=== PATIENT | female | born 1960 ===

== ENCOUNTER 2023-02-24 11:22 | Emergency (ER) | payer OTHER, SELFPAY ==
--- NOTE | 2023-02-24 11:30 | ECG_ITS ---
Test Reason : dizziness Blood Pressure : / mmHG Vent. Rate : 079 BPM Atrial Rate : 079 BPM P-R Int : 140 ms QRS Dur : 066 ms QT Int : 364 ms P-R-T Axes : 082 150 079 degrees QTc Int : 417 ms Normal sinus rhythm Right atrial enlargement Indeterminate axis Pulmonary disease pattern Abnormal ECG No previous ECGs available Referred By: Alma Delia Colin Electronically Signed By:ADALBERTO TANNER MD
--- NOTE | 2023-02-24 11:47 | ED_ITS ---
HPI - Dizziness General Chief Complaint: Dizziness Stated Complaint: Dizziness Time Seen by Provider: 02/24/23 16:59 Source: patient and family (Sister) Mode of arrival: ambulatory History of Present Illness HPI Narrative: 62-year-old female who presents with 1 week of postural related vertigo, she reports that she eats and drinks well denies any associated fever, chills, shortness of breath or chest pain/palpitations and denies any GI or symptoms. Patient states that is primarily whenever she is changing position from leaning over to sitting up. Related Data Home Medications Medication Instructions Recorded Confirmed ibuprofen 600 mg tablet 600 mg PO Q6H PRN pain 01/07/23 Allergies Allergy/AdvReac Type Severity Reaction Status Date / Time Penicillins Allergy Severe Vomiting Verified 02/24/23 11:48 Review of Systems Review of Systems: Pertinent positives and negatives as stated in [facility] Past Medical History Source: nursing notes reviewed Social History Social History Advance Directives: No Advance Directives Information Provided: No Physical Exam Vital Signs: Vital Signs: Last Vital Signs Temp 98 F 02/24/23 11:49 Pulse 70 02/24/23 18:13 Resp 16 02/24/23 18:13 BP 133/60 02/24/23 18:13 Pulse Ox 100 02/24/23 18:13 O2 Del Method Room Air 02/24/23 18:13 BMI result Body Mass Index 19.3 VITAL SIGNS: Reviewed. GENERAL: Frail, in no acute distress. HEAD: Normocephalic/atraumatic EYES: PERRLA, EOMI EARS: Ext canals without abnormality NOSE: Nares patent bilateral OROPHARYNX: no oral lesions noted, posterior pharynx clear NECK: Supple, no adenopathy LUNGS: Normal breath sounds. No adventitious sounds or accessory muscle use. SpO2<98> CARDIOVASCULAR: Regular rate and rhythm without noted murmurs ABDOMEN: Soft, non-tender, non-distended with bowel sounds. MUSCULOSKELETAL: No tenderness, deformities, or effusions noted on gross inspection. EXTREMITIES: No cyanosis, clubbing or edema. SKIN: Inspection of the skin reveals no rashes NEUROLOGIC: Alert and oriented x 4. Strength and sensation to light touch were grossly intact x 4, no facial asymmetry, no pronator drift, cranial nerves 2-12 are grossly intact, heel to kuhn and past pointing are without defect. Course Course Course Narrative: RME - 62 yo female with history of scleroderma, RA, who presents to the ER for evaluation of positional dizziness for the last 1 week. Worse when she bends over. No chest pain or SOB. No other symptoms. VSS in triage. Plan: orthostatics, lab workup, EKG Medical Decision Making Medical Decision Making MDM Narrative: 62-year-old female with vertigo but I suspect is related to postural/hypovolemia but will rule out infection, anemia, electrolyte abnormalities. Patient's orthostatics are noted to be positive. On further discussion patient states that she has had half a bottle of water (12 oz bottle) for the whole day today. I reviewed all investigations and although there is mild thrombocytopenia there are no other acute findings and given the fact that orthostatics are positive I do feel that this is secondary to a hypovolemic state. EKG is without significant findings. I reviewed the urinalysis which is negative for UTI. On review of hematology results it is noted that patient is significantly leukopenic and also platelets are low. 1820: I discussed the case with hematology/oncology who will see the patient in the outpatient setting. Differential Diagnosis Please see the discussion above Consult Healthcare Provider Management of the patient was discussed with: Heel Compressor Please see the discussion above Lab Data Please see the discussion above 02/24/23 11:54 02/24/23 11:54 Labs: Lab Results 02/24/23 02/24/23 02/24/23 Range/Units 11:54 11:54 11:54 WBC 4.3 L (4.8-10.8) X10*3/uL RBC 4.73 (4.20-5.50) X10*6/uL Hgb 12.9 (12.0-16.0) g/dl Hct 41.3 (37.0-47.0) % MCV 87.3 (80.0-98.0) fL MCH 27.3 (27.0-33.0) pg MCHC 31.2 (31.0-35.0) g/dl RDW 13.0 (11.0-16.0) % Plt Count 128 L (160-400) X10*3/uL MPV 14.2 H (9.4-12.3) fL Immature Gran % (Auto) Cancelled Neut % (Auto) Cancelled Lymph % (Auto) Cancelled [place] % (Auto) Cancelled Eos % (Auto) Cancelled Baso % (Auto) Cancelled Lymph # (Auto) Cancelled [place] # (Auto) Cancelled Eos # (Auto) Cancelled Baso # (Auto) Cancelled Abs Immat Gran (auto) Cancelled Absolute Neuts (auto) Cancelled Absolute Nucleated RBC 0.000 (0.0-0.012) X10*3/uL Nucleated RBC % (auto) 0.0 (0.0-0.2) /100WBC Neutrophils % (Manual) 42 L (45-73) % Band Neutrophils % 0 L (3-5) % Lymphocytes % (Manual) 42 H (20-40) % Monocytes % (Manual) 12 H (2-11) % Basophils % (Manual) 4 H (0-2) % Abs Neuts (Manual) 1.8 L (2.0-8.3) X10*3/uL Lymphocytes # (Manual) 1.8 (1.2-4.9) X10*3/uL Monocytes # (Manual) 0.5 (0.1-1.2) X10*3/uL Basophils # (Manual) 0.2 (0.0-0.2) X10*3/uL Platelet Estimate SLIGHTLY DECREASED (NORMAL) Plt Morphology Comment NORMAL RBC Morphology NORMAL Sodium 143 (135-145) mmol/L Potassium 4.8 (3.3-5.1) mmol/L Chloride 104 (96-108) mmol/L Carbon Dioxide 29 (22-29) mmol/L Anion Gap 15 (12-20) BUN 15 (9-16) mg/dL Creatinine 1.10 (0.5-1.4) mg/dL Estim Creat Clear Calc 43.4 Estimated GFR 50 Random Glucose 116 H (60-115) mg/dL Calcium 10.4 H (8.4-10.2) mg/dL Magnesium 2.0 (1.6-2.6) mg/dL Total Bilirubin 0.4 (0.0-1.0) mg/dL Direct Bilirubin 0.1 (0.0-0.5) mg/dL AST 19 (5-31) U/L ALT 11 (0-31) U/L Alkaline Phosphatase 57 (39-117) U/L Troponin I High Sens (<3.5-17.0) ng/L Total Protein 7.3 (6.5-8.0) g/dL Albumin 4.4 (3.5-5.0) g/dL TSH 2.86 (0.32-4.0) uIU/mL Urine Color Urine Appearance Urine pH (5.0-9.0) Ur Specific [place] (1.005-1.025) Urine Protein (Neg-Trace) mg/dL Urine Glucose (UA) (Negative) mg/dL Urine Ketones (Negative) mg/dL Urine Blood (Negative) Urine Nitrite (Negative) Ur Leukocyte Esterase (Negative) 02/24/23 02/24/23 Range/Units 17:13 17:53 WBC (4.8-10.8) X10*3/uL RBC (4.20-5.50) X10*6/uL Hgb (12.0-16.0) g/dl Hct (37.0-47.0) % MCV (80.0-98.0) fL MCH (27.0-33.0) pg MCHC (31.0-35.0) g/dl RDW (11.0-16.0) % Plt Count (160-400) X10*3/uL MPV (9.4-12.3) fL Immature Gran % (Auto) Neut % (Auto) Lymph % (Auto) [place] % (Auto) Eos % (Auto) Baso % (Auto) Lymph # (Auto) [place] # (Auto) Eos # (Auto) Baso # (Auto) Abs Immat Gran (auto) Absolute Neuts (auto) Absolute Nucleated RBC (0.0-0.012) X10*3/uL Nucleated RBC % (auto) (0.0-0.2) /100WBC Neutrophils % (Manual) (45-73) % Band Neutrophils % (3-5) % Lymphocytes % (Manual) (20-40) % Monocytes % (Manual) (2-11) % Basophils % (Manual) (0-2) % Abs Neuts (Manual) (2.0-8.3) X10*3/uL Lymphocytes # (Manual) (1.2-4.9) X10*3/uL Monocytes # (Manual) (0.1-1.2) X10*3/uL Basophils # (Manual) (0.0-0.2) X10*3/uL Platelet Estimate (NORMAL) Plt Morphology Comment RBC Morphology Sodium (135-145) mmol/L Potassium (3.3-5.1) mmol/L Chloride (96-108) mmol/L Carbon Dioxide (22-29) mmol/L Anion Gap (12-20) BUN (9-16) mg/dL Creatinine (0.5-1.4) mg/dL Estim Creat Clear Calc Estimated GFR Random Glucose (60-115) mg/dL Calcium (8.4-10.2) mg/dL Magnesium (1.6-2.6) mg/dL Total Bilirubin (0.0-1.0) mg/dL Direct Bilirubin (0.0-0.5) mg/dL AST (5-31) U/L ALT (0-31) U/L Alkaline Phosphatase (39-117) U/L Troponin I High Sens < 2.7 (<3.5-17.0) ng/L Total Protein (6.5-8.0) g/dL Albumin (3.5-5.0) g/dL TSH (0.32-4.0) uIU/mL Urine Color Yellow Urine Appearance Clear Urine pH 6.0 (5.0-9.0) Ur Specific [place] 1.010 (1.005-1.025) Urine Protein Negative (Neg-Trace) mg/dL Urine Glucose (UA) Negative (Negative) mg/dL Urine Ketones Trace (Negative) mg/dL Urine Blood Negative (Negative) Urine Nitrite Negative (Negative) Ur Leukocyte Esterase Negative (Negative) Independent Interpretation I performed an independent interpretation of an: EKG Interpretation: Normal sinus rhythm, HR-79, no STEMI, AK/QRS/QTC is within normal limits. Discharge Plan Discharge Clinical Impression: Hypovolemia, Dizziness, Leukopenia, Thrombocytopenia Patient Disposition: Home, Self-Care Instructions: Dehydration (ED), Lightheadedness (ED), Thrombocytopenia (ED) Additional Instructions: 1. It is important for you to increase the amount of water that you are drinking, especially as the temperatures go up. 2. I have noted that some of your blood counts are low, to include your platelets, I have provided you with a referral to follow-up with Hematology Oncology, the referrals located below and you should call the office in the morning. 3. Please call the office of your primary care provider in the morning as well. Return to the ER for any worsening symptoms. Prescriptions: No Action ibuprofen 600 mg tablet 600 mg PO Q6H PRN (Reason: pain) Referrals: Keaton Staley MD [Physician] - (62-year-old female with leukopenia, thrombocytopenia) Tracee Valentin MD [Primary Care Provider] -
[2023-02-24 11:49] VITALS: BP 127/66; PULSE 100; RESP 19; TEMP 36.6; O2SAT 98; BMI 19.3
[2023-02-24 12:12] LABS: Hematocrit 41.3 % (37.0-47.0); Hemoglobin 12.9 g/dl (12.0-16.0); Mean Corpuscular HGB Conc 31.2 g/dl (31.0-35.0); Mean Corpuscular Hemoglobin 27.3 pg (27.0-33.0); Mean Corpuscular Volume 87.3 fL (80.0-98.0); Mean Platelet Volume 14.2 fL (9.4-12.3); Red Blood Count 4.73 X10*6/uL (4.20-5.50)
[2023-02-24 12:14] LABS: Platelet Count 128 X10*3/uL (160-400)
[2023-02-24 12:22] LABS: PLT ABN DIST 1; WBC ABN SCTR FOR CBC 1
[2023-02-24 12:23] LABS: Alanine Aminotransferase 11 U/L (0-31); Albumin Level 4.4 g/dL (3.5-5.0); Alkaline Phosphatase 57 U/L (39-117); Anion Gap 15 (12-20); Aspartate Amino Transferase 19 U/L (5-31); Bilirubin Direct 0.1 mg/dL (0.0-0.5); Bilirubin Total 0.4 mg/dL (0.0-1.0); Blood Urea Nitrogen 15 mg/dL (9-16); Calcium 10.4 mg/dL (8.4-10.2); Carbon Dioxide 29 mmol/L (22-29); Chloride 104 mmol/L (96-108); Creatinine Clr Calc Pharmacy 43.4; Estimated Glomerular Filt Rate 50; Glucose Random 116 mg/dL (60-115); Potassium 4.8 mmol/L (3.3-5.1); Sodium 143 mmol/L (135-145); Total Protein 7.3 g/dL (6.5-8.0)
[2023-02-24 12:33] LABS: White Blood Count 4.3 X10*3/uL (4.8-10.8)
[2023-02-24 12:36] LABS: Band Neutrophils Percent 0 % (3-5); Basophils Abs Manual 0.2 X10*3/uL (0.0-0.2); Basophils Percent Manual 4 % (0-2); Lymphocytes Absolute Manual 1.8 X10*3/uL (1.2-4.9); Lymphocytes Percent Manual 42 % (20-40); Monocytes Absolute Manual 0.5 X10*3/uL (0.1-1.2); Monocytes Percent Manual 12 % (2-11); Neutrophils Absolute Manual 1.8 X10*3/uL (2.0-8.3); Neutrophils Percent Manual 42 % (45-73)
[2023-02-24 12:37] LABS: Platelet Estimate SLIGHTLY DECREASED (NORMAL); Platelet Morphology Comment NORMAL; RBC Morphology NORMAL
[2023-02-24 12:43] LABS: TSH reflex Free T4 2.86 uIU/mL (0.32-4.0)
[2023-02-24 16:14] VITALS: BP 132/71; PULSE 88; RESP 19; O2SAT 98
[2023-02-24 17:14] VITALS: BP 131/51; PULSE 79
[2023-02-24 17:15] VITALS: BP 118/60; BP 122/65; PULSE 78; PULSE 87
[2023-02-24 17:16] VITALS: BP 122/65; PULSE 79; RESP 16; O2SAT 98
[2023-02-24 17:39] LABS: Troponin-I High Sensitivity < 2.7 ng/L (<3.5-17.0)
[2023-02-24 18:00] LABS: Appearance Urine Clear; Color Urine Yellow; Glucose Urine UA Negative (Negative); Leukocyte Esterase Urine Negative (Negative); Nitrite Urine Negative (Negative); Urine Blood Negative (Negative); Urine Ketones Trace mg/dL (Negative); Urine Protein Negative (Neg-Trace)
[2023-02-24 18:13] VITALS: BP 133/60; PULSE 70; RESP 16; O2SAT 100
== END 2023-02-24 19:04 | disposition home or self-care (01) ==
PROVIDERS: Physician Assistant; Emergency Provider Student in an Organized Health Care Education/Training Program; PCP Internal Medicine
DX: E86.1 Hypovolemia (principal); R42 Dizziness and giddiness; D72.819 Decreased white blood cell count, unspecified; D69.6 Thrombocytopenia, unspecified; M34.9 Systemic sclerosis, unspecified
CPT/HCPCS: 36415; 80048; 80076; 81003; 83735; 84443; 84484; 85007; 85027; 93005; 99283; 99284

== ENCOUNTER → 2023-03-03 14:08 | Outpatient (BNV) | payer OTHER, SELFPAY | PROVIDERS: PCP Internal Medicine; Visit Provider Internal Medicine Medical Oncology | DX: D69.6 Thrombocytopenia, unspecified (principal) | CPT/HCPCS: 99204; 99213 ==

== ENCOUNTER 2023-03-05 14:22 | Emergency (ER) | payer OTHER, SELFPAY ==
--- NOTE | ~2023-03-05 | XR_ITS ---
EXAMINATION: XR SHOULDER, LEFT CLINICAL INFORMATION: Pain COMPARISON: None available. TECHNIQUE: 5 views of the left shoulder. FINDINGS: No acute visible fracture or dislocation. Mild arthritic changes of the glenohumeral and acromioclavicular joint. Joint spaces and alignment are otherwise maintained. Soft tissues are unremarkable. Visualized portions of the left chest are unremarkable. XR/XR shoulder LT min 2V IMPRESSION: 1. No acute visible fracture or dislocation. 2. Mild arthritic changes of the glenohumeral and acromioclavicular joint.
--- NOTE | ~2023-03-05 | XR_ITS ---
EXAMINATION: XR CHEST CLINICAL INFORMATION: Chest pain COMPARISON: None available. TECHNIQUE: 2 views of the chest were obtained. FINDINGS: No acute finding. The lung guadarrama are felt to be grossly clear. The cardiac silhouette is within normal limits. The hilar structures do not appear pathologically enlarged. There is no effusion. XR/XR chest 2V IMPRESSION: No acute finding.
[2023-03-05 14:31] VITALS: BP 130/78; PULSE 89; RESP 18; TEMP 36.6; O2SAT 99; BMI 19.2
--- NOTE | 2023-03-05 14:33 | ECG_ITS ---
Test Reason : pain Blood Pressure : / mmHG Vent. Rate : 072 BPM Atrial Rate : 072 BPM P-R Int : 144 ms QRS Dur : 068 ms QT Int : 388 ms P-R-T Axes : 083 204 077 degrees QTc Int : 424 ms Normal sinus rhythm Right atrial enlargement Pulmonary disease pattern Abnormal ECG When compared with ECG of 24-FEB-2023 11:54, No significant change was found Referred By: Rj Duong Electronically Signed By:Estevan Keen
--- NOTE | 2023-03-05 14:34 | ED_ITS ---
HPI - General Adult General Chief complaint: General Medical Stated complaint: L shoulder pain, back ache Time Seen by Provider: 03/05/23 15:49 Source: patient and RN notes reviewed Mode of arrival: ambulatory Limitations: no limitations History of Present Illness HPI narrative: This is a 62-year-old female, with a past medical history of thrombocytopenia, scleroderma, and RA, who presents to the emergency department for evaluation of left shoulder pain which started 3 days ago. Patient reports that her left s houlder pain has been episodic, waxing and waning in pain. The pain would last for several minutes and resolve on its own. The pain in her left shoulder worsens with movement and with palpation. She denies any fevers, chills, chest pain, shortness of breath, palpitations, nausea, vomiting, or diarrhea. She denies any trauma or injury to her left shoulder. Denies history of similar symptoms in the past. No other complaints or concerns at this time. MD complaint: Left shoulder pain Onset (ago): day(s) Location: upper extremity Radiation: non-radiation Severity: moderate Quality: aching Pain Consistency: constant Relieving factors: none Exacerbating factors: none Associated symptoms: denies other symptoms Treatments prior to arrival: none Related Data Home Medications Medication Instructions Recorded Confirmed ibuprofen 600 mg tablet 600 mg PO Q6H PRN pain 01/07/23 03/03/23 Previous Rx's Medication Instructions Recorded acetaminophen 325 mg tablet 650 mg PO Q6H PRN pain #30 tabs 03/05/23 (Tylenol) ibuprofen 600 mg tablet 600 mg PO Q8H PRN pain #30 tabs 03/05/23 Allergies Allergy/AdvReac Type Severity Reaction Status Date / Time Penicillins Allergy Severe Vomiting Verified 03/05/23 14:31 Review of Systems Review of Systems: Constitutional: No Weight loss, No Fever, No Chills ENT/Mouth: No Ear Pain, No Nasal Congestion, No Sinus Pain, No Hoarseness, No sore throat, No Rhinorrhea, No Swallowing Difficulty Cardiovascular: No Chest Pain, No SOB Respiratory: No Cough, No Sputum, No Wheezing Gastrointestinal: No Nausea, No Vomiting, No Diarrhea, No Constipation, No Abdominal pain Genitourinary: No Dysuria, No Urinary Frequency, No Hematuria, No Urinary Incontinence/retention, No Urgency, No Flank Pain Musculoskeletal:+ joint pain, No Myalgias, No Joint Swelling Skin: No Skin Lesions, No rash Neuro: No Weakness, No Numbness, No Paresthesias Yes all other systems are reviewed and are negative Constitutional: Constitutional: Reports as per HPI [facility] Family History Family History (Updated 03/03/23 @ 14:21 by Suzi Negro) Mother Breast cancer Maternal Aunt Breast cancer Family/Other Breast cancer Paternal Grandmother Throat cancer Sister Anemia Social History Social History (Updated 03/03/23 @ 14:22 by Suzi Negro) Household Members: Significant Other Patient Tobacco Use Status: Never used Tobacco Second Hand Smoke Exposure: No Advance Directives: No Advance Directives Information Provided: No service: No Current occupational status: retired Physical Exam ED Vital Signs: Vital Signs - 24 hr 03/05/23 14:31 Temperature 97.8 F Pulse Rate 89 Respiratory Rate 18 Blood Pressure 130/78 Pulse Oximetry 99 Oxygen Delivery Method Room Air BMI result Body Mass Index 19.2 Const General: cooperative, comfortable and no acute distress Orientation/consciousness: patient oriented x3 Limitations: no limitations HENIN Head: Yes normal to inspection, Yes normocephalic and Yes atraumatic Ears: hearing grossly normal bilaterally General nose exam: Normal external nose present Face and sinus: Yes normal facial exam Mouth: Normal oral and palatal mucosa present, oropharynx normal and moist mucous membranes Throat: Yes posterior oropharynx normal Eyes General: appearance normal, both eyes and all related structures Eyelids: Yes eyelids normal Conjunctivae: conjunctivae normal Sclerae: sclerae normal Pupils: Equal, round and reactive pupils present EOM: EOMs intact bilaterally Neck Neck: Yes normal visual inspection, Yes full ROM and Yes no lymphadenopathy Lymphatic: no lymphadenopathy noted Chest Chest palpation & inspection: normal inspection of the chest and normal palpation of entire chest wall Resp Effort & Inspection: normal respiratory effort and able to speak in complete sentences Auscultation: clear to auscultation bilaterally, no crackles, no rales, no rh onchi and no wheezes Cardio Rate: regular rate Rhythm: regular rhythm Heart sounds: S1 normal heart sound present and S2 normal heart sound present GI Inspection: Yes normal to inspection Skin General skin exam: no rashes or lesions noted Trauma: no lacerations or abrasions Wounds: no wounds Neuro General: patient oriented x3 and moves all extremities Cranial nerves: Yes Equal, round and reactive pupils present Extrem Other: Left shoulder normal inspection, with tenderness to palpation along the left AC joint, full range of motion of the shoulder with some pain elicited General: Yes normal to inspection Right upper extremity: normal to inspection Left upper extremity: normal to inspection Right lower extremity: normal to inspection Left lower extremity: normal to inspection Course Course Course Narrative: 62-year-old female presents for evaluation of left shoulder pain that goes up into her neck and low back or head. Denies any chest pain or shortness of breath. On exam her trapezius muscle group is tender to palpation. Seems musculoskeletal in origin. Will get an EKG given the age and an x-ray of the left shoulder. Reevaluation(s) Reevaluation #1: Left shoulder with mild arthritic changes in the glenohumeral and AC joint. Chest x-ray unremarkable. EKG normal sinus rhythm, similar appearing EKG from silva menjivar. Negative troponin x1. Given patient's symptoms have been intermittent and last episode was this morning will not repeat 2nd troponin. 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 Discussed with patient her symptoms are likely due to arthritic changes, will treat with ibuprofen and Tylenol, patient given referral to Orthopedics for follow-up. Vital signs stable. Patient is stable for discharge. Time: 19:03 Medications Administered Discontinued Medications Generic Name Dose Route Start Last Admin Trade Name Freq PRN Reason Stop Dose Admin Ibuprofen 600 mg 03/05/23 18:54 03/05/23 19:13 Ibuprofen 600 Mg Tablet PO 03/05/23 18:55 600 mg ONCE ONE Administration Medical Decision Making Medical Decision Making [facility] Narrative: This is a 62-year-old female, with a past medical history of scleroderma, RA, presenting to the emergency department for evaluation of left shoulder pain, atraumatic, for the last 3 days. Patient reports that the symptoms have been episodic and lasts for several to minutes. Denies any chest pain, shortness of breath. Vital signs are stable. EKG with no ST elevation or depression. On examination, patient has tenderness to palpation along the left AC joint and diffusely throughout the left shoulder. Range of motion is full in intact negative empty can test negative lift-off test. I do not suspect cardiac etiology but given episodic left shoulder pain will perform cardiac workup. Plan: Left shoulder x-ray, chest x-ray, labs, EKG ordered Differential Diagnosis Differential Diagnoses: The differential diagnosis associated with the presentation includes Left shoulder arthritis, sprain, strain, tendon injury, ACS Admission/Observation Consideration of admission/observation: Escalation of care including admission/observation considered Lab Data MDM Lab Attestation statement: I reviewed the patient's lab results. 03/05/23 17:12 03/05/23 18:10 Labs: Lab Results 03/05/23 03/05/23 03/05/23 Range/Units 17:00 17:00 17:12 WBC 5.8 (4.8-10.8) X10*3/uL RBC 4.65 (4.20-5.50) X10*6/uL Hgb 12.5 (12.0-16.0) g/dl Hct 39.8 (37.0-47.0) % MCV 85.6 (80.0-98.0) fL MCH 26.9 L (27.0-33.0) pg MCHC 31.4 (31.0-35.0) g/dl RDW 13.1 (11.0-16.0) % Plt Count 143 L (160-400) X10*3/uL MPV 14.5 H (9.4-12.3) fL Immature Gran % (Auto) Cancelled Neut % (Auto) Cancelled Lymph % (Auto) Cancelled [place] % (Auto) Cancelled Eos % (Auto) Cancelled Baso % (Auto) Cancelled Lymph # (Auto) Cancelled [place] # (Auto) Cancelled Eos # (Auto) Cancelled Baso # (Auto) Cancelled Abs Immat Gran (auto) Cancelled Absolute Neuts (auto) Cancelled Absolute Nucleated RBC 0.000 (0.0-0.012) X10*3/uL Nucleated RBC % (auto) 0.0 (0.0-0.2) /100WBC Neutrophils % (Manual) 54 (45-73) % Band Neutrophils % 1 L (3-5) % Lymphocytes % (Manual) 33 (20-40) % Monocytes % (Manual) 9 (2-11) % Basophils % (Manual) 3 H (0-2) % Abs Neuts (Manual) 3.2 (2.0-8.3) X10*3/uL Lymphocytes # (Manual) 1.9 (1.2-4.9) X10*3/uL Monocytes # (Manual) 0.5 (0.1-1.2) X10*3/uL Basophils # (Manual) 0.2 (0.0-0.2) X10*3/uL Toxic Vacuolation PRESENT Platelet Estimate SLIGHTLY DECREASED (NORMAL) Large Platelets PRESENT Plt Morphology Comment NOTED RBC Morphology NOTED Microcytosis 1+ (5-14) /OIF [place] Cells 3+ (>5) /OIF PT 12.0 (10.0-13.1) SEC INR 1.0 (0.9-1.1) Sodium (135-145) mmol/L Potassium (3.3-5.1) mmol/L Chloride (96-108) mmol/L Carbon Dioxide (22-29) mmol/L Anion Gap (12-20) BUN (9-16) mg/dL Creatinine (0.5-1.4) mg/dL Estim Creat Clear Calc Estimated GFR Random Glucose (60-115) mg/dL Calcium (8.4-10.2) mg/dL Magnesium (1.6-2.6) mg/dL Total Bilirubin (0.0-1.0) mg/dL Direct Bilirubin (0.0-0.5) mg/dL AST (5-31) U/L ALT (0-31) U/L Alkaline Phosphatase (39-117) U/L Troponin I High Sens < 2.7 (<3.5-17.0) ng/L Total Protein (6.5-8.0) g/dL Albumin (3.5-5.0) g/dL 03/05/23 Range/Units 18:10 WBC (4.8-10.8) X10*3/uL RBC (4.20-5.50) X10*6/uL Hgb (12.0-16.0) g/dl Hct (37.0-47.0) % MCV (80.0-98.0) fL MCH (27.0-33.0) pg MCHC (31.0-35.0) g/dl RDW (11.0-16.0) % Plt Count (160-400) X10*3/uL MPV (9.4-12.3) fL Immature Gran % (Auto) Neut % (Auto) Lymph % (Auto) [place] % (Auto) Eos % (Auto) Baso % (Auto) Lymph # (Auto) [place] # (Auto) Eos # (Auto) Baso # (Auto) Abs Immat Gran (auto) Absolute Neuts (auto) Absolute Nucleated RBC (0.0-0.012) X10*3/uL Nucleated RBC % (auto) (0.0-0.2) /100WBC Neutrophils % (Manual) (45-73) % Band Neutrophils % (3-5) % Lymphocytes % (Manual) (20-40) % Monocytes % (Manual) (2-11) % Basophils % (Manual) (0-2) % Abs Neuts (Manual) (2.0-8.3) X10*3/uL Lymphocytes # (Manual) (1.2-4.9) X10*3/uL Monocytes # (Manual) (0.1-1.2) X10*3/uL Basophils # (Manual) (0.0-0.2) X10*3/uL Toxic Vacuolation Platelet Estimate (NORMAL) Large Platelets Plt Morphology Comment RBC Morphology Microcytosis /OIF [place] Cells /OIF PT (10.0-13.1) SEC INR (0.9-1.1) Sodium 142 (135-145) mmol/L Potassium 4.3 (3.3-5.1) mmol/L Chloride 106 (96-108) mmol/L Carbon Dioxide 28 (22-29) mmol/L Anion Gap 12 (12-20) BUN 11 (9-16) mg/dL Creatinine 1.01 (0.5-1.4) mg/dL Estim Creat Clear Calc 47.0 Estimated GFR 55 Random Glucose 95 (60-115) mg/dL Calcium 10.3 H D (8.4-10.2) mg/dL Magnesium 2.2 (1.6-2.6) mg/dL Total Bilirubin 0.4 (0.0-1.0) mg/dL Direct Bilirubin 0.1 (0.0-0.5) mg/dL AST 16 (5-31) U/L ALT 10 (0-31) U/L Alkaline Phosphatase 56 (39-117) U/L Troponin I High Sens (<3.5-17.0) ng/L Total Protein 7.1 (6.5-8.0) g/dL Albumin 4.3 (3.5-5.0) g/dL Independent Interpretation I performed an independent interpretation of an: EKG Interpretation: EKG normal sinus rhythm at a ventricular rate 2 beats per minute, CO interval 144, QTC [address] elevation or depression. Similar appearing EKG from previous Radiology Impression Discussion of test interpretation with radiology: I have reviewed the radiologist's reading. Radiologist Impression: EXAMINATION: XR CHEST CLINICAL INFORMATION: Chest pain COMPARISON: None available. TECHNIQUE: 2 views of the chest were obtained. FINDINGS: No acute finding. The lung guadarrama are felt to be grossly clear. The cardiac silhouette is within normal limits. The hilar structures do not appear pathologically enlarged. There is no effusion. XR/XR chest 2V IMPRESSION: No acute finding. Dictated By: London Huffman MD EXAMINATION: XR SHOULDER, LEFT CLINICAL INFORMATION: Pain? COMPARISON: None available.? TECHNIQUE: 5 views of the left shoulder. FINDINGS: No acute visible fracture or dislocation. Mild arthritic changes of the glenohumeral and acromioclavicular joint. Joint spaces and alignment are otherwise maintained. Soft tissues are unremarkable. Visualized portions of the left chest are unremarkable.? XR/XR shoulder LT min 2V IMPRESSION: 1.? No acute visible fracture or dislocation. 2.? Mild arthritic changes of the glenohumeral and acromioclavicular joint. ? Dictated By: Roro Otero MD Signed By: <Electronically signed by Roro Otero MD in OV> 03/05/23 1605 DD/ 1500 TD/TT:? Timber Girdler: External Record Review External record reviewed: Inpatient record, Office record, Outpatient record, Prior outpatient labs, Prior outpatient radiology, Primary care record and Outside ED record Discharge Plan Discharge Clinical Impression: Acute pain of left shoulder Patient Disposition: Home, Self-Care Instructions: Shoulder Pain (ED) Additional Instructions: Your x-rays today showed some degenerative changes which are likely contributing to your pain. Please take ibuprofen and Tylenol as needed for your pain. Gentle stretching and massage can help with your pain. Follow-up with your primary care physician regarding your visit. If any new or worsening symptoms occur please return for re-evaluation. I am giving you a referral to Orthopedics should your symptoms persist and you want to follow-up. Prescriptions: New ibuprofen 600 mg tablet 600 mg PO Q8H PRN (Reason: pain) Qty: 30 0RF acetaminophen [Tylenol] 325 mg tablet 650 mg PO Q6H PRN (Reason: pain) Qty: 30 0RF No Action ibuprofen 600 mg tablet 600 mg PO Q6H PRN (Reason: pain) Referrals: [facility] [place] Orthopedic Surgeons [Provider Group]
[2023-03-05 17:30] LABS: Hematocrit 39.8 % (37.0-47.0); Hemoglobin 12.5 g/dl (12.0-16.0); Mean Corpuscular HGB Conc 31.4 g/dl (31.0-35.0); Mean Corpuscular Hemoglobin 26.9 pg (27.0-33.0); Mean Corpuscular Volume 85.6 fL (80.0-98.0); Mean Platelet Volume 14.5 fL (9.4-12.3); Platelet Count 143 X10*3/uL (160-400); Red Blood Count 4.65 X10*6/uL (4.20-5.50); Red Cell Distribution Width 13.1 % (11.0-16.0)
[2023-03-05 17:48] LABS: Troponin-I High Sensitivity < 2.7 ng/L (<3.5-17.0)
[2023-03-05 18:02] LABS: WBC ABN SCTR FOR CBC 1; White Blood Count 5.8 X10*3/uL (4.8-10.8)
[2023-03-05 18:41] LABS: Band Neutrophils Percent 1 % (3-5); Basophils Abs Manual 0.2 X10*3/uL (0.0-0.2); Basophils Percent Manual 3 % (0-2); Lymphocytes Absolute Manual 1.9 X10*3/uL (1.2-4.9); Lymphocytes Percent Manual 33 % (20-40); Microcytosis 1+ (5-14) /OIF; Monocytes Absolute Manual 0.5 X10*3/uL (0.1-1.2); Monocytes Percent Manual 9 % (2-11); Neutrophils Absolute Manual 3.2 X10*3/uL (2.0-8.3); Neutrophils Percent Manual 54 % (45-73); RBC Morphology NOTED
[2023-03-05 18:42] LABS: Large Platelet PRESENT; Platelet Estimate SLIGHTLY DECREASED (NORMAL); Platelet Morphology Comment NOTED
[2023-03-05 18:43] LABS: Burr Cells 3+ (>5) /OIF
[2023-03-05 18:44] LABS: Toxic Vacuolation PRESENT
[2023-03-05 18:45] LABS: Alanine Aminotransferase 10 U/L (0-31); Albumin Level 4.3 g/dL (3.5-5.0); Alkaline Phosphatase 56 U/L (39-117); Anion Gap 12 (12-20); Aspartate Amino Transferase 16 U/L (5-31); Bilirubin Direct 0.1 mg/dL (0.0-0.5); Bilirubin Total 0.4 mg/dL (0.0-1.0); Blood Urea Nitrogen 11 mg/dL (9-16); Calcium 10.3 mg/dL (8.4-10.2); Carbon Dioxide 28 mmol/L (22-29); Chloride 106 mmol/L (96-108); Estimated Glomerular Filt Rate 55; Glucose Random 95 mg/dL (60-115); Magnesium 2.2 mg/dL (1.6-2.6); Potassium 4.3 mmol/L (3.3-5.1); Sodium 142 mmol/L (135-145); Total Protein 7.1 g/dL (6.5-8.0)
[2023-03-05] MEDS: Ibuprofen 600 MG TABLET PO (19:13)
== END 2023-03-05 19:46 | disposition home or self-care (01) ==
PROVIDERS: Physician Assistant Medical; Emergency Provider Emergency Medicine
DX: M25.512 Pain in left shoulder (principal); D69.6 Thrombocytopenia, unspecified
CPT/HCPCS: 36415; 71046; 73030; 80048; 80076; 83735; 84484; 85007; 85027; 85610; 93005; 99283

== ENCOUNTER 2023-06-24 15:08 | Outpatient (AMB) | payer OTHER, SELFPAY ==
[2023-06-24 15:10] VITALS: BP 114/60; PULSE 85; TEMP 36.4; O2SAT 100; BMI 18.9
--- NOTE | 2023-06-24 15:10 | A.OFFVIS_ITS ---
Intake Vital Signs 06/24/23 15:10 Height 5 ft 5 in Weight 113 lb 5.082 oz BMI 18.9 BP 114/60 Blood Pressure Location Rt brachial Position Sitting Pulse 85 Pulse Source Pulse Oximeter Temp 97.6 F Temp Source Skin Pulse Oximetry (%) 100 Intake Visit Reasons: + VINCE Intake Note: New pt presents today for consult. Previously seen by Dr Gaona. Well Drill Operator Rotary Drill Required: No Accompanied by: Self / Same As Patient Allergies Penicillins Allergy (Severe, Verified 06/24/23 15:12) Vomiting Medication List - Last Reconciled 06/24/23 by Max Teran MD acetaminophen (Tylenol) 650 mg (2 x 325 mg) PO Q6H PRN cyclobenzaprine 5 mg PO TID PRN ibuprofen 600 mg PO Q8H PRN loratadine 10 mg PO DAILY HPI HPI Comments History of Present Illness Details This is a 62-year-old female with a past medical history of a positive anticentromere antibody, Raynaud's, thrombocytopenia who presents for evaluation. She was previously evaluated by Dr. Gaona a few years ago. Patient had her 1st Raynaud's episode a few years ago around 2018 when she was initially evaluated by Rheumatology. She was recently evaluated by heme/Onc for mild thrombocytopenia, likely the un derlying cause per hematology is mild ITP that does not require treatment. Patient states that she has diffuse joint pain especially her neck, shoulders, knees, lower back. Patient states that she use Kinesio taping her knee pain and hip pain which helps. She takes ibuprofen 600 mg every other day, Flexeril as needed at night. States that her Raynaud's is well controlled by staying warm and using gloves. She has 3 flights of stairs to get to her apartment. States that she gets mildly short of breath because of stairs. Denies GERD PFSH Family History Mother Breast cancer Maternal Aunt Breast cancer Family/Other Breast cancer Paternal Grandmother Throat cancer Sister Anemia Social History Household Members: Significant Other Patient Tobacco Use Status: Never used Tobacco Second Hand Smoke Exposure: No service: No Current occupational status: retired Female Reproductive History Menstrual Total pregnancies: 2 Full term: 2 Ab induced: 0 Review of Systems Const Reports fatigue and Reports headache(s) Eyes Reports loss of vision ENT Reports dizziness, Reports headache(s) and Reports neck pain Card Reports dyspnea on exertion Resp Reports dyspnea on exertion Musc Reports back pain, Reports arthralgias, Reports limited range of motion, Reports neck pain and Reports stiffness Neuro Reports dizziness, Reports headache(s) and Reports loss of vision Endo Reports fatigue Physical Exam Vital Signs: Last Vital Signs Temp 97.6 F 06/24/23 15:10 Pulse 85 06/24/23 15:10 BP 114/60 06/24/23 15:10 Pulse Ox 100 06/24/23 15:10 BMI result Body Mass Index 18.9 Const General: cooperative, healthy appearing and comfortable Nutritional Appearance: thin Orientation/consciousness: patient oriented x3 Limitations: no limitations HEENT Head: Yes normocephalic and Yes atraumatic Mouth: moist mucous membranes Resp Effort & Inspection: normal respiratory effort and able to speak in complete sentences Auscultation: clear to auscultation bilaterally Cardio Rate: regular rate Rhythm: regular rhythm Skin Other: Significantly reduced eyebrow hair bilaterally General skin exam: no rashes or lesions noted Neuro General: patient oriented x3 Extrem Other: No active synovitis Normal nailfold capillaroscopy Normal range of motion of both hands, elbows, shoulders without pain. Results Reviewed Results Reviewed: Reviewed labs from 2018 which showed Positive VINCE Positive centromer antibody SSA/SSB/Hale/[employer]ONEWORKING [employer]T SANDER/dsDNA/Nidhi 1/C3/C4 all negative/normal Assessment & Plan Assessment & Plan (1) Centromere antibody positive: Comment: Raynaud's, pos anti-centromere Ab, arthralgias. No skin changes 11/15 hydroxychloroquine tried - caused decreased appetite 01/13 prednisone started for hand symptoms - tapered off 06/15 Methotrexate started 06/15 - stopped 02/13 -not effective/or needed Code(s): R76.8 - Other specified abnormal immunological findings in serum Plan: This is a 62-year-old female with positive anticentromere antibody who presents as a new patient. Patient does not fulfill criteria for scleroderma today upon my evaluation. No need for DMARDs. Patient is having some intermittent shortness of breath with activity. Will order 2D echo and PFT to screen for ILD/PH Check labs to evaluate disease activity and rule out overlap with other connective tissue diseases Follow-up in 2 months (2) Degenerative disc disease, cervical: Code(s): M50.30 - Other cervical disc degeneration, unspecified cervical region Plan: Referred pain management (3) Thrombocytopenia: Code(s): D69.6 - Thrombocytopenia, unspecified Plan: Per Dr. Staley, likely ITP. It is quite mild and did not require any treatment Will check antiphospholipid antibodies (4) Osteopenia: Comment: DEXA 07/2022 T-score is -1.5 (SD relative to 20-29 y/o adult) Left Hip T-score is -2.0 Impression: Based on the World Health Organization criteria, Marcelle Zhao should be classified as having osteopenia. This patient has a 14% risk of major osteoporotic fracture and a 2.3% risk of hip fracture Code(s): M85.80 - Other specified disorders of bone density and structure, unspecified site Plan: DEXA in 07/2022 showed osteopenia with a low FRAX score. To be repeated in 2-3 years Plan I spent 61 minutes reviewing patient's chart, evaluating patient, ordering diagnostic workup, counseling patient and documenting in the chart Orders: Orders CA echo transthoracic complete Today M34.9 - Systemic sclerosis, unspecified, R06.00 - Dyspnea, unspecified C Reactive Protein Today M34.9 - Systemic sclerosis, unspecified Erythrocyte Sedimentation Rate Today M34.9 - Systemic sclerosis, unspecified Hepatitis A,B,C Profile Today Z11.59 - Encounter for screening for other viral diseases Immunofixation Pnl, Serum Today M34.9 - Systemic sclerosis, unspecified Anti DNA DS Antibody Today M34.9 - Systemic sclerosis, unspecified PFT pulmonary function test Today R06.00 - Dyspnea, unspecified Complete Blood Count Auto Diff Today M34.9 - Systemic sclerosis, unspecified Comprehensive Met. Panel Today M34.9 - Systemic sclerosis, unspecified Protein Electrophoresis, Serum Today M34.9 - Systemic sclerosis, unspecified Complement C3 Today M34.9 - Systemic sclerosis, unspecified Complement C4 Today M34.9 - Systemic sclerosis, unspecified Protein Creatinine Ratio, Ur Today M34.9 - Systemic sclerosis, unspecified UA w Microscopic Today M34.9 - Systemic sclerosis, unspecified Beta-2 Glycoprotein Antibody Today D68.61 - Antiphospholipid syndrome Cardiolipin Antibodies Today D68.61 - Antiphospholipid syndrome Lupus Anticoagulant Panel Today D68.61 - Antiphospholipid syndrome Referrals Pain Management Referral M50.30 - Other cervical disc degeneration, unspecified cervical region Coding Level of Care Code New Pt Level 5 (80787) Diagnoses Centromere antibody positive R76.8 Degenerative disc disease, cervical M50.30 Thrombocytopenia D69.6 Osteopenia M85.80
== END 2023-06-24 15:40 | disposition home or self-care (01) ==
PROVIDERS: Visit Provider Student in an Organized Health Care Education/Training Program
DX: R76.8 Other specified abnormal immunological findings in serum (principal); M50.30 Other cervical disc degeneration, unspecified cervical region; D69.6 Thrombocytopenia, unspecified; M85.80 Other specified disorders of bone density and structure, unspecified site
CPT/HCPCS: 99205

== ENCOUNTER 2023-06-24 15:08 | Outpatient (REF) | payer OTHER, SELFPAY ==
[2023-06-24 16:41] LABS: Imm Gran Abs Auto 0.01 X10*3/uL (0.00-0.03); Imm Gran Pct Auto 0.2 % (0.0-0.4); MANUAL DIFF FLAG SCAN; Red Cell Distribution Width 13.1 % (11.0-16.0); SCAN SMEAR FLAG 1
[2023-06-24 16:43] LABS: Basophils Absolute Auto 0.1 X10*3/uL (0.0-0.2); Basophils Percent Auto 1.1 % (0-2); Eosinophils Absolute Auto 0.1 X10*3/uL (0.0-0.4); Eosinophils Percent Auto 1.8 % (0-4); Hematocrit 44.3 % (37.0-47.0); Hemoglobin 13.9 g/dl (12.0-16.0); Lymphocytes Absolute Auto 1.4 X10*3/uL (1.2-4.9); Mean Corpuscular HGB Conc 31.4 g/dl (31.0-35.0); Mean Corpuscular Hemoglobin 27.3 pg (27.0-33.0); Mean Platelet Volume 14.3 fL (9.4-12.3); Monocytes Absolute Auto 0.7 X10*3/uL (0.1-1.2); Monocytes Percent Auto 12.1 % (2-11); Neutrophils Absolute Auto 3.2 x10*3/uL (2.0-8.3); Neutrophils Percent Auto 58.8 % (45-73); Platelet Count 136 X10*3/uL (160-400); Red Blood Count 5.09 X10*6/uL (4.20-5.50); White Blood Count 5.5 X10*3/uL (4.8-10.8)
[2023-06-24 16:45] LABS: PLT ABN DIST 1
[2023-06-24 17:06] LABS: Appearance Urine Clear; Color Urine Yellow; Glucose Urine UA Negative (Negative); Leukocyte Esterase Urine Trace (Negative); Nitrite Urine Negative (Negative); PH 5.5 (5.0-9.0); Specific Gravity - Urine 1.025 (1.005-1.025); UMIC TRIGGER UA YES; Urine Blood Negative (Negative); Urine Ketones Trace mg/dL (Negative); Urine Protein Negative (Neg-Trace)
[2023-06-24 17:10] LABS: Bacteria Urine None Seen (None Seen); Hyaline Casts Urine 0-2 /LPF (0-2); RBC Urine 0-2 /HPF (0-2); Squamous Epithelial Cell Urine 0-2 /HPF (0-2); WBC Urine 0-5 /HPF (0-5)
[2023-06-24 17:11] LABS: Erythrocyte Sedimentation Rate 4 MM/HR (0-20)
[2023-06-24 17:30] LABS: SLIDE REVIEW VERIFIED
[2023-06-24 17:32] LABS: Alanine Aminotransferase 12 U/L (0-31); Albumin Level 4.7 g/dL (3.5-5.0); Alkaline Phosphatase 67 U/L (39-117); Anion Gap 13 (12-20); Aspartate Amino Transferase 20 U/L (5-31); Bilirubin Total 0.4 mg/dL (0.0-1.0); Blood Urea Nitrogen 18 mg/dL (9-16); C Reactive Protein 0.11 mg/dL (< or = 0.50); Carbon Dioxide 31 mmol/L (22-29); Chloride 101 mmol/L (96-108); Estimated Glomerular Filt Rate 46; Glucose Random 115 mg/dL (60-115); Potassium 4.5 mmol/L (3.3-5.1); Sodium 140 mmol/L (135-145); Total Protein 8.2 g/dL (6.5-8.0)
[2023-06-24 17:42] LABS: Creatinine Urine 195.71 mg/dL; Protein/Creatinine Ratio, Ur 0.06 (<0.2); Total Protein Urine Random 11 mg/dL (<12)
[2023-06-25 04:41] LABS: HBsAGNum1 0.29 S/CO (0.00-0.99); Hepatitis A Antibody IgM 0.14 Index (0-0.79); Hepatitis B Core Antibody Nonreactive (Nonreactive); Hepatitis B Surface Antigen Negative (Negative); ~HepC Num1 0.08 S/CO (0.00-0.79); ~Hepatitis A Antibody IgM Nonreactive (Nonreactive); ~Hepatitis B Surface Antibody NONREACTIVE (Nonreactive); ~Hepatitis C Antibody Nonreactive (Nonreactive)
[2023-06-26 02:34] LABS: Complement C3 121 mg/dL (83-193)
[2023-06-26 10:49] LABS: Prot Elec - Albumin 4.8 g/dL (3.8-4.8); Prot Elec - Alpha1 0.3 g/dL (0.2-0.3); Prot Elec - Alpha2 0.7 g/dL (0.5-0.9); Prot Elec - Beta 1 0.5 g/dL (0.4-0.6); Prot Elec - Beta 2 0.4 g/dL (0.2-0.5); Prot Elec - Gamma 1.3 g/dL (0.8-1.7); Prot Elec - Total Protein 7.9 g/dL (6.1-8.1)
[2023-06-26 13:44] LABS: Cardiolipin IgG Ab <2.0 GPL-U/mL; Cardiolipin IgM Ab <2.0 MPL-U/mL
[2023-06-26 13:48] LABS: Anti DNA DS Antibody 1 IU/mL
[2023-06-29 14:33] LABS: PTT (LAC) Screen 36 sec (<=40)
[2023-06-29 15:29] LABS: IgA 242 mg/dL (70-320); IgG 1416 mg/dL (600-1540); IgM 124 mg/dL (50-300)
[2023-06-30 22:08] LABS: Beta-2 Glycoprotein IgA <2.0 U/mL (<20.0); Beta-2 Glycoprotein IgG <2.0 U/mL (<20.0); Beta-2 Glycoprotein IgM <2.0 U/mL (<20.0)
== END 2023-06-24 15:09 | disposition home or self-care (01) ==
LOC: HO.LAB 15:08
PROVIDERS: PCP Internal Medicine; Visit Provider Student in an Organized Health Care Education/Training Program
DX: Z11.59 Encounter for screening for other viral diseases (principal); M34.9 Systemic sclerosis, unspecified; D68.61 Antiphospholipid syndrome; R76.8 Other specified abnormal immunological findings in serum; M50.30 Other cervical disc degeneration, unspecified cervical region; D69.6 Thrombocytopenia, unspecified; M85.80 Other specified disorders of bone density and structure, unspecified site; Z72.89 Other problems related to lifestyle
CPT/HCPCS: 36415; 80053; 81001; 82570; 82784; 84156; 84165; 85025; 85597; 85598; 85613; 85652; 85730; 86140; 86146; 86147; 86160; 86225; 86334; 86704; 86706; 86709; 86803; 87340

== ENCOUNTER → 2023-07-30 12:52 | Outpatient (REF) | payer OTHER, SELFPAY ==
--- NOTE | 2023-07-30 13:04 | CA_ITS ---
Transthoracic Echocardiogram Patient (Last, First, Middle): Marcelle Zhao, Gender: Female Date of : 1960 Age: 62 Procedure Date: 07/30/2023 Procedure Type: Transthoracic Echocardiogram Location: OP Height: 165.1 cm Weight: 51.26 kg BSA: 1.55 m2 Heart Rate: 69 bpm BP: 118 / 60 mmHg Manager Of Tires Sales: AHSAN Singh MD: Max Teran MD Supermarket Manager: Jorge Wang MD Symptoms: M34.9 - Systemic sclerosis, unspecified Study Quality: Fair ECG Rhythm: Sinus Conclusions: - Normal study Findings Left Ventricle Normal left ventricular size, thickness, and systolic function. Spectral Doppler is indicative of a normal filling pattern. Right Ventricle Normal right ventricular cavity size and systolic function. Atria Both atria are normal in size. Interatrial shunt cannot be excluded. Aortic Valve Normal aortic valve structure and function. There is no aortic valve stenosis. There is no aortic valve regurgitation. Mitral Valve Normal mitral valve structure and function. There is no mitral valve regurgitation. There is no mitral valve stenosis. Pulmonic Valve The pulmonic valve is likely normal. There is trace pulmonic valve regurgitation. Tricuspid Valve Likely normal tricuspid valve structure and function. There is trace tricuspid valve regurgitation. The right ventricular systolic pressure is normal. The right ventricular systolic pressure is 22 mmHg. Normal right atrial pressure. There is no evidence of pulmonary hypertension. Great Vessels All visible segments of the aorta are normal in size. The pulmonary artery was not well visualized. Venous The inferior vena cava is normal in size and collapses greater than 50% with inspiration. Pericardium/Pleural There is no evidence of pericardial effusion. Prior Study Comparison No prior study available for comparison. Measurements 2D Linear Measurements IVSd: 0.68 0.6-0.9/0.6-1.0 cm LVIDd: 3.99 3.9-5.3/4.2-5.9 cm LVIDd Index: 2.57 2.4-3.2/2.2-3.1 cm/m2 LVIDs: 2.62 2.0-3.6 cm LVPWd: 0.58 0.7-1.1 cm LA Diam: 2.40 2.7-3.8/3.0-4.0 cm LAIDs Index: 1.55 1.5-2.3 cm/m2 LV Mass: 84.26 67-162/88-224 g LV Mass Index: 54.36 43-95/49-115 g/m2 LVOT Diam: 1.70 3.0+(-)1.3 cm 2D Systolic Function EF 4C: 63.20 >55% EF 2C: 65.60 >55% EF BiP: 63.20 >55% Mitral Valve MV Pk E: 0.78 MV PK A: 0.95 MV Decel Time: 207.00 E/A: 0.80 E'Lateral: 12.80 E'Medial: 11.00 E/E' Med: 7.10 E/E' Lat: 6.10 PHT: 61.00 MVA PHT: 3.61 Decel Dade: 3.76 Aortic Valve AoV Pk Alexandre: 1.21 AoV Mn Alexandre: 0.87 AoV VTI: 0.29 AoV Pk Grad: 6.00 Aov Mn Grad: 3.00 JINNY Cont.VTI: 1.87 LVOT LVOT Pk Alexandre: 1.02 LVOT Mn Alexandre: 0.70 LVOT VTI: 0.24 LVOT Pk Grad: 4.00 LVOT Mn Grad: 2.00 LVOT Diam: 1.70 LVOT Area: 2.27 Diastolic Function MV Pk E: 0.78 MV Pk A: 0.95 E/A: 0.80 E'Medial: 11.00 E/E' Med: 7.10 E' Laterial: 12.80 E/E' Lat: 6.10 Right Ventricle TAPSE (mm): 17.20 TVS' Alexandre: 13.30 Tricuspid Valve TR Pk Alexandre: 2.20 TR Pk Grad: 19.00 RA Press: 3.00 RVSP: 22.00 Great Vessels Aorta Sinus of Valsalva: 2.90 2.0-3.5 cm Ao Asc: 3.00 2.1-3.4 cm Pulmonary Valve PV Pk Alexandre: 0.90 Peak PV Grad: 3.00 Updated in Other Vendor System with Status of Final Jorge Wang MD electronically signed on 07/31/2023 12:41:42 PM with status of Final
== END ==
LOC: HO.CARD 12:52
PROVIDERS: PCP Internal Medicine; Visit Provider Student in an Organized Health Care Education/Training Program
DX: M34.9 Systemic sclerosis, unspecified (principal); R06.00 Dyspnea, unspecified
CPT/HCPCS: 93306

== ENCOUNTER → 2023-07-30 13:04 | Outpatient (BNV) | payer OTHER, SELFPAY | PROVIDERS: PCP Internal Medicine; Visit Provider Internal Medicine Cardiovascular Disease | DX: R06.00 Dyspnea, unspecified (principal); M34.9 Systemic sclerosis, unspecified | CPT/HCPCS: 93306 ==

== ENCOUNTER 2024-04-22 10:49 | Outpatient (AMB) | payer OTHER, SELFPAY ==
--- NOTE | 2024-04-22 10:51 | HO.NEPHOV ---
Vital Signs 04/22/24 10:53 Height 5 ft 5 in Weight 108 lb BMI 18.0 BP 118/60 Blood Pressure Location Lt brachial Position Sitting Pulse 80 Pulse Source Pulse Oximeter Pulse Oximetry (%) 100 Oxygen Delivery Method Room Air Intake Visit Reasons: Chronic Renal Insufficiency/ LVM Intake Note: Horticulture Superintendent services refusal form signed and scanned into chart. Horticulture Superintendent Required: Yes Horticulture Superintendent Services: Horticulture Superintendent Offered & Declined Horticulture Superintendent Name: Phylicia (daughter) Accompanied by: Daughter Allergies Penicillins Allergy (Severe, Verified 04/22/24 10:56) Vomiting hydroxychloroquine Allergy (Verified 04/22/24 10:56) Unknown HPI Comments Details: I had the privilege of seeing Marcelle in consultation abnormal renal functions. She is known to have scleroderma. She has centromere antibody positivity. She has arthralgia and Raynaud's. She has no skin changes. She was treated with methotrexate and hydroxychloroquine in the past. She is VINCE positive as well. She has history of dyslipidemia. She takes nonsteroidal anti-inflammatories as needed basis for aches and pains. She is not known to have any proteinuria. She has dyslipidemia and is on medications. She has no history of peripheral vascular disease . She denies any coronary artery disease, congestive heart failure, CVA, renal artery stenosis. She is not on any SANDRA inhibitor or ARB. She follows up with Rheumatology. Her last serum creatinine was 1.11. [facility] Medical History (Updated 04/22/24 @ 10:58 by Cesario De La Rosa MD) Greater trochanteric bursitis Adhesive capsulitis of right shoulder Spondylosis of lumbar region without myelopathy or radiculopathy Anxiety and depression VINCE positive Centromere antibody positive Left lumbar radiculitis Fibromyalgia Degenerative disc disease, cervical Cervical spondylosis Scleroderma Surgical History (Updated 04/21/24 @ 09:12 by Kristina Mack MA) History of colposcopy History of tubal ligation Family History Mother Breast cancer Maternal Aunt Breast cancer Family/Other Breast cancer Paternal Grandmother Throat cancer Sister Anemia Social History Household Members: Significant Other Patient Tobacco Use Status: Never used Tobacco Second Hand Smoke Exposure: No service: No Current occupational status: retired Review of Systems Const All systems reviewed & are unremarkable except as noted in HPI and below Physical Exam Const General: comfortable and no acute distress Orientation/consciousness: patient oriented x3 HEENT Head: Yes normocephalic Mouth: Normal oral and palatal mucosa present Eyes EOM: EOMs intact bilaterally Neck Neck: Yes supple Resp Auscultation: clear to auscultation bilaterally Cardio Jugular venous distension: no JVD Rate: regular rate GI Palpation (GI): Soft to palpation Auscultation: normal bowel sounds General: Yes no CVA tenderness Back/Spine/Pelvis Back: no CVA tenderness Skin General skin exam: no rashes or lesions noted Neuro General: patient oriented x3 and moves all extremities Extrem General: Yes no pedal edema Assessment & Plan Assessment & Plan (1) CKD stage 3a, GFR 45-59 ml/min: Code(s): N18.31 - Chronic kidney disease, stage 3a Category: Medical Plan Marcelle has mild CKD most likely due to vascular disease. 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 She does not have any microscopic hematuria or proteinuria. Her blood pressure has been at goal. She takes nonsteroidal anti-inflammatories as needed basis, which she should try to minimize. She may be having some tubular injury from NSAID's. She should maintain good hydration. I ordered imaging studies, 24 hour urine collection for creatinine clearance and blood work. I did not make any medication changes today. More than 50% of the time spent discussing about the etiologies, investigations, follow-up and management strategies ( 63 minutes). Answered all questions. Follow-up appointment given. Orders: Orders Calcium Today N18.31 - Chronic kidney disease, stage 3a Anti DNA DS Antibody Today N18.31 - Chronic kidney disease, stage 3a Myeloperoxidase Antibody Today N18.31 - Chronic kidney disease, stage 3a Complement C4 Today N18.31 - Chronic kidney disease, stage 3a Phospholipase A2 Receptor Pnl Today N18.31 - Chronic kidney disease, stage 3a Creatinine Today N18.31 - Chronic kidney disease, stage 3a Blood Urea Nitrogen Today N18.31 - Chronic kidney disease, stage 3a Electrolytes Today N18.31 - Chronic kidney disease, stage 3a Protein Creatinine Ratio, Ur Today N18.31 - Chronic kidney disease, stage 3a Proteinase 3 PR3 Antibodies Today N18.31 - Chronic kidney disease, stage 3a Anti Glomerular Basement Memb Today N18.31 - Chronic kidney disease, stage 3a Complement C3 Today N18.31 - Chronic kidney disease, stage 3a Immunofixation Pnl, Serum Today N18.31 - Chronic kidney disease, stage 3a Creatinine Clearance Urine 24U Today N18.31 - Chronic kidney disease, stage 3a US renal BI Today N18.31 - Chronic kidney disease, stage 3a Coding Level of Care Code New Pt Level 5 (14512) Diagnoses CKD stage 3a, GFR 45-59 ml/min N18.31
[2024-04-22 10:53] VITALS: BP 118/60; PULSE 80; O2SAT 100; BMI 18.0
== END 2024-04-22 11:46 | disposition home or self-care (01) ==
PROVIDERS: PCP Internal Medicine; Referring Provider Student in an Organized Health Care Education/Training Program; Visit Provider Internal Medicine Nephrology
DX: N18.31 Chronic kidney disease, stage 3a (principal); R76.0 Raised antibody titer; I73.00 Raynaud's syndrome without gangrene
CPT/HCPCS: 99205

== ENCOUNTER → 2024-04-22 10:49 | Outpatient (BNVA) | payer OTHER, SELFPAY | PROVIDERS: PCP Internal Medicine; Referring Provider Student in an Organized Health Care Education/Training Program; Visit Provider Internal Medicine Nephrology | DX: I73.00 Raynaud's syndrome without gangrene (principal); N18.31 Chronic kidney disease, stage 3a; R76.8 Other specified abnormal immunological findings in serum | CPT/HCPCS: 99202 ==

== ENCOUNTER 2024-05-04 11:19 | Outpatient (REF) | payer OTHER, SELFPAY ==
[2024-05-04 14:24] LABS: Anion Gap 13 (12-20); Blood Urea Nitrogen 13 mg/dL (9-16); Calcium 10.9 mg/dL (8.4-10.2); Carbon Dioxide 31 mmol/L (22-29); Chloride 103 mmol/L (96-108); Estimated Glomerular Filt Rate 53; Potassium 4.1 mmol/L (3.3-5.1); Sodium 143 mmol/L (135-145)
[2024-05-04 14:25] LABS: Creatinine Urine 163.75 mg/dL; Protein/Creatinine Ratio, Ur 0.08 (<0.2); Total Protein Urine Random 13 mg/dL (<12)
[2024-05-04 15:11] LABS: Creatinine, mg/dL 94.56
[2024-05-04 16:16] LABS: Creatinine (CrCl) 1.04 mg/dL (0.5-1.4); Creatinine, 24Hr Urine 0.6 G/Day (1.0-2.0); Total Volume 24 Hour Urine 650 mL
[2024-05-05 21:59] LABS: IgA 218 mg/dL (70-320); IgG 1301 mg/dL (600-1540); IgM 108 mg/dL (50-300)
[2024-05-06 22:34] LABS: Complement C3 90 mg/dL (83-193)
[2024-05-09 10:39] LABS: Anti DNA DS Antibody 1 IU/mL; Anti Glomerular Basement Memb <1.0 AI; Myeloperoxidase Antibody <1.0 AI; Proteinase 3 PR3 Antibodies <1.0 AI
[2024-05-14 20:29] LABS: Phospholipase A2 IgG ELISA <4 RU/mL; Phospholipase A2 IgG IFA NEGATIVE (NEGATIVE)
== END 2024-05-04 11:20 | disposition home or self-care (01) ==
LOC: HO.LAB 11:19
PROVIDERS: Absent Provider Internal Medicine Nephrology; PCP Student in an Organized Health Care Education/Training Program; Visit Provider Student in an Organized Health Care Education/Training Program
DX: I73.00 Raynaud's syndrome without gangrene (principal); D69.6 Thrombocytopenia, unspecified; R76.8 Other specified abnormal immunological findings in serum; M85.80 Other specified disorders of bone density and structure, unspecified site; R06.00 Dyspnea, unspecified; N18.31 Chronic kidney disease, stage 3a; Z79.899 Other long term (current) drug therapy
CPT/HCPCS: 36415; 80051; 82310; 82565; 82570; 82575; 82784; 83520; 84156; 84520; 86021; 86160; 86225; 86255; 86334; 99212

== ENCOUNTER 2024-05-04 11:19 | Outpatient (AMB) | payer OTHER, SELFPAY ==
[2024-05-04 11:32] VITALS: BP 120/60; PULSE 71; O2SAT 100; BMI 18.2
--- NOTE | 2024-05-04 11:32 | A.OFFVIS_ITS ---
Vital Signs 05/04/24 11:32 Height 5 ft 5 in Weight 109 lb 9.116 oz BMI 18.2 BP 120/60 Blood Pressure Location Lt brachial Position Sitting Pulse 71 Pulse Source Pulse Oximeter Pulse Oximetry (%) 100 Oxygen Delivery Method Room Air Intake Visit Reasons: pos anti-centromere Intake Note: Patient last seen by Doctor Max Teran on 06/24/23. Presents today for follow up on pos anti-centromere and test results. Accompanied by: Daughter Allergies Penicillins Allergy (Severe, Verified 05/04/24 11:34) Vomiting hydroxychloroquine Allergy (Verified 05/04/24 11:34) Unknown Medication List - Last Reconciled 05/04/24 by Max Teran MD acetaminophen (Tylenol) 650 mg (2 x 325 mg) PO Q6H PRN cyclobenzaprine 5 mg PO TID PRN ezetimibe 10 mg PO DAILY ibuprofen 600 mg PO Q8H PRN loratadine 10 mg PO DAILY menthol 10% (Biofreeze (menthol)) appl topical PRN HPI Comments Details: This is a 63-year-old female with a past medical history of a positive anticentromere antibody, Raynaud's, thrombocytopenia who presents for follow-up. Patient had her 1st Raynaud's episode a few years ago around 2018 when she was initially evaluated by Rheumatology. Patient states that she is doing about the same overall, no new complaints, she has been having some left-sided neck pain that radiates down her left lower extremity, denies any swollen joints. Denies any worsening Raynaud's. No skin rashes, no cough or shortness of breath. Patient missed her PFT appointment as she was having vocal cord issues she was evaluated by ENT and had a scope and was told everything was normal. She was recently evaluated by heme/Onc for mild thrombocytopenia, likely the un derlying cause per hematology is mild ITP that does not require treatment. Patient states that she has diffuse joint pain especially her neck, shoulders, knees, lower back. Patient states that she use Kinesio taping her knee pain and hip pain which helps. She takes ibuprofen 600 mg every other day, Flexeril as needed at night. States that her Raynaud's is well controlled by staying warm and using gloves. She has 3 flights of stairs to get to her apartment. States that she gets mildly short of breath because of stairs. Denies GERD PFSH Medical History Varicose veins of left lower extremity Greater trochanteric bursitis Adhesive capsulitis of right shoulder Spondylosis of lumbar region without myelopathy or radiculopathy Anxiety and depression VINCE positive Centromere antibody positive Left lumbar radiculitis Fibromyalgia Degenerative disc disease, cervical Cervical spondylosis Scleroderma Surgical History History of colposcopy History of tubal ligation Family History Mother Breast cancer Maternal Aunt Breast cancer Family/Other Breast cancer Paternal Grandmother Throat cancer Sister Anemia Social History Household Members: Significant Other Patient Tobacco Use Status: Never used Tobacco Second Hand Smoke Exposure: No service: No Current occupational status: retired Female Reproductive History Menstrual Total pregnancies: 2 Full term: 2 Ab induced: 0 Review of Systems ENT Reports neck pain Musc Reports neck pain Skin/Breast Denies rash Physical Exam Vital Signs: Last Vital Signs Pulse 71 05/04/24 11:32 BP 120/60 05/04/24 11:32 Pulse Ox 100 05/04/24 11:32 Oxygen Delivery Method Room Air 05/04/24 11:32 BMI result Body Mass Index 18.2 Const General: cooperative, healthy appearing and comfortable Nutritional Appearance: thin Orientation/consciousness: patient oriented x3 Limitations: no limitations HEENT Head: Yes normocephalic and Yes atraumatic Mouth: moist mucous membranes Resp Effort & Inspection: normal respiratory effort and able to speak in complete sentences Auscultation: clear to auscultation bilaterally Cardio Rate: regular rate Rhythm: regular rhythm Skin Other: Significantly reduced eyebrow hair bilaterally General skin exam: no rashes or lesions noted Neuro General: patient oriented x3 Extrem Other: No active synovitis Normal nailfold capillaroscopy Normal range of motion of both hands, elbows, shoulders without pain. Results Reviewed Results Reviewed: Reviewed labs from 2018 which showed Positive VINCE Positive centromer antibody SSA/SSB/Hale/SUPERVISING BROKER/dsDNA/Nidhi 1/C3/C4 all negative/normal Assessment & Plan Assessment & Plan (1) Centromere antibody positive: Comment: Clarisaud's, pos anti-centromere Ab, arthralgias. No skin changes 11/15 hydroxychloroquine tried - caused decreased appetite 01/13 prednisone started for hand symptoms - tapered off 06/15 Methotrexate started 06/15 - stopped 02/13 -not effective/or needed Code(s): R76.8 - Other specified abnormal immunological findings in serum Category: Medical Plan: This is a 63-year-old female with positive anticentromere antibody who presents for follow-up. Patient has positive anticentromere antibody and Raynaud's, she does not fulfill criteria for scleroderma, there is no telangiectasias, no abnormal nailfold changes. No evidence of interstitial lung disease or pulmonary arterial hypertension No need for DMARDs. She had a 2D echo last year and it was unremarkable with no signs suggestive of pulmonary arterial hypertension. She missed her PFTs due to vocal cord changes which has resolved. Advised patient to get her PFTs done I had a long conversation today about patient and her diagnosis. Reassured her that she does not require any specific treatment at this time but she needs regular monitoring Follow-up in 6 months (2) Thrombocytopenia: Code(s): D69.6 - Thrombocytopenia, unspecified Category: Medical Plan: Per Dr. Staley, likely ITP. It is quite mild and did not require any treatment Antiphospholipid antibodies negative (3) Osteopenia: Comment: DEXA 07/2022 T-score is -1.5 (SD relative to 20-29 y/o adult) Left Hip T-score is -2.0 Impression: Based on the World Health Organization criteria, Marcelle Zhao should be classified as having osteopenia. This patient has a 14% risk of major osteoporotic fracture and a 2.3% risk of hip fracture Code(s): M85.80 - Other specified disorders of bone density and structure, unspecified site Category: Medical Plan: DEXA in 07/2022 showed osteopenia with a low FRAX score. We will discuss repeating it next visit Plan I spent 36 minutes reviewing patient's chart, evaluating patient, ordering diagnostic workup, counseling patient and documenting in the chart Coding Level of Care Code Est Pt Level 4 (30348) Diagnoses Centromere antibody positive R76.8 Thrombocytopenia D69.6 Osteopenia M85.80
== END 2024-05-04 12:16 | disposition home or self-care (01) ==
PROVIDERS: PCP Student in an Organized Health Care Education/Training Program; Visit Provider Student in an Organized Health Care Education/Training Program
DX: R76.8 Other specified abnormal immunological findings in serum (principal); D69.6 Thrombocytopenia, unspecified; M85.80 Other specified disorders of bone density and structure, unspecified site
CPT/HCPCS: 99214

== ENCOUNTER 2024-06-03 14:51 | Outpatient (AMB) | payer OTHER, SELFPAY ==
--- NOTE | 2024-06-03 14:55 | HO.NEPHOV_ITS ---
Vital Signs 06/03/24 14:57 Height 5 ft 5 in Weight 113 lb 8 oz BMI 18.9 BP 104/50 L Blood Pressure Location Rt brachial Position Sitting Pulse 60 Pulse Source Pulse Oximeter Pulse Oximetry (%) 100 Oxygen Delivery Method Room Air Intake Visit Reasons: 1 mon follow up- [facility] Internet Marketing Manager Required: No Accompanied by: Self / Same As Patient Allergies Penicillins Allergy (Severe, Verified 06/03/24 14:59) Vomiting hydroxychloroquine Allergy (Verified 06/03/24 14:59) Unknown HPI Comments Details: I had the privilege of seeing Marcelle in follow up of her mild CKD. She is known to have scleroderma. She has centromere antibody positivity. She has arthralgia and Raynaud's. She has no skin changes. She was treated with methotrexate and hydroxychloroquine in the past. She is VINCE positive as well. She has history of dyslipidemia. She takes nonsteroidal anti-inflammatories as needed basis for aches and pains. She is not known to have any proteinuria. She has dyslipidemia and is on medications. She has no history of peripheral vascular disease . She denies any coronary artery disease, congestive heart failure, CVA, renal artery stenosis. She is not on any SANDRA inhibitor or ARB. She follows up with Rheumatology. Her renal function has been stable.She had no active complaints at the time of this office visit [facility] Medical History Varicose veins of left lower extremity Greater trochanteric bursitis Adhesive capsulitis of right shoulder Spondylosis of lumbar region without myelopathy or radiculopathy Anxiety and depression VINCE positive Centromere antibody positive Left lumbar radiculitis Fibromyalgia Degenerative disc disease, cervical Cervical spondylosis Scleroderma Surgical History History of colposcopy History of tubal ligation Family History Mother Breast cancer Maternal Aunt Breast cancer Family/Other Breast cancer Paternal Grandmother Throat cancer Sister Anemia Social History Household Members: Significant Other Patient Tobacco Use Status: Never used Tobacco Second Hand Smoke Exposure: No service: No Current occupational status: retired Review of Systems Const All systems reviewed & are unremarkable except as noted in HPI and below Physical Exam Vital Signs: Last Vital Signs Pulse 60 06/03/24 14:57 BP 104/50 L 06/03/24 14:57 Pulse Ox 100 06/03/24 14:57 Oxygen Delivery Method Room Air 06/03/24 14:57 BMI result Body Mass Index 18.9 Const General: comfortable and no acute distress Orientation/consciousness: patient oriented x3 HEENT Head: Yes normocephalic Mouth: Normal oral and palatal mucosa present Eyes EOM: EOMs intact bilaterally Neck Neck: Yes supple Resp Auscultation: clear to auscultation bilaterally Cardio Jugular venous distension: no JVD Rate: regular rate GI Palpation (GI): Soft to palpation Auscultation: normal bowel sounds General: Yes no CVA tenderness Back/Spine/Pelvis Back: no CVA tenderness Skin General skin exam: no rashes or lesions noted Neuro General: patient oriented x3 and moves all extremities Extrem General: Yes no pedal edema Results Reviewed Nephrology Results: Hgb 13.9 g/dl (12.0-16.0) 06/24/23 WBC 5.5 X10*3/uL (4.8-10.8) 06/24/23 Plt Count 136 X10*3/uL (160-400) L 06/24/23 Sodium 143 mmol/L (135-145) 05/04/24 Potassium 4.1 mmol/L (3.3-5.1) 05/04/24 Chloride 103 mmol/L (96-108) 05/04/24 Carbon Dioxide 31 mmol/L (22-29) H 05/04/24 BUN 13 mg/dL (9-16) 05/04/24 Creatinine 1.04 mg/dL (0.5-1.4) 05/04/24 Calcium 10.9 mg/dL (8.4-10.2) H 05/04/24 PTH Intact 29 pg/mL (16-77) 03/03/23 Urine Protein Negative mg/dL (Neg-Trace) 06/24/23 Urine Creatinine 163.75 mg/dL 05/04/24 Protein/Creatinin Ratio 0.08 (<0.2) 05/04/24 Assessment & Plan Assessment & Plan (1) CKD stage 3a, GFR 45-59 ml/min: Code(s): N18.31 - Chronic kidney disease, stage 3a Category: Medical Plan Marcelle has mild CKD most likely due to vascular disease. 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 She does not have any microscopic hematuria or proteinuria. Her blood pressure has been at goal. She takes nonsteroidal anti-inflammatories as needed basis, which she should try to minimize. She might have had some tubular injury from NSAID's. She should maintain good hydration. All her recent W/U were reviewed. I did not make any medication changes today. Answered all questions. Follow-up appointment given. Orders: Orders Parathyroid Hormone Intact 6 Months N18.31 - Chronic kidney disease, stage 3a Vitamin D 1,25 dihydroxy 6 Months N18.31 - Chronic kidney disease, stage 3a Blood Urea Nitrogen 6 Months N18.31 - Chronic kidney disease, stage 3a Vitamin D 25-OH Total 6 Months N18.31 - Chronic kidney disease, stage 3a Creatinine 6 Months N18.31 - Chronic kidney disease, stage 3a Electrolytes 6 Months N18.31 - Chronic kidney disease, stage 3a Calcium 6 Months N18.31 - Chronic kidney disease, stage 3a Coding Level of Care Code Est Pt Level 4 (34512) Diagnoses CKD stage 3a, GFR 45-59 ml/min N18.31
[2024-06-03 14:57] VITALS: BP 104/50; PULSE 60; O2SAT 100; BMI 18.9
== END 2024-06-03 15:12 | disposition home or self-care (01) ==
PROVIDERS: PCP Internal Medicine; Visit Provider Internal Medicine Nephrology
DX: N18.31 Chronic kidney disease, stage 3a (principal)
CPT/HCPCS: 99214

== ENCOUNTER → 2024-06-03 14:51 | Outpatient (BNVA) | payer OTHER, SELFPAY | PROVIDERS: PCP Internal Medicine; Visit Provider Internal Medicine Nephrology | DX: N18.31 Chronic kidney disease, stage 3a (principal) | CPT/HCPCS: 99212 ==

== ENCOUNTER 2024-06-30 13:02 | Emergency (ER) | payer OTHER, SELFPAY ==
--- NOTE | ~2024-06-30 | XR_ITS ---
EXAMINATION: XR ANKLE, RIGHT CLINICAL INFORMATION: Pain, fall. COMPARISON: None available. TECHNIQUE: AP, lateral, and mortise views of the right ankle. FINDINGS: No acute fracture or subluxation. Mild diffuse soft tissue swelling. No unexpected radiopaque foreign bodies. XR/XR ankle RT min 3V IMPRESSION: No acute fracture or malalignment. Mild diffuse soft tissue swelling. Electronically signed by: Glenda Kim MD 06/30/2024 03:23 PM EDT
--- NOTE | ~2024-06-30 | XR_ITS ---
EXAMINATION: XR HIP, RIGHT CLINICAL INFORMATION: Fall. COMPARISON: None available. TECHNIQUE: Two views of the right hip. FINDINGS: No acute fracture or dislocation. Mild degenerative osteoarthritis in both hips with joint space narrowing and subcortical sclerosis. Symmetric SI joints. Pubic symphysis and pelvic rim are maintained. No significant soft tissue abnormality. XR/XR hip RT w PEL1V IMPRESSION: No acute fracture or dislocation. Mild degenerative osteoarthritis. Electronically signed by: Glenda Kim MD 06/30/2024 03:21 PM EDT
--- NOTE | ~2024-06-30 | XR_ITS ---
EXAMINATION: XR KNEE, RIGHT CLINICAL INFORMATION: Pain, fall. COMPARISON: None available. TECHNIQUE: Four views of the right knee. FINDINGS: No acute fracture or subluxation. Mild tricompartmental joint space narrowing. No chondrocalcinosis. No osseous erosions. No joint effusion. XR/XR knee RT 4V IMPRESSION: 1. No acute fracture or subluxation. 2. Mild degenerative osteoarthritis of the right knee. Electronically signed by: Glenda Kim MD 06/30/2024 03:24 PM EDT
[2024-06-30 13:30] VITALS: BP 149/68; PULSE 83; RESP 14; TEMP 36.6; O2SAT 99; BMI 19.9
--- NOTE | 2024-06-30 13:36 | ED_ITS ---
HPI - Fall General Chief Complaint: Fall Stated Complaint: fall Time Seen by Provider: 06/30/24 16:07 Source: patient Mode of arrival: ambulatory Limitations: no limitations History of Present Illness ED Provider: IKER LAZCANO PA-C HPI Narrative: 63 year old female with pmhx significant for osteopenia, scleroderma, stage III CKD presents to the ED today for evaluation following mechanical fall occurring 2 days ago. Patient states that while stepping out of the passenger side of her sister's vehicle, her left foot got caught on her purse strap, causing her to fall out of the vehicle onto her right side. Admits to twisting her right ankle and hitting her right knee/ hip on the ground. Denies head strike or LOC. Not on blood thinners. Has been taking tylenol and using RICE treatment with continued discomfort. Presents today to make sure I didn't break anything . Denies difficulty or pain with ambulation. Denies numbness/weakness/tingling of the RLE. Related Data Home Medications ?Medication ?Instructions ?Recorded ?Confirmed cyclobenzaprine 5 mg tablet 5 mg PO TID PRN muscle relaxer 06/24/23 12/29/23 loratadine 10 mg tablet 10 mg PO DAILY 06/24/23 12/29/23 ezetimibe 10 mg tablet 10 mg PO DAILY 12/29/23 12/29/23 menthol 10 % topical cream appl topical PRN 04/22/24 (Biofreeze (menthol)) Previous Rx's ?Medication ?Instructions ?Recorded acetaminophen 325 mg tablet 650 mg (2 x 325 mg) PO Q6H PRN 03/05/23 (Tylenol) pain #30 tabs ibuprofen 600 mg tablet 600 mg PO Q8H PRN pain #30 tabs 03/05/23 Allergies Allergy/AdvReac Type Severity Reaction Status Date / Time Penicillins Allergy Severe Vomiting Verified 06/30/24 13:36 hydroxychloroquine Allergy Unknown Verified 06/30/24 13:36 Review of Systems Review of Systems: Constitutional: No fever, chills, fatigue, night sweats, weight changes ENT/Mouth: No ear pain, hearing loss, nasal congestion, sinus pain, rhinorrhea, sore throat Eyes: No eye pain, swelling, redness, vision changes, discharge Cardio: No chest pain, palpitations, CAMPBELL, orthopnea, peripheral edema Pulm: No SOB, cough, sputum, wheezing, dyspnea, hemoptysis GI: No nausea, vomiting, hematemesis, abdominal pain, diarrhea, constipation, hematochezia, melena : No irregular bleeding, dysuria, frequency, urgency, hesitancy, hematuria, flank pain, urinary flow changes, urinary incontinence or retention MSK: No back pain, neck pain, joint pain, myalgias, +right ankle pain, +right knee pain, +right hip pain Skin: No lesions, rashes Neuro: No weakness, numbness, paresthesias, LOC, dizziness, headache Psych: No anxiety/panic, depression, SI/HI, AH/VH All other systems reviewed and are negative. FORMERLY [facility], [facility]–1983 Past Medical History Attestation statement: The following information was validated with the patient. Source: old records reviewed and nursing notes reviewed Medical History Varicose veins of left lower extremity Greater trochanteric bursitis Adhesive capsulitis of right shoulder Spondylosis of lumbar region without myelopathy or radiculopathy Anxiety and depression VINCE positive Centromere antibody positive Left lumbar radiculitis Fibromyalgia Degenerative disc disease, cervical Cervical spondylosis Scleroderma Surgical History History of colposcopy History of tubal ligation Family History Family History Mother Breast cancer Maternal Aunt Breast cancer Family/Other Breast cancer Paternal Grandmother Throat cancer Sister Anemia Social History Social History Household Members: Significant Other Patient Tobacco Use Status: Never used Tobacco Second Hand Smoke Exposure: No Advance Directives: No Advance Directives Information Provided: Yes Do you have a plan to hurt others: No Plan service: No Current occupational status: retired Physical Exam Vital Signs: Vital Signs: Last Vital Signs Temp 97.9 F 06/30/24 16:59 Pulse 83 06/30/24 16:59 Resp 14 06/30/24 16:59 BP 149/68 H 06/30/24 16:59 Pulse Ox 99 06/30/24 16:59 O2 Del Method Room Air 06/30/24 16:59 BMI result Body Mass Index 19.9 Patient hypertensive, vitals otherwise WNL General: Well appearing, in no acute distress. Skin: Warm, dry, intact. No rashes or lesions. Head: Normocephalic, atraumatic. EENT: Hearing is intact b/l. Conjunctiva clear. PERRLA. Moist mucous membranes.? Cardiac: Chest wall symmetric. RRR. Lungs: Normal respiratory effort without accessory muscle use. CTA bilaterally Back: No midline spinous or paraspinal tenderness. No step off deformity. Ext: +minimal bruising noted to lateral aspect of right foot. Nontender to palpation. No noted swelling. 2+ PT/DP pulse intact. Right knee without noted swelling or overlying skin changes. No palpable deformity. Slightly tender to palpation of anterior knee without palpable deformity or crepitus. Small area of ecchymoses noted to right buttock. Nontender to palpation. No palpable deformity over right hip. Full ROM intact to right lower extremity. Neuro: AOx3. Normal speech. Ambulating with steady gait. Psych: Appropriate mood and affect. Responds appropriately to questions. Course Course Course Narrative: This is a Rapid Medical Examination (RME) performed by Coby Colin PA-C in triage. Full HPI, ROS, assessment and treatment plan per primary provider in the Main ED. 63 yo female presents to the ER for evaluation of right ankle, right knee and right hip pain after she fell while getting out of her car 5 days ago. unable to get in w/ PCP. ankle pain is worst. ongoing pain despite conservative measures. Plan: XR ankle, knee, hip Reevaluation(s) Reevaluation #1: 7130-- x-ray right knee without acute fracture or subluxation however does reveal mild degenerative osteoarthritis. X-ray right hip/pelvis without acute fracture or dislocation, shows mild degenerative osteoarthritis. X-ray right ankle without fracture there is mild diffuse soft tissue swelling. > Patient informed of workup results. Administer Tylenol with improvement. Jeff wrap applied to right ankle. Patient has remained stable throughout ED visit today. Discussed worrisome signs and symptoms and when to return to the ED. All questions answered at this time. Patient is agreeable with disposition and stable for discharge. Medications Administered Discontinued Medications Generic Name Dose Route Start Last Admin Trade Name Freq PRN Reason Stop Dose Admin Acetaminophen 975 mg 06/30/24 16:12 06/30/24 16:52 Acetaminophen 325 Mg Tablet PO 06/30/24 16:13 975 mg ONCE ONE Administration Procedures Orthopedic Splinting/Casting Injury #1: Side: right Lower Extremity Injury Location: ankle Lower Extremity Immobilizer: Jeff wrap Medical Decision Making Medical Decision Making MDM Narrative: 63 year old female with pmhx significant for osteopenia, scleroderma, stage III CKD presents to the ED today for evaluation following mechanical fall occurring 2 days ago. Patient hypertensive to 149/68, vitals otherwise WNL. On exam, there is minimal bruising noted to lateral aspect of right foot. Nontender to palpation. No noted swelling. 2+ PT/DP pulse intact. Right knee without noted swelling or overlying skin changes. No palpable deformity. Slightly tender to palpation of anterior knee without palpable deformity or crepitus. Small area of ecchymoses noted to right buttock. Nontender to palpation. No palpable deformity over right hip. Full ROM intact to right lower extremity. Differential diagnosis includes contusion, fracture, MSK sprain/strain, arthritis. Exam not consistent with gout, pseudogout, Lyme arthritis, septic joint, neurovascular compromise, threat to limb, compartment syndrome. Plan for xrs, pain control, and re-evaluation. Differential Diagnosis Differential Diagnoses: The differential diagnosis associated with the presentation includes as above. Admission/Observation Not indicated Independent Interpretation I performed an independent interpretation of an: Plain X-Ray Interpretation: X-ray right knee without fracture, agree with radiologist's interpretation. X-ray right hip without fracture, agree with radiologist's interpretation. X-ray right ankle without fracture, agree with radiologist's interpretation. Radiology Impression Discussion of test interpretation with radiology: I have reviewed the radiologist's reading. Radiologist Impression: EXAMINATION: XR KNEE, RIGHT CLINICAL INFORMATION: Pain, fall. COMPARISON: None available. TECHNIQUE: Four views of the right knee. FINDINGS: No acute fracture or subluxation. Mild tricompartmental joint space narrowing. No chondrocalcinosis. No osseous erosions. No joint effusion. XR/XR knee RT 4V IMPRESSION: 1. No acute fracture or subluxation. 2. Mild degenerative osteoarthritis of the right knee. Electronically signed by: Glenda Kim MD 06/30/2024 03:24 PM EDT EXAMINATION: XR HIP, RIGHT CLINICAL INFORMATION: Fall. COMPARISON: None available. TECHNIQUE: Two views of the right hip. FINDINGS: No acute fracture or dislocation. Mild degenerative osteoarthritis in both hips with joint space narrowing and subcortical sclerosis. Symmetric SI joints. Pubic symphysis and pelvic rim are maintained. No significant soft tissue abnormality. XR/XR hip RT w PEL1V IMPRESSION: No acute fracture or dislocation. Mild degenerative osteoarthritis. Electronically signed by: Glenda Kim MD 06/30/2024 03:21 PM EDT RP EXAMINATION: XR ANKLE, RIGHT CLINICAL INFORMATION: Pain, fall. COMPARISON: None available. TECHNIQUE: AP, lateral, and mortise views of the right ankle. FINDINGS: No acute fracture or subluxation. Mild diffuse soft tissue swelling. No unexpected radiopaque foreign bodies. XR/XR ankle RT min 3V IMPRESSION: No acute fracture or malalignment. Mild diffuse soft tissue swelling. Electronically signed by: Glenda Kim MD 06/30/2024 03:23 PM EDT RP Prescription Management I considered prescription management with: Pain Medication Chronic Conditions Patient?s care impacted by: Other (Osteopenia) Social Determinants Patient?s care significantly limited by Social Determinants of Health including: Other Social Determinant of Health Critical Care Time Critical Care Time Critical Care Time: No Discharge Plan Discharge Clinical Impression: Accident due to mechanical fall without injury, Inversion sprain of right ankle, Osteoarthritis Patient Disposition: Home, Self-Care Instructions: How to Use an Elastic Bandage (ED), R.I.C.E. Treatment (ED) Additional Instructions: You were evaluated in the ED today following a fall on Thursday. Your x-rays do not show evidence of fracture. An Jeff bandage was applied to your right ankle to help with compression. Continue RICE thearpy at home - rest, ice, compress, and elevate I recommend taking Tylenol as needed at home for pain/discomfort. Follow up with PCP as needed. Return to the ED with new or worsening symptoms. In the case of an emergency call 911. Prescriptions: No Action ibuprofen 600 mg tablet 600 mg PO Q8H PRN (Reason: pain) Qty: 30 0RF acetaminophen [Tylenol] 325 mg tablet 650 mg PO Q6H PRN (Reason: pain) Qty: 30 0RF ezetimibe 10 mg Tablet 10 mg PO DAILY cyclobenzaprine 5 mg tablet 5 mg PO TID PRN (Reason: muscle relaxer) loratadine 10 mg tablet 10 mg PO DAILY Biofreeze (menthol) 10 % cream topical PRN Referrals: Virginia Randhawa MD [Primary Care Provider] - Interventions: ED Discharge Assessment Last Done: 06/30/24 16:59 Discharge Date/Time: 06/30/24 17:00 Print Language: Sami
[2024-06-30] MEDS: Acetaminophen 325 MG TABLET 975 MG PO (16:52)
[2024-06-30 16:59] VITALS: BP 149/68; PULSE 83; RESP 14; TEMP 36.6; O2SAT 99
== END 2024-06-30 17:00 | disposition home or self-care (01) ==
PROVIDERS: Emergency Provider Emergency Medicine; PCP Student in an Organized Health Care Education/Training Program
DX: S93.401A Sprain of unspecified ligament of right ankle, initial encounter (principal); M19.071 Primary osteoarthritis, right ankle and foot; M25.561 Pain in right knee; M25.571 Pain in right ankle and joints of right foot; M25.551 Pain in right hip; X58.XXXA Exposure to other specified factors, initial encounter; Y93.89 Activity, other specified; Y92.89 Other specified places as the place of occurrence of the external cause; Y99.8 Other external cause status
CPT/HCPCS: 73502; 73564; 73610; 99283

== ENCOUNTER 2024-11-21 14:21 | Outpatient (REF) | payer OTHER, SELFPAY ==
[2024-11-21 15:50] LABS: Anion Gap 12 (12-20)
[2024-11-21 15:52] LABS: Blood Urea Nitrogen 16 mg/dL (9-16); Calcium 9.9 mg/dL (8.4-10.2); Carbon Dioxide 30 mmol/L (22-29); Chloride 104 mmol/L (96-108); Estimated Glomerular Filt Rate 52; Potassium 4.6 mmol/L (3.3-5.1); Sodium 141 mmol/L (135-145)
--- OUTSIDE RECORDS SUMMARY | 2024-11-21 16:34 | XMS_ITS | Encounter Summary ---
Author Organization [facility] Address [address] [place] [address] Care Team Providers Care Workers Compensation Claims Specialist Name Role Phone Virginia Randhawa MD Primary Care Provider [phone] Reason for Referral * Consultation (Routine) - Authorized Specialty Diagnoses / Procedures Referred By Contac t Referred To Contact Rheumatology Diagnoses Scleroderma (CMS/HCC) Fibromyalgia Virginia Randhawa MD [address] [place] [phone] Phone: tel: fax: Sihv Rivera PA [address] [place] [phone] Phone: tel: fax: Referral ID Status Reason Start Date Expiration Date Visits Requested Visits Authorized [id number] Authorized Specialty Services Required 11/10/2024 11/10/2025 1 1 Reason for Visit * Reason Comments Follow-up Encounter Details Date Type Department Care Team ([facility] st Contact Info) Description 11/10/2024 1:30 PM EST Office Visit Internal Medicine - [address] [id number] Virginia Randhawa MD [address] [address] Scleroderma (CMS/HCC) (Primary Dx); Fibromyalgia; H/O peripheral vascular disease Social History Tobacco Use Types Packs/Day Years Used Date Smoking Tobacco: Never Smokeless Tobacco: Never Alcohol Use Standard Drinks/Week Comments No 0 (1 standard drink = 0.6 oz pur e alcohol) Comments Unknown Sex and Gender Information Value Date Recorded Sex Assigned at Not on file Legal Sex Female 4:34 AM EST Gender Identity Not on file Sexual Orientation Not on file documented as of this encounter Last Filed Vital Signs Vital Sign Reading Time Taken Comments Blood Pressure 118/60 11/10/2024 1:15 PM EST Pulse - - Temperature 36.9 ??C (98.4 ??F) 11/10/2024 1:15 PM ES T Respiratory Rate - - Oxygen Saturation - - Inhaled Oxygen Concentration - - Weight 53.5 kg (118 lb) 11/10/2024 1:15 PM EST Height 165.1 cm (5' 5 ) 11/10/2024 1:15 PM EST Body Mass Index 19.64 11/10/2024 1:15 PM EST documented in this encounter Patient Instructions * Attachments The following attachments cannot be sent through Care Everywhere. * Low-Fat: Diet: General Info (Swedish) documented in this encounter Progress Notes * Virginia Randhawa MD - 11/10/2024 1:30 PM EST CHIEF COMPLAINT: Follow-up IDENTIFIER: Marcelle Zhao is a 64 y.o. old female. History of Present Illness The patient is a 64-year-old female presenting for follow-up with peripheral vascular disease, scleroderma, degenerative joint disease, hyperlipidemia, and low back pain. Peripheral Vascular Disease - Had vascular surgery for varicose veins one year ago, causing ongoing discomfort. - Requests an ultrasound for circulation assessment due to persistent numbness and spider veins. - Has not seen a vascular specialist post-surgery. Scleroderma - Her membership advisor left the practice, leaving her without management for scleroderma. - Reports joint pain, severe pain episodes, and cold extremities. Low Back Pain - Experiences intermittent lower back pain. - An MRI showed a disc fragment, with no surgery needed unless mobility is affected. - Paused physical therapy and has a history of falls contributing to back pain. Hyperlipidemia - Managing cholesterol through dietary changes, including homemade bread and juice. Supplemental Information: She is scheduled for seven blood tests to evaluate kidney function. ROS: as per HPI GENERAL: No malaise, significant weight loss or fever HEENT: No changes in hearing or vision, nose bleeds or other nasal problems NECK: No lumps, goiter, pain or significant neck swelling RESPIRATORY: No cough, wheezing or shortness of breath CARDIOVASCULAR: No chest pain, leg swelling or palpitations BREAST: No lumps, discharge, pain or change in skin GI: No abdominal discomfort, blood in stools or black stools : No dysuria, frequency or incontinence DIGITAL ASSISTANT: No abnormal vaginal bleeding or abnormal vaginal discharge. MUSCULOSKELETAL: No joint pain or swelling, back pain, or muscle pain. SKIN: No lesions, rash or itching PSYCH: No sleep disturbance, mood disorder or recent psychosocial stressors. HEMATOLOGY/LYMPHOLOGY No prolonged bleeding, easy bruisability or swollen nodes ENDOCRINE: No cold or heat intolerance, polyuria, polydipsia or goiter. 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 Scleroderma (CMS/HCC) 03/18/2018 VINCE positive 07/04/2017 Anxiety and depression 03/19/2017 Adhesive capsulitis of right shoulder 01/07/2017 Greater trochanteric bursitis 01/07/2017 Spondylosis of lumbar region without myelopathy or radiculopathy 01/07/2017 Past Surgical History: Procedure Laterality Date COLONOSCOPY PROCEDURE:COLONOSCOPY OTHER SURGICAL HISTORY 09/28/1989 PROCEDURE: CT COLPOSCOPY CERVIX VAG ELTRD CONIZATION CERVIX; COMMENT: Felix OTHER SURGICAL HISTORY Left 10/22/2023 PROCEDURE: HISTORY OTHER; COMMENT: Excision of the vein cluster, left lower extremity, microphlebectomy for venous reflux, Dr. Batista TUBAL LIGATION PROCEDURE:TUBAL LIGATION TUBAL LIGATION 1997 PROCEDURE: HISTORICAL TUBAL LIGATION SOCIAL HISTORY: Social History Tobacco Use Smoking status: Never Smokeless tobacco: Never Substance Use Topics Alcohol use: No FAMILY HISTORY: Family History Problem Relation Name Age of Onset Cancer Mother breast Cancer Mother's Sister breast Breast cancer Aunt mat 80.00 Breast cancer Mother 80.00 Breast cancer Other mat 1st cousin maternal first cousin Thyroid disease Sister Arthritis Sister Other (Other: carpal tunnel syndrome) Sister Thyroid disease Sister Ovarian cancer Neg Hx Colon cancer Neg Hx Uterine cancer Neg Hx Family Status Relation Name Status Mother Alive breast ca 80yo Mat Aunt Alive Father DM Aunt mat Alive Other mat 1st cousin Alive Sister (Not Specified) Sister (Not Specified) Neg Hx (Not Specified) No partnership data on file MEDICATIONS DISCONTINUED/REORDERED: There are no discontinued medications. ACTIVE MEDICATIONS: Outpatient Medications Marked as Taking for the 11/10/24 encounter (Office Visit) with Virginia Randhawa MD Medication Sig Dispense Refill acetaminophen (TYLENOL) 500 mg tablet Take 1 Tablet by mouth every 6 hours as needed for Pain. cholecalciferol (VITAMIN D-3) 10 mcg (400 unit) tablet Take 1 Tab by mouth daily. conjugated estrogens (Premarin) vaginal cream Place 1 Applicator vaginally twice a week. 1 gm vaginal twice weekly cyclobenzaprine (FLEXERIL) 5 mg tablet Take 1 Tablet by mouth 3 times daily as needed for Muscle spasms. cyproheptadine (PERIACTIN) 4 mg tablet TAKE 1 TABLET BY MOUTH 3 TIMES DAILY NEEDED (ANOREXIA) FOR UP TO 90 DAYS. 270 tablet 1 ezetimibe (ZETIA) 10 mg tablet TAKE 1 TABLET BY MOUTH EVERY DAY ibuprofen (ADVIL,MOTRIN) 600 mg tablet Take 1 Tablet by mouth every 8 hours as needed for Pain. Take with food. loratadine (CLARITIN) 10 mg tablet Take 1 Tablet by mouth daily. menthol (Biofreeze, menthol,) 4 % gel Apply 1 Applicator topically 3 times daily as needed (muscle pain). multivit-min/iron/folic acid/K (ADULTS MULTIVITAMIN ORAL) Take 1 Tablet by mouth daily. ALLERGIES: Allergies Allergen Reactions Penicillins Nausea And Vomiting Hydroxychloroquine PHYSICAL EXAM: Visit Vitals BP 118/60 (BP Location: Left arm, Patient Position: Sitting, BP Cuff Size: Adult) Temp 36.9 ??C (98.4 ??F) (Temporal) Ht 1.651 m (65 ) Wt 53.5 kg (118 lb) BMI 19.64 kg/m?? Smoking Status Never BSA 1.58 m?? Physical Exam Physical Exam General Appearance: well appearing and not on acute distress HEENT: Normocephalic. External ears normal. Nose normal. Mucous membranes are moist. Oropharynx is clear. Eyes: Conjunctivae normal. Respiratory: Lungs clear. Cardiovascular: Heartbeat regular. Gastrointestinal: Bowel sounds present. Back, Musculoskeletal: Normal range of motion. Normal cervical range of motion and neck supple. Skin: Warm and dry, no rash. Neurological: Alert. LABS/IMAGING: Abstract on 08/31/2024 Component Date Value Ref Range Status Hepatitis C Screening 01/14/2018 Abstracted Final HIV Screening 01/25/2016 Abstracted Final Annual BMP Blood Test 03/24/2024 Abstracted Final Cervical Cancer Screening: HPV 01/25/2024 Abstracted, Negative Final Pap smear 01/25/2024 Abstracted, no interpretation Final Urine Albumin Creatinine Ratio 10/12/2019 Abstracted Final LDL/HDL Ratio 03/24/2024 3 0 - 4 Final Triglycerides 03/24/2024 105 0 - 150 mg/dL Final Cholesterol 03/24/2024 237 (A) 0 - 200 mg/dL Final HDL 03/24/2024 70 >=40 mg/dL Final LDL Cholesterol 03/24/2024 146 (A) 0 - 100 mg/dL Final Hemoglobin A1C 11/06/2023 5.8 <=6.5 % Final Results Cholesterol and LDL levels high. IMPRESSION: 1. Scleroderma (CMS/HCC) 2. Fibromyalgia 3. H/O peripheral vascular disease PLAN: Scleroderma (CMS/HCC) (Primary) - Ambulatory referral to Rheumatology; Future Fibromyalgia - Ambulatory referral to Rheumatology; Future H/O peripheral vascular disease Assessment & Plan 1. Peripheral vascular disease: Ongoing leg tenderness and numbness post- surgery. Last vascular surgery was a year ago. - Order ultrasound to assess blood flow - Refer to vascular specialist 2. Scleroderma: Continue rheumatology follow-up. - Refer to new membership advisor - Keep hands warm, wear gloves if necessary 3. Degenerative joint disease: Intermittent lower back pain. MRI showed disc fragment. - Avoid fall-risk activities - Monitor symptoms 4. Hyperlipidemia: Elevated cholesterol and LDL. - Adhere to low-fat diet - Continue dietary modifications Follow-up - Follow up with vascular specialist - Follow up with new membership advisor PROCEDURE Vascular surgery for varicose veins one year ago. I have obtained verbal consent from Marcelle Zhao prior to the recording. I have advised Marcelle Zhao that she may refuse the recording and require the recording to be turned off at any time during this encounter. Advised the patient to call me if any problems. Patient understands the plan. Patient is in agreement with the plan. Virginia Randhawa MD on 11/10/2024 at 1:59 PM EST documented in this encounter Plan of Treatment Upcoming Encounters Date Type Department Care Team ([facility] st Contact Info) Description 05/10/2025 2:30 PM EDT Office Visit Internal Medicine - [address] [phone] Virginia Randhaaw MD [address] [place] [phone] Scheduled Referrals Name Type Priority Associated Diagnoses Order Schedule Ambulatory referral to Rheumatology Outpatient Referral Routine Scleroderma (CMS/HCC) Fibromyalgia Expected: 11/24/2024, Expires: 11/10/2025 documented as of this encounter Visit Diagnoses Diagnosis Scleroderma (CMS/HCC)- Primary Systemic sclerosis Fibromyalgia Unspecified myalgia and myositis H/O peripheral vascular disease documented in this encounter Care Teams Workers Compensation Claims Specialist Relationship Specialty Start Date End Date Virginia Randhawa MD [address] [place] [phone] PCP - General 11/04/23 documented as of this encounter
--- OUTSIDE RECORDS SUMMARY | 2024-11-21 16:34 | XMS_ITS | Clinical Summary ---
Author Organization [facility] Address [address] [place] [address] Phone Care Team Providers Care Chain Maker Name Role Phone Tank Randhawa MD Primary Care Provider [phone] Allergies Active Allergy Reactions Criticality Noted Date Comments Hydroxychloroquine 06/22/2019 Penicillins Nausea And Vomiting Medium 12/31/2015 Medications acetaminophen (TYLENOL) 500 mg tablet Take 1 Tablet by mouth every 6 hours as needed for Pain. 07/13/20 24 Active menthol (Biofreeze, menthol,) 4 % gel Apply 1 Applicator topically 3 times daily as needed (muscle pain). 10/01/19 18 Active cholecalciferol (VITAMIN D-3) 10 mcg (400 unit) tablet Take 1 Tab by mouth daily. 10/02/19 17 Active cyclobenzaprine (FLEXERIL) 5 mg tablet Take 1 Tablet by mouth 3 times daily as needed for Muscle spasms. 11/04/19 24 Active conjugated estrogens (Premarin) vaginal cream Place 1 Applicator vaginally twice a week. 1 gm vaginal twice weekly 01/25/20 24 Active loratadine (CLARITIN) 10 mg tablet Take 1 Tablet by mouth daily. 07/13/20 24 Active ibuprofen (ADVIL,MOTRIN) 600 mg tablet Take 1 Tablet by mouth every 8 hours as needed for Pain. Take with food. 01/05/20 24 Active multivit-min/iro n/folic acid/K (ADULTS MULTIVITAMIN ORAL) Take 1 Tablet by mouth daily. Active cyproheptadine (PERIACTIN) 4 mg tablet TAKE 1 TABLET BY MOUTH 3 TIMES DAILY NEEDED (ANOREXIA) FOR UP TO 90 DAYS. 270 tablet 1 11/04/19 25 Active ezetimibe (ZETIA) 10 mg tablet Take 1 tablet (10 mg total) by mouth 1 (one) time each day. 90 tablet 1 11/14/19 25 Active ezetimibe (ZETIA) 10 mg tablet TAKE 1 TABLET BY MOUTH EVERY DAY 05/16/20 24 025 Discontinued Active Problems Problem Noted Date Diagnosed Date DDD (degenerative disc disease), lumbar 09/09/20 22 Overview (08/31/2024): L5-S1 DDD Last Assessment & Plan: Patient comes in today to review her lumbar MRI done 04/30/2024 at [facility], she complains of persistent significant pain in the left low back, down the lateral leg. She states sleeping has been very difficult, the pain in the left low back is very bothersome, she cannot find a comfortable position for very long. She has history of left hip bursa injection that helped her, has some slight tenderness on the lateral hip but main pain is in the low back/SI joint region, which then radiates down the leg. No history of diabetes. MRI lumbar spine 04/30/2024 at [facility] shows L5-S1 disc bulge, small extruded disc fragment just below disc space level, radiologist measured at 5 mm, it is in the central canal, does not appear to be putting much pressure on the nerve roots in the lateral recess. I reviewed the MRI images in detail with the patient on the computer. Ms. Zhao has persistent left low back pain, left leg pain, is very tender over the left SI joint, we can try cortisone injection. She has not yet started PT but has the order, she will call to set that up this week. She is also being seen for issues with her neck, has EMG scheduled at [facility] in May, we can try to see if we can get a sooner date at [facility] [place]. 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 No skin changes 11/15 hydroxychloroquine tried - caused decreased appetite 01/13 prednisone started for hand symptoms - tapered off 06/15 Methotrexate started 06/15 - stopped 02/13 -not effective/or needed Scleroderma 03/18/2018 VINCE positive 07/04/2017 Anxiety and depression 03/19/2017 Adhesive capsulitis of right shoulder 01/07/2017 Greater trochanteric bursitis 01/07/2017 Spondylosis of lumbar region without myelopathy or radiculopathy 01/07/2017 Encounters Date Type Department Care Team Description 11/10/2024 1:30 PM EST Office Visit Internal Medicine - [place] [address] [facility] [address] [place] [address] Tank Randhawa MD Scleroderma ([facility]) (Primary Dx); Fibromyalgia; H/O peripheral vascular disease from Last 3 Months Immunizations Name Administration Dates Next Due Moderna SARS-CoV-2 COVID-19, mRNA, LNP-S, preservative free 07/03/2021,05/31/2021 Td Tetanus diptheria (Tdvax) 7yo and older 04/30 Surgical History Surgery Date Site/Laterality Comments TUBAL LIGATION PROCEDURE:TUBAL LIGATION COLONOSCOPY PROCEDURE:COLONOSCOPY OTHER SURGICAL HISTORY 09/28/1989 PROCEDURE: HI COLPOSCOPY CERVIX VAG ELTRD CONIZATION CERVIX; COMMENT: Felix TUBAL LIGATION 1997 PROCEDURE: HISTORICAL TUBAL LIGATION OTHER SURGICAL HISTORY 10/22/2023 Left PROCEDURE: HISTORY OTHER; COMMENT: Excision of the vein cluster, left lower extremity, microphlebectomy for venous reflux, Dr. Batista Medical History Medical History Date Comments Low back pain DX:Low back pain Neutropenia ([facility]) DX:Neutrop enia ([facility]) Leukopenia 05/07/2017 DX:Leukopenia Other specified personal his tory presenting hazards to health(V15.89) DX:Other specifie d personal history presenting hazards to health(V15.89); COMMENT: cervical change in cells Low back pain 03/19/2015 DX:Low back pain ; COMMENT: Previous work related injury 2007 Family history of breast cancer 09/08/2012 DX:Family history of breast cancer Left lumbar radiculitis 06/08/2018 DX:Left lumbar radiculitis Scleroderma (CMS/HCC) DX:Sclerod tomi (HCC) Fibromyalgia DX:Fibromyalgia Osteopenia DX:Osteopenia Adhesive capsulitis of right shoulder 01/07/2017 DX:Adhesive capsulitis of right shoulder Raynaud's syndrome without gangrene DX:Raynaud's syndrome without gangrene Anxiety and depression DX:Anxiet y and depression Arthritis DX:Arthritis Venous reflux DX:Venous reflux ; COMMENT: Left LE Family History Medical History Relation Name Comments Breast cancer Aunt mat Breast cancer Mother Cancer Mother breast Cancer Mother's Sister breast Breast cancer Other mat 1st cousin maternal fir st cousin Arthritis Sister 1 Other: carpal tunnel syndrome Sister 1 Thyroid disease Sister 1 Thyroid disease Sister 2 Colon cancer Neg Hx Ovarian cancer Neg Hx Uterine cancer Neg Hx Relation Name Status Comments Aunt mat Alive Father DM Mother Alive breast ca 80yo Mother's Sister Alive Other mat 1st cousin Alive Sister 1 Sister 2 Social History Tobacco Use Types Packs/Day Years Used Date Smoking Tobacco: Never Smokeless Tobacco: Never Alcohol Use Standard Drinks/Week Comments No 0 (1 standard drink = 0.6 oz pur e alcohol) Comments Unknown Sex and Gender Information Value Date Recorded Sex Assigned at Not on file Legal Sex Female 4:34 AM EST Gender Identity Not on file Sexual Orientation Not on file Obstetrics History Last Filed Vital Signs Vital Sign Reading Time Taken Comments Blood Pressure 118/60 11/10/2024 1:15 PM EST Pulse 69 07/13/2024 1:39 PM EDT Temperature 36.9 ??C (98.4 ??F) 11/10/2024 1:15 PM ES T Respiratory Rate - - Oxygen Saturation - - Inhaled Oxygen Concentration - - Weight 53.5 kg (118 lb) 11/10/2024 1:15 PM EST Height 165.1 cm (5' 5 ) 11/10/2024 1:15 PM EST Body Mass Index 19.64 11/10/2024 1:15 PM EST Plan of Treatment Upcoming Encounters Date Type Department Care Team (Late st Contact Info) Description 05/10/2025 2:30 PM EDT Office Visit Internal Medicine - [address] [phone] Tank Randhawa MD [address] [id number] Health Maintenance Due Date Last Done Comments Pneumococcal Vaccine: 50+ Years (1 of 1 - PCV) 2009 Zoster Vaccines (1 of 2) 2009 DTaP,Tdap,and Td Vaccines (2 - Td or Tdap) 04/30/2019 04/30/2009 Colorectal Cancer Screening: Stool Based Tests (FOBT/FIT) 09/05/2022 Depression Screening 09/05/2022 Social Influencers of Health Screening 09/05/2022 COVID-19 Vaccine (3 - 2023-2 5 season) 2024 07/03/2021, 05/31/2021 Influenza Vaccine (#1) 2024 Falls Risk Assessment 2024 Breast Cancer Screening 12/06/2025 12/07/19, 05/30/2022, 03/27/2019 Cervical Cancer Screening: HPV 01/24/2029 01/25/2024 Cholesterol Screening (Lipid Panel) 03/24/2029 03/24/2024, 03/24/2024 Osteoporosis Screening (Bone Density Screening) 08/08/2032 08/08/2022 RSV Immunization Patients 60 + Years Old (1 - 1-dose 75+ series) 2034 Hepatitis C Screening Completed 01/14/2018 HIB Vaccines Aged Out No longer eligi ble based on patient's age to complete this topic HPV Vaccines Aged Out No longer eligi ble based on patient's age to complete this topic Hepatitis A Vaccines Aged Out No long er eligible based on patient's age to complete this topic Hepatitis B Vaccines Aged Out No long er eligible based on patient's age to complete this topic IPV Vaccines Aged Out No longer eligi ble based on patient's age to complete this topic MMR Vaccines Aged Out No longer eligi ble based on patient's age to complete this topic Meningococcal ACWY Vaccine Aged Out N o longer eligible based on patient's age to complete this topic Meningococcal B Vacine Aged Out No lo nger eligible based on patient's age to complete this topic Pneumococcal Vaccine: Pediatrics (0 to 5 Years) and At-Risk Patients (6 to 64 Years) Aged Out No longer eligible b ased on patient's age to complete this topic RSV Immunization Patients Under 20 months Aged Out No longer eligible b ased on patient's age to complete this topic Varicella Vaccines Aged Out No longer eligible based on patient's age to complete this topic Procedures Procedure Name Priority Date/Time Associated Diagnosis Comments LIPID PANEL Routine 03/24/2024 HPV Routine 01/25/2024 [facility] SCREENING DIGITAL Routine 12/07/2023 3:53 PM EDT Encounter for screening mammogram for malignant neoplasm of breast DXA BONE DENSITY STUDY 1+ SITS AXIAL SKEL Routine 08/08/2022 1:20 PM EST Encounter for general adult medical examination without abnormal findings HEPATITIS C SCREENING Routine 01/14/2018 from Last 3 Months or Most Recently Relevant to Health Maintenance Results * (ABNORMAL) Lipid panel (03/24/2024) LDL/HDL Ratio 3 0 - 4 Triglycerides 105 0 - 150 mg/dL Cholesterol 237(A) 0 - 200 mg/dL HDL 70 >=40 mg/dL LDL Cholesterol 146(A) 0 - 100 mg/dL Blood Venous blood specimen / Unknown us Historical Provider LAB BLOOD ORDERABLES Veronique l Result * Cervical Cancer Screening: HPV (01/25/2024) Cervical Cancer Screening: HPV Abstracted, Negative us Historical Provider HEALTH MAINTENANCE Final Result * [facility] SCREENING DIGITAL (12/07/2023 3:53 PM EDT) Anatomical Region Laterality Modality Mammography 12/07/2023 10:4 0 AM EDT Narrative 12/07/2023 3:53 PM EDT [facility] Diagnostic Imaging Department [address] [place] [id number] Patient: ??MARCELLE ZHAO ?/Age/Sex: 1960 - 63 - F Unit#: ??[id number] ? Location/Status: ??SPDIMAM/REG CLI ? Mnemonic/Ordering Site: ??DIGSC/SPMAM Ordering Physician: ??TANK RANDHAWA [facility] Screening Digital - 12/07/23 - 1100 Report Status:Signed EXAM: [facility] Screening Digital EXAM DATE AND TIME: 12/07/2023 11:00 AM HISTORY: ??Screening. Mother had breast carcinoma at age 80. COMPARISON: ??05/30/22, 03/26/19, 03/27/16 TECHNIQUE: Bilateral digital breast tomosynthesis was performed in the CC and MLO projections. Computer aided detection with Adworx 3D 3.1 was employed. TISSUE DENSITY: b. There are scattered areas of fibroglandular density. FINDINGS: No suspicious masses, grouped microcalcifications, or areas of architectural distortion are seen. The skin and vascularity are unremarkable. IMPRESSION: Stable mammographic appearance of the breasts. ??No evidence of malignancy is seen. A negative mammogram in the presence of a clinically suspicious palpable abnormality does not preclude the possibility of malignancy or alter the indications for biopsy. BI-RADS: ??Category 1: Negative RECOMMENDATION(S): 1: Routine screening mammogram BILATERAL in 1 year. Dictating Physician: ??BEV LUTZ MD Electronically Signed by: ??BEV LUTZ MD Dic Date/Time: ??12/07/23 1553 Sign date/Time: ??12/07/23 1553 Procedure Note Bev Lutz MD - 05/16/2024 [facility] Diagnostic Imaging Department [address] [place] [id number] Patient: MARCELLE ZHAO /Age/Sex: 1960 - 63 - F Unit#: [id number] Location/Status: SPDIMAM/REG CLI Mnemonic/Ordering Site: [facility] Ordering Physician: TANK RANDHAWA [facility] Screening Digital - 12/07/23 - 1099 Report Status:Signed EXAM: [facility] Screening Digital EXAM DATE AND TIME: 12/07/2023 11:00 AM HISTORY: Screening. Mother had breast carcinoma at age 80. COMPARISON: 05/30/22, 03/26/19, 03/27/16 TECHNIQUE: Bilateral digital breast tomosynthesis was performed in the CCand MLO projections. Computer aided detection with Adworx 3D 3.1was employed. TISSUE DENSITY: b. There are scattered areas of fibroglandular density. FINDINGS: No suspicious masses, grouped microcalcifications, or areas ofarchitectural distortion are seen. The skin and vascularity are unremarkable. IMPRESSION: Stable mammographic appearance of the breasts. No evidence of malignancyis seen. A negative mammogram in the presence of a clinically suspicious palpable abnormality does not preclude the possibility of malignancy or alter the indications for biopsy. BI-RADS: Category 1: Negative RECOMMENDATION(S): 1: Routine screening mammogram BILATERAL in 1 year. Dictating Physician: BEV LUTZ MD Electronically Signed by: BEV LUTZ MD Dic Date/Time: 12/07/23 1553 Sign date/Time: 12/07/23 1553 [facility] BI PROCEDURES Final Result * DXA BONE DENSITY STUDY 1+ SITS AXIAL SKEL (08/08/2022 1:20 PM EST) Anatomical Region Laterality Modality Bone Densitometr y 10/22/2021 3:37 PM EST Narrative 08/11/2022 10:48 AM EST BONE DENSITY ? Lumbar Spine T-score is -1.5 ?? (SD relative to 20-29 y/o adult) Z-score is +0.1 ??(SD relative to age matched peers) This is consistent with osteopenia by criteria defined by the WHO. Left Hip T-score is -2.0 Z-score is -0.6 This is consistent with osteopenia by criteria defined by the WHO. . Impression: Based on the World Health Organization criteria, Marcelle Zhao should be classified as having osteopenia. This patient has a 14% risk of major osteoporotic fracture and a 2.3% risk of hip fracture over the next 10 years. (World Health Organization Fracture Risk Assessment) The [facility] Department of Internal Medicine recommends using National Osteoporosis Foundation (NOF) guidelines in treatment decisions related to osteoporosis. NOF guidelines suggest considering treatment for postmenopausal women and men aged 50 or older presenting with the following: History of hip or vertebral fracture. T-score less than or equal to -2.5 (DXA) at the femoral neck, total hip, or spine, after appropriate evaluation to exclude secondary causes. Low bone mass (T-score between -1.0 and -2.5 at the femoral neck or spine) AND a 10-year probability of a hip fracture greater than or equal to 3% OR a 10-year probability of a major osteoporosis-related fracture greater than or equal to 20% based on the [place]-adapted WHO algorithm Please note that all treatment decisions require clinical judgment and consideration of individual patient factors, including patient preferences, co-morbidities, previous drug use, risk factors not captured in the FRAX model (e.g., frailty, falls, vitamin D deficiency, increased bone turnover, interval significant decline in bone density) and possible under- or over-estimation of fracture risk by FRAX. Procedure Note Kathy Saldivar MD - 11/02/2023 BONE DENSITY Lumbar Spine T-score is -1.5 (SD relative to 20-29 y/o adult) Z-score is +0.1 (SD relative to age matched peers) This is consistent with osteopenia by criteria defined by the WHO. Left Hip T-score is -2.0 Z-score is -0.6 This is consistent with osteopenia by criteria defined by the WHO. . Impression: Based on the World Health Organization criteria, Marcelle Zhao should beclassified as having osteopenia. This patient has a 14% risk of majorosteoporotic fracture and a 2.3% risk of hip fracture over the next 10years. (World Health Organization Fracture Risk Assessment) The [facility] Department of Internal Medicine recommendsusing National Osteoporosis Foundation (NOF) guidelines in treatmentdecisions related to osteoporosis. NOF guidelines suggest consideringtreatment for postmenopausal women and men aged 50 or older presentingwith the following: History of hip or vertebral fracture. T-score less than or equal to -2.5 (DXA) at the femoral neck, total hip,or spine, after appropriate evaluation to exclude secondary causes. Low bone mass (T-score between -1.0 and -2.5 at the femoral neck or spine)AND a 10-year probability of a hip fracture greater than or equal to 3% ORa 10-year probability of a major osteoporosis-related fracture greaterthan or equal to 20% based on the [place]-adapted WHO algorithm Please note that all treatment decisions require clinical judgment andconsideration of individual patient factors, including patientpreferences, co-morbidities, previous drug use, risk factors not capturedin the FRAX model (e.g., frailty, falls, vitamin D deficiency, increasedbone turnover, interval significant decline in bone density) and possibleunder- or over-estimation of fracture risk by FRAX. us Aguila Andres MD IMG DXA PROCEDURES Final Resu lt * Hm Hepatitis C Screening (01/14/2018) Pathologist [facility] Hepatitis C Screening Abstracted Historical Provider HEALTH MAINTENANCE Final Result from Last 3 Months or Most Recently Relevant to Health Maintenance Insurance [facility] Member Subscriber Plan / Payer (Ef fective 2022-Present) Name:Marcelle Zhao Relation to Subscriber:Self Name:Marcelle Zhao Payer ID:[id number] Group ID:[id number] Type:Not on file Address: [address] [place] [address] Care Teams Chain Maker Relationship Specialty Start Date End Date Tank Randhawa MD [address] [place] [id number] PCP - General 11/04/23
--- OUTSIDE RECORDS SUMMARY | 2024-11-21 16:34 | XMS_ITS | Clinical Summary ---
Author Organization [facility] Address [address] [place] [address] Care Team Providers Care Forge Heater Name Role Phone Zenia Shepherd MD Primary Care Provider [phone] Allergies Active Allergy Reactions Criticality Noted Date Comments Penicillins 05/07/2017 Hydroxychloroquine 06/22/2019 Medications Medication Sig Dispensed Refills Start Date End Date Status cyclobenzaprine (FLEXERIL) 10 MG tablet Take 1 tablet (10 mg total) by mouth 3 (three) times a day as needed for muscle spasms. 0 Active loratadine (CLARITIN) 10 MG tablet Take 1 tablet (10 mg total) by mouth daily. 0 Active Multiple Vitamin (MULTI VITAMIN DAILY PO) Take by mouth. 0 Active CYANOCOBALAMIN PO Take by mouth. 0 Act dutch cholecalciferol (VITAMIN D3) 1000 UNITS tablet Take 1 tablet (1,000 Units total) by mouth daily. 0 Active LORazepam (ATIVAN) 0.5 MG tablet Take 1 tablet (0.5 mg total) by mouth every 6 (six) hours as needed. 0 Active citalopram (CELEXA) 5 MG split tablet Take 2 split tablet (10 mg total) by mouth daily. 0 Active Menthol, Topical Analgesic, (BIOFREEZE) 4 % GEL Apply 1 applicator topically. 0 03/19/2017 Active ibuprofen (ADVIL,MOTRIN) 600 MG tablet Take 1 tablet (600 mg total) by mouth. 0 03/19/2017 Active ferrous sulfate 325 (65 FE) MG tablet Take 1 tablet (325 mg total) by mouth every morning with breakfast. 0 Active Active Problems Problem Noted Date Diagnosed Date Scleroderma 03/18/2018 Itching 11/03/2017 VINCE positive 07/04/2017 Leukopenia 05/07/2017 Anxiety and depression 03/19/2017 Adhesive capsulitis of right shoulder 01/07/2017 Greater trochanteric bursitis 01/07/2017 Spondylosis of lumbar region without myelopathy or radiculopathy 01/07/2017 Low back pain 03/19/2015 Overview: Overview: Previous work related injury 2007 Family history of breast cancer 09/08/2012 Family History Medical History Relation Name Comments Cancer Maternal Aunt breast Cancer Mother breast Relation Name Status Comments Father Maternal Aunt Alive Mother Alive Social History Tobacco Use Types Packs/Day Years Used Date Smoking Tobacco: Never Smokeless Tobacco: Never Alcohol Use Standard Drinks/Week Comments No 0 (1 standard drink = 0.6 oz pur e alcohol) Sex and Gender Information Value Date Recorded Sex Assigned at Not on file Gender Identity Not on file Sexual Orientation Not on file Job Start Date Occupation Industry Not on file Not on file Not on file Last Filed Vital Signs Vital Sign Reading Time Taken Comments Blood Pressure 110/64 04/30/2023 11:06 AM EDT Pulse 77 04/30/2023 11:06 AM EDT Temperature 36.6 ??C (97.9 ??F) 04/30/2023 11:06 AM E DT Respiratory Rate - - Oxygen Saturation 100% 04/30/2023 11:06 AM EDT Inhaled Oxygen Concentration - - Weight 51.3 kg (113 lb) 04/30/2023 11:06 AM EDT Height 165.1 cm (5' 5 ) 07/24/2021 11:09 AM EDT Body Mass Index 18.8 07/24/2021 11:09 AM EDT Plan of Treatment Health Maintenance Due Date Last Done Comments Depression Screening 1971 Preventative Health Evaluation 1977 DTap / Tdap / Td (1 - Tdap) 1978 Cervical Cancer Screening (Pap Smear) 1980 Colon Cancer Screening (Colonoscopy) 2004 Breast Cancer Screening (Mammogram) 2009 Shingrix-Zoster Vaccine (1 o f 2) 2009 COVID-19 Vaccine (2023-2 5 season) 2024 07/03/2021, 05/31/2021 Influenza Vaccine (#1) 2024 Fall Risk Assessment 2024 Osteoporosis Screening (DEXA Scan) 2024 Pneumococcal Vaccine (1 of 1 - PCV) 2024 RSV Adult > 60+ Yrs or (1 - 1-dose 75+ series) 2034 Hepatitis C Screening Completed 01/14/2018 Hepatitis B Vaccines Aged Out No long er eligible based on patient's age to complete this topic Pneumococcal Vaccine Aged Out No long er eligible based on patient's age to complete this topic RSV Ped < 20 months Aged Out No longe r eligible based on patient's age to complete this topic Care Teams Forge Heater Relationship Specialty Start Date End Date Zenia Shepherd MD PCP - General Internal Medicine 05/07/17
[2024-11-21 16:56] LABS: Vitamin D 25-OH Total 55.7 ng/mL (>30)
[2024-11-21 20:21] LABS: Parathyroid Hormone Intact 70.3 pg/mL (8.7-77.1)
[2024-11-25 14:43] LABS: VITAMIN D (1,25 OH) D3 48 pg/mL; Vit D (1,25-Dihydroxy) Total 48 pg/mL (18-72); Vitamin D (1,25 OH) D2 <8 pg/mL
== END 2024-11-21 14:22 | disposition home or self-care (01) ==
LOC: HO.LAB 14:21
PROVIDERS: Visit Provider Internal Medicine Nephrology
DX: N18.31 Chronic kidney disease, stage 3a (principal)
CPT/HCPCS: 36415; 80051; 82306; 82310; 82565; 82652; 83970; 84520

== ENCOUNTER 2024-12-02 13:24 | Outpatient (AMB) | payer OTHER, SELFPAY ==
--- NOTE | 2024-12-02 13:35 | HO.NEPHOV ---
Vital Signs 12/02/24 13:36 Height 5 ft 4 in Weight 120 lb BMI 20.6 BP 108/64 Blood Pressure Location Lt brachial Position Sitting Pulse 83 Pulse Source Pulse Oximeter Pulse Oximetry (%) 98 Oxygen Delivery Method Room Air Intake Visit Reasons: 6 mon follow up-Conf Merchandising Assistant Required: No Accompanied by: Self / Same As Patient Allergies Penicillins Allergy (Severe, Verified 12/02/24 13:37) Vomiting hydroxychloroquine Allergy (Verified 12/02/24 13:37) Unknown HPI Comments Details: Marcelle was seen in follow up of her mild CKD. She is known to have scleroderma. She has centromere antibody positivity. She has arthralgia and Raynaud's. She has no skin changes. She was treated with methotrexate and hydroxychloroquine in the past. She is VINCE positive as well. She has history of dyslipidemia. She takes nonsteroidal anti-inflammatories as needed basis for aches and pains. She is not known to have any proteinuria. She has dyslipidemia and is on medications. She has no history of peripheral vascular disease . She denies any coronary artery disease, congestive heart failure, CVA, renal artery stenosis. She is not on any SANDRA inhibitor or ARB. She used to follow up with Rheumatology. Her renal function has been stable.She had no active complaints at the time of this office visit [facility] Medical History Varicose veins of left lower extremity Greater trochanteric bursitis Adhesive capsulitis of right shoulder Spondylosis of lumbar region without myelopathy or radiculopathy Anxiety and depression VINCE positive Centromere antibody positive Left lumbar radiculitis Fibromyalgia Degenerative disc disease, cervical Cervical spondylosis Scleroderma Surgical History History of colposcopy History of tubal ligation Family History Mother Breast cancer Maternal Aunt Breast cancer Family/Other Breast cancer Paternal Grandmother Throat cancer Sister Anemia Social History Household Members: Significant Other Patient Tobacco Use Status: Never used Tobacco Second Hand Smoke Exposure: No service: No Current occupational status: retired Review of Systems Const All systems reviewed & are unremarkable except as noted in HPI and below Physical Exam Vital Signs: Last Vital Signs Pulse 83 12/02/24 13:36 BP 108/64 12/02/24 13:36 Pulse Ox 98 12/02/24 13:36 Oxygen Delivery Method Room Air 12/02/24 13:36 BMI result Body Mass Index 20.6 Const General: comfortable and no acute distress Orientation/consciousness: patient oriented x3 HEENT Head: Yes normocephalic Mouth: Normal oral and palatal mucosa present Eyes EOM: EOMs intact bilaterally Neck Neck: Yes supple Resp Auscultation: clear to auscultation bilaterally Cardio Jugular venous distension: no JVD Rate: regular rate GI Palpation (GI): Soft to palpation Auscultation: normal bowel sounds Skin General skin exam: no rashes or lesions noted Neuro General: patient oriented x3 and moves all extremities Extrem General: Yes no pedal edema Results Reviewed Nephrology Results: Sodium 141 mmol/L (135-145) 11/21/24 Potassium 4.6 mmol/L (3.3-5.1) 11/21/24 Chloride 104 mmol/L (96-108) 11/21/24 Carbon Dioxide 30 mmol/L (22-29) H 11/21/24 BUN 16 mg/dL (9-16) 11/21/24 Creatinine 1.06 mg/dL (0.5-1.4) 11/21/24 Calcium 9.9 mg/dL (8.4-10.2) 11/21/24 PTH Intact 70.3 pg/mL (8.7-77.1) 11/21/24 Protein/Creatinin Ratio 0.08 (<0.2) 05/04/24 Assessment & Plan Assessment & Plan (1) CKD stage 3a, GFR 45-59 ml/min: Code(s): N18.31 - Chronic kidney disease, stage 3a Category: Medical (2) Scleroderma: Code(s): M34.9 - Systemic sclerosis, unspecified Category: Medical Plan Marcelle has mild CKD most likely due to vascular disease. 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 She does not have any microscopic hematuria or proteinuria. Her blood pressure has been at goal. She takes nonsteroidal anti-inflammatories as needed basis, which she should try to minimize. She might have had some tubular injury from NSAID's. She should maintain good hydration. All her recent W/U were reviewed. I referred her to Dr Jimenes for Rheumatology ( Scleroderma). Idid not make any medication changes today. Answered all questions. Follow-up appointment given. Orders: Orders Protein Creatinine Ratio, Ur 6 Months N18.31 - Chronic kidney disease, stage 3a UA and rflx microscopic 6 Months N18.31 - Chronic kidney disease, stage 3a Electrolytes 6 Months N18.31 - Chronic kidney disease, stage 3a Creatinine 6 Months N18.31 - Chronic kidney disease, stage 3a Blood Urea Nitrogen 6 Months N18.31 - Chronic kidney disease, stage 3a Calcium 6 Months N18.31 - Chronic kidney disease, stage 3a Referrals Rheumatology Referral M34.9 - Systemic sclerosis, unspecified Coding Level of Care Code Est Pt Level 4 (67299) Diagnoses CKD stage 3a, GFR 45-59 ml/min N18.31 Scleroderma M34.9
[2024-12-02 13:36] VITALS: BP 108/64; PULSE 83; O2SAT 98; BMI 20.6
--- OUTSIDE RECORDS SUMMARY | 2024-12-02 15:03 | XMS_ITS | Clinical Summary ---
Author Organization [facility] Address [address] [place] [address] Phone Care Team Providers Care Chocolatier Name Role Phone Tank Randhawa MD Primary Care Provider [phone] Allergies Active Allergy Reactions Criticality Noted Date [...] review her lumbar MRI done 04/30/2024 at [facility], she complains of persistent significant pain in [...] of diabetes. MRI lumbar spine 04/30/2024 at [facility] shows L5-S1 disc bulge, small extruded disc [...] with her neck, has EMG scheduled at [facility] in May, we can try to see if we can get a sooner date at [facility]. Fibromyalgia 10/12/2019 Left lumbar radiculitis 06/08/2018 Centromere [...] PM EST Office Visit Internal Medicine - [place] [address] [facility] [address] [place] [address] Tank Randhawa MD Scleroderma ([facility]) (Primary Dx); Fibromyalgia; H/O peripheral vascular disease from Last 3 Months Immunizations Name Administration Dates Next Due Moderna SARS-CoV-2 COVID-19, mRNA, LNP-S, preservative free 07/03/2021,05/31/2021 Td Tetanus diptheria (Tdvax) 7yo and older 04/30 Surgical History Surgery Date Site/Laterality Comments TUBAL LIGATION PROCEDURE:TUBAL LIGATION COLONOSCOPY PROCEDURE:COLONOSCOPY OTHER SURGICAL HISTORY 09/28/1989 PROCEDURE: [place] COLPOSCOPY CERVIX VAG ELTRD CONIZATION CERVIX; COMMENT: Felix TUBAL LIGATION 1997 PROCEDURE: HISTORICAL TUBAL LIGATION OTHER SURGICAL HISTORY 10/22/2023 Left PROCEDURE: HISTORY OTHER; COMMENT: Excision of the vein cluster, left lower extremity, microphlebectomy for venous reflux, Dr. Batista Medical History Medical History Date Comments Low back pain DX:Low back pain Neutropenia ([facility]) DX:Neutrop enia ([facility]) Leukopenia 05/07/2017 DX:Leukopenia Other specified personal his [...] PM EDT Office Visit Internal Medicine - [address] [phone] Tank Randhawa MD [address] [address] Health Maintenance Due Date Last Done Comments [...] LIPID PANEL Routine 03/24/2024 HPV Routine 01/25/2024 [facility] SCREENING DIGITAL Routine 12/07/2023 3:53 PM [...] Historical Provider HEALTH MAINTENANCE Final Result * [facility] SCREENING DIGITAL (12/07/2023 3:53 PM EDT) Anatomical Region Laterality Modality Mammography 12/07/2023 10:4 0 AM EDT Narrative 12/07/2023 3:53 PM EDT [facility] Diagnostic Imaging Department [address] [place] [address] Patient: ??MARCELLE ZHAO ?/Age/Sex: 1960 - 63 - F Unit#: ??[id number] ? Location/Status: ??SPDIMAM/REG CLI ? Mnemonic/Ordering Site: ??DIGSC/SPMAM Ordering Physician: ??TANK RANDHAWA [facility] Screening Digital - 12/07/23 - 1100 Report Status:Signed EXAM: [facility] Screening Digital EXAM DATE AND TIME: 12/07/2023 11:00 AM HISTORY: ??Screening. Mother had breast carcinoma at age 80. COMPARISON: ??05/30/22, 03/26/19, 03/27/16 TECHNIQUE: Bilateral digital breast tomosynthesis was performed in the CC and MLO projections. Computer aided detection with TRAFI 3D 3.1 was employed. TISSUE DENSITY: b. [...] Procedure Note Bev Lutz MD - 05/16/2024 [facility] Diagnostic Imaging Department [address] [place] [address] Patient: MARCELLE ZHAO /Age/Sex: 1960 - 63 - F Unit#: [id number] Location/Status: SPDIMAM/REG CLI Mnemonic/Ordering Site: [facility] Ordering Physician: TANK RANDHAWA [facility] Screening Digital - 12/07/23 - 1099 Report Status:Signed EXAM: [facility] Screening Digital EXAM DATE AND TIME: 12/07/2023 11:00 AM HISTORY: Screening. Mother had breast carcinoma at age 80. COMPARISON: 05/30/22, 03/26/19, 03/27/16 TECHNIQUE: Bilateral digital breast tomosynthesis was performed in the CCand MLO projections. Computer aided detection with TRAFI 3D 3.1was employed. TISSUE DENSITY: b. There [...] Date/Time: 12/07/23 1553 Sign date/Time: 12/07/23 1553 [facility] BI PROCEDURES Final Result [...] (World Health Organization Fracture Risk Assessment) [facility] Department of Internal Medicine recommends using [...] (World Health Organization Fracture Risk Assessment) [facility] Department of Internal Medicine recommendsusing National [...] * Hm Hepatitis C Screening (01/14/2018) Pathologist [facility] Hepatitis C Screening Abstracted Historical Provider HEALTH MAINTENANCE Final Result from Last 3 Months or Most Recently Relevant to Health Maintenance Insurance [facility] Member Subscriber Plan / Payer (Ef fective 2022-Present) Name:Marcelle Zhao Relation to Subscriber:Self Name:Marcelle Zhao Payer ID:[id number] Group ID:[id number] Type:Not on file Address: [address] [place] [address] Care Teams Chocolatier Relationship Specialty Start Date End Date Tank Randhawa MD [address] [place] [id number] PCP - General 11/04/23
--- OUTSIDE RECORDS SUMMARY | 2024-12-02 15:03 | XMS_ITS | Encounter Summary ---
Author Organization [facility] Address [address] [place] [address] Care Team Providers Care Bilingual Teacher Name Role Phone Virginia Randhawa MD Primary Care Provider [phone] Reason for Referral * Consultation (Routine) - Authorized Specialty Diagnoses / Procedures Referred By Contac t Referred To Contact Rheumatology Diagnoses Scleroderma (CMS/HCC) Fibromyalgia Virginia Randhawa MD [address] [place] [address] Phone: tel: fax: Shiv Rivera PA [address] [place] [address] Phone: tel: fax: Referral ID Status Reason Start Date Expiration Date Visits Requested Visits Authorized [id number] Authorized Specialty Services Required 11/10/2024 11/10/2025 1 1 Reason for Visit * Reason Comments Follow-up Encounter Details Date Type Department Care Team ([facility] st Contact Info) Description 11/10/2024 1:30 PM EST Office Visit Internal Medicine - [address] [phone] Virginia Randhawa MD [address] [address] Scleroderma (CMS/HCC) (Primary Dx); Fibromyalgia; H/O peripheral [...] Care Everywhere. * Low-Fat: Diet: General Info (Djiboutian) documented in this encounter Progress Notes * [...] a vascular specialist post-surgery. Scleroderma - Her manager drug safety left the practice, leaving her without management [...] stools : No dysuria, frequency or incontinence STAFFING CONSULTANT: No abnormal vaginal bleeding or abnormal vaginal [...] COLONOSCOPY PROCEDURE:COLONOSCOPY OTHER SURGICAL HISTORY 09/28/1989 PROCEDURE: [place] COLPOSCOPY CERVIX VAG ELTRD CONIZATION CERVIX; COMMENT: [...] Continue rheumatology follow-up. - Refer to new manager drug safety - Keep hands warm, wear gloves if necessary 3. Degenerative joint disease: Intermittent lower back pain. MRI showed disc fragment. - Avoid fall-risk activities - Monitor symptoms 4. Hyperlipidemia: Elevated cholesterol and LDL. - Adhere to low-fat diet - Continue dietary modifications Follow-up - Follow up with vascular specialist - Follow up with new manager drug safety PROCEDURE Vascular surgery for varicose veins one [...] Upcoming Encounters Date Type Department Care Team ([facility] st Contact Info) Description 05/10/2025 2:30 PM EDT Office Visit Internal Medicine - [address] [phone] Virginia Randhawa MD [address] [place] [address] Scheduled Referrals Name Type Priority Associated Diagnoses Order Schedule Ambulatory referral to Rheumatology Outpatient Referral Routine Scleroderma (CMS/HCC) Fibromyalgia Expected: 11/24/2024, Expires: 11/10/2025 documented as of this encounter Visit Diagnoses Diagnosis Scleroderma (CMS/HCC)- Primary Systemic sclerosis Fibromyalgia Unspecified myalgia and myositis H/O peripheral vascular disease documented in this encounter Care Teams Bilingual Teacher Relationship Specialty Start Date End Date Virginia Randhawa MD [address] [place] [phone] PCP - General 11/04/23 documented as of this encounter
--- OUTSIDE RECORDS SUMMARY | 2024-12-02 15:03 | XMS_ITS | Clinical Summary ---
Author Organization [facility] Address [address] [place] [address] Care Team Providers Care Edge Glue Machine Tender Name Role Phone Zenia Shepherd MD Primary Care Provider [phone] Allergies Active Allergy Reactions Criticality Noted Date [...] age to complete this topic Care Teams Edge Glue Machine Tender Relationship Specialty Start Date End Date Zenia Shepherd MD PCP - General Internal Medicine 05/07/17
== END 2024-12-02 13:55 | disposition home or self-care (01) ==
PROVIDERS: PCP Internal Medicine; Visit Provider Internal Medicine Nephrology
DX: N18.31 Chronic kidney disease, stage 3a (principal); M34.9 Systemic sclerosis, unspecified
CPT/HCPCS: 99214

== ENCOUNTER → 2024-12-02 13:24 | Outpatient (BNVA) | payer OTHER, SELFPAY | PROVIDERS: PCP Internal Medicine; Visit Provider Internal Medicine Nephrology | DX: N18.31 Chronic kidney disease, stage 3a (principal); M34.9 Systemic sclerosis, unspecified; I73.9 Peripheral vascular disease, unspecified | CPT/HCPCS: 99212 ==

== ENCOUNTER 2024-12-08 14:06 | Emergency (ER) | payer OTHER, SELFPAY ==
--- NOTE | ~2024-12-08 | CT_ITS ---
EXAMINATION: CT ABDOMEN AND PELVIS WITHOUT CONTRAST CLINICAL INFORMATION: Back pain, pelvic pain. COMPARISON: None available. TECHNIQUE: Multidetector volumetric imaging was performed from the superior aspect of the liver through the pubic symphysis. Sagittal and coronal reformatted images were obtained on the technologist's workstation. This CT examination was performed using dose optimization techniques as appropriate, variously including the following: *Automated exposure control *Adjustment of mA and/or kV according to patient size (this includes techniques or standardized protocols for targeted exams where dose is matched to indication/reason for exam; i.e. extremities or head) *Use of iterative reconstruction technique FINDINGS: LUNG BASES: The visualized lung bases are unremarkable. LIVER, GALLBLADDER, AND BILIARY TREE: The unenhanced liver is normal in size, shape, and attenuation. No focal hepatic lesion or biliary ductal dilatation is present. The gallbladder is unremarkable with no evidence of radiopaque gallstones, gallbladder wall thickening, or obvious pericholecystic inflammatory changes. PANCREAS: Unremarkable. SPLEEN: Unremarkable. ADRENAL GLANDS: Unremarkable. KIDNEYS AND URETERS: The kidneys are normal in size, shape, and attenuation. No hydronephrosis, hydroureter, or calculi seen. No perinephric stranding. BLADDER: Unremarkable. GASTROINTESTINAL TRACT: The small and large bowel are unremarkable. The appendix is unremarkable. ABDOMINAL WALL: No significant hernia is appreciated. LYMPH NODES: None enlarged by size criteria. VASCULAR: Unremarkable. PELVIC VISCERA: The uterus and adnexa are unremarkable. OSSEOUS STRUCTURES: No suspicious lytic or blastic bone lesions. Degenerative disc changes L5-S1. CT/CT abdomen pelvis wo IV con IMPRESSION: No acute findings in the abdomen or pelvis. Electronically signed by: Neville Grijalva MD 12/08/2024 04:22 PM EDT
[2024-12-08 14:52] VITALS: BP 125/56; PULSE 75; RESP 16; TEMP 36.8; O2SAT 98; BMI 20.1
--- NOTE | 2024-12-08 14:56 | ED.GENADULT ---
HPI - General Adult General Chief complaint: Urogenital-Female Stated complaint: Blood in urine Time Seen by Provider: 12/08/24 19:23 Source: patient Mode of arrival: ambulatory Limitations: no limitations History of Present Illness ED Provider: Katja Mercado NP HPI narrative: Patient is a 64-year-old female who presents emergency department for evaluation she reports yesterday after urinating when she wiped she noticed a very small amount of blood on the toilet tissue. She provides me a photo of this on her phone. She is adamant that this was not vaginal bleeding. She did not wipe the area of her rectum and is not concerned for rectal bleeding. Has had no further episodes. Earlier today she had some pain in her lower back and pelvis that has resolved. Currently She denies fevers, chills, abdominal pain, nausea, vomiting, back pain, dysuria, urinary frequency/ urgency / hesitancy. Related Data Home Medications ?Medication ?Instructions ?Recorded ?Confirmed loratadine 10 mg tablet 10 mg PO DAILY 06/24/23 12/29/23 ezetimibe 10 mg tablet 10 mg PO DAILY 12/29/23 12/29/23 menthol 10 % topical cream appl topical PRN 04/22/24 (Biofreeze (menthol)) cyproheptadine 4 mg tablet 4 mg PO PRN 12/02/24 multivitamin (Daily Multi-Vitamin 1 tab PO DAILY 12/02/24 tablet) Previous Rx's ?Medication ?Instructions ?Recorded acetaminophen 325 mg tablet 650 mg (2 x 325 mg) PO Q6H PRN 03/05/23 (Tylenol) pain #30 tabs Allergies Allergy/AdvReac Type Severity Reaction Status Date / Time Penicillins Allergy Severe Vomiting Verified 12/08/24 14:53 hydroxychloroquine Allergy Unknown Verified 12/08/24 14:53 Review of Systems Review of Systems: Yes all other systems are reviewed and are negative PMFSH Past Medical History Attestation statement: The following information was validated with the patient. Source: old records reviewed Medical History Varicose veins of left lower extremity Greater trochanteric bursitis Adhesive capsulitis of right shoulder Spondylosis of lumbar region without myelopathy or radiculopathy Anxiety and depression VINCE positive Centromere antibody positive Left lumbar radiculitis Fibromyalgia Degenerative disc disease, cervical Cervical spondylosis Scleroderma Surgical History History of colposcopy History of tubal ligation Family History Family History Mother Breast cancer Maternal Aunt Breast cancer Family/Other Breast cancer Paternal Grandmother Throat cancer Sister Anemia Social History Social History Household Members: Significant Other Patient Tobacco Use Status: Never used Tobacco Second Hand Smoke Exposure: No Advance Directives: No Advance Directives Information Provided: Yes service: No Current occupational status: retired Physical Exam ED Vital Signs: Vital Signs - 24 hr 12/08/24 14:52 Temperature 98.3 F Pulse Rate 75 Respiratory Rate 16 Blood Pressure 125/56 L Pulse Oximetry 98 Oxygen Delivery Method Room Air BMI result Body Mass Index 20.1 Appearance: Alert.?Oriented to person, place and time. No acute distress.?Normal affect.? CVS: Heart sounds normal. Normal heart rate and rhythm.? Pulses normal.?? Respiratory: No respiratory distress.? Lung sounds clear to auscultation bilaterally?? Abdomen: Soft and non-tender. Normoactive bowel sounds. ?? Skin: Skin warm and dry.? Normal skin color.? ?? Extremities: No lower extremity edema.? ? Neuro: Moves all extremities spontaneously. Sensation intact bilaterally. Ambulates with normal steady gait. Course Course Course Narrative: This is an RME: Additional HPI, ROS, PE not included below will be deferred to primary provider. RME assessment and note performed by: Juana Man PA-C 63 year old female with pmhx significant for osteopenia, scleroderma, stage III CKD who presents emergency department today with concerns for hematuria. On arrival, vital signs within normal limits. She is speaking full sentences under no acute distress. Patient had 1 episode of hematuria yesterday and developed back pain and pelvic pain shortly after. Plan: Labs, UA, CT abdomen and pelvis Medical Decision Making Medical Decision Making MDM Narrative: patient is a 64-year-old female with past medical history of osteopenia, sclera derma, CKD stage 3 who presents emergency department for a single episode of scant blood noted on the toilet tissue after urinating yesterday as per HPI. No further episodes. Had mild diffuse low back pain and suprapubic pain earlier today but has since resolved. No further symptoms. No history of similar bleeding in the past. Reviewed workup obtained prior to my assumption of care; CBC reveals a mild leukopenia 4700, no anemia, mild thrombocytopenia 139,000. no electrolyte derangement. No BROCK. LFTs unremarkable. Urinalysis without evidence of infection or microscopic hematuria. Has a benign examination. Reviewed the potential for a past kidney stone, CT of the abdomen and pelvis is without evidence of nephrolithiasis. At this time feel that she is stable for discharge home, outpatient follow-up with PCP/ Nephrology, discussed strict return precautions. Advised if she continues to have episodes of hematuria she may require further evaluation with Urology. She is adamant that this was not vaginal bleeding and declines pelvic examination. No rectal bleeding, denies history of hemorrhoids, rectal region was not wipe to suggest a source Of this blood Differential Diagnosis Differential Diagnoses: The differential diagnosis associated with the presentation includes ( see narrative above) Admission/Observation Consideration of admission/observation: Escalation of care including admission/observation considered ( see narrative above) Lab Data MDM Lab Attestation statement: I reviewed the patient's lab results. ( see narrative above) 12/08/24 15:20 12/08/24 15:20 Labs: Lab Results 12/08/24 12/08/24 Range/Units 15:20 15:21 WBC 4.7 L (4.8-10.8) X10*3/uL RBC 4.78 (4.20-5.50) X10*6/uL Hgb 13.1 (12.0-16.0) g/dl Hct 41.0 (37.0-47.0) % MCV 85.8 (80.0-98.0) fL MCH 27.4 (27.0-33.0) pg MCHC 32.0 (31.0-35.0) g/dl RDW 13.2 (11.0-16.0) % Plt Count 139 L (160-400) X10*3/uL MPV 14.0 H (9.4-12.3) fL Immature Gran % (Auto) Cancelled Neut % (Auto) Cancelled Lymph % (Auto) Cancelled [place] % (Auto) Cancelled Eos % (Auto) Cancelled Baso % (Auto) Cancelled Lymph # (Auto) Cancelled [place] # (Auto) Cancelled Eos # (Auto) Cancelled Baso # (Auto) Cancelled Abs Immat Gran (auto) Cancelled Absolute Neuts (auto) Cancelled Absolute Nucleated RBC 0.000 (0.0-0.012) X10*3/uL Nucleated RBC % (auto) 0.0 (0.0-0.2) /100WBC Neutrophils % (Manual) 46 (45-73) % Band Neutrophils % 2 L (3-5) % Lymphocytes % (Manual) 31 (20-40) % Atypical Lymphs % (Man) 3 (0-6) % Monocytes % (Manual) 11 (2-11) % Eosinophils % (Manual) 5 H (0-4) % Basophils % (Manual) 2 (0-2) % Abs Neuts (Manual) 2.3 (2.0-8.3) X10*3/uL Lymphocytes # (Manual) 1.5 (1.2-4.9) X10*3/uL Atyp Lymphs # (Manual) 0.1 x10*3/uL Monocytes # (Manual) 0.5 (0.1-1.2) X10*3/uL Eosinophils # (Manual) 0.2 (0.0-0.4) X10*3/uL Basophils # (Manual) 0.1 (0.0-0.2) X10*3/uL Toxic Vacuolation PRESENT Platelet Estimate NORMAL (NORMAL) Large Platelets PRESENT Plt Morphology Comment NOTED RBC Morphology NOTED Microcytosis 1+ (5-14) /OIF Spherocytes 1+ (0-2) /OIF Sodium 143 (135-145) mmol/L Potassium 4.2 (3.3-5.1) mmol/L Chloride 105 (96-108) mmol/L Carbon Dioxide 30 H (22-29) mmol/L Anion Gap 12 (12-20) BUN 14 (9-16) mg/dL Creatinine 1.06 (0.5-1.4) mg/dL Estim Creat Clear Calc 45.6 Estimated GFR 52 Random Glucose 85 (60-115) mg/dL Calcium 10.0 (8.4-10.2) mg/dL Total Bilirubin 0.3 (0.0-1.0) mg/dL Direct Bilirubin 0.1 (0.0-0.5) mg/dL AST 27 (5-31) U/L ALT 24 (0-31) U/L Alkaline Phosphatase 82 (39-117) U/L Total Protein 7.7 (6.5-8.0) g/dL Albumin 4.2 (3.5-5.0) g/dL Lipase 29 (8-78) U/L Urine Color Yellow Urine Appearance Clear Urine pH 8.0 (5.0-9.0) Ur Specific [place]let 1.020 (1.005-1.025) Urine Protein Trace (Neg-Trace) mg/dL Urine Glucose (UA) Negative (Negative) mg/dL Urine Ketones Trace (Negative) mg/dL Urine Blood Negative (Negative) Urine Nitrite Negative (Negative) Ur Leukocyte Esterase Negative (Negative) Independent Interpretation I performed an independent interpretation of an: CT Scan ( no urolithiasis, no hydronephrosis) Radiology Impression Discussion of test interpretation with radiology: I have reviewed the radiologist's reading. Radiologist Impression: CT/CT abdomen pelvis wo IV con IMPRESSION: No acute findings in the abdomen or pelvis. External Record Review External record reviewed: Outpatient record Chronic Conditions Patient?s care impacted by: Other ( see narrative above) Discharge Plan Discharge Clinical Impression: Hematuria Patient Disposition: Home, Self-Care Instructions: Hematuria (ED) Additional Instructions: you were evaluated in the emergency department today for a single episode of blood in the urine that occurred yesterday. This is a very small amount that you showed me in the photo. Your urine sample today does not show evidence of any blood in the urine or any sign of infection. The CT scan does not show any abnormality in your abdomen and pelvis, additionally no signs of kidney stones. Your kidney function is at baseline. as discussed, if you have any further episodes of blood in the urine, I would discuss this with your PCP/ harness inspector as they may consider referral to Urology for further evaluation. You may return to emergency department any new or worsening symptoms or concerns. Prescriptions: No Action acetaminophen [Tylenol] 325 mg tablet 650 mg PO Q6H PRN (Reason: pain) Qty: 30 0RF ezetimibe 10 mg Tablet 10 mg PO DAILY loratadine 10 mg tablet 10 mg PO DAILY Biofreeze (menthol) 10 % cream topical PRN multivitamin [Daily Multi-Vitamin] Tablet 1 tab PO DAILY cyproheptadine 4 mg tablet 4 mg PO PRN Referrals: [place] Randhawa MD [Primary Care Provider] - Print Language: Libyan
[2024-12-08 15:31] LABS: Appearance Urine Clear; Color Urine Yellow; Glucose Urine UA Negative (Negative); Leukocyte Esterase Urine Negative (Negative); Nitrite Urine Negative (Negative); Urine Blood Negative (Negative); Urine Ketones Trace mg/dL (Negative); Urine Protein Trace mg/dL (Neg-Trace)
[2024-12-08 15:32] LABS: Hemoglobin 13.1 g/dl (12.0-16.0); Mean Corpuscular Hemoglobin 27.4 pg (27.0-33.0); Mean Corpuscular Volume 85.8 fL (80.0-98.0); Platelet Count 139 X10*3/uL (160-400); Red Blood Count 4.78 X10*6/uL (4.20-5.50); Red Cell Distribution Width 13.2 % (11.0-16.0)
[2024-12-08 15:33] LABS: WBC ABN SCTR FOR CBC 1; White Blood Count 4.7 X10*3/uL (4.8-10.8)
[2024-12-08 15:55] LABS: Alanine Aminotransferase 24 U/L (0-31); Albumin Level 4.2 g/dL (3.5-5.0); Anion Gap 12 (12-20); Aspartate Amino Transferase 27 U/L (5-31); Bilirubin Direct 0.1 mg/dL (0.0-0.5); Bilirubin Total 0.3 mg/dL (0.0-1.0); Blood Urea Nitrogen 14 mg/dL (9-16); Carbon Dioxide 30 mmol/L (22-29); Chloride 105 mmol/L (96-108); Creatinine Clr Calc Pharmacy 45.6; Estimated Glomerular Filt Rate 52; Glucose Random 85 mg/dL (60-115); Lipase 29 U/L (8-78); Potassium 4.2 mmol/L (3.3-5.1); Sodium 143 mmol/L (135-145); Total Protein 7.7 g/dL (6.5-8.0)
[2024-12-08 15:57] LABS: Atypical Lymph Absolute Manual 0.1 x10*3/uL; Atypical Lymphs Percent Manual 3 % (0-6); Band Neutrophils Percent 2 % (3-5); Basophils Abs Manual 0.1 X10*3/uL (0.0-0.2); Basophils Percent Manual 2 % (0-2); Eosinophils Absolute Manual 0.2 X10*3/uL (0.0-0.4); Eosinophils Percent Manual 5 % (0-4); Lymphocytes Absolute Manual 1.5 X10*3/uL (1.2-4.9); Lymphocytes Percent Manual 31 % (20-40); Monocytes Absolute Manual 0.5 X10*3/uL (0.1-1.2); Monocytes Percent Manual 11 % (2-11); Neutrophils Absolute Manual 2.3 X10*3/uL (2.0-8.3); Neutrophils Percent Manual 46 % (45-73)
[2024-12-08 15:58] LABS: RBC Morphology NOTED; Spherocytes 1+ (0-2) /OIF
[2024-12-08 15:59] LABS: Large Platelet PRESENT; Microcytosis 1+ (5-14) /OIF; Platelet Estimate NORMAL (NORMAL); Platelet Morphology Comment NOTED; Toxic Vacuolation PRESENT
[2024-12-08 16:24] LABS: Alkaline Phosphatase 82 U/L (39-117)
--- OUTSIDE RECORDS SUMMARY | 2024-12-08 19:01 | XMS_ITS | Clinical Summary ---
Author Organization [facility] Address [address] [place] [address] Phone Care Team Providers Care Head Irrigator Name Role Phone Tank Randhawa MD Primary Care Provider Allergies Active Allergy Reactions Criticality Noted Date [...] review her lumbar MRI done 04/30/2024 at [facility], she complains of persistent significant pain [...] of diabetes. MRI lumbar spine 04/30/2024 at [facility] shows L5-S1 disc bulge, small extruded [...] with her neck, has EMG scheduled at [facility] in May, we can try to see if we can get [place] sooner [place] [facility] Fibromyalgia 10/12/2019 Left lumbar radiculitis 06/08/2018 Centromere [...] Encounters Date Type Department Care Team Description 12/07/2024 Telephone Internal Medicine - [place] 175 [facility] [address] [place] [address] Tank Randhawa MD 11/10/2024 1:30 PM EST Office Visit Internal Medicine [facility] 175 [facility] [address] [place] [address] Tank Randhawa MD Scleroderma (CMS/HCC) (Primary Dx); Fibromyalgia; H/O peripheral vascular disease from Last 3 Months Immunizations Name Administration Dates Next Due Moderna SARS-CoV-2 COVID-19, mRNA, LNP-S, preservative free 07/03/2021,05/31/2021 Td Tetanus diptheria (Tdvax) 7yo and older 04/30 Surgical History Surgery Date Site/Laterality Comments TUBAL LIGATION PROCEDURE:TUBAL LIGATION COLONOSCOPY PROCEDURE:COLONOSCOPY OTHER SURGICAL HISTORY 09/28/1989 PROCEDURE: OR COLPOSCOPY CERVIX VAG ELTRD CONIZATION CERVIX; COMMENT: Felix TUBAL LIGATION 1997 PROCEDURE: HISTORICAL TUBAL LIGATION OTHER SURGICAL HISTORY 10/22/2023 Left PROCEDURE: HISTORY OTHER; COMMENT: Excision of the vein cluster, left lower extremity, microphlebectomy for venous reflux, Dr. Batista Medical History Medical History Date Comments Low back pain DX:Low back pain Neutropenia (CMS/HCC) DX:Neutrop enia ([facility]) Leukopenia 05/07/2017 DX:Leukopenia Other specified personal his tory presenting hazards to health(V15.89) DX:Other specifie d personal history presenting hazards to health(V15.89); COMMENT: cervical change in cells Low back pain 03/19/2015 DX:Low back pain ; COMMENT: Previous work related injury 2008 Family history of breast cancer 09/08/2012 DX:Family [...] PM EDT Office Visit Internal Medicine - [address] [place] [address] Tank Randhawa MD [address] [place] [address] [address] [place] [address] Health Maintenance Due Date Last Done Comments Pneumococcal Vaccine: 50+ Years (1 of 1 - PCV) 2009 Zoster Vaccines (1 of 2) 2009 DTaP,Tdap,and Td Vaccines (2 - Td or Tdap) 04/30/2019 04/30/2009 Colorectal Cancer Screening: Stool Based Tests (FOBT/FIT) 09/05/2022 Depression Screening 09/05/2022 Social Influencers of Health Screening 09/05/2022 COVID-19 Vaccine (2023-2 5 season) 2024 07/03/2021, 05/31/2021 Influenza Vaccine (#1) 2024 Falls Risk Assessment 2024 Breast Cancer Screening 12/06/2025 12/07/19 24, 05/30/2022, 03/27/2019 Cervical Cancer Screening: HPV 01/24/2029 [...] LIPID PANEL Routine 03/24/2024 HPV Routine 01/25/2024 ANGEL SCREENING DIGITAL Routine 12/07/2023 3:53 PM EDT [...] blood specimen / Unknown us Historical Provider MD LAB BLOOD ORDERABLES Veronique l Result * Cervical Cancer Screening: HPV (01/25/2024) Pathologist [facility] Cervical Cancer Screening: HPV Abstracted, Negative us Historical Provider HEALTH MAINTENANCE Final Result * [facility] SCREENING DIGITAL (12/07/2023 3:53 PM EDT) Anatomical Region Laterality Modality Mammography 12/07/2023 10:4 0 AM EDT Narrative 12/07/2023 3:53 PM EDT [facility] Diagnostic Imaging Department [address] [place] [address] Patient: ??MARCELLE ZHAO ?/Age/Sex: 1960 - 63 - F Unit#: ??[id number] ? Location/Status: ??SPDIMAM/REG CLI ? Mnemonic/Ordering Site: ??DIGSC/SPMAM Ordering Physician: ??TANK RANDHAWA [facility] Screening Digital - 12/07/23 - 1100 Report Status:Signed EXAM: [facility] Screening Digital EXAM DATE AND TIME: 12/07/2023 11:00 AM HISTORY: ??Screening. Mother had breast carcinoma at age 80. COMPARISON: ??05/30/22, 03/26/19, 03/27/16 TECHNIQUE: Bilateral digital breast tomosynthesis was performed in the CC and MLO projections. Computer aided detection with [employer] 3D 3.1 was employed. TISSUE DENSITY: b. [...] Procedure Note Bev Lutz MD - 05/16/2024 [facility] Diagnostic Imaging Department [address] [place] [address] Patient: NIKOLAS ZHAOL /Age/Sex: 1960 - 63 - F Unit#: [id number] [facility] CLI Mnemonic/Ordering Site: [facility] Ordering Physician: TANK RANDHAWA [facility] Screening Digital - 12/07/23 - 1100 Report Status:Signed EXAM: [facility] Screening Digital EXAM DATE AND TIME: 12/07/2023 11:00 AM HISTORY: Screening. Mother had breast carcinoma at age 80. COMPARISON: 05/30/22, 03/26/19, 03/27/16 TECHNIQUE: Bilateral digital breast tomosynthesis was performed in the CCand MLO projections. Computer aided detection with [employer] 3D 3.1was employed. TISSUE DENSITY: b. There [...] Signed by: BEV LUTZ MD Dic Date/Time: 12/07/231552 Sign date/Time: 12/07/231552 Tank Randhawa MD IMG BI PROCEDURES Final Result * DXA BONE [...] (World Health Organization Fracture Risk Assessment) The [facility] Department of Internal Medicine recommends using National [...] (World Health Organization Fracture Risk Assessment) The [facility] Department of Internal Medicine recommendsusing National Osteoporosis [...] or over-estimation of fracture risk by FRAX. Aguila Andres MD IMG DXA PROCEDURES Final Resu lt * Hepatitis C Screening (01/14/2018) [facility] Hepatitis C Screening Abstracted Historical Provider HEALTH MAINTENANCE Final Result from Last 3 Months or Most Recently Relevant to Health Maintenance Insurance [facility] Member Subscriber Plan / Payer (Ef fective 2022-Present) Name:Marcelle Zhao Relation to Subscriber:Self Name:Marcelle Zhao Payer ID:[id number] Group ID:[id number] Type:Not on file Address: [address] [place] [address] Care Teams Head Irrigator Relationship Specialty Start Date End Date Tank Randhawa MD [address] [place] [address] PCP - General 11/04/23
--- OUTSIDE RECORDS SUMMARY | 2024-12-08 19:01 | XMS_ITS | Clinical Summary ---
Author Organization [facility] Address [address] [place] [address] Care Team Providers Care Filter Tender Jelly Name Role Phone Zenia Shepherd MD Primary Care Provider [phone] Allergies Active Allergy Reactions Criticality Noted Date [...] age to complete this topic Care Teams Filter Tender Jelly Relationship Specialty Start Date End Date Zenia Shepherd MD PCP - General Internal Medicine 05/07/17
--- OUTSIDE RECORDS SUMMARY | 2024-12-08 19:01 | XMS_ITS | Encounter Summary ---
Author Organization [employer] Address [address] [place] [address] Care Team Providers Care Aerospace Project Manager Name Role Phone Virginia Randhawa MD Primary Care Provider [phone] Encounter Details Date Type Department Care Team (Late st Contact Info) Description 12/07/2024 Telephone Internal Medicine - [place] 175 [facility] [address] [place] [phone] Virginia Randhawa MD 175 [facility] [address] [place] [address] Social History Tobacco Use Types Packs/Day Years [...] on file documented as of this encounter Progress Notes * Virginia Randhawa MD - 12/07/2024 5:27 PM EDT Please provide an appointment as soon as possible to check the pain and we can go from there * Cathryn Guevara - 12/07/2024 3:43 PM EDT Is looking for x-ray for right side of neck, she is having pain thinks it's disc-related [phone] documented in this encounter Plan of Treatment Upcoming Encounters Date Type Department Care Team ([facility] st Contact Info) Description 05/10/2025 2:30 PM EDT Office Visit Internal Medicine - [place] [address] [address] Virginia Randhawa MD [address] [address] documented as of this encounter Visit Diagnoses Not on filedocumented in this encounter Care Teams Aerospace Project Manager Relationship Specialty Start Date End Date Virginia Randhawa MD [address] [address] PCP - General 11/04/23 documented as of this encounter
--- OUTSIDE RECORDS SUMMARY | 2024-12-08 19:01 | XMS_ITS | Encounter Summary ---
Author Organization [facility] Address [address] [place] [address] Care Team Providers Care American Indian Policy Specialist Name Role Phone Virginia Randhawa MD Primary Care Provider [phone] Reason for Referral * Consultation (Routine) - Authorized Specialty Diagnoses / Procedures Referred By Contac t Referred To Contact Rheumatology Diagnoses Scleroderma (CMS/HCC) Fibromyalgia Virginia Randhawa MD [address] [place] [address] Phone: tel: fax: Shiv Rivera PA [address] [place] [address] Phone: tel: fax: Referral ID Status Reason Start Date Expiration Date Visits Requested Visits Authorized [id number] Authorized Specialty Services Required 11/10/2024 11/10/2025 1 1 Reason for Visit * Reason Comments Follow-up Encounter Details Date Type Department Care Team ([facility] st Contact Info) Description 11/10/2024 1:30 PM EST Office Visit Internal Medicine - [address] [phone] Virginia Randhawa MD [address] [address] Scleroderma (CMS/HCC) (Primary Dx); Fibromyalgia; H/O peripheral [...] Care Everywhere. * Low-Fat: Diet: General Info (Bengali) documented in this encounter Progress Notes * [...] a vascular specialist post-surgery. Scleroderma - Her signal manager left the practice, leaving her without management [...] stools : No dysuria, frequency or incontinence NUISANCE WILDLIFE SPECIALIST: No abnormal vaginal bleeding or abnormal vaginal [...] COLONOSCOPY PROCEDURE:COLONOSCOPY OTHER SURGICAL HISTORY 09/28/1989 PROCEDURE: ME COLPOSCOPY CERVIX VAG ELTRD CONIZATION CERVIX; COMMENT: [...] Continue rheumatology follow-up. - Refer to new signal manager - Keep hands warm, wear gloves if necessary 3. Degenerative joint disease: Intermittent lower back pain. MRI showed disc fragment. - Avoid fall-risk activities - Monitor symptoms 4. Hyperlipidemia: Elevated cholesterol and LDL. - Adhere to low-fat diet - Continue dietary modifications Follow-up - Follow up with vascular specialist - Follow up with new signal manager PROCEDURE Vascular surgery for varicose veins one [...] Upcoming Encounters Date Type Department Care Team ([facility] st Contact Info) Description 05/10/2025 2:30 PM EDT Office Visit Internal Medicine - [address] [phone] Virginia Randhawa MD [address] [place] [address] Scheduled Referrals Name Type Priority Associated Diagnoses Order Schedule Ambulatory referral to Rheumatology Outpatient Referral Routine Scleroderma (CMS/HCC) Fibromyalgia Expected: 11/24/2024, Expires: 11/10/2025 documented as of this encounter Visit Diagnoses Diagnosis Scleroderma (CMS/HCC)- Primary Systemic sclerosis Fibromyalgia Unspecified myalgia and myositis H/O peripheral vascular disease documented in this encounter Care Teams American Indian Policy Specialist Relationship Specialty Start Date End Date Virginia Randhawa MD [address] [place] [address] PCP - General 11/04/23 documented as of this encounter
[2024-12-08 20:36] VITALS: BP 124/56; PULSE 73; RESP 19; TEMP 36.6; O2SAT 100
[2024-12-08 20:47] VITALS: BP 124/56; PULSE 73; RESP 19; TEMP 36.6; O2SAT 100
== END 2024-12-08 20:48 | disposition home or self-care (01) ==
PROVIDERS: Physician Assistant Medical; Emergency Provider Emergency Medicine; PCP Student in an Organized Health Care Education/Training Program
DX: R31.9 Hematuria, unspecified (principal); D69.6 Thrombocytopenia, unspecified; D72.819 Decreased white blood cell count, unspecified; R10.2 Pelvic and perineal pain
CPT/HCPCS: 36415; 74176; 80048; 80076; 81003; 83690; 85007; 85027; 99283; 99284

== ENCOUNTER → 2024-12-08 14:57 | Outpatient (BNV) | payer OTHER, SELFPAY | PROVIDERS: PCP Student in an Organized Health Care Education/Training Program; Visit Provider Radiology Diagnostic Radiology | DX: M54.9 Dorsalgia, unspecified (principal); R10.2 Pelvic and perineal pain | CPT/HCPCS: 74176 ==

== ENCOUNTER 2024-12-15 13:30 | Outpatient (REF) | payer OTHER, SELFPAY ==
[2024-12-15 16:37] LABS: Anion Gap 12 (12-20); Blood Urea Nitrogen 13 mg/dL (9-16); Carbon Dioxide 32 mmol/L (22-29); Chloride 104 mmol/L (96-108); Estimated Glomerular Filt Rate 53; Potassium 4.6 mmol/L (3.3-5.1); Sodium 143 mmol/L (135-145)
[2024-12-15 17:18] LABS: Appearance Urine Clear; Color Urine Yellow; Glucose Urine UA Negative (Negative); Leukocyte Esterase Urine Negative (Negative); Nitrite Urine Negative (Negative); PH 5.5 (5.0-9.0); Urine Blood Negative (Negative); Urine Ketones Trace mg/dL (Negative); Urine Protein Negative (Neg-Trace)
[2024-12-15 17:36] LABS: Creatinine Urine 210.56 mg/dL; Protein/Creatinine Ratio, Ur 0.06 (<0.2); Total Protein Urine Random 13 mg/dL (<12)
== END 2024-12-15 13:31 | disposition home or self-care (01) ==
LOC: HO.HMGCLDS 13:30
PROVIDERS: PCP Student in an Organized Health Care Education/Training Program; Visit Provider Internal Medicine Nephrology
DX: N18.31 Chronic kidney disease, stage 3a (principal)
CPT/HCPCS: 36415; 80051; 81003; 82310; 82565; 82570; 84156; 84520

== ENCOUNTER 2024-12-16 14:28 | Outpatient (AMB) | payer OTHER, SELFPAY ==
[2024-12-16 14:44] VITALS: BP 100/52
--- NOTE | 2024-12-16 14:44 | HO.NEPHOV_ITS ---
Vital Signs 12/16/24 14:44 Height 5 ft 5 in Weight 120 lb 4 oz BMI 20.0 BP 100/52 L Blood Pressure Location Rt brachial Position Sitting Intake Visit Reasons: [place] [facility] [place] [facility] Radio Board Operator Required: No Accompanied by: Self / Same As Patient Allergies Penicillins Allergy (Severe, Verified 12/16/24 14:44) Vomiting hydroxychloroquine Allergy (Verified 12/16/24 14:44) Unknown HPI Comments Details: Marcelle was seen in follow up of her mild CKD. She recently presented to emergency department for evaluation for hematuria. she reported that after urinating when she wiped she noticed a very small amount of blood on the toilet tissue. She was adamant that this was not vaginal bleeding. She is known to have scleroderma. She has centromere antibody positivity. She has arthralgia and Raynaud's. She has no skin changes. She was treated with methotrexate and hydroxychloroquine in the past. She is VINCE positive as well. She has history of dyslipidemia. She takes nonsteroidal anti-inflammatories as needed basis for aches and pains. She is not known to have any proteinuria. She has dyslipidemia and is on medications. She has no history of peripheral vascular disease . She denies any coronary artery disease, congestive heart failure, CVA, renal artery stenosis. She is not on any SANDRA inhibitor or ARB. She used to follow up with Rheumatology. Her renal function has been stable.She had no active complaints at the time of this office visit [facility] Medical History Varicose veins of left lower extremity Greater trochanteric bursitis Adhesive capsulitis of right shoulder Spondylosis of lumbar region without myelopathy or radiculopathy Anxiety and depression VINCE positive Centromere antibody positive Left lumbar radiculitis Fibromyalgia Degenerative disc disease, cervical Cervical spondylosis Scleroderma Surgical History History of colposcopy History of tubal ligation Family History Mother Breast cancer Maternal Aunt Breast cancer Family/Other Breast cancer Paternal Grandmother Throat cancer Sister Anemia Social History Household Members: Significant Other Patient Tobacco Use Status: Never used Tobacco Second Hand Smoke Exposure: No service: No Current occupational status: retired Review of Systems Const All systems reviewed & are unremarkable except as noted in HPI and below Physical Exam Vital Signs: Last Vital Signs BP 100/52 L 12/16/24 14:44 BMI result Body Mass Index 20.0 Const General: comfortable and no acute distress Orientation/consciousness: patient oriented x3 HEENT Head: Yes normocephalic Mouth: Normal oral and palatal mucosa present Eyes EOM: EOMs intact bilaterally Neck Neck: Yes supple Resp Auscultation: clear to auscultation bilaterally Cardio Jugular venous distension: no JVD Rate: regular rate GI Palpation (GI): Soft to palpation Auscultation: normal bowel sounds General: Yes no CVA tenderness Back/Spine/Pelvis Back: no CVA tenderness Skin General skin exam: no rashes or lesions noted Neuro General: patient oriented x3 and moves all extremities Extrem General: Yes no pedal edema Results Reviewed Nephrology Results: Hgb 13.1 g/dl (12.0-16.0) 12/08/24 WBC 4.7 X10*3/uL (4.8-10.8) L 12/08/24 Plt Count 139 X10*3/uL (160-400) L 12/08/24 Sodium 143 mmol/L (135-145) 12/15/24 Potassium 4.6 mmol/L (3.3-5.1) 12/15/24 Chloride 104 mmol/L (96-108) 12/15/24 Carbon Dioxide 32 mmol/L (22-29) H 12/15/24 BUN 13 mg/dL (9-16) 12/15/24 Creatinine 1.05 mg/dL (0.5-1.4) 12/15/24 Calcium 10.0 mg/dL (8.4-10.2) 12/15/24 PTH Intact 70.3 pg/mL (8.7-77.1) 11/21/24 Urine Protein Negative mg/dL (Neg-Trace) 12/15/24 Urine Creatinine 210.56 mg/dL 12/15/24 Protein/Creatinin Ratio 0.06 (<0.2) 12/15/24 Assessment & Plan Assessment & Plan (1) CKD stage 3a, GFR 45-59 ml/min: Code(s): N18.31 - Chronic kidney disease, stage 3a Category: Medical Plan Marcelle has mild CKD most likely due to vascular disease. 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 She does not have any microscopic hematuria or proteinuria. Her blood pressure has been at goal. She takes nonsteroidal anti-inflammatories as needed basis, which she should try to minimize. She might have had some tubular injury from NSAID's. She should maintain good hydration. All her recent W/U were reviewed. She needs a Gynae exam which she is going to talk to her Gynae MD. Her last imaging was normal. If everything is normal, then she might have passed a renal stone( has family H/O). I did not make any medication changes today. Answered all questions. Follow-up appointment given. Orders: Orders UA and rflx microscopic 6 Months N18.31 - Chronic kidney disease, stage 3a Creatinine 6 Months N18.31 - Chronic kidney disease, stage 3a Blood Urea Nitrogen 6 Months N18.31 - Chronic kidney disease, stage 3a Electrolytes 6 Months N18.31 - Chronic kidney disease, stage 3a Calcium 6 Months N18.31 - Chronic kidney disease, stage 3a Parathyroid Hormone Intact 6 Months N18.31 - Chronic kidney disease, stage 3a Vitamin D 25-OH Total 6 Months N18.31 - Chronic kidney disease, stage 3a Protein Creatinine Ratio, Ur 6 Months N18.31 - Chronic kidney disease, stage 3a Coding Level of Care Code Est Pt Level 4 (18948) Diagnoses CKD stage 3a, GFR 45-59 ml/min N18.31
--- OUTSIDE RECORDS SUMMARY | 2024-12-16 16:44 | XMS_ITS | Encounter Summary ---
Author Organization [facility] Address [address] [place] [address] Care Team Providers Care Senior Sales Compensation Analyst Name Role Phone Zenia Shepherd MD Primary Care Provider Aguila Caro MD Primary Care Provider Tracee David MD Primary Care Prov ider Lora Bansal MD Unavailable [phone] Komal Britton PA-C Unavailable [phone] Kush Trevino-C Unavailable [phone] Virginia Randhawa MD Primary Care Provider [phone] Encounter Details Date Type Department Care Team Description 03/11/2018 Breaker Off Report Medical Records [address] [place] [address] Mahad Smith MD Social History Tobacco Use Types Packs/Day Years Used Date Smoking Tobacco: Never Smokeless Tobacco: Never Alcohol Use Standard Drinks/Week Comments No 0 (1 standard drink = 0.6 oz pur e alcohol) Sex Assigned at Date Recorded Not on file Job Start Date Occupation Industry Not on file Not on file Not on file documented as of this encounter Plan of Treatment Not on file documented as of this encounter Visit Diagnoses Not on filedocumented in this encounter Care Teams Senior Sales Compensation Analyst Relationship Specialty Start Date End Date Zenia Shepherd MD PCP - General Internal Medicine 02/24/12 05/30/21 Aguila Andres MD PCP - General Internal Medicine 05/31/21 04/27/22 Tracee Valentin MD [address] [place] [address] PCP - General Internal Medicine 04/28/22 11/03/23 Virginia Randhawa MD [address] [address] PCP - General Internal Medicine 11/04/23 Lora Bansal MD [address] [address] Surgeon Neurosurgery 09/09/22 Komal Britton PA-C [address] [address] Specialist Neurosurgery 09/09/22 Kush Trevino PA-C [address] [address] Specialist Neurosurgery 09/09/22 documented as of this encounter
--- OUTSIDE RECORDS SUMMARY | 2024-12-16 16:44 | XMS_ITS | Encounter Summary ---
Author Organization [facility] Address [address] [place] [address] Care Team Providers Care Welding Machine Operator Ultrasonic Name Role Phone Zenia Shepherd MD Primary Care Provider Aguila Caro MD Primary Care Provider Tracee David MD Primary Care Prov ider Lora Bansal MD Unavailable [phone] Komal Britton PA-C Unavailable [phone] Kush TrevinoC Unavailable [phone] Virginia Randhawa MD Primary Care Provider [phone] Encounter Details Date Type Department Care Team Description 05/31/2017 Release of Information Medical Records [address] [place] [address] Abstract, Provider Social History Tobacco Use Types Packs/Day Years [...] on filedocumented in this encounter Care Teams Welding Machine Operator Ultrasonic Relationship Specialty Start Date End Date Zenia Shepehrd MD PCP - General Internal Medicine 02/24/12 05/30/21 Aguila Andres MD PCP - General Internal Medicine 05/31/21 04/27/22 Tracee Valentin MD [address] [place] [address] PCP - General Internal Medicine 04/28/22 11/03/23 Virginia Randhawa MD 175 [facility] [address] [place] [address] PCP - General Internal Medicine 11/04/23 Lora Bansal MD [address] [address] Surgeon Neurosurgery 09/09/22 Komal Britton PA-C [address] [address] Specialist Neurosurgery 09/09/22 Kush Trevino PA-C [address] [address] Specialist Neurosurgery 09/09/22 documented as of this encounter
--- OUTSIDE RECORDS SUMMARY | 2024-12-16 16:44 | XMS_ITS | Encounter Summary ---
Author Organization [facility] Address [address] [place] [address] Care Team Providers Care Bartender Helper Name Role Phone Lora Bansal MD Unavailable [phone] Komal Britton PA-C Unavailable [phone] Kush Trevino PA-C Unavailable Virginia Randhawa MD Primary Care Provider [phone] Encounter Details Date Type Department Care Team Description 05/19/2024 SCAN [facility] Neurosurgery [place] [address] [address] Komal Britton PA-C [address] [phone] Social History Tobacco Use Types Packs/Day Years [...] on filedocumented in this encounter Care Teams Bartender Helper Relationship Specialty Start Date End Date Virginia Randhawa MD [address] [id number] PCP - General Internal Medicine 11/04/23 Lora Bansal MD [address] [phone] Surgeon Neurosurgery 09/09/22 Komal Britton PA-C [address] [phone] Specialist Neurosurgery 09/09/22 Kush Trevino PA-C [address] [address] Specialist Neurosurgery 09/09/22 documented as of this encounter
--- OUTSIDE RECORDS SUMMARY | 2024-12-16 16:44 | XMS_ITS | Encounter Summary ---
Author Organization [facility] Address [address] [place] [address] Care Team Providers Care Furniture Dipper Name Role Phone Zenia Shepherd MD Primary Care Provider Aguila Caro MD Primary Care Provider Tracee David MD Primary Care Prov ider Lora Bansal MD Unavailable [phone] Komal Britton PA-C Unavailable [phone] Kush TrevinoC Unavailable [phone] Virginia Randhawa MD Primary Care Provider [phone] Encounter Details Date Type Department Care Team Description 03/27/2016 Business Doc Medical Records [address] [place] [address] Abstract, Provider Social History Tobacco Use Types [...] on filedocumented in this encounter Care Teams Furniture Dipper Relationship Specialty Start Date End Date Zenia Shepherd MD PCP - General Internal Medicine 02/24/12 05/30/21 Aguila Andres MD PCP - General Internal Medicine 05/31/21 04/27/22 Tracee Valentin MD [address] [place] [address] PCP - General Internal Medicine 04/28/22 11/03/23 Virginia Randhawa MD [address] [address] PCP - General Internal Medicine 11/04/23 Lora Bansal MD [address] [address] Surgeon Neurosurgery 09/09/22 Komal Britton PA-C [address] [address] Specialist Neurosurgery 09/09/22 Kush Trevino PA-C [address] [address] Specialist Neurosurgery 09/09/22 documented as of this encounter
--- OUTSIDE RECORDS SUMMARY | 2024-12-16 16:44 | XMS_ITS | Encounter Summary ---
Author Organization [facility] Address [address] [place] [address] Care Team Providers Care Glass Loading Equipment Tender Name Role Phone Lora Bansal MD Unavailable [phone] Komal Britton PA-C Unavailable [phone] Kush Trevino PA-C Unavailable [phone] Virginia Randhawa MD Primary Care Provider [phone] Reason for Referral * EXTERNAL (Routine) - Closed Specialty Diagnoses / Procedures Referred By Carols c[facility]ares Referred To Contact Nephrology Procedures REFERRAL TO NEPHROLOGY Virginia Randhawa MD [address] [place] [phone] External Nephrology Referral ID Status Reason Start Date Expiration Date Visits Re quested Visits Authorized [id number] Closed 03/28/2024 03/28/2025 1 1 Encounter Details Date Type Department Care Team Description 03/28/2024 Orders Only Internal Medicine - [address], [address] [place] [address] Virginia Randhawa MD [address] [place] [phone] Social History Tobacco Use Types Packs/Day Years [...] on filedocumented in this encounter Care Teams Glass Loading Equipment Tender Relationship Specialty Start Date End Date Virginia Randhawa MD [address] [address] PCP - General Internal Medicine 11/04/23 Lora Bansal MD [address] [address] Surgeon Neurosurgery 09/09/22 Komal Britton PA-C [address] [address] Specialist Neurosurgery 09/09/22 Kush Trevino PA-C [address] [address] Specialist Neurosurgery 09/09/22 documented as of this encounter
--- OUTSIDE RECORDS SUMMARY | 2024-12-16 16:44 | XMS_ITS | Encounter Summary ---
Author Organization [facility] Address [address] [place] [address] Care Team Providers Care Aircraft Avionics Technician Name Role Phone Zenia Shepherd MD Primary Care Provider Aguila Caro MD Primary Care Provider Tracee David MD Primary Care Prov ider Lora Bansal MD Unavailable [phone] Komal Britton PA-C Unavailable [phone] Kush TrevinoC Unavailable [phone] Virginia Randhawa MD Primary Care Provider [phone] Encounter Details Date Type Department Care Team Description 09/29/2017 Refill Adult Medicine [address] [address] Ora Alexander APRN Social History Tobacco Use Types Packs/Day Years Used Date Smoking Tobacco: Never Smokeless Tobacco: Never Alcohol Use Standard Drinks/Week Comments No 0 (1 standard drink = 0.6 oz pur e alcohol) Sex Assigned at Date Recorded Not on file Job Start Date Occupation Industry Not on file Not on file Not on file documented as of this encounter Miscellaneous Notes * Telephone Encounter - Brandy Chun M.A. - 09/29/2017 1:51 PM ESTFrom: Marcelle Zhao To: Ora Alexander APRN Sent: 09/29/2017 1:46 PM EST Subject: Medication Renewal Request Original authorizing provider: CLAY Sin would like a refill of the following medications: ibuprofen (ADVIL,MOTRIN) 600 MG tablet [Ora Alexander APRN] Preferred pharmacy: [id number] [place], [place] - [address] [facility] Comment: Medication renewals requested in this message routed to other providers: BIOFREEZE 4 % Gel [Zenia Shepherd MD] citalopram (CELEXA) 10 MG tablet [Zenia Shepherd MD] lorazepam (ATIVAN) 0.5 MG tablet [Zenia Shepherd MD] documented in this encounter Plan of Treatment Not on file documented as of this encounter Visit Diagnoses Not on filedocumented in this encounter Care Teams Aircraft Avionics Technician Relationship Specialty Start Date End Date Zenia Shepherd MD PCP - General Internal Medicine 02/24/12 05/30/21 Aguila Andres MD PCP - General Internal Medicine 05/31/21 04/27/22 Tracee Valentin MD [address] [place] [address] PCP - General Internal Medicine 04/28/22 11/03/23 Virginia Randhawa MD [address] [address] PCP - General Internal Medicine 11/04/23 Lora Bansal MD [address] [address] Surgeon Neurosurgery 09/09/22 Komal Britton PA-C [address] [address] Specialist Neurosurgery 09/09/22 Kush Trevino PA-C [address] [address] Specialist Neurosurgery 09/09/22 documented as of this encounter
--- OUTSIDE RECORDS SUMMARY | 2024-12-16 16:44 | XMS_ITS | Encounter Summary ---
Author Organization [facility] Address [address] [place] [address] Care Team Providers Care Digital Media Associate Name Role Phone Zenia Shepherd MD Primary Care Provider Aguila Caro MD Primary Care Provider Tracee David MD Primary Care Prov ider Lora Bansal MD Unavailable [phone] Komal Britton PA-C Unavailable [phone] Kush Trevino PA-C Unavailable [phone] Virginia Randhawa MD Primary Care Provider [phone] Reason for Visit * Reason Onset Date Comments REFERRAL 04/02/2015 Encounter Details Date Type Department Care Team Description 04/02/2015 Telephone Genetic & Disease Counseling - [address] [address] Emily Johnson PA-C REFERRAL Social History Tobacco Use Types Packs/Day Years Used Date Smoking Tobacco: Never Alcohol Use Standard Drinks/Week Comments No 0 (1 standard drink = 0.6 oz pur e alcohol) Sex Assigned at Date Recorded Not on file Job Start Date Occupation Industry Not on file Not on file Not on file documented as of this encounter Miscellaneous Notes * Telephone Encounter - Dasia Zuniga - 04/02/2015 12:21 PM EDT FYI ONLY. Called pt 03/20/15, 03/22/15, and sent letter 6/26/15 with no response. I am removing this pt's order from the genetic testing schedule. Order expires 03/19/16,MEDICARE & MEDICAID. documented in this encounter Plan of Treatment Not on file documented as of this encounter Visit Diagnoses Not on filedocumented in this encounter Care Teams Digital Media Associate Relationship Specialty Start Date End Date Zenia Shepherd MD PCP - General Internal Medicine 02/24/12 05/30/21 Aguila Andres MD PCP - General Internal Medicine 05/31/21 04/27/22 Tracee Valentin MD [address] [place] [address] PCP - General Internal Medicine 04/28/22 11/03/23 Virginia Randhawa MD [address] [address] PCP - General Internal Medicine 11/04/23 Lora Bansal MD [address] [address] Surgeon Neurosurgery 09/09/22 Komal Britton PA-C [address] [address] Specialist Neurosurgery 09/09/22 Kush Trevino PA-C [address] [address] Specialist Neurosurgery 09/09/22 documented as of this encounter
--- OUTSIDE RECORDS SUMMARY | 2024-12-16 16:44 | XMS_ITS | Encounter Summary ---
Author Organization [facility] Address [address] [place] [address] Care Team Providers Care Tree Care Foreman Name Role Phone Zenia Shepherd MD Primary Care Provider Aguila Caro MD Primary Care Provider Tracee David MD Primary Care Prov ider Lora Bansal MD Unavailable [phone] Komal Britton PA-C Unavailable [phone] Kush Trevino PA-C Unavailable [phone] Virginia Randhawa MD Primary Care Provider [phone] Encounter Details Date Type Department Care Team Description 12/18/2016 SCAN Medical Records [address] [place] [address] Abstract, Provider Social History Tobacco Use Types [...] on file documented as of this encounter Procedures Procedure Name Priority Date/Time Associated Diagnosis Comments OUTSIDE MRI/MRA Routine 12/04/2016 documented in this encounter Results * OUTSIDE MRI/MRA (12/04/2016) Provider Abstract RADIOLOGY documented in this encounter Visit Diagnoses Not on filedocumented in this encounter Care Teams Tree Care Foreman Relationship Specialty Start Date End Date Zenia Shepherd MD PCP - General Internal Medicine 02/24/12 05/30/21 Aguila Andres MD PCP - General Internal Medicine 05/31/21 04/27/22 Tracee Valentin MD [address] [place] [address] PCP - General Internal Medicine 04/28/22 11/03/23 Virginia Randhawa MD [address] [address] PCP - General Internal Medicine 11/04/23 Lora Bansal MD [address] [address] Surgeon Neurosurgery 09/09/22 Komal Britton PA-C [address] [address] Specialist Neurosurgery 09/09/22 Kush Trevino PA-C [address] [address] Specialist Neurosurgery 09/09/22 documented as of this encounter
--- OUTSIDE RECORDS SUMMARY | 2024-12-16 16:44 | XMS_ITS | Encounter Summary ---
Author Organization [facility] Address [address] [place] [address] Care Team Providers Care Patient Service Specialist Name Role Phone Zenia Shepherd MD Primary Care Provider Aguila Caro MD Primary Care Provider Tracee David MD Primary Care Prov ider Lora Bansal MD Unavailable [phone] Komal Britton PAUrvashiC Unavailable [phone] Kush Trevino-C Unavailable [phone] Virginia Randhawa MD Primary Care Provider [phone] Encounter Details Date Type Department Care Team Description 02/03/2018 Seismology Technical Officer Report Medical Records [address] [place] [address] Mahad Smith MD Social History Tobacco Use [...] on filedocumented in this encounter Care Teams Patient Service Specialist Relationship Specialty Start Date End Date Zenia Shepherd MD PCP - General Internal Medicine 02/24/12 05/30/21 Aguila Andres MD PCP - General Internal Medicine 05/31/21 04/27/22 Tracee Valentin MD [address] [place] [address] PCP - General Internal Medicine 04/28/22 11/03/23 Virginia Randhawa MD [address] [address] PCP - General Internal Medicine 11/04/23 Lora Bansal MD [address] [address] Surgeon Neurosurgery 09/09/22 Komal Britton PA-C [address] [address] Specialist Neurosurgery 09/09/22 Kush Trevino PA-C [address] [address] Specialist Neurosurgery 09/09/22 documented as of this encounter
--- OUTSIDE RECORDS SUMMARY | 2024-12-16 16:44 | XMS_ITS | Encounter Summary ---
Author Organization [facility] Address [address] [place] [address] Care Team Providers Care Ground Water Pump Installer Name Role Phone Virginia Randhawa MD Primary Care Provider [phone] Encounter Details Date Type Department Care Team (Late st Contact Info) Description 12/07/2024 Telephone Internal Medicine - [place] 175 [facility] [address] [place] [phone] Virginia Randhawa MD 175 [facility] [address] [place] [address] Social History Tobacco Use Types Packs/Day Years [...] as of this encounter Progress Notes * Shayna Rizzo MA - 12/09/2024 9:03 AM EDT Appt made for 12/19/24 @ 3:45pm. Pt aware. * Virginia Randhawa MD - 12/07/2024 5:27 PM EDT Please provide an appointment as soon as possible to check the pain and we can go from there * Cathryn Guevara - 12/07/2024 3:43 PM EDT Is looking for x-ray for right side of neck, she is having pain thinks it's disc-related [phone] documented in this encounter Plan of Treatment Upcoming Encounters Date Type Department Care Team (Late st Contact Info) Description 12/19/2024 3:45 PM EDT Office Visit Internal Medicine [facility] [address] [phone] Virginia Randhawa MD [address] [address] 05/10/2025 2:30 PM EDT Office Visit Internal Medicine [facility] [address] [address] Virginia Randhawa MD [address] [address] documented as of this encounter Visit Diagnoses Not on filedocumented in this encounter Care Teams Ground Water Pump Installer Relationship Specialty Start Date End Date Virginia Randhawa MD [address] [address] PCP - General 11/04/23 documented as of this encounter
--- OUTSIDE RECORDS SUMMARY | 2024-12-16 16:44 | XMS_ITS | Encounter Summary ---
Author Organization [facility] Address [address] [place] [address] Care Team Providers Care Carpet Cleaner Name Role Phone Zenia Shepherd MD Primary Care Provider Aguila Caro MD Primary Care Provider Tracee David MD Primary Care Prov ider Lora Bansal MD Unavailable [phone] Komal Britton PA-C Unavailable [phone] Kush TrevinoC Unavailable [phone] Virginia Randhawa MD Primary Care Provider [phone] Encounter Details Date Type Department Care Team Description 10/23/2016 [facility] Medical Records [address] [place] [address] Abstract, Provider Social History Tobacco Use Types [...] on filedocumented in this encounter Care Teams Carpet Cleaner Relationship Specialty Start Date End Date Zenia Shepherd MD PCP - General Internal Medicine 02/24/12 05/30/21 Aguila Andres MD PCP - General Internal Medicine 05/31/21 04/27/22 Tracee Valentin MD [address] [place] [address] PCP - General Internal Medicine 04/28/22 11/03/23 Virginia Randhawa MD 175 [facility] [address] [place] [address] PCP - General Internal Medicine 11/04/23 Lora Bansal MD [address] [address] Surgeon Neurosurgery 09/09/22 Komal Britton PA-C [address] [address] Specialist Neurosurgery 09/09/22 Kush Trevino PA-C [address] [address] Specialist Neurosurgery 09/09/22 documented as of this encounter
--- OUTSIDE RECORDS SUMMARY | 2024-12-16 16:44 | XMS_ITS | Encounter Summary ---
Author Organization [facility] Address [address] [place] [address] Care Team Providers Care Musical Instrument Maker Or Repairer Name Role Phone Zenia Shepherd MD Primary Care Provider Aguila Caro MD Primary Care Provider Tracee David MD Primary Care Prov ider Lora Bansal MD Unavailable [phone] Komal Britton PA-C Unavailable [phone] Kush Trevino PA-C Unavailable [phone] Virginia Randhawa MD Primary Care Provider [phone] Encounter Details Date Type Department Care Team Description 05/04/2021 Underlay Stitcher Report Medical Records [address] [place] [address] Max Teran MD Social History Tobacco Use Types Packs/Day [...] on filedocumented in this encounter Care Teams Musical Instrument Maker Or Repairer Relationship Specialty Start Date End Date Zenia Shepherd MD PCP - General Internal Medicine 02/24/12 05/30/21 Aguila Andres MD PCP - General Internal Medicine 05/31/21 04/27/22 Tracee Valentin MD [address] [place] [address] PCP - General Internal Medicine 04/28/22 11/03/23 Virginia Randhawa MD [address] [address] PCP - General Internal Medicine 11/04/23 Lora Bansal MD [address] [address] Surgeon Neurosurgery 09/09/22 Komal Britton PA-C [address] [address] Specialist Neurosurgery 09/09/22 Kush Trevino PA-C [address] [address] Specialist Neurosurgery 09/09/22 documented as of this encounter
--- OUTSIDE RECORDS SUMMARY | 2024-12-16 16:44 | XMS_ITS | Clinical Summary ---
Author Organization [facility] Address [address] [place] [address] Care Team Providers Care Language Translator Name Role Phone Zenia Shepherd MD Primary Care Provider [phone] Allergies Active Allergy Reactions Criticality Noted Date [...] age to complete this topic Care Teams Language Translator Relationship Specialty Start Date End Date Zenia Shepherd MD PCP - General Internal Medicine 05/07/17
--- OUTSIDE RECORDS SUMMARY | 2024-12-16 16:44 | XMS_ITS | Encounter Summary ---
Author Organization [facility] Address [address] [place] [address] Care Team Providers Care Wax Room Supervisor Name Role Phone Tracee Valentin MD Primary Care Prov ider Lora Bansal MD Unavailable [phone] Komal Britton PA-C Unavailable [phone] Kush Trevino PA-C Unavailable [phone] Virginia Randhawa MD Primary Care Provider [phone] Encounter Details Date Type Department Care Team Description 06/03/2023 Veterinary Toxicologist Report Medical Records [address] [place] [address] Keaton Staley Social History Tobacco Use Types Packs/Day Years [...] on filedocumented in this encounter Care Teams Wax Room Supervisor Relationship Specialty Start Date End Date Tracee Valentin MD [address] [place], [place] [phone] PCP - General Internal Medicine 04/28/22 11/03/23 Virginia Randhawa MD [address] [place] [address] PCP - General Internal Medicine 11/04/23 Lora Bansal MD [address] [address] Surgeon Neurosurgery 09/09/22 Komal Britton PA-C [address] [address] Specialist Neurosurgery 09/09/22 Kush Trevino PA-C 175 [facility] [address] [place] [address] Specialist Neurosurgery 09/09/22 documented as of this encounter
--- OUTSIDE RECORDS SUMMARY | 2024-12-16 16:44 | XMS_ITS | Encounter Summary ---
Author Organization [facility] Address [address] [place] [address] Care Team Providers Care Foreign Language Interpreter Name Role Phone Tracee Valentin MD Primary Care Prov ider Lora Bansal MD Unavailable [phone] Komal Britton PA-C Unavailable [phone] Kush Trevino PA-C Unavailable [phone] Virginia Randhawa MD Primary Care Provider [phone] Encounter Details Date Type Department Care Team Description 09/09/2022 SCAN [facility] Neurosurgery Iona Kersey [address] [phone] Komal Britton PA-C [address] [phone] Social History Tobacco Use Types Packs/Day Years [...] on filedocumented in this encounter Care Teams Foreign Language Interpreter Relationship Specialty Start Date End Date Tracee Valentin MD [address] [place] [id number] PCP - General Internal Medicine 04/28/22 11/03/23 Virginia Randhawa MD [address] [address] PCP - General Internal Medicine 11/04/23 Lora Bansal MD [address] [address] Surgeon Neurosurgery 09/09/22 Komal Britton PA-C [address] [address] Specialist Neurosurgery 09/09/22 Kush Trevino PA-C [address] [address] Specialist Neurosurgery 09/09/22 documented as of this encounter
--- OUTSIDE RECORDS SUMMARY | 2024-12-16 16:44 | XMS_ITS | Encounter Summary ---
Author Organization [facility] Address [address] [place] [address] Care Team Providers Care Metal Furniture Assembly Supervisor Name Role Phone Zenia Shepherd MD Primary Care Provider Aguila Caro MD Primary Care Provider Tracee David MD Primary Care Prov ider Lora Bansal MD Unavailable [phone] Komal Britton PA-C Unavailable [phone] Kush TrevinoC Unavailable [phone] Virginia Randhawa MD Primary Care Provider [phone] Encounter Details Date Type Department Care Team Description 03/23/2017 [facility] Medical Records [address] [place] [address] Abstract, Provider Social History Tobacco Use Types [...] on filedocumented in this encounter Care Teams Metal Furniture Assembly Supervisor Relationship Specialty Start Date End Date Zenia Shepherd MD PCP - General Internal Medicine 02/24/12 05/30/21 Aguila Andres MD PCP - General Internal Medicine 05/31/21 04/27/22 Tracee Valentin MD [address] [place] [address] PCP - General Internal Medicine 04/28/22 11/03/23 Virginia Randhawa MD 175 [facility] [address] [place] [address] PCP - General Internal Medicine 11/04/23 Lora Bansal MD [address] [address] Surgeon Neurosurgery 09/09/22 Komal Britton PA-C [address] [address] Specialist Neurosurgery 09/09/22 Kush Trevino PA-C [address] [address] Specialist Neurosurgery 09/09/22 documented as of this encounter
--- OUTSIDE RECORDS SUMMARY | 2024-12-16 16:44 | XMS_ITS | Encounter Summary ---
Author Organization [facility] Address [address] [place] [address] Care Team Providers Care Trains Service Conductor Name Role Phone Zenia Shepherd MD Primary Care Provider Aguila Caro MD Primary Care Provider Tracee David MD Primary Care Prov ider Lora Bansal MD Unavailable [phone] Komal Britton PA-C Unavailable [phone] Kush TrevinoC Unavailable [phone] Virginia Randhawa MD Primary Care Provider [phone] Encounter Details Date Type Department Care Team Description 12/18/2016 [facility] Medical Records [address] [place] [address] Abstract, Provider Social History Tobacco Use Types [...] on filedocumented in this encounter Care Teams Trains Service Conductor Relationship Specialty Start Date End Date Zenia Shepherd MD PCP - General Internal Medicine 02/24/12 05/30/21 Aguila Andres MD PCP - General Internal Medicine 05/31/21 04/27/22 Tracee Valentin MD [address] [place] [address] PCP - General Internal Medicine 04/28/22 11/03/23 Virginia Randhawa MD 175 [facility] [address] [place] [address] PCP - General Internal Medicine 11/04/23 Lora Bansal MD [address] [address] Surgeon Neurosurgery 09/09/22 Komal Britton PA-C [address] [address] Specialist Neurosurgery 09/09/22 Kush Trevino PA-C [address] [address] Specialist Neurosurgery 09/09/22 documented as of this encounter
--- OUTSIDE RECORDS SUMMARY | 2024-12-16 16:44 | XMS_ITS | Encounter Summary ---
Author Organization [facility] Address [address] [place] [address] Care Team Providers Care Roller Turner Name Role Phone Zenia Shepherd MD Primary Care Provider Aguila Caro MD Primary Care Provider Tracee David MD Primary Care Prov ider Lora Bansal MD Unavailable [phone] Komal Britton PA-C Unavailable [phone] Kush Trevino PA-C Unavailable [phone] Virginia Randhawa MD Primary Care Provider [phone] Encounter Details Date Type Department Care Team Description 12/06/2019 Refill Adult Medicine [address] [address] Zenia Shepherd MD Social History Tobacco Use Types Packs/Day [...] encounter Miscellaneous Notes * Telephone Encounter - Zenia Shepherd MD - 12/06/2019 4:53 PM EDT Needs appt for this. Not a chronic med * Telephone Encounter - Alaina Koo M.A. - 12/06/2019 4:51 PM EDT Last refill 03/22/19 Pt not on contract for this medication. No results found for: URBENZO, UROPIATES, URBARBITUATE, PAINAMPHETAM, PAINCOCAINE, PAINCANNABIN KAYLIN 03/22/19 No pending appointment. documented in this encounter Plan of Treatment Not on file documented as of this encounter Visit Diagnoses Not on filedocumented in this encounter Care Teams Roller Turner Relationship Specialty Start Date End Date Zenia Shepherd MD PCP - General Internal Medicine 02/24/12 05/30/21 Aguila Andres MD PCP - General Internal Medicine 05/31/21 04/27/22 Jos Cartagena, Tracee Diamond MD [address] [place] [address] PCP - General Internal Medicine 04/28/22 11/03/23 Virginia Randhawa MD [address] [address] PCP - General Internal Medicine 11/04/23 Lora Bansal MD [address] [address] Surgeon Neurosurgery 09/09/22 Komal Britton PA-C [address] [address] Specialist Neurosurgery 09/09/22 Kush Trevino PA-C [address] [address] Specialist Neurosurgery 09/09/22 documented as of this encounter
--- OUTSIDE RECORDS SUMMARY | 2024-12-16 16:44 | XMS_ITS | Encounter Summary ---
Author Organization [facility] Address [address] [place] [address] Care Team Providers Care Automotive Painter Helper Name Role Phone Zenia Shepherd MD Primary Care Provider Aguila Caro MD Primary Care Provider Tracee David MD Primary Care Prov ider Lora Bansal MD Unavailable [phone] Komal Britton PA-C Unavailable [phone] Kush Trevino PA-C Unavailable [phone] Virginia Randhawa MD Primary Care Provider [phone] Reason for Visit * Reason Comments E-prescribe Rx Request Encounter Details Date Type Department Care Team Description 12/03/2019 Refill Adult Medicine [address] [address] Chuy Kumar PA-C [address] [place] [address] E-prescribe Rx Request Social History Tobacco Use Types Packs/Day Years [...] encounter Miscellaneous Notes * Telephone Encounter - Neville Wallis M.A. - 12/05/2019 3:49 PM EDT Faxed to pharmacy * Telephone Encounter - Betoelsa Ray - 12/05/2019 2:16 PM EDT Patient would like script to be: E-PRESCRIBED/FAXED TO PHARMACY WHEN WAS THE PATIENT'S LAST APPOINTMENT IN ADULT MEDICINE? 03/22/19 WHEN WAS THE LAST TIME THE PATIENT SAW THEIR PCP? Same as above Does patient have an upcoming appointment? Patient was sent a My Chart request to set up an appointment as they are due. (THE MEDICATION REQUESTED IS ON THE MED LIST ABOVE) All of the medications requested were on the CURRENT MEDS list Did you check the Pharmacy information above?: YES Patient wants: 30 -day supply Is this a mail order prescription request ? NO If the refill is from a FAXED refill request what is the RX # listed on the fax? N/A Patients current [place] carrier is: [place] / Product Type: MEDICARE [id number] documented in this encounter Plan of Treatment Not on file documented as of this encounter Visit Diagnoses Not on filedocumented in this encounter Care Teams Automotive Painter Helper Relationship Specialty Start Date End Date Zenia Shepherd MD PCP - General Internal Medicine 02/24/12 05/30/21 Aguila Andres MD PCP - General Internal Medicine 05/31/21 04/27/22 Jos Cartagena, Tracee Diamond MD [address] [place] [address] PCP - General Internal Medicine 04/28/22 11/03/23 Virginia Randhawa MD [address] [address] PCP - General Internal Medicine 11/04/23 Lora Bansal MD [address] [address] Surgeon Neurosurgery 09/09/22 Komal Britton PA-C [address] [address] Specialist Neurosurgery 09/09/22 Kush Trevino PA-C [address] [address] Specialist Neurosurgery 09/09/22 documented as of this encounter
--- OUTSIDE RECORDS SUMMARY | 2024-12-16 16:44 | XMS_ITS | Encounter Summary ---
Author Organization [facility] Address [address] [place] [address] Care Team Providers Care Dry Ice Machine Operator Name Role Phone Tracee Valentin MD Primary Care Prov ider Lora Bansal MD Unavailable [phone] Koaml Britton PA-C Unavailable [phone] Kush Trevino PA-C Unavailable [phone] Virginia Randhawa MD Primary Care Provider [phone] Encounter Details Date Type Department Care Team Description 03/12/2023 Composition Mixer Report Medical Records [address] [place] [address] Abstract, Provider Social History Tobacco Use Types [...] on filedocumented in this encounter Care Teams Dry Ice Machine Operator Relationship Specialty Start Date End Date Tracee Valentin MD [address] [place], [place] [id number] PCP - General Internal Medicine 04/28/22 11/03/23 Virginia Randhawa MD [address] [place] [address] [address] [place] [address] PCP - General Internal Medicine 11/04/23 Lora Bansal MD [address] [id number] Surgeon Neurosurgery 09/09/22 Komal Britton PA-C [address] [phone] Specialist Neurosurgery 09/09/22 Kush Trevino PA-C 175 [facility] [address] [place] [address] Specialist Neurosurgery 09/09/22 documented as of this encounter
--- OUTSIDE RECORDS SUMMARY | 2024-12-16 16:44 | XMS_ITS | Encounter Summary ---
Author Organization [facility] Address [address] [place] [address] Care Team Providers Care Director Camp Name Role Phone Tracee Valentin MD Primary Care Prov ider Lora Bansal MD Unavailable [phone] Komal Britton PA-C Unavailable [phone] Kush Trevino PA-C Unavailable [phone] Virginia Randhawa MD Primary Care Provider [phone] Encounter Details Date Type Department Care Team Description 03/17/2023 Orders Only Vascular Surgery - [address] [place] [id number] Serena Armenta PA-C Pain in both lower extremities; Varicose veins of leg with pain, bilateral Social History Tobacco Use Types Packs/Day Years Used Date Smoking Tobacco: Never Smokeless Tobacco: Never Alcohol Use Standard Drinks/Week Comments No 0 (1 standard drink = 0.6 oz pur e alcohol) Sex Assigned at Date Recorded Not on file Job Start Date Occupation Industry Not on file Not on file Not on file COVID-19 Exposure Response Date Recorded In the last 10 days, have yo u been in contact with someone who was confirmed or suspected to have Coronavirus/COVID-19? No / Unsure 03/20/2023 3:49 PM EDT documented as of this encounter Plan of Treatment Not on file documented as of this encounter Procedures Procedure Name Priority Date/Time Associated Diagnosis Comments WA DUP-SCAN XTR VEINS COMPLETE BILATERAL STUDY Routine 03/17/2023 Pain in both lower extremities Varicose veins of leg with pain, bilateral documented in this encounter Results * WA DUP-SCAN XTR VEINS COMPLETE BILATERAL STUDY (03/17/2023) Serena Armenta PA-C ULTRASOUND documented in this encounter Visit Diagnoses Diagnosis Pain in both lower extremities Varicose veins of leg with pain, bilateral documented in this encounter Care Teams Director Camp Relationship Specialty Start Date End Date Tracee Valentin MD [address] [place] [address] PCP - General Internal Medicine 04/28/22 11/03/23 Virginia Randhawa MD [address] [address] PCP - General Internal Medicine 11/04/23 Lora Bansal MD [address] [address] Surgeon Neurosurgery 09/09/22 Komal Britton PA-C [address] [address] Specialist Neurosurgery 09/09/22 Kush Trevino PA-C [address] [address] Specialist Neurosurgery 09/09/22 documented as of this encounter
--- OUTSIDE RECORDS SUMMARY | 2024-12-16 16:44 | XMS_ITS | Encounter Summary ---
Author Organization [facility] Address [address] [place] [address] Care Team Providers Care Boom Master Name Role Phone Zenia Shepherd MD Primary Care Provider Aguila Caro MD Primary Care Provider Tracee David MD Primary Care Prov ider Lora Bansal MD Unavailable [phone] Komal Britton PA-C Unavailable [phone] Kush Trevino PA-C Unavailable [phone] Virginia Randhawa MD Primary Care Provider [phone] Encounter Details Date Type Department Care Team Description 05/07/2017 Pan Washer Hand Report Medical Records [address] [place] [address] Layla Howe MD Social History Tobacco Use Types Packs/Day [...] on filedocumented in this encounter Care Teams Boom Master Relationship Specialty Start Date End Date Zenia Shepherd MD PCP - General Internal Medicine 02/24/12 05/30/21 Aguila Andres MD PCP - General Internal Medicine 05/31/21 04/27/22 Tracee Valentin MD [address] [place] [address] PCP - General Internal Medicine 04/28/22 11/03/23 Virginia Randhawa MD [address] [address] PCP - General Internal Medicine 11/04/23 Lora Bansal MD [address] [address] Surgeon Neurosurgery 09/09/22 Komal Britton PA-C [address] [address] Specialist Neurosurgery 09/09/22 Kush Trevino PA-C [address] [address] Specialist Neurosurgery 09/09/22 documented as of this encounter
--- OUTSIDE RECORDS SUMMARY | 2024-12-16 16:44 | XMS_ITS | Encounter Summary ---
Author Organization [facility] Address [address] [place] [address] Care Team Providers Care Continuity Manager Name Role Phone Zenia Shepherd MD Primary Care Provider Aguila Caro MD Primary Care Provider Tracee David MD Primary Care Prov ider Lora Bansal MD Unavailable [phone] Komal Britton PA-C Unavailable [phone] Kush Trevino PA-C Unavailable [phone] Virginia Randhawa MD Primary Care Provider [phone] Encounter Details Date Type Department Care Team Description 04/16/2018 Director Clinical Information Services Report Medical Records [address] [place] [address] Layla Howe MD Social History Tobacco Use [...] on filedocumented in this encounter Care Teams Continuity Manager Relationship Specialty Start Date End Date Zenia Shepherd MD PCP - General Internal Medicine 02/24/12 05/30/21 Aguila Andres MD PCP - General Internal Medicine 05/31/21 04/27/22 Tracee Valentin MD [address] [place] [address] PCP - General Internal Medicine 04/28/22 11/03/23 Virginia Randhawa MD [address] [address] PCP - General Internal Medicine 11/04/23 Lora Bansal MD [address] [address] Surgeon Neurosurgery 09/09/22 Komal Britton PA-C [address] [address] Specialist Neurosurgery 09/09/22 Kush Trevino PA-C [address] [address] Specialist Neurosurgery 09/09/22 documented as of this encounter
--- OUTSIDE RECORDS SUMMARY | 2024-12-16 16:44 | XMS_ITS | Encounter Summary ---
Author Organization [facility] Address [address] [place] [address] Care Team Providers Care Crib Tender Name Role Phone Zenia Shepherd MD Primary Care Provider Aguila Caro MD Primary Care Provider Tracee David MD Primary Care Prov ider Lora Bansal MD Unavailable [phone] Komal Britton PA-C Unavailable [phone] Kush Trevino-C Unavailable [phone] Virginia Randhawa MD Primary Care Provider [phone] Encounter Details Date Type Department Care Team Description 01/31/2015 Business Doc Medical Records [address] [place] [address] Abstract, Provider Social History Tobacco Use Types [...] on filedocumented in this encounter Care Teams Crib Tender Relationship Specialty Start Date End Date Zenia Shepherd MD PCP - General Internal Medicine 02/24/12 05/30/21 Aguila Andres MD PCP - General Internal Medicine 05/31/21 04/27/22 Tracee Valentin MD [address] [place] [address] PCP - General Internal Medicine 04/28/22 11/03/23 Virginia Randhawa MD [address] [address] PCP - General Internal Medicine 11/04/23 Lora Bansal MD [address] [address] Surgeon Neurosurgery 09/09/22 Komal Britton PA-C [address] [address] Specialist Neurosurgery 09/09/22 Kush Trevino PA-C [address] [address] Specialist Neurosurgery 09/09/22 documented as of this encounter
--- OUTSIDE RECORDS SUMMARY | 2024-12-16 16:44 | XMS_ITS | Encounter Summary ---
Author Organization [facility] Address [address] [place] [address] Care Team Providers Care Chilling Hood Operator Name Role Phone Tracee Valentin MD Primary Care Prov ider Lora Bansal MD Unavailable [phone] Komal Britton PA-C Unavailable [phone] Kush Trevino PA-C Unavailable [phone] Virginia Randhawa MD Primary Care Provider [phone] Encounter Details Date Type Department Care Team Description 08/12/2022 Business Doc Medical Records [address] [place] [address] Abstract, Provider Social History Tobacco Use Types [...] Recorded In the last 10 days, have mere vallejo been in contact with someone who was confirmed or suspected to have Coronavirus/COVID-19? No / Unsure 08/08/2022 12:49 PM EST documented as of this encounter Plan of Treatment Not on file documented as of this encounter Visit Diagnoses Not on filedocumented in this encounter Care Teams Chilling Hood Operator Relationship Specialty Start Date End Date Tracee Valentin MD [address] [place] [address] PCP - General Internal Medicine 04/28/22 11/03/23 Virginia Randhawa MD [address] [address] PCP - General Internal Medicine 11/04/23 Lora Bansal MD [address] [address] Surgeon Neurosurgery 09/09/22 Komal Britton PA-C [address] [address] Specialist Neurosurgery 09/09/22 uKsh Trevino PA-C [address] [address] Specialist Neurosurgery 09/09/22 documented as of this encounter
--- OUTSIDE RECORDS SUMMARY | 2024-12-16 16:44 | XMS_ITS | Encounter Summary ---
Author Organization [facility] Address [address] [place] [address] Care Team Providers Care Dog Bather Name Role Phone Lora Bansal MD Unavailable [phone] Komal Britton PA-C Unavailable [phone] Kush Trevion PA-C Unavailable [phone] Virginia Randhawa MD Primary Care Provider [phone] Encounter Details Date Type Department Care Team Description 06/09/2024 [facility] Neurosurgery [place] [address] [address] Komal Britton PA-C [address] [id number] Social History Tobacco Use Types Packs/Day Years [...] on filedocumented in this encounter Care Teams Dog Bather Relationship Specialty Start Date End Date Virginia Randhawa MD [address] [id number] PCP - General Internal Medicine 11/04/23 Lora Bansal MD [address] [phone] Surgeon Neurosurgery 09/09/22 Komal Britton PA-C [address] [phone] Specialist Neurosurgery 09/09/22 Kush Trevino PA-C [address] [address] Specialist Neurosurgery 09/09/22 documented as of this encounter
--- OUTSIDE RECORDS SUMMARY | 2024-12-16 16:44 | XMS_ITS | Encounter Summary ---
Author Organization [facility] Address [address] [place] [address] Care Team Providers Care Food Safety Manager Name Role Phone Lora Bansal MD Unavailable [phone] Komal Britton PA-C Unavailable [phone] Kush Trevino PA-C Unavailable [phone] Virginia Randhawa MD Primary Care Provider [phone] Encounter Details Date Type Department Care Team Description 12/29/2023 Underwriting Operations Manager Report Medical Records [address] [place] [address] Keaton Staley Social History Tobacco Use Types [...] on filedocumented in this encounter Care Teams Food Safety Manager Relationship Specialty Start Date End Date Virginia Randhawa MD [address] [id number] PCP - General Internal Medicine 11/04/23 Lora Bansal MD [address] [address] Surgeon Neurosurgery 09/09/22 Komal Britton PA-C [address] [address] Specialist Neurosurgery 09/09/22 Kush Trevino PA-C [address] [place] [address] [address] [place] [address] Specialist Neurosurgery 09/09/22 documented as of this encounter
--- OUTSIDE RECORDS SUMMARY | 2024-12-16 16:44 | XMS_ITS | Encounter Summary ---
Author Organization [facility] Address [address] [place] [address] Care Team Providers Care Breastfeeding Peer Counselor Name Role Phone Tracee Valentin MD Primary Care Prov ider Lora Bansal MD Unavailable [phone] Komal Britton PA-C Unavailable [phone] Kush Trevino PA-C Unavailable [phone] [place] Randhawa MD Primary Care Provider [phone] Reason for Visit * Reason Onset Date Comments Orders Call 08/08/2022 Encounter Details Date Type Department Care Team Description 08/08/2022 Telephone Adult Medicine [facility] [address] [place] [address] Tracee Valentin MD [address] [place] [phone] Orders Call Social History Tobacco Use Types Packs/Day Years [...] PM EST documented as of this encounter Miscellaneous Notes * Telephone Encounter - Tracee Cartagena MD - 08/08/2022 1:58 PM EST Order was placed. * Telephone Encounter - Brandy Chun M.A. - 08/08/2022 1:28 PM EST Please see msg below and advise * Telephone Encounter - Rj Lee - 08/08/2022 1:23 PM EST The patient came in to the office today to request that the order for the MRI of the spine be changed to an external order so that she can get the MRI done at [facility] instead. documented in this encounter Plan of Treatment Not on file documented as of this encounter Results * MRI OF LUMBAR SPINE NO CONTRAST (08/16/2022) Tracee Cartagena MD MRI Performing Organization Address City/State/[facility] Co de Phone Number [facility] [address] [place] [address] documented in this encounter Visit Diagnoses Diagnosis Degeneration, intervertebral disc, lumbar- Primary Degeneration of lumbar or lumbosacral intervertebral disc documented in this encounter Care Teams Breastfeeding Peer Counselor Relationship Specialty Start Date End Date Tracee Valentin MD [address] [place] [address] PCP - General Internal Medicine 04/28/22 11/03/23 Virginia Randhawa MD [address] [address] PCP - General Internal Medicine 11/04/23 Lora Bansal MD [address] [address] Surgeon Neurosurgery 09/09/22 Komal Britton PA-C 175 [facility] [address] [place] [phone] Specialist Neurosurgery 09/09/22 Kush Trevino PA-C 175 [facility] [address] [place] [phone] Specialist Neurosurgery 09/09/22 documented as of this encounter
--- OUTSIDE RECORDS SUMMARY | 2024-12-16 16:44 | XMS_ITS | Encounter Summary ---
Author Organization [facility] Address [address] [place] [address] Care Team Providers Care Viscose Cellar Charge Hand Name Role Phone Zenia Shepherd MD Primary Care Provider Aguila Caro MD Primary Care Provider Tracee David MD Primary Care Prov ider Lora Bansal MD Unavailable [phone] Komal BrittonC Unavailable [phone] Kush TrevinoC Unavailable [phone] Virginia Randhawa MD Primary Care Provider [phone] Encounter Details Date Type Department Care Team Description 10/28/2016 Manufacturing Team Member Report Medical Records [address] [place] [address] Wayne Gilbert Social History Tobacco Use Types Packs/Day Years [...] on filedocumented in this encounter Care Teams Viscose Cellar Charge Hand Relationship Specialty Start Date End Date Zenia Shepherd MD PCP - General Internal Medicine 02/24/12 05/30/21 Aguila Andres MD PCP - General Internal Medicine 05/31/21 04/27/22 Tracee Valentin MD [address] [place] [address] PCP - General Internal Medicine 04/28/22 11/03/23 Virginia Randhawa MD [address] [address] PCP - General Internal Medicine 11/04/23 Lora Bansal MD [address] [address] Surgeon Neurosurgery 09/09/22 Komal Britton PA-C [address] [address] Specialist Neurosurgery 09/09/22 Kush Trevino PA-C [address] [address] Specialist Neurosurgery 09/09/22 documented as of this encounter
--- OUTSIDE RECORDS SUMMARY | 2024-12-16 16:44 | XMS_ITS | Encounter Summary ---
Author Organization [facility] Address [address] [place] [address] Care Team Providers Care Accelerator Technician Name Role Phone Tracee Valentin MD Primary Care Prov ider Lora Bansal MD Unavailable [phone] Komal Britton PA-C Unavailable [phone] Kush Trevino PA-C Unavailable [phone] Virginia Randhawa MD Primary Care Provider [phone] Reason for Visit * Reason Onset Date Comments Testing 04/28/2022 DXA BONE DENSITY STUDY 1+ SITS AXIAL SKEL Encounter Details Date Type Department Care Team Description 04/28/2022 Telephone Adult [address] [address] Aguila Andres MD Testing (DXA BONE DENSITY STUDY 1+ SITS AXIAL SKEL ) Social History Tobacco Use Types Packs/Day Years [...] encounter Miscellaneous Notes * Telephone Encounter - Juan Currie M.A. - 04/28/2022 3:03 PM EDT DXA BONE DENSITY STUDY 1+ SITS AXIAL SKEL was ordered 10/22/21, do you wan to complete or cancel theorder? documented in this encounter Plan of Treatment Not on file documented as of this encounter Visit Diagnoses Not on filedocumented in this encounter Care Teams Accelerator Technician Relationship Specialty Start Date End Date Tracee Valentin MD [address] [place] [address] PCP - General Internal Medicine 04/28/22 11/03/23 Virginia Randhawa MD [address] [address] PCP - General Internal Medicine 11/04/23 Lora Bansal MD [address] [address] Surgeon Neurosurgery 09/09/22 Komal Britton PA-C [address] [address] Specialist Neurosurgery 09/09/22 Kush Trevino PA-C [address] [address] Specialist Neurosurgery 09/09/22 documented as of this encounter
--- OUTSIDE RECORDS SUMMARY | 2024-12-16 16:44 | XMS_ITS | Encounter Summary ---
Author Organization [facility] Address [address] [place] [address] Care Team Providers Care Burr Bench Hand Name Role Phone Zenia Shepherd MD Primary Care Provider Aguila Caro MD Primary Care Provider Tracee David MD Primary Care Prov ider Lora Bansal MD Unavailable [phone] Komal BrittonC Unavailable [phone] Kush TrevinoC Unavailable [phone] Virginia Randhawa MD Primary Care Provider [phone] Encounter Details Date Type Department Care Team Description 05/22/2016 Tire Builder Report Medical Records [address] [place] [address] Chuy Cain Social History Tobacco Use Types Packs/Day Years [...] on filedocumented in this encounter Care Teams Burr Bench Hand Relationship Specialty Start Date End Date Zenia Shepherd MD PCP - General Internal Medicine 02/24/12 05/30/21 Aguila Andres MD PCP - General Internal Medicine 05/31/21 04/27/22 Tracee Valentin MD [address] [place] [address] PCP - General Internal Medicine 04/28/22 11/03/23 Virginia Randhawa MD [address] [address] PCP - General Internal Medicine 11/04/23 Lora Bansal MD [address] [address] Surgeon Neurosurgery 09/09/22 Komal Britton PA-C [address] [address] Specialist Neurosurgery 09/09/22 Kush Trevino PA-C [address] [address] Specialist Neurosurgery 09/09/22 documented as of this encounter
--- OUTSIDE RECORDS SUMMARY | 2024-12-16 16:44 | XMS_ITS | Encounter Summary ---
Author Organization [facility] Address [address] [place] [address] Care Team Providers Care Cosmetician Apprentice Name Role Phone Tracee Valentin MD Primary Care Prov ider Lora Bansal MD Unavailable [phone] Komal Britton PA-C Unavailable [phone] Kush Trevino PA-C Unavailable [phone] Virginia Randhawa MD Primary Care Provider [phone] Encounter Details Date Type Department Care Team Description 08/19/2022 Orders Only Adult Medicine [address] [address] Tracee Valentin MD [address] [place] [address] [phone] Degeneration, intervertebral disc, lumbar Social History Tobacco Use Types Packs/Day Years [...] Procedure Name Priority Date/Time Associated Diagnosis Comments MRI OF LUMBAR SPINE NO CONTRAST Routine 08/16/2022 Degeneration, intervertebral disc, lumbar documented in this encounter Results * MRI OF LUMBAR SPINE NO CONTRAST (08/16/2022) Tracee Cartagena MD MRI [facility] [address] [facility] documented in this encounter Visit Diagnoses Diagnosis Degeneration, intervertebral disc, lumbar Degeneration of lumbar or lumbosacral intervertebral disc documented in this encounter Care Teams Cosmetician Apprentice Relationship Specialty Start Date End Date Tracee Valentin MD [address] [place] [address] PCP - General Internal Medicine 04/28/22 11/03/23 Virginia Randhawa MD [address] [address] PCP - General Internal Medicine 11/04/23 Lora Bansal MD [address] [address] Surgeon Neurosurgery 09/09/22 Komal Britton PA-C [address] [address] Specialist Neurosurgery 09/09/22 Kush Trevino PA-C [address] [address] Specialist Neurosurgery 09/09/22 documented as of this encounter
--- OUTSIDE RECORDS SUMMARY | 2024-12-16 16:44 | XMS_ITS | Encounter Summary ---
Author Organization [facility] Address [address] [place] [address] Care Team Providers Care Painter Plate Name Role Phone Lora Bansal MD Unavailable [phone] Komal Britton PA-C Unavailable [phone] Kush Trevino PA-C Unavailable [phone] Virginia Randhawa MD Primary Care Provider [phone] Reason for Visit * Reason Comments E-prescribe Rx Request Encounter Details Date Type Department Care Team Description 02/01/2024 Refill Internal Medicine - [address], [address] [place], [place] [id number] Virginia Randhawa MD [address] [place] [address] E-prescribe Rx Request Social History Tobacco Use [...] encounter Miscellaneous Notes * Telephone Encounter - Elvia Rodriguez - 02/02/2024 1:06 PM EDT Sandi 01/05/24 Nov 05/04/24 * Telephone Encounter - Tammy Oconnell - 02/02/2024 1:04 PM EDT Sandi 01/05/24 Nov 05/04/24 documented in this encounter Plan of Treatment Not on file documented as of this encounter Visit Diagnoses Not on filedocumented in this encounter Care Teams Painter Plate Relationship Specialty Start Date End Date Virginia Randhawa MD [address] [address] PCP - General Internal Medicine 11/04/23 Lora Bansal MD [address] [address] Surgeon Neurosurgery 09/09/22 Komal Britton PA-C [address] [address] Specialist Neurosurgery 09/09/22 Kush Trevino PA-C [address] [address] Specialist Neurosurgery 09/09/22 documented as of this encounter
--- OUTSIDE RECORDS SUMMARY | 2024-12-16 16:44 | XMS_ITS | Clinical Summary ---
Author Organization [facility] Address [address] [place] [address] Phone Care Team Providers Care Food Technology Teacher Name Role Phone Tank Randhawa MD Primary Care Provider [phone] Allergies Active Allergy Reactions Criticality Noted Date Comments Hydroxychloroquine 06/22/2019 Penicillins Nausea And Vomiting Medium 12/31/2015 Medications acetaminophen (TYLENOL) 500 mg tablet Take 1 Tablet by mouth every 6 hours as needed for Pain. 4 Active menthol (Biofreeze, menthol,) 4 % gel Apply 1 Applicator topically 3 times daily as needed (muscle pain). 8 Active cholecalciferol (VITAMIN D-3) 10 mcg (400 unit) tablet Take 1 Tab by mouth daily. 7 Active cyclobenzaprine (FLEXERIL) 5 mg tablet Take 1 Tablet by mouth 3 times daily as needed for Muscle spasms. 4 Active conjugated estrogens (Premarin) vaginal cream Place 1 Applicator vaginally twice a week. 1 gm vaginal twice weekly 4 Active loratadine (CLARITIN) 10 mg tablet Take 1 Tablet by mouth daily. 4 Active ibuprofen (ADVIL,MOTRIN) 600 mg tablet Take 1 Tablet by mouth every 8 hours as needed for Pain. Take with food. 4 Active multivit-min/iron /folic acid/K (ADULTS MULTIVITAMIN ORAL) Take 1 Tablet by mouth daily. Active cyproheptadine (PERIACTIN) 4 mg tablet TAKE 1 TABLET BY MOUTH 3 TIMES DAILY NEEDED (ANOREXIA) FOR UP TO 90 DAYS. 270 tablet 1 5 Active ezetimibe (ZETIA) 10 mg tablet Take 1 tablet (10 mg total) by mouth 1 (one) time each day. 90 tablet 1 5 Active Active Problems Problem Noted Date Diagnosed Date DDD (degenerative disc disease), lumbar 09/09/20 22 Overview (08/31/2024): L5-S1 DDD Last Assessment & Plan: Patient comes in today to review her lumbar MRI done 04/30/2024 at [facility], she complains of persistent significant pain in [...] of diabetes. MRI lumbar spine 04/30/2024 at [facility] shows L5-S1 disc bulge, small extruded disc [...] with her neck, has EMG scheduled at [facility] in May, we can try to see if we can get a sooner date at [facility]. Fibromyalgia 10/12/2019 Left lumbar radiculitis 06/08/2018 [employer] [...] Team Description 12/07/2024 Telephone Internal Medicine - [place] 175 [facility] [address] [place] [address] Tank Randhawa MD 11/10/2024 1:30 PM EST Office Visit Internal Medicine [facility] 175 [facility] [address] [place] [address] Tank Randhawa MD Scleroderma (CMS/HCC) (Primary Dx); Fibromyalgia; H/O peripheral vascular disease from Last 3 Months Immunizations Name Administration Dates Next Due Moderna SARS-CoV-2 COVID-19, mRNA, LNP-S, preservative free 07/03/2021,05/31/2021 Td Tetanus diptheria (Tdvax) 7yo and older 04/30 Surgical History Surgery Date Site/Laterality Comments TUBAL LIGATION PROCEDURE:TUBAL LIGATION COLONOSCOPY PROCEDURE:COLONOSCOPY OTHER SURGICAL HISTORY 09/28/1989 PROCEDURE: VA COLPOSCOPY CERVIX VAG ELTRD CONIZATION CERVIX; COMMENT: Felix TUBAL LIGATION 1997 PROCEDURE: HISTORICAL TUBAL LIGATION OTHER SURGICAL HISTORY 10/22/2023 Left PROCEDURE: HISTORY OTHER; COMMENT: Excision of the vein cluster, left lower extremity, microphlebectomy for venous reflux, Dr. Batista Medical History Medical History Date Comments Low back pain DX:Low back pain Neutropenia DX:Neutropenia ( HCC) Leukopenia 05/07/2017 DX:Leukopenia Other specified personal his [...] 3:45 PM EDT Office Visit Internal Medicine - [address] [place] [phone] Tank Randhawa MD [address] [address] 05/10/2025 2:30 PM EDT Office Visit Internal Medicine - [place] 175 [facility] [address] [place] [phone] Tank Randhawa MD [address] [place] [address] [address] [place] [address] Health Maintenance Due Date Last Done Comments [...] LIPID PANEL Routine 03/24/2024 HPV Routine 01/25/2024 [facility] SCREENING DIGITAL Routine 12/07/2023 3:53 PM EDT [...] Historical Provider HEALTH MAINTENANCE Final Result * [facility] SCREENING DIGITAL (12/07/2023 3:53 PM EDT) Anatomical Region Laterality Modality Mammography 12/07/2023 10:4 0 AM EDT Narrative 12/07/2023 3:53 PM EDT [facility] Diagnostic Imaging Department [address] [place] [address] Patient: ??MARCELLE ZHAO ?/Age/Sex: 1960 - 63 - F Unit#: ??[id number] ? Location/Status: ??SPDIMAM/REG CLI ? Mnemonic/Ordering Site: ??DIGSC/SPMAM Ordering Physician: ??TANK RANDHAWA [facility] Screening Digital - 12/07/23 - 1099 Report Status:Signed EXAM: [facility] Screening Digital EXAM DATE AND TIME: 12/07/2023 11:00 AM HISTORY: ??Screening. Mother had breast carcinoma at age 80. COMPARISON: ??05/30/22, 03/26/19, 03/27/16 TECHNIQUE: Bilateral digital breast tomosynthesis was performed in the CC and MLO projections. Computer aided detection with [employer] 3D 3.1 was employed. TISSUE DENSITY: b. [...] Signed by: ??BEV LUTZ MD Dic Date/Time: ??12/07/231552 Sign date/Time: ??12/07/231552 Procedure Note Bev Lutz MD - 05/16/2024 [facility] Diagnostic Imaging Department [address] [place] [address] Patient: MARCELLE ZHAO /Age/Sex: 1960 - 63 - F Unit#: [id number] Location/Status: [facility] CLI Mnemonic/Ordering Site: [facility] Ordering Physician: TANK RANDHAWA [facility] Screening Digital - 12/07/23 - 1100 Report Status:Signed EXAM: [facility] Screening Digital EXAM DATE AND TIME: 12/07/2023 11:00 AM HISTORY: Screening. Mother had breast carcinoma at age 80. COMPARISON: 05/30/22, 03/26/19, 03/27/16 TECHNIQUE: Bilateral digital breast tomosynthesis was performed in the CCand MLO projections. Computer aided detection with [employer] 3D 3.1was employed. TISSUE DENSITY: b. There [...] (World Health Organization Fracture Risk Assessment) [facility] Department of Internal Medicine recommends using National [...] (World Health Organization Fracture Risk Assessment) [facility] Department of Internal Medicine recommendsusing National Osteoporosis [...] Resu lt * Hepatitis C Screening (01/14/2018) [facility] Hepatitis C Screening Abstracted Historical Provider HEALTH MAINTENANCE Final Result from Last 3 Months or Most Recently Relevant to Health Maintenance Insurance [facility] Member Subscriber Plan / Payer (Ef fective 2022-Present) Name:Marcelle Zhao Relation to Subscriber:Self Name:Marcelle Zhao Payer ID:[id number] Group ID:[id number] Type:Not on file Address: [address] [place] [address] Care Teams Food Technology Teacher Relationship Specialty Start Date End Date Tank Randhawa MD [address] [place] [address] PCP - General 11/04/23
--- OUTSIDE RECORDS SUMMARY | 2024-12-16 16:45 | XMS_ITS | Encounter Summary ---
Author Organization [facility] Address [address] [place] [address] Care Team Providers Care Sliding Joint Maker Name Role Phone Zenia Shepherd MD Primary Care Provider Aguila Caro MD Primary Care Provider Tracee David MD Primary Care Prov ider Lora Bansal MD Unavailable [phone] Komal Britton PA-C Unavailable [phone] Kush TrevinoC Unavailable [phone] Virginia Randhawa MD Primary Care Provider [phone] Encounter Details Date Type Department Care Team Description 07/24/2018 Release of Information Medical Records [address] [place] [address] Abstract, Provider Social History Tobacco Use Types [...] on filedocumented in this encounter Care Teams Sliding Joint Maker Relationship Specialty Start Date End Date Zenia Shepherd MD PCP - General Internal Medicine 02/24/12 05/30/21 Aguila Andres MD PCP - General Internal Medicine 05/31/21 04/27/22 Tracee Valentin MD [address] [place] [address] PCP - General Internal Medicine 04/28/22 11/03/23 Virginia Randhawa MD 175 [facility] [address] [place] [address] PCP - General Internal Medicine 11/04/23 Lora Bansal MD [address] [address] Surgeon Neurosurgery 09/09/22 Komal Britton PA-C [address] [address] Specialist Neurosurgery 09/09/22 Kush Trevino PA-C [address] [address] Specialist Neurosurgery 09/09/22 documented as of this encounter
--- OUTSIDE RECORDS SUMMARY | 2024-12-16 16:45 | XMS_ITS | Encounter Summary ---
Author Organization [facility] Address [address] [place] [address] Care Team Providers Care Pilot Name Role Phone Zenia Shepherd MD Primary Care Provider Aguila Caro MD Primary Care Provider Tracee David MD Primary Care Prov ider Lora Bansal MD Unavailable [phone] Komal Britton PA-C Unavailable [phone] Kush TrevinoC Unavailable [phone] Virginia Randhawa MD Primary Care Provider [phone] Encounter Details Date Type Department Care Team Description 07/28/2016 Release of Information Medical Records [address] [place] [address] Abstract, Provider Social History Tobacco Use Types [...] on filedocumented in this encounter Care Teams Pilot Relationship Specialty Start Date End Date Zenia Shepherd MD PCP - General Internal Medicine 02/24/12 05/30/21 Aguila Andres MD PCP - General Internal Medicine 05/31/21 04/27/22 Tracee Valentin MD [address] [place] [address] PCP - General Internal Medicine 04/28/22 11/03/23 Virginia Randhawa MD 175 [facility] [address] [place] [address] PCP - General Internal Medicine 11/04/23 Lora Bansal MD [address] [address] Surgeon Neurosurgery 09/09/22 Komal Britton PA-C [address] [address] Specialist Neurosurgery 09/09/22 Kush Trevino PA-C [address] [address] Specialist Neurosurgery 09/09/22 documented as of this encounter
--- OUTSIDE RECORDS SUMMARY | 2024-12-16 16:45 | XMS_ITS | Encounter Summary ---
Author Organization [facility] Address [address] [place] [address] Care Team Providers Care Dye Automation Operator Name Role Phone Tracee Valentin MD Primary Care Prov ider Lora Bansal MD Unavailable [phone] Komal Britton PA-C Unavailable [phone] Kush Trevino PA-C Unavailable [phone] Virginia Randhawa MD Primary Care Provider [phone] Reason for Referral * EXTERNAL (Priority) - Authorized/Booked Specialty Diagnoses / Procedures Referred By Carlos cazares Referred To Contact Rheumatology Procedures REFERRAL TO RHEUMATOLOGY Tracee Valentin MD [address] [place] [address] Center, [facility] [address] [place] [address] Referral ID Status Reason Start Date Expiration Date V isits Requested Visits Authorized [id number] Authorized/B ooked 01/05/2023 04/06/2023 1 1 Reason for Visit * Reason Onset Date Comments Cuff Slitter Feedback 01/01/2023 Rheumalogy Encounter Details Date Type Department Care Team Description 01/01/2023 Telephone Internal Medicine - [address], [address] [place] [address] Tracee Valentin MD [address] [place] [address] Cuff Slitter Feedback (Rheumalogy) Social History Tobacco Use Types Packs/Day Years [...] suspected to have Coronavirus/COVID-19? No / Unsure 12/29/2022 11:16 AM EDT documented as of this encounter Miscellaneous Notes * Telephone Encounter - Tracee Cartagena MD - 01/05/2023 7:46 AM EDT Referral was signed, thank you * Telephone Encounter - Merry Jones - 01/01/2023 10:[address]T Good [address]. Arguello Patient sent a AppGratist message and the patient would like a referral to be seen at a office. Rheumatology office for join pain. Please review this patients new referral request. The referral has been pended. Please complete thefollowing: If approved> sign order If denied>please give instructions and route to your practice nursing pool. Practice nurse should inform referrals and the patient if denied. Thank you, Merry Referral Hazmat Cdl A Driver documented in this encounter Plan of Treatment Not on file documented as of this encounter Visit Diagnoses Not on filedocumented in this encounter Care Teams Dye Automation Operator Relationship Specialty Start Date End Date Tracee Valentin MD [address] [place] [address] PCP - General Internal Medicine 04/28/22 11/03/23 Virginia Randhawa MD [address] [address] PCP - General Internal Medicine 11/04/23 Lora Bansal MD [address] [address] Surgeon Neurosurgery 09/09/22 Komal Britton PA-C [address] [address] Specialist Neurosurgery 09/09/22 Kush Trevino PA-C [address] [address] Specialist Neurosurgery 09/09/22 documented as of this encounter
--- OUTSIDE RECORDS SUMMARY | 2024-12-16 16:45 | XMS_ITS | Encounter Summary ---
Author Organization [facility] Address [address] [place] [address] Care Team Providers Care Pot Press Operator Name Role Phone Zenia Shepherd MD Primary Care Provider Aguila Caro MD Primary Care Provider Tracee David MD Primary Care Prov ider Lora Bansal MD Unavailable [phone] Komal Britton PA-C Unavailable [phone] Kush TrevinoC Unavailable [phone] Virginia Randhawa MD Primary Care Provider [phone] Encounter Details Date Type Department Care Team Description 05/28/2016 Release of Information Medical Records [address] [place] [address] Abstract, Provider Social History Tobacco Use Types [...] on filedocumented in this encounter Care Teams Pot Press Operator Relationship Specialty Start Date End Date Zenia Shepherd MD PCP - General Internal Medicine 02/24/12 05/30/21 Aguila Andres MD PCP - General Internal Medicine 05/31/21 04/27/22 Tracee Valentin MD [address] [place] [address] PCP - General Internal Medicine 04/28/22 11/03/23 Virginia Randhawa MD 175 [facility] [address] [place] [address] PCP - General Internal Medicine 11/04/23 Lora Bansal MD [address] [address] Surgeon Neurosurgery 09/09/22 Komal Britton PA-C [address] [address] Specialist Neurosurgery 09/09/22 Kush Trevino PA-C [address] [address] Specialist Neurosurgery 09/09/22 documented as of this encounter
--- OUTSIDE RECORDS SUMMARY | 2024-12-16 16:45 | XMS_ITS | Encounter Summary ---
Author Organization [facility] Address [address] [place] [address] Care Team Providers Care Glory Hole Tender Name Role Phone Zenia Shepherd MD Primary Care Provider Aguila Caro MD Primary Care Provider Tracee David MD Primary Care Prov ider Lora Bansal MD Unavailable [phone] Komal BrittonC Unavailable [phone] Kush TrevinoC Unavailable [phone] Virginia Randhawa MD Primary Care Provider [phone] Encounter Details Date Type Department Care Team Description 09/02/2016 Environmental Technology Professor Report Medical Records [address] [place] [address] Wayne Gilbert Social History Tobacco Use Types [...] on filedocumented in this encounter Care Teams Glory Hole Tender Relationship Specialty Start Date End Date Zenia Shepherd MD PCP - General Internal Medicine 02/24/12 05/30/21 Aguila Andres MD PCP - General Internal Medicine 05/31/21 04/27/22 Tracee Valentin MD [address] [place] [address] PCP - General Internal Medicine 04/28/22 11/03/23 Virginia Randhawa MD [address] [address] PCP - General Internal Medicine 11/04/23 Lora Bansal MD [address] [address] Surgeon Neurosurgery 09/09/22 Komal Britton PA-C [address] [address] Specialist Neurosurgery 09/09/22 Kush Trevino PA-C [address] [address] Specialist Neurosurgery 09/09/22 documented as of this encounter
--- OUTSIDE RECORDS SUMMARY | 2024-12-16 16:45 | XMS_ITS | Encounter Summary ---
Author Organization [facility] Address [address] [place] [address] Care Team Providers Care Industrial Relations Analyst Name Role Phone Zenia Shepherd MD Primary Care Provider Aguila Caro MD Primary Care Provider Tracee David MD Primary Care Prov ider Lora Bansal MD Unavailable [phone] Komal Britton PA-C Unavailable [phone] Kush TrevinoC Unavailable [phone] Virginia Randhawa MD Primary Care Provider [phone] Encounter Details Date Type Department Care Team Description 09/04/2016 Release of Information Medical Records [address] [place] [address] Abstract, Provider Social History Tobacco Use Types [...] on filedocumented in this encounter Care Teams Industrial Relations Analyst Relationship Specialty Start Date End Date Zenia Shepherd MD PCP - General Internal Medicine 02/24/12 05/30/21 Aguila Andres MD PCP - General Internal Medicine 05/31/21 04/27/22 Tracee Valentin MD [address] [place] [address] PCP - General Internal Medicine 04/28/22 11/03/23 Virginia Randhawa MD 175 [facility] [address] [place] [address] PCP - General Internal Medicine 11/04/23 Lora Bansal MD [address] [address] Surgeon Neurosurgery 09/09/22 Komal Britton PA-C [address] [address] Specialist Neurosurgery 09/09/22 Kush Trevino PA-C [address] [address] Specialist Neurosurgery 09/09/22 documented as of this encounter
== END 2024-12-16 15:03 | disposition home or self-care (01) ==
LOC: HO.HKA 14:29
PROVIDERS: PCP Student in an Organized Health Care Education/Training Program; Visit Provider Internal Medicine Nephrology
DX: N18.31 Chronic kidney disease, stage 3a (principal)
CPT/HCPCS: 99214

== ENCOUNTER → 2024-12-16 14:28 | Outpatient (BNVA) | payer OTHER, SELFPAY | PROVIDERS: PCP Student in an Organized Health Care Education/Training Program; Visit Provider Internal Medicine Nephrology | DX: N18.31 Chronic kidney disease, stage 3a (principal) | CPT/HCPCS: 99212 ==

== ENCOUNTER 2025-05-03 15:37 | Outpatient (AMB) | payer OTHER, SELFPAY ==
--- NOTE | 2025-05-03 15:46 | A.OFFVIS_ITS ---
Vital Signs 05/03/25 15:47 Height 5 ft 5 in Weight 117 lb BMI 19.5 BP 114/62 Blood Pressure Location Lt brachial Position Sitting Pulse 75 Pulse Source Pulse Oximeter Pulse Oximetry (%) 99 Oxygen Delivery Method Room Air Intake Visit Reasons: Systemic sclerosis Intake Note: Patient last seen by Doctor Max Teran on 05/04/24. Presents today for Systemic Sclerosis follow up. Allergies Penicillins Allergy (Severe, Verified 05/03/25 15:48) Vomiting hydroxychloroquine Allergy (Verified 05/03/25 15:48) Unknown Medication List - Last Reconciled 05/03/25 by Lesa Contreras MD acetaminophen (Tylenol) 650 mg (2 x 325 mg) PO Q6H PRN cyproheptadine 4 mg PO PRN ezetimibe 10 mg PO DAILY loratadine 10 mg PO DAILY menthol 10% (Biofreeze (menthol)) appl topical PRN multivitamin (Daily Multi-Vitamin tablet) 1 tab PO DAILY HPI Comments Details: Patient is a 64-year-old female with hyperlipidemia, CKD, degenerative spine disease and undifferentiated connective tissue disease with Raynaud's/positive centromere antibody/arthralgias here today for follow up Interval History: Patient last seen 05/04/[address] Teran - Not on any rheum medications - No new complaints - no rashes, cough or shortness of breath Rheumatologic History: UCTD Raynaud's, pos anti-centromere Ab, arthralgias. No skin changes 11/15 hydroxychloroquine tried - caused decreased appetite 01/13 prednisone started for hand symptoms - tapered off 06/15 Methotrexate started 06/15 - stopped 02/13 -not effective/or needed This is a 62-year-old female with a past medical history of a positive anticentromere antibody, Raynaud's, thrombocytopenia who presents for evaluation. She was previously evaluated by Dr. Gaona a few years ago. Patient had her 1st Raynaud's episode a few years ago around 2018 when she was initially evaluated by Rheumatology. She was recently evaluated by heme/Onc for mild thrombocytopenia, likely the underlying cause per hematology is mild ITP that does not require treatment. Patient states that she has diffuse joint pain especially her neck, shoulders, knees, lower back. Patient states that she use Kinesio taping her knee pain and hip pain which helps. She takes ibuprofen 600 mg every other day, Flexeril as needed at night. States that her Raynaud's is well controlled by staying warm and using gloves. She has 3 flights of stairs to get to her apartment. States that she gets mildly short of breath because of stairs. Denies GERD Current Rheumatology Medication(s): [facility] Medical History (Updated 05/03/25 @ 17:11 by Lesa Contreras MD) Varicose veins of left lower extremity Greater trochanteric bursitis Adhesive capsulitis of right shoulder Spondylosis of lumbar region without myelopathy or radiculopathy Anxiety and depression VINCE positive Centromere antibody positive Left lumbar radiculitis Fibromyalgia Degenerative disc disease, cervical Cervical spondylosis Surgical History History of colposcopy History of tubal ligation Family History Mother Breast cancer Maternal Aunt Breast cancer Family/Other Breast cancer Paternal Grandmother Throat cancer Sister Anemia Social History Household Members: Significant Other Patient Tobacco Use Status: Never used Tobacco Second Hand Smoke Exposure: No service: No Current occupational status: retired Review of Systems Const Details: Review of Systems Constitutional: Denies fever, chills, weight loss ENT: Denies vision changes, eye pain or eye redness, dental caries, dry mouth GI: Denies nausea, vomiting, diarrhea, abdominal pain, change in BM Pulm: Denies SOB, CAMPBELL, hemoptysis, wheezing Cards: Denies chest pain, palpitations Skin: Denies nail changes, photosensitivity, ATG JAVA DEVELOPER: Denies headaches, weakness, paresthesias, recurrent falls MSK: as per HPI All other systems reviewed and are unremarkable except noted above Physical Exam Exam Exam: Vital signs reviewed Physical Examination CONSTITUITIONAL Patient alert and cooperative. Well appearing and in no apparent painful distress Has alopecia of her eyebrows HEENT Conjunctiva and sclera clear. No lymphadenopathy. CHEST/RESPIRATORY SYSTEM Normal respiratory effort and able to speak in complete sentences. Clear to auscultation bilaterally. No crackles, rales, rhonchi, wheezes heard. CARDIAC SYSTEM Regular rate and rhythm. S1 and S2 heard no murmurs. Radial pulses intact bilaterally MSK Hands * Right Hand: Able to make a fist. No swelling or tenderness to palpation of these joints. No deformities noted. * Left Hand: Able to make a fist. No swelling or tenderness to palpation of these joints. No deformities noted. Wrists * Right Wrist: Full ROM. 70 degrees of wrist flexion, 80 degrees of wrist extension. No swelling or TTP * Left Wrist: Full ROM. 70 degrees of wrist flexion, 80 degrees of wrist extension. No swelling or TTP Elbows * Right Elbow: Full ROM. No swelling or TTP. No TTP of the medial and lateral epicondyles * Left Elbow: Full ROM. No swelling or TTP. No TTP of the medial and lateral epicondyles Shoulders * Right shoulder: Full ROM. No swelling noted. No TTP of the AC joint, subacromial bursa or posterior shoulder * Left shoulder: Full ROM. No swelling noted. No TTP of the AC joint, subacromial bursa or posterior shoulder Knees * Right knee: Full ROM. No swelling noted. * Left knee: Full ROM. No swelling noted. * Crepitations felt bilaterally with TTP of bilateral knee joint line Ankles * Right ankle: Good ankle dorsiflexion and plantar flexion. No swelling. No TTP of the ankle joint * Left ankle: Good ankle dorsiflexion and plantar flexion. No swelling. No TTP of the ankle joint Feet * Right foot: Negative squeeze test * Left foot: Negative squeeze test Tender points? * No tenderness to palpation of the bilateral trapezius, supraspinatus, anterior costochondral junctions, bilateral suboccipital muscle insertions SKIN No rashes Vital Signs: BMI result Body Mass Index 19.5 Results Reviewed Results Reviewed: Laboratory Tests 12/08/24 12/15/24 15:20 13:35 WBC 4.7 L RBC 4.78 Hgb 13.1 Hct 41.0 Plt Count 139 L Sodium 143 Potassium 4.6 Chloride 104 Carbon Dioxide 32 H BUN 13 Creatinine 1.05 AST 27 ALT 24 Laboratory Tests 03/03/23 14:55 VINCE Screen POSITIVE A VINCE Titer 1:1280 H VINCE Pattern Nuclear, Centromere A Assessment & Plan Assessment & Plan (1) Centromere antibody positive: Comment: Raynaud's, pos anti-centromere Ab, arthralgias. No skin changes 11/15 hydroxychloroquine tried - caused decreased appetite 01/13 prednisone started for hand symptoms - tapered off 06/15 Methotrexate started 06/15 - stopped 02/13 -not effective/or needed Code(s): R76.8 - Other specified abnormal immunological findings in serum Category: Medical Plan: #UCTD Patient is a 64-year-old female with Raynaud's, positive anticentromere antib joe, no skin changes and arthralgias here today for follow up. Based on her findings patient does not meet criteria for scleroderma: Raynaud's and anti centromere antibodies Normal ECHO, no evidence of ILD on CXR, no GERD Given her constellation of symptoms: positive VINCE, new alopecia, raynaud's, thombocytopenia and new kidney disease is concerning for evolving CTD. This could be related to lupus vs scleroderma vs MCTD Will need to evalaute her VINCE further Will reach out to renal to see if there is a plan to do a kidney biopsy (2) Osteopenia: Comment: DEXA 07/2022. -1.5. Left Hip -2.0. FRAX /2.3 Code(s): M85.80 - Other specified disorders of bone density and structure, unspecified site Category: Medical Qualifiers: Osteopenia location: unspecified Qualified Code(s): M85.80 - Other specified disorders of bone density and structure, unspecified site Plan: #Osteopenia Patient with a history of osteopenia last bone density done in 2021. We will need a repeat Plan I spent 30 minutes reviewing the record and labs, taking a history, examining the patient, discussing the treatment plan, ordering diagnostic work up and documenting in the medical record Orders: Orders XR DEXA axial skeleton Today M85.80 - Other specified disorders of bone density and structure, unspecified site Protein Creatinine Ratio, Ur 6 Months R76.0 - Raised antibody titer C Reactive Protein 6 Months R76.0 - Raised antibody titer Sm Sm/RESTAURANT GREETER Antibodies 6 Months R76.0 - Raised antibody titer Cyclic Citrullinated Peptide 6 Months R76.0 - Raised antibody titer Complete Blood Count Auto Diff 6 Months R76.0 - Raised antibody titer UA ClnCatch+Micro w/rflx Cult 6 Months R76.0 - Raised antibody titer Anti DNA DS Antibody 6 Months R76.0 - Raised antibody titer Erythrocyte Sedimentation Rate 6 Months R76.0 - Raised antibody titer Complement C3 6 Months R76.0 - Raised antibody titer Complement C4 6 Months R76.0 - Raised antibody titer Sjogren's Antibodies 6 Months R76.0 - Raised antibody titer Rheumatoid Factor 6 Months R76.0 - Raised antibody titer Anti-Centromere B Antibodies 6 Months R76.0 - Raised antibody titer Scleroderma 70 Antibody 6 Months R76.0 - Raised antibody titer Coding Level of Care Code Est Pt Level 4 (38051) Diagnoses Centromere antibody positive R76.8 Osteopenia, unspecified location M85.80 Osteopenia location: unspecified
[2025-05-03 15:47] VITALS: BP 114/62; PULSE 75; O2SAT 99; BMI 19.5
--- OUTSIDE RECORDS SUMMARY | 2025-05-03 16:01 | XMS_ITS | Clinical Summary ---
Author Organization [facility] Address [address] [place] [address] Phone Care Team Providers Care Executive Admin Name Role Phone Tank Randhawa MD Primary Care Provider [phone] Allergies Active Allergy Reactions Criticality Noted Date [...] 1 Tab by mouth daily. 7 Active conjugated estrogens (Premarin) vaginal cream Place 1 Applicator vaginally twice a week. 1 gm vaginal twice weekly 4 Active loratadine (CLARITIN) 10 mg tablet Take 1 Tablet by mouth daily. 4 Active ibuprofen (ADVIL,MOTRIN) 600 mg tablet Take 1 Tablet by mouth every 8 hours as needed for Pain. Take with food. 4 Active multivit-min/iro n/folic acid/K (ADULTS MULTIVITAMIN ORAL) Take 1 Tablet by mouth daily. Active cyproheptadine (PERIACTIN) 4 mg tablet TAKE 1 TABLET BY MOUTH 3 TIMES DAILY NEEDED (ANOREXIA) FOR UP TO 90 DAYS. 270 tablet 1 5 Active ezetimibe (ZETIA) 10 mg tablet Take 1 tablet (10 mg total) by mouth 1 (one) time each day. 90 tablet 1 5 Active cyclobenzaprine (FLEXERIL) 5 mg tabletIndication s:Neck pain on right side Take 1 tablet (5 mg total) by mouth 3 (three) times a day if needed for muscle spasms. for muscle spasms 30 tablet 1 5 Active cyclobenzaprine (FLEXERIL) 5 mg tabletIndication s:Neck pain on right side Take 1 tablet (5 mg total) by mouth 3 (three) times a day if needed for muscle spasms. for muscle spasms 30 tablet 1 5 025 Discontin ued(Reord er) Active Problems Problem Noted Date Diagnosed Date DDD (degenerative disc disease), lumbar 09/09/20 22 Overview (08/31/2024): L5-S1 DDD Last Assessment & Plan: Patient comes in today to review her lumbar MRI done 04/30/2024 at [facility], she complains of persistent significant pain [...] of diabetes. MRI lumbar spine 04/30/2024 at [facility] shows L5-S1 disc bulge, small extruded [...] with her neck, has EMG scheduled at [facility] in May, we can try to see if we can get a sooner date at [facility]. 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 No skin changes 11/15 hydroxychloroquine tried - caused decreased appetite 01/13 prednisone started for hand symptoms - tapered off 06/15 Methotrexate started 06/15 - stopped 02/13 -not effective/or needed Scleroderma (CMS/[facility] V24, [facility] V28) 8 VINCE positive 07/04/2017 Anxiety and depression 03/19/2017 Adhesive capsulitis of right shoulder 01/07/2017 Greater trochanteric bursitis 01/07/2017 Spondylosis of lumbar region without myelopathy or radiculopathy 01/07/2017 Encounters Date Type Department Care Team Description 04/11/2025 11:15 AM EDT Office Visit Internal Medicine - [address] [place] [address] Tank Randhawa MD Abnormal vaginal bleeding in postmenopausal patient (Primary Dx); Neck pain on right side; Alopecia from Last 3 Months Immunizations Name Administration Dates Next Due Moderna SARS-CoV-2 COVID-19, mRNA, LNP-S, preservative free 07/03/2021,05/31/2021 Td Tetanus diptheria (Tdvax) 7yo and older 04/30 Surgical History Surgery Date Site/Laterality Comments TUBAL LIGATION PROCEDURE:TUBAL LIGATION COLONOSCOPY PROCEDURE:COLONOSCOPY OTHER SURGICAL HISTORY 09/28/1989 PROCEDURE: FL COLPOSCOPY CERVIX VAG ELTRD CONIZATION CERVIX; COMMENT: Felix TUBAL LIGATION 1997 PROCEDURE: HISTORICAL TUBAL LIGATION OTHER SURGICAL HISTORY 10/22/2023 Left PROCEDURE: HISTORY OTHER; COMMENT: Excision of the vein cluster, left lower extremity, microphlebectomy for venous reflux, Dr. Batista Medical History Medical History Date Comments Low back pain DX:Low back pain Neutropenia ([facility] V24) DX:Rey tropenia ([facility]) Leukopenia 05/07/2017 DX:Leukopenia Other specified personal his tory presenting hazards to health(V15.89) DX:Other specifie d personal history presenting hazards to health(V15.89); COMMENT: cervical change in cells Low back pain 03/19/2015 DX:Low back pain ; COMMENT: Previous work related injury 2007 Family history of breast cancer 09/08/2012 DX:Family history of breast cancer Left lumbar radiculitis 06/08/2018 DX:Left lumbar radiculitis Scleroderma (CMS/HCC V24, CMS/HCC V28) DX:Scleroderma (HCC) Fibromyalgia DX:Fibromyalgia Osteopenia DX:Osteopenia Adhesive capsulitis [...] Sign Reading Time Taken Comments Blood Pressure 122/62 04/11/2025 11:08 AM EDT Pulse 82 04/11/2025 11:08 AM EDT Temperature 36.9 C (98.4 F) 11/10/2024 1:15 PM EST Respiratory Rate - - Oxygen Saturation 99% 04/11/2025 11:08 AM EDT Inhaled Oxygen Concentration - - Weight 54.4 kg (120 lb) 04/11/2025 11:08 AM EDT Height 165.1 cm (5' 5 ) 11/10/2024 1:15 PM EST Body Mass Index 19.97 11/10/2024 1:15 PM EST Plan of Treatment Upcoming Encounters Date Type Department Care Team ([facility] st Contact Info) Description 05/10/2025 2:30 PM EDT Office Visit Internal Medicine - [place] [address] [facility] [address] [place] [phone] Tank Randhawa MD [address] [facility] [address] [place] [address] Health Maintenance Due Date Last Done Comments Pneumococcal Vaccine: 50+ Years (1 of 1 - PCV) 2009 Zoster Vaccines (1 of 2) 2009 DTaP,Tdap,and Td Vaccines (2 - Td or Tdap) 04/30/2019 04/30/2009 Colorectal Cancer Screening: Stool Based Tests (FOBT/FIT) 09/05/2022 Social Influencers of Health Screening 09/05/2022 COVID-19 Vaccine (3 - 2023-2 5 season) 2024 07/03/2021, 05/31/2021 Falls Risk Assessment 2024 Depression Screening 09/28/2024 Influenza Vaccine (#1) 2025 Breast Cancer Screening 12/06/2025 12/07/19 24, 05/30/2022, 03/27/2019 Cervical Cancer Screening: HPV 01/24/2029 01/25/2024 Cholesterol Screening (Lipid Panel) 03/24/2029 03/24/2024, 03/24/2024 Osteoporosis Screening (Bone Density Screening) 08/08/2032 08/08/2022 RSV Immunization Adult Patients (1 - 1-dose 75+ series) 2034 Hepatitis [...] age to complete this topic Meningococcal B Vaccine Aged Out No l onger eligible based on patient's age to complete [...] Historical Provider HEALTH MAINTENANCE Final Result * [facility] SCREENING DIGITAL (12/07/2023 3:53 PM EDT) Anatomical Region Laterality Modality Mammography 12/07/2023 10:4 0 AM EDT Narrative 12/07/2023 3:53 PM EDT [facility] Diagnostic Imaging Department [address] [place] [id number] Patient: MARCELLE ZHAO /Age/Sex: 1960 - 63 - F Unit#: [id number] Location/Status: SPDIMAM/REG CLI Mnemonic/Ordering Site: [facility] Ordering Physician: TANK RANDHAWA [facility] Screening Digital - 12/07/23 - 1100 Report Status:Signed EXAM: [facility] Screening Digital EXAM DATE AND TIME: 12/07/2023 11:00 AM HISTORY: Screening. Mother had breast carcinoma at age 80. COMPARISON: 05/30/22, 03/26/19, 03/27/16 TECHNIQUE: Bilateral digital breast tomosynthesis was performed in the CC and MLO projections. Computer aided detection with Plastic Jungle 3D 3.1 was employed. TISSUE DENSITY: b. There are scattered areas of fibroglandular density. FINDINGS: No suspicious masses, grouped microcalcifications, or areas of architectural distortion are seen. The skin and vascularity are unremarkable. IMPRESSION: Stable mammographic appearance of the breasts. No evidence of malignancy is seen. A negative mammogram in the presence of a clinically suspicious palpable abnormality does not preclude the possibility of malignancy or alter the indications for biopsy. BI-RADS: Category 1: Negative RECOMMENDATION(S): 1: Routine screening mammogram BILATERAL in 1 year. Dictating Physician: BEV LUTZ MD Electronically Signed by: BEV LUTZ MD Dic Date/Time: 12/07/231552 Sign date/Time: 12/07/231552 Procedure Note Bev Lutz MD - 05/16/2024 [facility] Diagnostic Imaging Department [address] [place] [id number] Patient: MARCELLE ZHAO /Age/Sex: 1960 - 63 - F Unit#: [id number] Location/Status: SPDIMAM/REG CLI Mnemonic/Ordering Site: [facility] Ordering Physician: TANK RANDHAWA [facility] Screening Digital - 12/07/23 - 1100 Report Status:Signed EXAM: [facility] Screening Digital EXAM DATE AND TIME: 12/07/2023 11:00 AM HISTORY: Screening. Mother had breast carcinoma at age 80. COMPARISON: 05/30/22, 03/26/19, 03/27/16 TECHNIQUE: Bilateral digital breast tomosynthesis was performed in the CCand MLO projections. Computer aided detection with Plastic Jungle 3D 3.1was employed. TISSUE DENSITY: b. There [...] Date/Time: 12/07/23 1553 Sign date/Time: 12/07/23 1553 Tank Randhawa MD IM BI PROCEDURES Final Result * DXA BONE DENSITY STUDY 1+ SITS AXIAL SKEL (08/08/2022 1:20 PM EST) Anatomical Region Laterality Modality Bone Densitometr y 10/22/2021 3:37 PM EST Narrative 08/11/2022 10:48 AM EST BONE DENSITY Lumbar Spine T-score is -1.5 [...] (World Health Organization Fracture Risk Assessment) [facility] Department of Internal Medicine recommends [...] (World Health Organization Fracture Risk Assessment) [facility] Department of Internal Medicine recommendsusing [...] Resu lt * Hepatitis C Screening (01/14/2018) [facility] Hepatitis C Screening Abstracted Historical Provider HEALTH MAINTENANCE Final Result from Last 3 Months or Most Recently Relevant to Health Maintenance Insurance [facility] Member Subscriber Plan / Payer (Ef fective 2022-Present) Name:Marcelle Woo Relation to Subscriber:Self Name:Marcelle Zhao Payer ID:[id number] Group ID:[id number] Type:Not on file Address: [address] [place] [address] Care Teams Executive Admin Relationship Specialty Start Date End Date Tank Randhawa MD [address] [place] [id number] PCP - General 11/04/23
--- OUTSIDE RECORDS SUMMARY | 2025-05-03 16:01 | XMS_ITS | Encounter Summary ---
Author Organization [facility] Address [address] [place] [address] Care Team Providers Care Electrical Worker Name Role Phone Zenia Shepherd MD Primary Care Provider Aguila Caro MD Primary Care Provider Tracee David MD Primary Care Prov ider Lora Bansal MD Unavailable [phone] Komal Britton PA-C Unavailable [phone] Kush Trevino PA-C Unavailable [phone] Virginia Randhawa MD Primary Care Provider [phone] Reason for Visit * Reason Onset Date Comments Provider Call Back 11/19/2016 Encounter Details Date Type Department Care Team Description 11/19/2016 Telephone Physiatry - [address] [address] Enrrique Stokes PA-C Provider Call Back Social History Tobacco Use Types Packs/Day Years [...] encounter Miscellaneous Notes * Telephone Encounter - Enrrique Stokes PA-C - 11/20/2016 5:32 PM EST Orders placed. * Telephone Encounter - Tammy Luz M.A. - 11/19/2016 11:43 AM EST I looked at 11/04/16 office note and you did plan on scheduling an MRI but one was not ordered. Please advise * Telephone Encounter - Dasia Renee - 11/19/2016 11:05 AM EST Patient saw Enrrique Stokes 11/04/16 for right shoulder pain. Patient states Tomas spoke about getting an MRI. Patient has been going to PT. Patient has an appointment with Dr Hu at [facility] December 25 at 10:00. Patient is asking if Tomas was going to put an order in for the MRI. Please review and advise. documented in this encounter Plan of Treatment Not on file documented as of this encounter Visit Diagnoses Diagnosis Chronic right shoulder pain- Primary Pain in joint, shoulder region Right shoulder tendinitis documented in this encounter Care Teams Electrical Worker Relationship Specialty Start Date End Date Zenia Shepherd MD PCP - General Internal Medicine 02/24/12 05/30/21 Aguila Andres MD PCP - General Internal Medicine 05/31/21 04/27/22 Tracee Valentin MD [address] [place] [id number] PCP - General Internal Medicine 04/28/22 11/03/23 Virginia Randhawa MD [address] [address] PCP - General Internal Medicine 11/04/23 Lora Bansal MD [address] [address] Surgeon Neurosurgery 09/09/22 Komal Britton PA-C [address] [address] Specialist Neurosurgery 09/09/22 Kush Trevino PA-C [address] [place] [address] [address] [place] [address] Specialist Neurosurgery 09/09/22 documented as of this encounter
--- OUTSIDE RECORDS SUMMARY | 2025-05-03 16:01 | XMS_ITS | Clinical Summary ---
Author Organization [facility] Address [address] [place] [address] Care Team Providers Care Re Etcher Name Role Phone Zenia Shepherd MD Primary Care Provider [phone] Allergies Active Allergy Reactions Criticality Noted Date [...] 77 04/30/2023 11:06 AM EDT Temperature 36.6 C (97.9 F) 04/30/2023 11:06 AM EDT Respiratory Rate - - Oxygen Saturation 100% [...] Vaccine (2023-2 5 season) 2024 07/03/2021, 05/31/2021 Fall Risk Assessment 2024 Osteoporosis Screening (DEXA Scan) 2024 Pneumococcal Vaccine (1 of 1 - PCV) 2024 Influenza Vaccine (#1) 2025 RSV Adult > 60+ Yrs or (1 [...] age to complete this topic Care Teams Re Etcher Relationship Specialty Start Date End Date Zenia Shepherd MD PCP - General Internal Medicine 05/07/17
--- OUTSIDE RECORDS SUMMARY | 2025-05-03 16:02 | XMS_ITS | Clinical Summary ---
Author Organization [facility] Address [address] [place] [address] Phone Care Team Providers Care Bridge Builder Name Role Phone Aguila Andres MD Primary Care Provider [phone] Social History Tobacco Use Types Packs/Day Years Used Date Smoking Tobacco: Never Assessed Education Answer Date Recorded Are you interested in more education? Not on xiomara e 01/24/2023 Are you concerned about learning? Not on file 01/24/2023 No 01/24/2023 No 01/24/2023 Digital Access Answer Date Recorded No 02/22/2023 No 02/22/2023 No 02/22/2023 Reliable internet access at home? Not on file 02/22/2023 Device with a working camera? Not on file Comments Unknown Sex and Gender Information Value Date Recorded Sex Assigned at Not on file Legal Sex Female 2:32 PM EDT Gender Identity Not on file Sexual Orientation Not on file Plan of Treatment Health Maintenance Due Date Last Done Comments Adult Td,Tdap Booster 1960 LIPID PANEL 1960 DEPRESSION SCREENING 1971 SMOKING Hx and SMOKELESS TOB ACCO SCREENING 1972 HEPATITIS C SCREENING 1977 HIV ONE-TIME SCREENING (18-6 5 YEARS) 1977 MAMMOGRAM 1999 COLOGUARD 2004 COLONOSCOPY 2004 COLORECTAL CANCER SCREENING 2004 FIT TEST 2004 FOBT 2004 SIGMOIDOSCOPY 2004 VIRTUAL COLONOSCOPY 2004 PNEUMOCOCCAL VACCINES (50+ y ears) (1 of 1 - PCV) 2009 ZOSTER VACCINES (1 of 2) 2009 COVID-19 VACCINE ( - 2023-2 5 season) 2024 OSTEOPOROSIS SCREENING INITI AL (ONE-TIME) 2024 RSV VACCINE (1 - 1-dose 75+ series) 2034 HEPATITIS A VACCINES Aged Out No long er eligible based on patient's age to complete this topic HIB VACCINES Aged Out No longer eligi ble based on patient's age to complete this topic MENINGOCOCCAL VACCINES (ACWY) Aged Out No longer eligible based on patient's age to complete this topic MENINGOCOCCAL VACCINES (B) Aged Out N o longer eligible based on patient's age to complete this topic Medical Devices Not on file Insurance [facility] MEDIC[facility] PART A & B Member Subscriber Plan / Payer (Ef fective 2022-Present) Name:Marcelle Zhao Member ID:[id number] Relation to Subscriber:Self Name:Marcelle Zhao Subscriber ID:[id number] Payer ID:[id number] Group ID:Not on file Type:Medicare Address: [employer] [facility] [address] [facility] [place] [address] [facility] MEDICARE REPLACEMENT [place] MED[place] A & B [facility] MED[facility] B [facility] MEDIC[facility]PLACEMENT [facility] MEDIC[facility] PART A & B [facility] MED[facility] PART A & B [facility] MED[facility] REPL[facility]EMENT [facility] B [facility] MED[facility]PLACEMENT [facility] MEDICARE PART A & B [facility] MEDICARE REPLACEMENT [facility] MEDICARE PART A & B [facility] MEDICARE REPLACEMENT Care Teams Bridge Builder Relationship Specialty Start Date End Date Aguila Andres MD [address] [place] [address] PCP - General Internal Medicine 01/03/22 Additional Source Comments The information contained in this document represents components of the legal health record. It is not the complete legal health record.[facility]
== END 2025-05-03 16:18 | disposition home or self-care (01) ==
LOC: HO.RHES 15:37
PROVIDERS: PCP Student in an Organized Health Care Education/Training Program; Visit Provider Student in an Organized Health Care Education/Training Program
DX: R76.8 Other specified abnormal immunological findings in serum (principal); M85.80 Other specified disorders of bone density and structure, unspecified site
CPT/HCPCS: 99214

== ENCOUNTER → 2025-05-03 15:37 | Outpatient (BNVA) | payer OTHER, SELFPAY | PROVIDERS: PCP Student in an Organized Health Care Education/Training Program; Visit Provider Student in an Organized Health Care Education/Training Program | DX: R76.0 Raised antibody titer (principal); R76.8 Other specified abnormal immunological findings in serum; M85.80 Other specified disorders of bone density and structure, unspecified site | CPT/HCPCS: 99212 ==

== ENCOUNTER 2025-05-05 13:38 | Outpatient (REF) | payer OTHER, SELFPAY ==
--- OUTSIDE RECORDS SUMMARY | 2025-05-05 13:43 | XMS_ITS | Clinical Summary ---
Author Organization [facility] Address [address] [place] [address] Phone Care Team Providers Care Assistant Vice President Name Role Phone Aguila Andres MD Primary Care Provider [phone] Social History Tobacco Use Types Packs/Day Years [...] topic Medical Devices Not on file Insurance [facility] MEDICARE PART A & B [facility]AC[place] MED[place] PART A & B [facility] RE[facility]EMENT [facility] MEDICARE PART A & B [facility]PLACEMENT [facility] MEDICARE PART A & B [facility] MEDICARE PART A & B [facility]IC[facility] RE[facility]EMENT [facility] MEDICARE PART A & B [facility]IC[facility] RE[facility]EMENT [facility] MEDICARE PART A & B [facility] MEDIC[facility]PLACEMENT [facility] MEDICARE PART A & B [facility]PLAC[facility] MEDICARE PART A & B [facility] MEDICARE REPLACEMENT Care Teams Assistant Vice President Relationship Specialty Start Date End Date Aguila Andres MD [address] [place] [address] PCP - General Internal Medicine 01/03/22 Additional Source Comments The information contained in this document represents components of the legal health record. It is not the complete legal health record.[facility]
--- OUTSIDE RECORDS SUMMARY | 2025-05-05 13:44 | XMS_ITS | Clinical Summary ---
Author Organization [facility] Address [address] [place] [address] Phone Care Team Providers Care Java J2Ee Technical Lead Name Role Phone Tank Randhawa MD Primary Care Provider [phone] Allergies Active Allergy Reactions Criticality Noted Date [...] review her lumbar MRI done 04/30/2024 at [facility], she complains of persistent significant pain [...] of diabetes. MRI lumbar spine 04/30/2024 at [facility] shows L5-S1 disc bulge, small extruded [...] with her neck, has EMG scheduled at [facility] in May, we can try to see if we can get a sooner date at [facility]. 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 No skin changes 11/15 hydroxychloroquine tried - caused decreased appetite 01/13 prednisone started for hand symptoms - tapered off 06/15 Methotrexate started 06/15 - stopped 02/13 -not effective/or needed Scleroderma (CMS/[facility] V24, 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 Encounters Date Type Department Care Team Description 04/11/2025 11:15 AM EDT Office Visit Internal Medicine - [address] [place] [address] Tank Randhawa MD Abnormal vaginal bleeding in postmenopausal patient (Primary Dx); Neck pain on right side; Alopecia from Last 3 Months Immunizations Name Administration Dates Next Due Moderna SARS-CoV-2 COVID-19, mRNA, LNP-S, preservative free 07/03/2021,05/31/2021 Td Tetanus diptheria (Tdvax) 7yo and older 04/30 Surgical History Surgery Date Site/Laterality Comments TUBAL LIGATION PROCEDURE:TUBAL LIGATION COLONOSCOPY PROCEDURE:COLONOSCOPY OTHER SURGICAL HISTORY 09/28/1989 PROCEDURE: CO COLPOSCOPY CERVIX VAG ELTRD CONIZATION CERVIX; COMMENT: Felix TUBAL LIGATION 1997 PROCEDURE: HISTORICAL TUBAL LIGATION OTHER SURGICAL HISTORY 10/22/2023 Left PROCEDURE: HISTORY OTHER; COMMENT: Excision of the vein cluster, left lower extremity, microphlebectomy for venous reflux, Dr. Batista Medical History Medical History Date Comments Low back pain DX:Low back pain Neutropenia ([facility] V24) DX:Rey tropenia ([facility]) Leukopenia 05/07/2017 DX:Leukopenia Other specified personal [...] Upcoming Encounters Date Type Department Care Team ([facility] st Contact Info) Description 05/10/2025 2:30 PM EDT Office Visit Internal Medicine - [place] [address] [facility] [address] [place] [id number] Tank Randhawa MD [address] [facility] [address] [place] [address] Health Maintenance Due Date Last Done Comments [...] Historical Provider HEALTH MAINTENANCE Final Result * [facility] SCREENING DIGITAL (12/07/2023 3:53 PM EDT) Anatomical Region Laterality Modality Mammography 12/07/2023 10:4 0 AM EDT Narrative 12/07/2023 3:53 PM EDT [facility] Diagnostic Imaging Department [address] [place] [address] Patient: MARCELLE ZHAO /Age/Sex: 1960 - 63 - F Unit#: [id number] Location/Status: SPDIMAM/REG CLI Mnemonic[facility] Physician: TANK RANDHAWA [facility] Screening Digital - 12/07/23 - 1100 Report Status:Signed EXAM: [facility] Screening Digital EXAM DATE AND TIME: 12/07/2023 11:00 AM HISTORY: Screening. Mother had breast carcinoma at age 80. COMPARISON: 05/30/22, 03/26/19, 03/27/16 TECHNIQUE: Bilateral digital breast tomosynthesis was performed in the CC and MLO projections. Computer aided detection with [employer] 3D 3.1 was employed. TISSUE DENSITY: b. [...] Procedure Note Bev Lutz MD - 05/16/2024 [facility] Diagnostic Imaging Department [address] [place] [address] Patient: MARCELLE ZHAO /Age/Sex: 1960 - 63 - F Unit#: [id number] Location/Status: SPDIMAM/REG CLI Mnemonic/Ordering Site: [facility] Ordering Physician: TANK RANDHAWA [facility] Screening Digital - 12/07/23 - 1100 Report Status:Signed EXAM: [facility] Screening Digital EXAM DATE AND TIME: 12/07/2023 11:00 AM HISTORY: Screening. Mother had breast carcinoma at age 80. COMPARISON: 05/30/22, 03/26/19, 03/27/16 TECHNIQUE: Bilateral digital breast tomosynthesis was performed in the CCand MLO projections. Computer aided detection with [employer] 3D 3.1was employed. TISSUE DENSITY: b. There [...] (World Health Organization Fracture Risk Assessment) [facility] Department of Internal Medicine recommends using [...] (World Health Organization Fracture Risk Assessment) [facility] Department of Internal Medicine recommendsusing National [...] Resu lt * Hepatitis C Screening (01/14/2018) [facility] Hepatitis C Screening Abstracted Historical Provider HEALTH MAINTENANCE Final Result from Last 3 Months or Most Recently Relevant to Health Maintenance Insurance [facility] Member Subscriber Plan / Payer (Ef fective 2022-Present) Name:Marcelle Woo Relation to Subscriber:Self Name:Marcelle Zhao Payer ID:[id number] Group ID:[id number] Type:Not on file Address: [address] [place] [address] Care Teams Java J2Ee Technical Lead Relationship Specialty Start Date End Date Tank Randhawa MD [address] [place] [address] PCP - General 11/04/23
--- OUTSIDE RECORDS SUMMARY | 2025-05-05 13:44 | XMS_ITS | Clinical Summary ---
Author Organization [facility] Address [address] [place] [address] Care Team Providers Care Hand Rug Cleaner Name Role Phone Zenia Shepherd MD Primary Care Provider [phone] Allergies Active Allergy Reactions Criticality Noted Date [...] age to complete this topic Care Teams Hand Rug Cleaner Relationship Specialty Start Date End Date Zenia Shepherd MD PCP - General Internal Medicine 05/07/17
[2025-05-05 16:18] LABS: Mean Corpuscular Volume 84.8 fL (80.0-98.0); NRBC Abs Auto 0.000 X10*3/uL (0.0-0.012); NRBC Pct Auto 0.0 /100WBC (0.0-0.2); SCAN SMEAR FLAG 1
[2025-05-05 16:20] LABS: Hematocrit 41.9 % (37.0-47.0); Hemoglobin 13.4 g/dl (12.0-16.0); Imm Gran Abs Auto 0.01 X10*3/uL (0.00-0.03); Imm Gran Pct Auto 0.3 % (0.0-0.4); Lymphocytes Absolute Auto 1.6 X10*3/uL (1.2-4.9); MANUAL DIFF FLAG SCAN; Mean Corpuscular HGB Conc 32.0 g/dl (31.0-35.0); Mean Corpuscular Hemoglobin 27.1 pg (27.0-33.0); PLT CLUMP 1; Red Blood Count 4.94 X10*6/uL (4.20-5.50)
[2025-05-05 16:21] LABS: PLT ABN DIST 1
[2025-05-05 16:59] LABS: Protein/Creatinine Ratio, Ur 0.06 (<0.2); Total Protein Urine Random 14 mg/dL (<12)
[2025-05-05 17:12] LABS: Platelet Count 119 X10*3/uL (160-400); White Blood Count 3.9 X10*3/uL (4.8-10.8)
[2025-05-08 21:43] LABS: Antibody to SS-A Antigen <1.0 NEG AI (<1.0 NEG); Antibody to SS-B Antigen <1.0 NEG AI (<1.0 NEG); SM/Ribonucleoprotein Ab <1.0 NEG AI (<1.0 NEG); Smith Protein <1.0 NEG AI (<1.0 NEG)
[2025-05-11 23:34] LABS: Centromere Protein A Ab 70 SI (<11); Centromere Protein B Ab 150 SI (<11); Fibrillarin Ab <11 SI (<11); PM SCL 100 Ab <11 SI (<11); PM SCL 75 Ab <11 SI (<11); RNA Polymerase III RP11 Ab <11 SI (<11); RNA Polymerase III RP155 Ab <11 SI (<11); SCL-70 Extractable Nuclear Ab <11 SI (<11); Th-To Ab <11 SI (<11); U1 SNRNP RNP 70KD <11 SI (<11); U1 SNRNP RNP A 115 SI (<11); U1 SNRNP RNP C <11 SI (<11)
== END 2025-05-05 13:39 | disposition home or self-care (01) ==
LOC: HO.HMGCLDS 13:38
PROVIDERS: PCP Student in an Organized Health Care Education/Training Program; Visit Provider Student in an Organized Health Care Education/Training Program
DX: R76.0 Raised antibody titer (principal); R76.8 Other specified abnormal immunological findings in serum; Z01.84 Encounter for antibody response examination
CPT/HCPCS: 36415; 82570; 84156; 84182; 85025; 85652; 86140; 86160; 86200; 86225; 86235; 86431

== ENCOUNTER 2025-05-23 11:30 | Outpatient (REF) | payer OTHER, SELFPAY ==
--- OUTSIDE RECORDS SUMMARY | 2025-05-10 14:30 | XMS_ITS | Encounter Summary ---
Author Organization [facility] Address [address] [place] [address] Care Team Providers Care Manufacturing Team Member Name Role Phone Tank Randhawa MD Primary Care Provider [phone] Reason for Referral * Consultation (Routine) - Closed Specialty Diagnoses / Procedures Referred By Carlos cazares Referred To Contact Gastroenterology Diagnoses Medicare annual wellness visit, initial Tank Randhawa MD [address] [place] [phone] Phone: tel: fax: Gastroenterology - [address] [phone] Phone: tel: fax: Referral ID Status Reason Start Date Expiration Date V isits Requested Visits Authorized [id number] Closed Specialty Services Required 05/10/2025 05/10/2026 1 1 * Consultation (Routine) - Closed Specialty Diagnoses / Procedures Referred By Carlos cazares Referred To Contact Obstetrics and Gynecology Diagnoses Medicare annual wellness visit, initial Tank Randhawa MD [address] [place] [phone] Phone: tel: fax: [facility] - [place] [address] [place] [address] Phone: tel: fax: Referral ID Status Reason Start Date Expiration Date V isits Requested Visits Authorized [id number] Closed Specialty Services Required 05/10/2025 05/10/2026 12 12 Reason for Visit * Reason Comments Medicare Annual Wellness Visit Initial Encounter Details Date Type Department Care Team (Latest Contact Info) Description 05/10/2025 2:30 PM EDT Office Visit Internal Medicine - [place] [address] [facility] [address] [place] [phone] Tank Randhawa MD [address] [place] [phone] Medicare annual wellness visit, initial (Primary Dx); Anxiety and depression; Fibromyalgia; Scleroderma ([facility] V24, [facility] V28); Spondylosis of lumbar region without myelopathy or radiculopathy; Routine general medical examination at a health care facility; Other fatigue; Vitamin D deficiency; Other abnormal glucose; Encounter for lipid screening for cardiovascular disease; BROCK (acute kidney injury) ([facility] V24) Social History Tobacco Use Types Packs/Day Years [...] Sign Reading Time Taken Comments Blood Pressure 124/62 05/10/2025 2:22 PM EDT Pulse 90 05/10/2025 2:22 PM EDT Temperature - - Respiratory Rate - - Oxygen Saturation 100% 05/10/2025 2:22 PM EDT Inhaled Oxygen Concentration - - Weight 54.4 kg (120 lb) 05/10/2025 2:22 PM EDT Height 165.1 cm (5' 5 ) 05/10/2025 2:22 PM EDT Body Mass Index 19.97 05/10/2025 2:22 PM EDT documented in this encounter Patient Instructions * Attachments The following attachments cannot be sent through Care Everywhere. * Mammogram (Maldivian) * Colon Cancer: Screening (Maldivian) * Healthy Eating: At Home: Quick List (Maldivian) * Physical Activity: Walking (Maldivian) * Advance Directives (Maldivian) * Advance Care Planning (Maldivian) * Gas and Bloating (Maldivian) documented in this encounter Ordered Prescriptions Prescription Sig Dispense Quantity Refills Last Filled Start Date End Date cyproheptadine (PERIACTIN) 4 mg tabletIndications: Other fatigue Take 1 tablet (4 mg total) by mouth 2 (two) times a day if needed for allergies or rhinitis. 270 tablet 1 05/10/2025 documented in this encounter Progress Notes * Tank Randhawa MD - 05/10/2025 2:30 PM EDT Annual Wellness Visit Health Maintenance Due Topic Date Due ??? Pneumococcal Vaccine: 50+ Years (1 of 1 - PCV) Never done ??? Zoster Vaccines (1 of 2) Never done ??? DTaP,Tdap,and Td Vaccines (2 - Td or Tdap) 04/30/2019 ??? Colorectal Cancer Screening: Stool Based Tests (FOBT/FIT) Never done ??? Social Influencers of Health Screening Never done ??? COVID-19 Vaccine ( season) 2024 ??? Falls Risk Assessment Never done ??? Depression Screening Never done Adult vaccinations: CDC Recommendations Resources for Educating Adult Patients about Vaccines CDC * Tank Randhawa MD - 05/10/2025 2:30 PM EDTAddended by: TANK RANDHAWA on: 05/19/2025 09:58 AM Modules accepted: Orders * Tank Randhawa MD - 05/10/2025 2:30 PM EDT Subjective Marcelle Zhao is a 64 y.o. female who presents for an Initial Medicare Annual Wellness Visit. History of Present Illness The patient is a 64-year-old female presenting for her first Medicare wellness visit. Bloating - Reports mild bloating due to recent dietary changes for weight loss. Preventive Care - Interested in colonoscopy. - Last Pap smear in 2022 or 2023. - Considering vaginal ultrasound. - Declined tetanus, COVID-19, pneumonia, and shingles vaccines. Medications - Takes Periactin 4 mg once or twice daily for appetite and sleep, finds it beneficial. - Also on Remeron for sleep. Low White Blood Cell Count - Low WBC count, under chro care. - On medication for fibromyalgia and systemic sclerosis, which cause low WBC counts. - Under drawing in hand care for these conditions. Diet and Sleep - Diet: Eating less to lose weight. - Sleep: Uses Periactin and Remeron. Current Providers List: Patient Care Team: Tank Randhawa MD as PCP - General Risk Assessments Body mass index is 19.97 kg/m??. The BMI is in the acceptable range. Calculated fall risk level: low Depression Risk Score: 1 Depression Severity: None-minimal Proposed Treatment Actions: None Hearing Whisper Test: PASS Vision Screening Was a Snellen eye exam done?: Yes Vision Performed: : With correction Corrective Device: : Glasses Mini Cog Clock Drawing Test: 2 Word Recall: 3 Mini Cog Score: 5 Mini Cog Results: Negative screen for dementia STEADI Fall Risk Have you fallen in the past year? no Feels unsteady when standing orwalking? no Are you worried about falling? no Activity of Daily Living (ADLs) Instrumental Activities of Daily Living (IADLs) Do you need help with using the telephone?: No Do you need help with shopping?: No Do you need help with food preparation?: No Do you need help with housekeeping?: No Do you need help with laundry?: No Do you need help handling finances?: No Do you drive?: No Do you manage your own medication?: Yes, independent Health Status In general, the patient reports health as: good In general, patient reports life as: good Patient reports sleep pattern as: restless Have you seen a dentist in the last year?: Yes PhysicalActivity Do you exercise for about 20 minutes or more three days a week?: No Nutritional Assessment Do you eat a balanced diet including daily serving of fruits, vegetables, and whole grains?: Yes, most of the time Depression Screening (PHQ2) Will the patient answer the depression risk questions?: Y Over the last 2 weeks, how often have you been bothered by little interest or pleasure in doing things?: 0 Over the last 2 weeks, how often have you been bothered by feeling down, depressed, or hopeless?: 1 Depression Risk: 1 Additional Depression Screening(PHQ9) PHQ -9 Depression Risk Score: 1 Opioid Risk Tool No data recorded [facility] ([facility]) Comprehensive Medical and Social History Patient Active Problem List Diagnosis Adhesive capsulitis of right shoulder VINCE positive Anxiety and depression Centromere antibody positive DDD (degenerative disc disease), lumbar Fibromyalgia Greater trochanteric bursitis Left lumbar radiculitis Scleroderma ([facility] V24, [facility] V28) Spondylosis of lumbar region without myelopathy or radiculopathy Past Medical History: Diagnosis Date Adhesive capsulitis of right shoulder 01/07/2017 DX:Adhesive capsulitis of right shoulder Anxiety and depression DX:Anxiety and depression Arthritis DX:Arthritis Family history of breast cancer 09/08/2012 DX:Family history of breast cancer Fibromyalgia DX:Fibromyalgia Left lumbar radiculitis 06/08/2018 DX:Left lumbar radiculitis Leukopenia 05/07/2017 DX:Leukopenia Low back pain DX:Low back pain Low back pain 03/19/2015 DX:Low back pain; COMMENT: Previous work related injury 2008 Neutropenia ([facility] V24) DX:Neutropenia ([facility]) Osteopenia DX:Osteopenia Other specified personal history presenting hazards to health(V15.89) DX:Other specified personal history presenting hazards to health(V15.89); COMMENT: cervical change in cells Raynaud's syndrome without gangrene DX:Raynaud's syndrome without gangrene Scleroderma ([facility] V24, [facility] V28) DX:Scleroderma ([facility]) Venous reflux DX:Venous reflux; COMMENT: Left LE Family History Problem Relation Name Age of Onset Cancer Mother breast Cancer Mother's Sister breast Breast cancer Aunt mat 80.00 Breast cancer Mother 80.00 Breast cancer Other mat 1st cousin maternal first cousin Thyroid disease Sister Arthritis Sister Other (Other: carpal tunnel syndrome) Sister Thyroid disease Sister Ovarian cancer Neg Hx Colon cancer Neg Hx Uterine cancer Neg Hx reports that she has never smoked. She has never used smokeless tobacco. She reports that she does not drink alcohol and does not use drugs. Past Surgical History: Procedure Laterality Date COLONOSCOPY PROCEDURE:COLONOSCOPY OTHER SURGICAL HISTORY 09/28/1989 PROCEDURE: MO COLPOSCOPY CERVIX VAG ELTRD CONIZATION CERVIX; COMMENT: [place] OTHER SURGICAL HISTORY Left 10/22/2023 PROCEDURE: HISTORY OTHER; COMMENT: Excision of the vein cluster, left lower extremity, microphlebectomy for venous reflux, Dr. Batista TUBAL LIGATION PROCEDURE:TUBAL LIGATION TUBAL LIGATION 1997 PROCEDURE: HISTORICAL TUBAL LIGATION Allergies Allergen Reactions Penicillins Nausea And Vomiting Hydroxychloroquine Current Outpatient Medications Medication Sig Dispense Refill cyproheptadine (PERIACTIN) 4 mg tablet Take 1 tablet (4 mg total) by mouth 2 (two) times a day if needed for allergies or rhinitis. 270 tablet 1 acetaminophen (TYLENOL) 500 mg tablet Take 1 Tablet by mouth every 6 hours as needed for Pain. cholecalciferol (VITAMIN D-3) 10 mcg (400 unit) tablet Take 1 Tab by mouth daily. cyclobenzaprine (FLEXERIL) 5 mg tablet Take 1 tablet (5 mg total) by mouth 3 (three) times a day ifneeded for muscle spasms. for muscle spasms 30 tablet 1 ezetimibe (ZETIA) 10 mg tablet Take 1 tablet (10 mg total) by mouth 1 (one) time each day. 90 tablet 1 loratadine (CLARITIN) 10 mg tablet Take 1 Tablet by mouth daily. menthol (Biofreeze, menthol,) 4 % gel Apply 1 Applicator topically 3 times daily as needed (muscle pain). multivit-min/iron/folic acid/K (ADULTS MULTIVITAMIN ORAL) Take 1 Tablet by mouth daily. No current facility-administered medications for this visit. Review of Systems as per HPI Objective: Vitals: 05/10/25 1422 BP: 124/62 Pulse: 90 SpO2: 100% Weight: 54.4 kg (120 lb) Height: 1.651 m (65 ) Physical Exam General Appearance: Well appearing and not in acute distress. HEENT: Normocephalic. External ears normal. Nose normal. Mucous membranes are moist. Oropharynx is clear. Eyes: Conjunctivae normal. Respiratory: Clear to auscultation, no wheezing, rales or rhonchi. Cardiovascular: Regular rate and rhythm, no murmurs, rubs, or gallops. Gastrointestinal: Bowel sounds present, no tenderness. Skin: Warm and dry, no rash. Neurological: Alert. Assessment/Plan: Plan Health Maintenance Topic Date Due Pneumococcal Vaccine: 50+ Years (1 of 1 - PCV) Never done Zoster Vaccines (1 of 2) Never done DTaP,Tdap,and Td Vaccines (2 - Td or Tdap) 04/30/2019 Colorectal Cancer Screening: Stool Based Tests (FOBT/FIT) Never done COVID-19 Vaccine (3 - 2023- season) 2024 Influenza Vaccine (1) 05/29/2025 Breast Cancer Screening 12/06/2025 Falls Risk Assessment 05/10/2026 Social Influencers of Health Screening 05/10/2026 Cervical Cancer Screening: HPV 01/24/2029 Cholesterol Screening (Lipid Panel) 03/24/2029 Osteoporosis Screening (Bone Density Screening) 08/08/2032 RSV Immunization Adult Patients (1 - 1-dose 75+ series) 2034 Hepatitis C Screening Completed Depression Screening Completed HIB Vaccines Aged Out Hepatitis B Vaccines Aged Out IPV Vaccines Aged Out Hepatitis A Vaccines Aged Out MMR Vaccines Aged Out Varicella Vaccines Aged Out Meningococcal ACWY Vaccine Aged Out Meningococcal B Vaccine Aged Out HPV Vaccines Aged Out RSV Immunization Patients Under 20 months Aged Out Assessment & Plan 1. Medicare wellness visit. - Reports bloating, trying to eat less to lose weight. - Provided dietary modification instructions. - Referred for colonoscopy and annual gynecological exam with Pap test. 2. Low WBC count: Likely due to fibromyalgia and systemic sclerosis medications. WBC count 3.9 on 05/05/2025. - Following up with hematology. - No new labs ordered. - Advised to complete healthcare proxy form. 3. Fibromyalgia. - On medication, following up with rheumatology. - Informed about vaccine availability at pharmacies. 4. Systemic sclerosis. - On medication, following up with rheumatology. - Reports no belly pain, experiences bloating. 5. Medication management. - Prescribed Periactin 4 mg, 270 tablets with one refill. - Remeron effective for sleep and depression. Follow-up - Scheduled in 6 months or sooner as needed. Code status: Full Code - Confirmed Preventative recommendationswere reviewed and discussed with the patient. During the visit we discussed: Code status was discussed. Advanced Directives: has an advanced directive - a copy has been provided Patient Instructions (the written plan) were given to the patient. Medicare annual wellness visit, initial (Primary) - Hemoglobin A1c; Future - Vitamin B12; Future - Comprehensive metabolic panel; Future - Lipid panel with reflex to direct LDL; Future - Vitamin D 25 hydroxy; Future - Thyroid stimulating hormone with reflex to free t4 and free t3; Future - Ambulatory referral to Obstetrics / Gynecology; Future - Ambulatory referral to Gastroenterology; Future Anxiety and depression Fibromyalgia Scleroderma ([facility] V24, [facility] V28) Spondylosis of lumbar region without myelopathy or radiculopathy Routine general medical examination at a health care facility Other fatigue - Hemoglobin A1c; Future - Vitamin B12; Future - Comprehensive metabolic panel; Future - Thyroid stimulating hormone with reflex to free t4 and free t3; Future - cyproheptadine (PERIACTIN) 4 mg tablet; Take 1 tablet (4 mg total) by mouth 2 (two) times a day if needed for allergies or rhinitis. Dispense: 270 tablet; Refill: 1 Vitamin D deficiency - Vitamin D 25 hydroxy; Future Other abnormal glucose Encounter for lipid screening for cardiovascular disease - Lipid panel with reflex to direct LDL; Future Other orders - Full code - Confirmed Follow up in 6 months (on 11/10/2025) for Schedule F/U. documented in this encounter Plan of Treatment Upcoming Encounters Date Type Department Care Team (Late st Contact Info) Description 11/13/2025 2:15 PM EST Office Visit Internal Medicine - [address] [place] [address] Tank Randhawa MD [address] [place] [phone] Scheduled Orders Name Type Priority Associated Diagnoses Orde r Schedule Basic metabolic panel Lab Routine BROCK (acute kidney injury) ([facility] V24) Expected: 06/19/2025, Expires: 05/19/2026 Scheduled Referrals Name Type Priority Associated Diagnoses Order Schedule Ambulatory referral to Obstetrics / Gynecology Outpatient Referral Routine Medicare annual wellness visit, initial 1 Occurrences starting 05/10/2025 until 05/10/2026 Ambulatory referral to Gastroenterology Outpatient Referral Routine Medicare annual wellness visit, initial 1 Occurrences starting 05/10/2025 until 05/10/2026 documented as of this encounter Results * Thyroid stimulating hormone with reflex to free t4 and free t3 (05/18/2025 1:20 PM EDT) Pathologist [facility] TSH 3.49 0.40 - 4.00 mcIU/mL LAB CHEMISTRY METHOD 05/18/2025 6:56 PM EDT [facility] Blood Venous blood specimen / Unknown Venipuncture / Unknown 05/18/2025 1:20 PM EDT 05/18/2025 1:30 PM EDT us Tank Randhawa MD LAB BLOOD ORDERABLES Final Resul t Performing Organization Address [facility]/ZIP Co de Phone Number [facility] [address] [place] [address], [place] [phone] * Vitamin D 25 hydroxy (05/18/2025 1:20 PM EDT) [facility] Vit D, 25-Hydroxy 37.0 30.0 - 80.0 ng/mL LAB CHEMISTRY METHOD 05/18/2025 6:56 PM EDT [facility] Blood Venous blood specimen / Unknown Venipuncture / Unknown 05/18/2025 1:20 PM EDT 05/18/2025 1:30 PM EDT us Tank Randhawa MD LAB BLOOD ORDERABLES Final Resul t Performing Organization Address City/[facility]/ZIP Co de Phone Number [facility] [address] [place] [address], [place] [phone] * (ABNORMAL) Lipid panel with reflex to direct LDL (05/18/2025 1:20 PM EDT) Pathologist [facility] Cholesterol 239(H) 0 - 200 mg/dL LAB CHEMISTRY METHOD 05/18/2025 5:33 PM EDT [facility] Triglycerides 118 0 - 150 mg/dL LAB CHEMISTRY METHOD 05/18/2025 5:33 PM EDT [facility] HDL 76 >=40 mg/dL LAB CHEMISTRY METHOD 05/18/2025 5:33 PM EDT [facility] LDL Calculated 139(H) 0 - 100 mg/dL LAB CHEMISTRY METHOD 05/18/2025 5:33 PM EDT [facility] Comment:Estimated LDL Calcul ated using equation: Total cholesterol - HDL cholesterol - (Triglycerides/5) VLDL Cholesterol Carlos 23.6 mg/dL LAB CHEMISTRY METHOD 05/18/2025 5:33 PM EDT [facility] Non HDL Chol. (LDL+VLDL) 163(H) <145 mg/dL LAB CHEMISTRY METHOD 05/18/2025 5:33 PM EDT [facility] Chol/HDL Ratio 3.1 0.0 - 4.4 LAB CHEMISTRY METHOD 05/18/2025 5:33 PM EDT [facility] Blood Venous blood specimen / Unknown Venipuncture / Unknown 05/18/2025 1:20 PM EDT 05/18/2025 1:30 PM EDT Tank Randhawa MD LAB BLOOD ORDERABLES Final Resul t [facility] [address] [place] [address], * (ABNORMAL) Comprehensive metabolic panel (05/18/2025 1:20 PM EDT) Sodium 141 133 - 145 mmol/L LAB CHEMISTRY METHOD 05/18/2025 5:33 PM EDT [facility] Potassium 4.3 3.5 - 5.5 mmol/L LAB CHEMISTRY METHOD 05/18/2025 5:33 PM EDT [facility] Chloride 105 96 - 110 mmol/L LAB CHEMISTRY METHOD 05/18/2025 5:33 PM EDT [facility] CO2 33(H) 21 - 32 mmol/L LAB CHEMISTRY METHOD 05/18/2025 5:33 PM [facility] Anion Gap 3 3 - 11 LAB CHEMISTRY METHOD 05/18/2025 5:33 PM [facility] Glucose 90 70 - 100 mg/dL LAB CHEMISTRY METHOD 05/18/2025 5:33 PM [facility] BUN 14 5 - 25 mg/dL LAB CHEMISTRY METHOD 05/18/2025 5:33 PM [facility] Creatinine 1.15(H) 0.50 - 1.10 mg/dL LAB CHEMISTRY METHOD 05/18/2025 5:33 PM [facility] eGFR 53(L) >=60 mL/min/1. 73m2 LAB CHEMISTRY METHOD 05/18/2025 5:33 PM [facility] Comment:Calculation based on the Chronic Kidney Disease Epidemiology Collaboration (CKD-EPI) equation refit without adjustment for race. BUN/Creatinine Ratio 12.2 LAB CHEMISTRY METHOD 05/18/2025 5:33 PM [facility] Calcium 9.9 8.5 - 10.5 mg/dL LAB CHEMISTRY METHOD 05/18/2025 5:33 PM [facility] AST (SGOT) 18 10 - 42 unit/L LAB CHEMISTRY METHOD 05/18/2025 5:33 PM [facility] ALT (SGPT) 16 10 - 60 unit/L LAB CHEMISTRY METHOD 05/18/2025 5:33 PM [facility] Alkaline Phosphatase 72 42 - 121 unit/L LAB CHEMISTRY METHOD 05/18/2025 5:33 PM [facility] Total Protein 7.2 6.0 - 8.0 g/dL LAB CHEMISTRY METHOD 05/18/2025 5:33 PM [facility] Albumin 4.1 3.2 - 5.0 g/dL LAB CHEMISTRY METHOD 05/18/2025 5:33 PM EDT [facility] Total Bilirubin 0.4 0.0 - 1.4 mg/dL LAB CHEMISTRY METHOD 05/18/2025 5:33 PM EDT [facility] Blood Venous blood specimen / Unknown Venipuncture / Unknown 05/18/2025 1:20 PM EDT 05/18/2025 1:30 PM EDT Tank Randhawa MD LAB BLOOD ORDERABLES Final Resul t Performing Organization Address City/[facility]/ZIP Co de Phone Number [facility] [address] [place] [address], [place] [phone] * (ABNORMAL) Vitamin B12 (05/18/2025 1:20 PM EDT) Pathologist [facility] Vitamin B-12 1,632(H) 250 - 900 pcg/mL LAB CHEMISTRY METHOD 05/18/2025 5:33 PM EDT [facility] Blood Venous blood specimen / Unknown Venipuncture / Unknown 05/18/2025 1:20 PM EDT 05/18/2025 1:30 PM EDT Tank Randhawa MD LAB BLOOD ORDERABLES Final Resul t Performing Organization Address [facility] de Phone Number [facility] [address] [place] [address], [place] [phone] * Hemoglobin A1c (05/18/2025 1:20 PM EDT) [facility] Hemoglobin A1C 6.0 <6.5 % LAB CHEMISTRY METHOD 05/18/2025 11:12 PM EDT [facility] Mean Bld Glu Estim. 126 mg/dL LAB CHEMISTRY METHOD 05/18/2025 11:12 PM EDT [facility] Blood Venous blood specimen / Unknown Venipuncture / Unknown 05/18/2025 1:20 PM EDT 05/18/2025 1:30 PM EDT Tank Randhawa MD LAB BLOOD ORDERABLES Final Resul t [facility] ([facility]) [facility] [address] [place] [address], documented in this encounter Visit Diagnoses Diagnosis Medicare annual wellness visit, initial- Primary Anxiety and depression Fibromyalgia Unspecified myalgia and myositis Scleroderma ([facility] V24, [facility] V28) Systemic sclerosis Spondylosis of lumbar region without myelopathy or radiculopathy Routine general medical examination at a health care facility Other fatigue Vitamin D deficiency Other abnormal glucose Encounter for lipid screening for cardiovascular disease BROCK (acute kidney injury) ([facility] V24) documented in this encounter Discontinued Medications Medication Sig Discontinue Reason Start Date End Da te conjugated estrogens (Premarin) vaginal cream Place 1 Applicator vaginally twice a week. 1 gm vaginal twice weekly Non-compliance 01/25/2024 05/10/2025 ibuprofen (ADVIL,MOTRIN) 600 mg tablet Take 1 Tablet by mouth every 8 hours as needed for Pain. Take with food. Non-compliance 01/05/2024 05/10/2025 cyproheptadine (PERIACTIN) 4 mg tablet TAKE 1 TABLET BY MOUTH 3 TIMES DAILY NEEDED (ANOREXIA) FOR UP TO 90 DAYS. Reorder 11/04/2024 05/10/2025 documented as of this encounter Orders Code Status Count Last Ordered Date First Orde red Date FULL CODE CONFIRMED 05/10/2025 documented in this encounter Additional Health Concerns Assessment Noted Time PHQ-9 Depression Total Score: 1 05/10/20 25 2:25 PM EDT documented as of this encounter Care Teams Manufacturing Team Member Relationship Specialty Start Date End Date Tank Randhawa MD [address] [facility] [address] [place] [address] PCP - General 11/04/23 documented as of this encounter
--- OUTSIDE RECORDS SUMMARY | 2025-05-23 12:30 | XMS_ITS | Clinical Summary ---
Author Organization [facility] Address [address] [place] [address] Phone Care Team Providers Care Hat Block Bench Hand Name Role Phone Aguila Andres MD Primary Care Provider [phone] Social History Tobacco Use Types Packs/Day Years [...] topic Medical Devices Not on file Insurance [facility] MEDICARE PART A & B Member Subscriber Plan / Payer (Ef fective 2022-Present) Name:Marcelle Zhao Member ID:[id number] Relation to Subscriber:Self Name:Marcelle Zhao Subscriber ID:[id number] Payer ID:[id number] Group ID:Not on file Type:Medicare Address: [employer] [facility] [address] [place] [address] [facility] MEDICARE REPLACEMENT [place] MEDICARE PART A & B [facility] MEDICARE REPLACEMENT [facility] MEDIC[facility] PART A & B [facility] MEDICARE REPLACEMENT [facility] MEDICARE PART A & B [facility] REPLAC[facility] MEDICARE PART A & B [facility] MEDICARE REPLACEMENT [facility] MEDIC[facility] PART A & B [facility] MEDICARE [facility]PLACEMENT [facility] MEDIC[facility] PART A & B [facility] MEDICARE REPLACEMENT [facility] MEDICARE PART A & B [facility] MEDICARE REPLACEMENT [facility] MEDICARE PART A & B [facility] MEDICARE REPLACEMENT Care Teams Hat Block Bench Hand Relationship Specialty Start Date End Date Aguila Andres MD [address] [place] [address] PCP - General Internal Medicine 01/03/22 Additional Source Comments The information contained in this document represents components of the legal health record. It is not the complete legal health record.[facility]
--- OUTSIDE RECORDS SUMMARY | 2025-05-23 12:30 | XMS_ITS | Clinical Summary ---
Author Organization [facility] Address [address] [place] [address] Phone Care Team Providers Care Nissan Sales Consultant Name Role Phone Virginia Randhawa MD Primary Care Provider [phone] Allergies Active Allergy Reactions Criticality Noted Date [...] Tab by mouth daily. 10/02/19 17 Active loratadine (CLARITIN) 10 mg tablet Take 1 Tablet by mouth daily. 07/13/20 24 Active multivit-min/ir on/folic acid/K (ADULTS MULTIVITAMIN ORAL) Take 1 Tablet by mouth daily. Active cyclobenzaprine (FLEXERIL) 5 mg tabletIndicatio ns:Neck pain on right side Take 1 tablet (5 mg total) by mouth 3 (three) times a day if needed for muscle spasms. for muscle spasms 30 tablet 1 04/11/20 25 Active cyproheptadine (PERIACTIN) 4 mg tabletIndicatio ns:Other fatigue Take 1 tablet (4 mg total) by mouth 2 (two) times a day if needed for allergies or rhinitis. 270 tablet 1 05/10/20 25 Active ezetimibe (ZETIA) 10 mg tablet TAKE 1 TABLET BY MOUTH 1 TIME EACH DAY. 90 tablet 1 05/16/20 25 Active conjugated estrogens (Premarin) vaginal cream Place 1 Applicator vaginally twice a week. 1 gm vaginal twice weekly 01/25/20 025 Discontinued(N on-compliance) ibuprofen (ADVIL,MOTRIN) 600 mg tablet Take 1 Tablet by mouth every 8 hours as needed for Pain. Take with food. 01/05/20 025 Discontinued(N on-compliance) cyproheptadine (PERIACTIN) 4 mg tablet TAKE 1 TABLET BY MOUTH 3 TIMES DAILY NEEDED (ANOREXIA) FOR UP TO 90 DAYS. 270 tablet 1 11/04/19 025 Discontinued(R eorder) ezetimibe (ZETIA) 10 mg tablet Take 1 tablet (10 mg total) by mouth 1 (one) time each day. 90 tablet 1 11/14/19 025 Discontinued Active Problems Problem Noted Date Diagnosed Date DDD (degenerative disc disease), lumbar 09/09/20 Overview (08/31/2024): L5-S1 DDD Last Assessment & Plan: Patient comes in today to review her lumbar MRI done 04/30/2024 at [facility], she complains of persistent significant pain in [...] of diabetes. MRI lumbar spine 04/30/2024 at [facility] shows L5-S1 disc bulge, small extruded disc [...] with her neck, has EMG scheduled at [facility] in May, we can try to see if we can get a sooner date at [facility]. 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 No skin changes 11/15 hydroxychloroquine tried - caused decreased appetite 01/13 prednisone started for hand symptoms - tapered off 06/15 Methotrexate started 06/15 - stopped 02/13 -not effective/or needed Scleroderma ([facility] V24, [facility] V28) 8 VINCE positive 07/04/2017 Anxiety and depression 03/19/2017 Adhesive capsulitis of right shoulder 01/07/2017 Greater trochanteric bursitis 01/07/2017 Spondylosis of lumbar region without myelopathy or radiculopathy 01/07/2017 Encounters Date Type Department Care Team Description 05/10/2025 2:30 PM EDT Office Visit Internal Medicine - [address] [phone] Virginia Randhawa MD Medicare annual wellness visit, initial (Primary Dx); Anxiety and depression; Fibromyalgia; Scleroderma ([facility] V24, [facility] V28); Spondylosis of lumbar region without myelopathy or radiculopathy; Routine general medical examination at a health care facility; Other fatigue; Vitamin D deficiency; Other abnormal glucose; Encounter for lipid screening for cardiovascular disease; BROCK (acute kidney injury) ([facility] V24) 04/11/2025 11:15 AM EDT Office Visit Internal Medicine [address] [phone] Virginia Randhawa MD Abnormal vaginal bleeding in postmenopausal patient (Primary Dx); Neck pain on right side; Alopecia from Last 3 Months Immunizations Name Administration Dates Next Due Moderna SARS-CoV-2 COVID-19, mRNA, LNP-S, preservative free 07/03/2021,05/31/2021 Td Tetanus diptheria (Tdvax) 7yo and older 04/30 Surgical History Surgery Date Site/Laterality Comments TUBAL LIGATION PROCEDURE:TUBAL LIGATION COLONOSCOPY PROCEDURE:COLONOSCOPY OTHER SURGICAL HISTORY 09/28/1989 PROCEDURE: TN COLPOSCOPY CERVIX VAG ELTRD CONIZATION CERVIX; COMMENT: Felix TUBAL LIGATION 1997 PROCEDURE: HISTORICAL TUBAL LIGATION OTHER SURGICAL HISTORY 10/22/2023 Left PROCEDURE: HISTORY OTHER; COMMENT: Excision of the vein cluster, left lower extremity, microphlebectomy for venous reflux, Dr. Batista Medical History Medical History Date Comments Low back pain DX:Low back pain Neutropenia ([facility] V24) DX:Rey tropenia ([facility]) Leukopenia 05/07/2017 DX:Leukopenia Other specified personal [...] radiculitis Scleroderma (CMS/HCC V24, CMS/HCC V28) DX:Scleroderma ([facility]) Fibromyalgia DX:Fibromyalgia Osteopenia DX:Osteopenia Adhesive capsulitis of [...] Pulse 90 05/10/2025 2:22 PM EDT Temperature 36.9 C (98.4 F) 11/10/2024 1:15 PM EST Respiratory Rate - - Oxygen Saturation 100% 05/10/2025 2:22 PM EDT Inhaled Oxygen Concentration - - Weight 54.4 kg (120 lb) 05/10/2025 2:22 PM EDT Height 165.1 cm (5' 5 ) 05/10/2025 2:22 PM EDT Body Mass Index 19.97 05/10/2025 2:22 PM EDT Plan of Treatment Upcoming Encounters Date Type Department Care Team ([facility] st Contact Info) Description 11/13/2025 2:15 PM EST Office Visit Internal Medicine - [address] [place] [phone] Virginia Randhawa MD [address] [place] [phone] Health Maintenance Due Date Last Done Comments Pneumococcal Vaccine: 50+ Years (1 of 1 - PCV) 2009 Zoster Vaccines (1 of 2) 2009 DTaP,Tdap,and Td Vaccines (2 - Td or Tdap) 04/30/2019 04/30/2009 Colorectal Cancer Screening: Stool Based Tests (FOBT/FIT) 09/05/2022 COVID-19 Vaccine (3 - 2023-2 5 season) 2024 07/03/2021, 05/31/2021 Influenza Vaccine (#1) 2025 Breast Cancer Screening 12/06/2025 12/07/19 24, 05/30/2022, 03/27/2019 Falls Risk Assessment 05/10/2026 05/10/2025 Social Influencers of Health Screening 05/10/2026 05/10/2025 Cervical Cancer Screening: HPV 01/24/2029 01/25/2024 Cholesterol Screening (Lipid Panel) 05/18/2030 05/18/2025, 03/24/2024, 03/24/2024 Osteoporosis Screening (Bone Density Screening) 08/08/2032 08/08/2022 RSV Immunization Adult Patients (1 - 1-dose 75+ series) 2034 Hepatitis C Screening Completed 01/14/2018 Depression Screening Completed 05/10/2025 HIB Vaccines Aged Out No longer eligi [...] Procedure Name Priority Date/Time Associated Diagnosis Comments HEMOGLOBIN A1C Routine 05/18/2025 1:20 PM EDT Medicare annual wellness visit, initial Other fatigue VITAMIN B12 Routine 05/18/2025 1:20 PM EDT Medicare annual wellness visit, initial Other fatigue COMPREHENSIVE METABOLIC PANEL Routine 05/18/2025 1:20 PM EDT Medicare annual wellness visit, initial Other fatigue LIPID PANEL WITH REFLEX TO DIRECT LDL Routine 05/18/2025 1:20 PM EDT Medicare annual wellness visit, initial Encounter for lipid screening for cardiovascular disease VITAMIN D 25 HYDROXY Routine 05/18/2025 1:20 PM EDT Medicare annual wellness visit, initial Vitamin D deficiency THYROID STIMULATING HORMONE WITH REFLEX TO FREE T4 AND FREE T3 Routine 05/18/2025 1:20 PM EDT Medicare annual wellness visit, initial Other fatigue EXTERNAL CLINICAL LAB 05/10/2025 HPV Routine 01/25/2024 MARGIE SCREENING DIGITAL Routine 12/07/2023 3:53 PM EDT Encounter for screening mammogram for malignant neoplasm of breast DXA BONE DENSITY STUDY 1+ SITS AXIAL SKEL Routine 08/08/2022 1:20 PM EST Encounter for general adult medical examination without abnormal findings HEPATITIS C SCREENING Routine 01/14/2018 from Last 3 Months or Most Recently Relevant to Health Maintenance Results * Thyroid stimulating hormone with reflex to free t4 and free t3 (05/18/2025 1:20 PM EDT) TSH 3.49 0.40 - 4.00 mcIU/mL LAB CHEMISTRY METHOD 05/18/2025 6:[address] [facility] Blood Venous blood specimen / Unknown Venipuncture / Unknown 05/18/2025 1:20 PM EDT 05/18/2025 1:30 PM EDT us Virginia Randhawa MD LAB BLOOD ORDERABLES Final Resul t [facility] [address] [place] [address], [place] [phone] * (ABNORMAL) Lipid panel with reflex to direct LDL (05/18/2025 1:20 PM EDT) Cholesterol 239(H) 0 - 200 mg/dL LAB CHEMISTRY METHOD 05/18/2025 5:[address] [facility] Triglycerides 118 0 - 150 mg/dL LAB CHEMISTRY METHOD 05/18/2025 5:[address] [facility] HDL 76 >=40 mg/dL LAB CHEMISTRY METHOD 05/18/2025 5:[address] [facility] LDL Calculated 139(H) 0 - 100 mg/dL LAB CHEMISTRY METHOD 05/18/2025 5:[address] [facility] Comment:Estimated LDL Calcul ated using equation: Total cholesterol - HDL cholesterol - (Triglycerides/5) VLDL Cholesterol Carlos 23.6 mg/dL LAB CHEMISTRY METHOD 05/18/2025 5:[address] [facility] Non HDL Chol. (LDL+VLDL) 163(H) <145 mg/dL LAB CHEMISTRY METHOD 05/18/2025 5:[address] [facility] Chol/HDL Ratio 3.1 0.0 - 4.4 LAB CHEMISTRY METHOD 05/18/2025 5:[address] [facility] Blood Venous blood specimen / Unknown Venipuncture / Unknown 05/18/2025 1:20 PM EDT 05/18/2025 1:30 PM EDT Virginia Randhawa MD LAB BLOOD ORDERABLES Final Resul t Performing Organization Address City/[facility]/ZIP Co de Phone Number [facility] [address] [place] [address], [place] [phone] * Vitamin D 25 hydroxy (05/18/2025 1:20 PM EDT) Vit D, 25-Hydroxy 37.0 30.0 - 80.0 ng/mL LAB CHEMISTRY METHOD 05/18/2025 6:[address] [facility] Blood Venous blood specimen / Unknown Venipuncture / Unknown 05/18/2025 1:20 PM EDT 05/18/2025 1:30 PM EDT us Virginia Randhawa MD LAB BLOOD ORDERABLES Final Resul t [facility] [address] [place] [address], [place] [phone] * Hemoglobin A1c (05/18/2025 1:20 PM EDT) [facility] Hemoglobin A1C 6.0 <6.5 % LAB CHEMISTRY METHOD 05/18/2025 11:[address] [facility] Mean Bld Glu Estim. 126 mg/dL LAB CHEMISTRY METHOD 05/18/2025 11:[address] [facility] Blood Venous blood specimen / Unknown Venipuncture / Unknown 05/18/2025 1:20 PM EDT 05/18/2025 1:30 PM EDT Virginia Randhawa MD LAB BLOOD ORDERABLES Final Resul t Performing Organization Address City/[facility]/ZIP Co de Phone Number [facility] [address] [place] [address], [place] [phone] * (ABNORMAL) Vitamin B12 (05/18/2025 1:20 PM EDT) [facility] Vitamin B-12 1,632(H) 250 - 900 pcg/mL LAB CHEMISTRY METHOD 05/18/2025 5:[address] [facility] Blood Venous blood specimen / Unknown Venipuncture / Unknown 05/18/2025 1:20 PM EDT 05/18/2025 1:30 PM EDT us Virginia Randhawa MD LAB BLOOD ORDERABLES Final Resul t Performing Organization Address City/[facility]/ZIP Co de Phone Number [facility] [address] [place] [address], [place] [phone] * (ABNORMAL) Comprehensive metabolic panel (05/18/2025 1:20 PM EDT) [facility] Sodium 141 133 - 145 mmol/L LAB CHEMISTRY METHOD 05/18/2025 5:[address] [facility] Potassium 4.3 3.5 - 5.5 mmol/L LAB CHEMISTRY METHOD 05/18/2025 5:[address] [facility] Chloride 105 96 - 110 mmol/L LAB CHEMISTRY METHOD 05/18/2025 5:33 PM [facility] CO2 33(H) 21 - 32 mmol/L LAB CHEMISTRY METHOD 05/18/2025 5:33 PM [facility] Anion Gap 3 3 - 11 LAB CHEMISTRY METHOD 05/18/2025 5:33 PM [facility] Glucose 90 70 - 100 mg/dL LAB CHEMISTRY METHOD 05/18/2025 5:33 PM [facility] BUN 14 5 - 25 mg/dL LAB CHEMISTRY METHOD 05/18/2025 5:33 PM [facility] Creatinine 1.15(H) 0.50 - 1.10 mg/dL LAB CHEMISTRY METHOD 05/18/2025 5:33 PM [facility] eGFR 53(L) >=60 mL/min/1. 73m2 LAB CHEMISTRY METHOD 05/18/2025 5:33 PM [facility] Comment:Calculation based on the Chronic Kidney Disease Epidemiology Collaboration (CKD-EPI) equation refit without adjustment for race. BUN/Creatinine Ratio 12.2 LAB CHEMISTRY METHOD 05/18/2025 5:33 PM [facility] Calcium 9.9 8.5 - 10.5 mg/dL LAB CHEMISTRY METHOD 05/18/2025 5:33 PM [facility] AST (SGOT) 18 10 - 42 unit/L LAB CHEMISTRY METHOD 05/18/2025 5:33 PM [facility] ALT (SGPT) 16 10 - 60 unit/L LAB CHEMISTRY METHOD 05/18/2025 5:33 PM [facility] Alkaline Phosphatase 72 42 - 121 unit/L LAB CHEMISTRY METHOD 05/18/2025 5:33 PM [facility] Total Protein 7.2 6.0 - 8.0 g/dL LAB CHEMISTRY METHOD 05/18/2025 5:33 PM [facility] Albumin 4.1 3.2 - 5.0 g/dL LAB CHEMISTRY METHOD 05/18/2025 5:[address] [facility] Total Bilirubin 0.4 0.0 - 1.4 mg/dL LAB CHEMISTRY METHOD 05/18/2025 5:[address] [facility] Blood Venous blood specimen / Unknown Venipuncture / Unknown 05/18/2025 1:20 PM EDT 05/18/2025 1:30 PM EDT Virginia Randhawa MD LAB BLOOD ORDERABLES Final Resul t [facility] [address] [place] [address], [place] [phone] * External clinical lab (05/10/2025) us Provider [facility] LAB BLOOD ORDERABLES Fin al Result * Cervical Cancer Screening: HPV (01/25/2024) Cervical Cancer Screening: HPV Abstracted, Negative Historical Provider HEALTH MAINTENANCE Final Result * [facility] SCREENING DIGITAL (12/07/2023 3:53 PM EDT) Anatomical Region Laterality Modality Mammography 12/07/2023 10:4 0 AM EDT Narrative 12/07/2023 3:53 PM EDT [facility] Diagnostic Imaging Department [address] [place] [address] Patient: CORRINEYARELIS /Age/Sex: 1960 - 63 - F Unit#: [id number] Location/Status: SPDIMAM/REG CLI Mnemonic/Ordering Site: [facility] Ordering Physician: VIRGINIA RANDHAWA Margie Screening Digital - 12/07/23 - 1100 Report Status:Signed EXAM: [facility] Screening Digital EXAM DATE AND TIME: 12/07/2023 11:00 AM HISTORY: Screening. Mother had breast carcinoma at age 80. COMPARISON: 05/30/22, 03/26/19, 03/27/16 TECHNIQUE: Bilateral digital breast tomosynthesis was performed in the CC and MLO projections. Computer aided detection with KDW 3D 3.1 was employed. TISSUE DENSITY: b. [...] mammogram BILATERAL in 1 year. Dictating Physician: SHAWNA LUTZ MD Electronically Signed by: SHAWNA LUTZ MD Dic Date/Time: 12/07/23 155 Sign date/Time: 12/07/23 155 Procedure Note Shawna Lutz MD - 05/16/2024 [facility] Diagnostic Imaging Department [address] [place] [address] Patient: YARELIS ZHAO/Age/Sex: 1960 - 63 - F Unit#: [id number] Location/Status: SPDIMAM/REG CLI Mnemonic/Ordering Site: [facility] Ordering Physician: VIRGINIA RANDHAWA [facility] Screening Digital - 12/07/23 - 1100 Report Status:Signed EXAM: [facility] Screening Digital EXAM DATE AND TIME: 12/07/2023 11:00 AM HISTORY: Screening. Mother had breast carcinoma at age 80. COMPARISON: 05/30/22, 03/26/19, 03/27/16 TECHNIQUE: Bilateral digital breast tomosynthesis was performed in the CCand MLO projections. Computer aided detection with KDW 3D 3.1was employed. TISSUE DENSITY: b. There [...] mammogram BILATERAL in 1 year. Dictating Physician: SHAWNA LUTZ MD Electronically Signed by: SHAWNA LUTZ MD Dic Date/Time: 12/07/23 155 Sign date/Time: 12/07/23 155 Virginia Randhawa MD IMG BI PROCEDURES Final Result [...] Based on the World Health Organization criteria, Yarelis Zhao should be classified as having osteopenia. This patient has a 14% risk of major osteoporotic fracture and a 2.3% risk of hip fracture over the next 10 years. (World Health Organization Fracture Risk Assessment) [facility] Department of Internal Medicine recommends using [...] Based on the World Health Organization criteria, Yarelis Zhao should beclassified as having osteopenia. This patient has a 14% risk of majorosteoporotic fracture and a 2.3% risk of hip fracture over the next 10years. (World Health Organization Fracture Risk Assessment) [facility] Department of Internal Medicine recommendsusing National [...] fracture risk by FRAX. Aguila Andres MD IM DXA PROCEDURES Final Resu lt * Hepatitis C Screening (01/14/2018) [facility] Hepatitis C Screening Abstracted Historical Provider HEALTH MAINTENANCE Final Result from Last 3 Months or Most Recently Relevant to Health Maintenance Insurance [facility] Member Subscriber Plan / Payer (Ef fective 2022-Present) Name:Yarelis Woo Relation to Subscriber:Self Name:Yarelis Zhao Payer ID:[id number] Group ID:[id number] Type:Not on file Address: [facility] [address] [address] Advance Directives * Full Code - Confirmed (Latest Code Status on File) Date Activated Date Inactivated Comments 05/10/2025 2:46 PM This code stat us was ascertained in the following way: Code status discussion: discussion with patient To update the patient's code status, place a code status order. Do not modify or discontinue any currently active code status orders. Care Teams [employer] Sales Consultant Relationship Specialty Start Date End Date Virginia Randhawa MD [address] [place] [phone] PCP - General 11/04/23
--- OUTSIDE RECORDS SUMMARY | 2025-05-23 12:30 | XMS_ITS | Clinical Summary ---
[facility] Organization [facility] Address [address] [place] [address] Care Team Providers Care Oncology Patient Navigator Name Role Phone Zenia Shepherd MD Primary Care Provider [phone] Allergies Active Allergy Reactions Criticality Noted Date [...] age to complete this topic Care Teams Oncology Patient Navigator Relationship Specialty Start Date End Date Zenia Shepherd MD PCP - General Internal Medicine 05/07/17
[2025-05-23 13:51] LABS: Appearance Urine Clear; Glucose Urine UA Negative (Negative); PH 5.0 (5.0-9.0); Specific Gravity - Urine 1.020 (1.005-1.025); UMIC TRIGGER UA YES
[2025-05-23 14:08] LABS: Anion Gap 11 (12-20); Blood Urea Nitrogen 17 mg/dL (9-16); Calcium 9.7 mg/dL (8.4-10.2); Carbon Dioxide 29 mmol/L (22-29); Chloride 105 mmol/L (96-108); Estimated Glomerular Filt Rate 44; Potassium 4.2 mmol/L (3.3-5.1); Sodium 141 mmol/L (135-145)
[2025-05-23 14:14] LABS: Protein/Creatinine Ratio, Ur 0.06 (<0.2); Total Protein Urine Random 12 mg/dL (<12)
[2025-05-23 14:16] LABS: Parathyroid Hormone Intact 70.9 pg/mL (8.7-77.1)
== END 2025-05-23 11:31 | disposition home or self-care (01) ==
LOC: HO.HMGCLDS 11:30
PROVIDERS: PCP Student in an Organized Health Care Education/Training Program; Visit Provider Internal Medicine Nephrology
DX: N18.31 Chronic kidney disease, stage 3a (principal)
CPT/HCPCS: 36415; 80051; 81001; 82306; 82310; 82565; 82570; 83970; 84156; 84520

== ENCOUNTER 2025-06-02 13:11 | Outpatient (AMB) | payer OTHER, SELFPAY ==
--- OUTSIDE RECORDS SUMMARY | 2025-06-02 13:22 | XMS_ITS | Clinical Summary ---
Author Organization [facility] Address [address] [place] [address] Care Team Providers Care General Operator Name Role Phone Zenia Shepherd MD Primary Care Provider [phone] Allergies Active Allergy Reactions Criticality Noted Date [...] age to complete this topic Care Teams General Operator Relationship Specialty Start Date End Date Zenia Shepherd MD PCP - General Internal Medicine 05/07/17
--- OUTSIDE RECORDS SUMMARY | 2025-06-02 13:22 | XMS_ITS | Clinical Summary ---
Author Organization [facility] Address [address] [place] [phone] Phone Care Team Providers Care Time Buyer Name Role Phone Aguila Andres MD Primary Care Provider [phone] Social History Tobacco Use Types Packs/Day Years [...] 2009 ZOSTER VACCINES (1 of 2) 2009 OSTEOPOROSIS SCREENING INITI AL (ONE-TIME) 2024 INFLUENZA VACCINE (#1) 2025 COVID-19 VACCINE (1 - 2023-2 5 season) 2025 RSV VACCINE (1 - 1-dose 75+ series) [...] topic Medical Devices Not on file Insurance [facility] MEDICARE PART A & B [facility] [place] [id number] [facility] B [facility] MEDICARE REPLACEMENT [facility] B [facility] MEDICARE REPLACEMENT [facility] MEDICARE PART A & B [facility] MEDICARE REPLACEMENT [facility] MEDICARE PART A & B Member Subscriber Plan / Payer (Ef fective 2022-Present) Name:Marcelle Zhao Member ID:[id number] Relation to Subscriber:Self Name:Marcelle Zhao Subscriber ID:[id number] Payer ID:[id number] Group ID:Not on file Type:Medicare Address: [employer] [address] [place] [address] [facility] [place] [phone] [place] MEDICARE PART A & B [facility] [id number] [place] MEDICARE PART A & B [facility] MEDICARE REPLACEMENT [facility] MEDICARE PART A & [facility] MEDICARE PART A & B Member Subscriber Plan / Payer (Ef fective 2022-Present) Name:Marcelle Zhao Member ID:[id number] Relation to Subscriber:Self Name:Marcelle Zhao Subscriber ID:[id number] Payer ID:[id number] Group ID:Not on file Type:Medicare Address: [employer] [address] [place] [address] [facility] MEDICARE REPLACEMENT Care Teams Time Buyer Relationship Specialty Start Date End Date Aguila Andres MD [address] [place] [address] PCP - General Internal Medicine 01/03/22 Additional Source Comments The information contained in this document represents components of the legal health record. It is not the complete legal health record.[facility]
--- OUTSIDE RECORDS SUMMARY | 2025-06-02 13:22 | XMS_ITS | Clinical Summary ---
Author Organization [facility] Address [address] [place] [address] Phone Care Team Providers Care Companion Name Role Phone Virginia Randhawa MD Primary Care Provider [phone] Allergies Active Allergy Reactions Criticality Noted Date [...] review her lumbar MRI done 04/30/2024 at [facility], she complains of persistent significant [...] of diabetes. MRI lumbar spine 04/30/2024 at [facility] shows L5-S1 disc bulge, small [...] with her neck, has EMG scheduled at [facility] in May, we can try to see if [place] can get [place] sooner [place] [facility] [place] 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 No skin changes 11/15 hydroxychloroquine tried - caused decreased appetite 01/13 prednisone started for hand symptoms - tapered off 06/15 Methotrexate started 06/15 - stopped 02/13 -not effective/or needed Scleroderma ([facility] V24, [facility] V28) 8 VINCE positive 07/04/2017 Anxiety and depression 03/19/2017 Adhesive capsulitis of right shoulder 01/07/2017 Greater trochanteric bursitis 01/07/2017 Spondylosis of lumbar region without myelopathy or radiculopathy 01/07/2017 Encounters Date Type Department Care Team Description 05/10/2025 2:30 PM EDT Office Visit Internal Medicine - [address] [phone] Virginia Randhawa MD Medicare annual wellness visit, initial (Primary Dx); Anxiety and depression; Fibromyalgia; Scleroderma ([facility] V24, [facility] V28); Spondylosis of lumbar region without myelopathy or radiculopathy; Routine general medical examination at a health care facility; Other fatigue; Vitamin D deficiency; Other abnormal glucose; Encounter for lipid screening for cardiovascular disease; BROCK (acute kidney injury) ([facility] V24) 04/11/2025 11:15 AM EDT Office Visit Internal Medicine [address] [phone] Virginia Randhawa MD Abnormal vaginal bleeding in [...] Low back pain DX:Low back pain Neutropenia ([facility] V24) DX:Rey tropenia ([facility]) Leukopenia 05/07/2017 DX:Leukopenia Other specified personal his [...] radiculitis Scleroderma (CMS/HCC V24, CMS/HCC V28) DX:Scleroderma ([facility]) Fibromyalgia DX:Fibromyalgia Osteopenia DX:Osteopenia Adhesive capsulitis of [...] Upcoming Encounters Date Type Department Care Team ([facility] st Contact Info) Description 11/13/2025 2:15 PM EST Office Visit Internal Medicine - [address] [place] [phone] Virginia Randhawa MD [address] [place] [phone] Health Maintenance Due Date Last Done Comments Pneumococcal Vaccine: 50+ Years (1 of 1 - PCV) 2009 Zoster Vaccines (1 of 2) 2009 DTaP,Tdap,and Td Vaccines (2 - Td or Tdap) 04/30/2019 04/30/2009 Colorectal Cancer Screening: Stool Based Tests (FOBT/FIT) 09/05/2022 COVID-19 Vaccine (3 - 2024-2 6 season) 2025 07/03/2021, 05/31/2021 Influenza Vaccine (#1) 2025 Breast [...] Resul t [facility] [address] [place] [address], [place] [phone] * (ABNORMAL) Lipid panel with reflex to [...] ORDERABLES Final Resul t Performing Organization Address City/[facility]/ZIP Co de Phone Number [facility] [address] [place] [address], [place] [phone] * Vitamin D 25 hydroxy (05/18/2025 1:20 PM EDT) Vit D, 25-Hydroxy 37.0 30.0 - 80.0 ng/mL LAB CHEMISTRY METHOD 05/18/2025 6:[address] [facility] Blood Venous blood specimen / Unknown Venipuncture / Unknown 05/18/2025 1:20 PM EDT 05/18/2025 1:30 PM EDT Virginia Randhawa MD LAB BLOOD ORDERABLES Final Resul t [facility] [address] [place] [address], [place] [phone] * Hemoglobin A1c (05/18/2025 1:20 PM EDT) [facility] Hemoglobin A1C 6.0 <6.5 % LAB [...] ORDERABLES Final Resul t Performing Organization Address City/[facility]/ZIP Co de Phone Number [facility] [address] [place] [address], [place] [phone] * (ABNORMAL) Vitamin B12 (05/18/2025 1:20 PM EDT) [facility] Vitamin B-12 1,632(H) 250 - 900 pcg/mL LAB CHEMISTRY METHOD 05/18/2025 5:[address] [facility] Blood Venous blood specimen / Unknown Venipuncture / Unknown 05/18/2025 1:20 PM EDT 05/18/2025 1:30 PM EDT us Virginia Randhawa MD LAB BLOOD ORDERABLES Final Resul t [facility] [address] [place] [address], [place] [phone] * (ABNORMAL) Comprehensive metabolic panel (05/18/2025 1:20 PM EDT) [facility] Sodium 141 133 - 145 mmol/L LAB CHEMISTRY METHOD 05/18/2025 5:[address] [facility] Potassium 4.3 3.5 - 5.5 mmol/L LAB CHEMISTRY METHOD 05/18/2025 5:33 PM [facility] Chloride 105 96 - 110 mmol/L LAB CHEMISTRY METHOD 05/18/2025 5:33 PM [facility] CO2 33(H) 21 - 32 mmol/L LAB CHEMISTRY METHOD 05/18/2025 5:33 PM [facility] Anion Gap 3 3 - 11 LAB CHEMISTRY METHOD 05/18/2025 5:33 PM [facility] Glucose 90 70 - 100 mg/dL LAB CHEMISTRY METHOD 05/18/2025 5:33 PM [facility] BUN 14 5 - 25 mg/dL LAB CHEMISTRY METHOD 05/18/2025 5:33 PM [facility] Creatinine 1.15(H) 0.50 - 1.10 mg/dL LAB CHEMISTRY METHOD 05/18/2025 5:33 PM [facility] eGFR 53(L) >=60 mL/min/1. 73m2 LAB CHEMISTRY METHOD 05/18/2025 5:33 PM [facility] Comment:Calculation based on the Chronic Kidney Disease Epidemiology Collaboration (CKD-EPI) equation refit without adjustment for race. BUN/Creatinine Ratio 12.2 LAB CHEMISTRY METHOD 05/18/2025 5:33 PM [facility] Calcium 9.9 8.5 - 10.5 mg/dL LAB CHEMISTRY METHOD 05/18/2025 5:33 PM [facility] AST (SGOT) 18 10 - 42 unit/L LAB CHEMISTRY METHOD 05/18/2025 5:33 PM [facility] ALT (SGPT) 16 10 - 60 unit/L LAB CHEMISTRY METHOD 05/18/2025 5:33 PM [facility] Alkaline Phosphatase 72 42 - 121 unit/L LAB CHEMISTRY METHOD 05/18/2025 5:33 PM [facility] Total Protein 7.2 6.0 - 8.0 g/dL LAB CHEMISTRY METHOD 05/18/2025 5:[address] [facility] Albumin 4.1 3.2 - 5.0 [...] Resul t [facility] [address] [place] [address], [place] [phone] * External clinical lab (05/10/2025) Provider Samantha Onbase LAB BLOOD ORDERABLES Fin al Result * Cervical Cancer Screening: HPV (01/25/2024) Cervical Cancer Screening: HPV Abstracted, Negative Historical Alejandro MOMIN HEALTH MAINTENANCE Final Result * [facility] SCREENING DIGITAL (12/07/2023 3:53 PM EDT) Anatomical Region Laterality Modality Mammography 12/07/2023 10:4 0 AM EDT Narrative 12/07/2023 3:53 PM EDT [facility] Diagnostic Imaging Department [address] [place] [address] Patient: YARELIS ZHAO./Age/Sex: 1960 - 63 - F Unit#: [id number] Location/Status: SPDIMAM/REG CLI Mnemonic/Ordering Site: [facility] Ordering Physician: VIRGINIA RANDHAWA Margie Screening Digital - 12/07/23 - 1100 Report Status:Signed EXAM: [facility] Screening Digital EXAM DATE AND TIME: 12/07/2023 11:00 AM HISTORY: Screening. Mother had breast carcinoma at age 80. COMPARISON: 05/30/22, 03/26/19, 03/27/16 TECHNIQUE: Bilateral digital breast tomosynthesis was performed in the CC and MLO projections. Computer aided detection with [employer] 3D 3.1 was employed. TISSUE DENSITY: b. [...] by: SHAWNA LUTZ MD Dic Date/Time: 12/07/23 1553 Sign date/Time: 12/07/23 155 Procedure Note Shawna Lutz MD - 05/16/2024 [facility] Diagnostic Imaging Department [address] [place] [id number] Patient: YARELIS ZHAO /Age/Sex: 1960 - 63 - F Unit#: [id number] Location/Status: SPDIMAM/REG CLI Mnemonic/Ordering Site: [facility] Ordering Physician: VIRGINIA RANDHAWA [facility] Screening Digital - 12/07/23 - 1099 Report Status:Signed EXAM: [facility] Screening Digital EXAM DATE AND TIME: 12/07/2023 11:00 AM HISTORY: Screening. Mother had breast carcinoma at age 80. COMPARISON: 05/30/22, 03/26/19, 03/27/16 TECHNIQUE: Bilateral digital breast tomosynthesis was performed in the CCand MLO projections. Computer aided detection with [employer] 3D 3.1was employed. TISSUE DENSITY: b. There [...] Signed by: SHAWNA LUTZ MD Dic Date/Time: 12/07/231552 Sign date/Time: 12/07/231552 Virginia Randhawa MD IMG BI PROCEDURES Final [...] (World Health Organization Fracture Risk Assessment) [facility] Department of Internal Medicine recommends [...] (World Health Organization Fracture Risk Assessment) [facility] Department of Internal Medicine recommendsusing [...] Resu lt * Hepatitis C Screening (01/14/2018) [facility] Hepatitis C Screening Abstracted Historical Provider HEALTH MAINTENANCE Final Result from Last 3 Months or Most Recently Relevant to Health Maintenance Insurance [facility] Member Subscriber Plan / Payer (Ef fective 2022-Present) Name:Yarelis Woo Relation to Subscriber:Self Name:Yarelis Zhao Payer ID:[id number] Group ID:[id number] Type:Not on file Address: [place] [address] [address] [id number] Advance Directives * Full Code - Confirmed (Latest Code Status on File) Date Activated Date Inactivated Comments 05/10/2025 2:46 PM This code stat us was ascertained in the following way: Code status discussion: discussion with patient To update the patient's code status, place a code status order. Do not modify or discontinue any currently active code status orders. Care Teams Companion Relationship Specialty Start Date End Date Virginia Randhawa MD [address] [place] [phone] PCP - General 11/04/23
--- NOTE | 2025-06-02 13:27 | HO.NEPHOV_ITS ---
Vital Signs 06/02/25 13:37 Height 5 ft 5 in Weight 120 lb 6 oz BMI 20.0 BP 120/80 Blood Pressure Location Lt brachial Position Sitting Pulse 71 Pulse Source Pulse Oximeter Pulse Oximetry (%) 99 Oxygen Delivery Method Room Air Intake Visit Reasons: 6mon follow-up w/labs Talent Development Manager Required: Yes Talent Development Manager Language: Presales Engineer Services: Talent Development Manager Offered & Declined ([facility] Talent Development Manager services refused.) Accompanied by: Self / Same As Patient Allergies Penicillins Allergy (Severe, Verified 06/02/25 13:36) Vomiting hydroxychloroquine Allergy (Verified 06/02/25 13:36) Unknown HPI Comments Details: Marcelle was seen in follow up of her mild CKD. She has H/O hematuria as well as vaginal bleeding . She is known to have scleroderma. She has centromere antibody positivity. She has arthralgia and Raynaud's. She has no skin changes. She was treated with methotrexate and hydroxychloroquine in the past. She is VINCE positive as well. She has history of dyslipidemia. She takes nonsteroidal anti-inflammatories as needed basis for aches and pains. She is not known to have any proteinuria. She has dyslipidemia and is on medications. She has no history of peripheral vascular disease . She denies any coronary artery disease, congestive heart failure, CVA, renal artery stenosis. She is not on any SANDRA inhibitor or ARB. She used to follow up with Rheumatology. Her renal function has been stable.She had no active complaints at the time of this office visit [facility] Medical History (Updated 06/02/25 @ 13:42 by Cesario De La Rosa MD) Varicose veins of left lower extremity Greater trochanteric bursitis Adhesive capsulitis of right shoulder Spondylosis of lumbar region without myelopathy or radiculopathy Anxiety and depression VINCE positive Centromere antibody positive Left lumbar radiculitis Fibromyalgia Degenerative disc disease, cervical Cervical spondylosis Surgical History History of colposcopy History of tubal ligation Family History Mother Breast cancer Maternal Aunt Breast cancer Family/Other Breast cancer Paternal Grandmother Throat cancer Sister Anemia Social History Household Members: Significant Other Patient Tobacco Use Status: Never used Tobacco Second Hand Smoke Exposure: No service: No Current occupational status: retired Review of Systems Const All systems reviewed & are unremarkable except as noted in HPI and below Physical Exam Const General: comfortable and no acute distress Orientation/consciousness: patient oriented x3 HEENT Head: Yes normocephalic Mouth: Normal oral and palatal mucosa present Eyes EOM: EOMs intact bilaterally Neck Neck: Yes supple Resp Auscultation: clear to auscultation bilaterally Cardio Jugular venous distension: no JVD Rate: regular rate GI Palpation (GI): Soft to palpation Auscultation: normal bowel sounds General: Yes no CVA tenderness Back/Spine/Pelvis Back: no CVA tenderness Skin General skin exam: no rashes or lesions noted Neuro General: patient oriented x3 and moves all extremities Extrem General: Yes no pedal edema Results Reviewed Nephrology Results: Hgb, (12.0-16.0) 13.4 g/dl 05/05/25 WBC, (4.8-10.8) 3.9 X10*3/uL L 05/05/25 Plt Count, (160-400) 119 X10*3/uL L 05/05/25 Sodium, (135-145) 141 mmol/L 05/23/25 Potassium, (3.3-5.1) 4.2 mmol/L 05/23/25 Chloride, (96-108) 105 mmol/L 05/23/25 Carbon Dioxide, (22-29) 29 mmol/L 05/23/25 BUN, (9-16) 17 mg/dL H 05/23/25 Creatinine, (0.5-1.4) 1.23 mg/dL 05/23/25 Calcium, (8.4-10.2) 9.7 mg/dL 05/23/25 PTH Intact, (8.7-77.1) 70.9 pg/mL 05/23/25 Urine Protein, (Neg-Trace) Negative mg/dL 05/23/25 Urine Creatinine 188.57 mg/dL 05/23/25 Protein/Creatinin Ratio, (<0.2) 0.06 05/23/25 Assessment & Plan Assessment & Plan (1) CKD stage 3a, GFR 45-59 ml/min: Code(s): N18.31 - Chronic kidney disease, stage 3a Category: Medical (2) Vaginal bleeding: Code(s): N93.9 - Abnormal uterine and vaginal bleeding, unspecified Category: Medical Plan Marcelle has mild CKD most likely due to vascular disease/CTD . She has inter mittent vaginal bleeding- referred to Gynae. She is known to CTD for a long time. She does not have any microscopic hematuria or proteinuria. No indication for renal biopsy now. Her blood pressure has been at goal. She takes nonsteroidal anti-inflammatories as needed basis, which she should try to minimize. She should maintain good hydration. All her recent W/U were reviewed. I did not make any medication changes today. Answered all questions. Follow-up appointment given Orders: Orders UA and rflx microscopic 6 Months N18.31 - Chronic kidney disease, stage 3a, N93.9 - Abnormal uterine and vaginal bleeding, unspecified Electrolytes 6 Months N18.31 - Chronic kidney disease, stage 3a, N93.9 - Abnormal uterine and vaginal bleeding, unspecified Creatinine 6 Months N18.31 - Chronic kidney disease, stage 3a, N93.9 - Abnormal uterine and vaginal bleeding, unspecified Blood Urea Nitrogen 6 Months N18.31 - Chronic kidney disease, stage 3a, N93.9 - Abnormal uterine and vaginal bleeding, unspecified Protein Creatinine Ratio, Ur 6 Months N18.31 - Chronic kidney disease, stage 3a, N93.9 - Abnormal uterine and vaginal bleeding, unspecified Referrals SLIP LASTER Referral N93.9 - Abnormal uterine and vaginal bleeding, unspecified Coding Level of Care Code Est Pt Level 4 (84515) Diagnoses CKD stage 3a, GFR 45-59 ml/min N18.31 Vaginal bleeding N93.9
[2025-06-02 13:37] VITALS: BP 120/80; PULSE 71; O2SAT 99
== END 2025-06-02 13:57 | disposition home or self-care (01) ==
LOC: HO.HKA 13:11
PROVIDERS: PCP Internal Medicine; Visit Provider Internal Medicine Nephrology
DX: N18.31 Chronic kidney disease, stage 3a (principal); N93.9 Abnormal uterine and vaginal bleeding, unspecified
CPT/HCPCS: 99214

== ENCOUNTER → 2025-06-02 13:11 | Outpatient (BNVA) | payer OTHER, SELFPAY | PROVIDERS: PCP Internal Medicine; Visit Provider Internal Medicine Nephrology | DX: N18.31 Chronic kidney disease, stage 3a (principal); N93.9 Abnormal uterine and vaginal bleeding, unspecified | CPT/HCPCS: 99212 ==

== ENCOUNTER 2025-06-22 11:18 | Outpatient (REF) | payer OTHER, SELFPAY ==
--- NOTE | ~2025-06-22 | MM_ITS ---
EXAMINATION: DXA BONE DENSITY AXIAL HISTORY: M85.80 - Other specified disorders of bone density and structure, unspecified... TECHNIQUE: [employer] Dual energy absorptiometry (DEXA) of the lumbar spine, total left hip, and femoral neck was performed. COMPARISON: There are no prior studies for comparison. FINDINGS: The bone mineral density of the lumbar spine is 1.062 g/cm2, corresponding to a T-score of -1.0, and a Z-score of 1.0. This is indicative of normal bone mineral density. The bone mineral density of the left total hip is 0.863 g/cm2, corresponding to a T-score of -1.1, and a Z-score of 0.3. This is indicative of osteopenia. The bone mineral density of the left femoral neck is 0.767 g/cm2, corresponding to a T-score of -1.9, and a Z-score of -0.2. This is indicative of osteopenia. FRACTURE RISK: The FRAX index suggests a risk of major osteoporotic fracture of 5.3%, and of hip fracture 0.9%. MM/XR DEXA axial skeleton IMPRESSION: Based on bone mineral density, and according to World Health Organization (WHO) criteria, the diagnosis is consistent with osteopenia. Statistically, 68% of repeat scans fall within 1 SD (+/- 0.010 g/cm2 for AP spine L1-L4) and 1 SD (+/- 0.012 g/cm2 for femur total) FRAX is a trademark of the [employer] [place] for Metabolic Bone Disease, a World Health Organization (WHO) Collaborating Center. Electronically signed by: Wayne Olivera MD 06/22/2025 12:01 PM EDT
== END 2025-06-22 11:19 | disposition home or self-care (01) ==
LOC: HO.MAMMO 11:18
PROVIDERS: PCP Student in an Organized Health Care Education/Training Program; Visit Provider Student in an Organized Health Care Education/Training Program
DX: Z13.820 Encounter for screening for osteoporosis (principal); M85.89 Other specified disorders of bone density and structure, multiple sites
CPT/HCPCS: 77080

== ENCOUNTER → 2025-06-22 11:30 | Outpatient (BNV) | payer OTHER, SELFPAY | PROVIDERS: PCP Student in an Organized Health Care Education/Training Program; Visit Provider Radiology Diagnostic Radiology | DX: E28.39 Other primary ovarian failure (principal) | CPT/HCPCS: 77080 ==

== ENCOUNTER 2025-07-25 15:21 | Outpatient (AMB) | payer OTHER, SELFPAY ==
--- NOTE | 2025-07-25 15:29 | MHC.OFFVIS ---
Vital Signs 07/25/25 15:30 Height 5 ft 5 in Weight 119 lb BMI 19.8 BP 118/74 Intake Visit Reasons: PMB Airworthiness Safety Inspector Required: Yes Airworthiness Safety Inspector Language: Metals Sales Representative Services: Airworthiness Safety Inspector Present (in person) Airworthiness Safety Inspector Name: Dinorah RENE Information Interpreted: non-clinical & clinical Crop Supervisor: Crop Supervisor Present (Dinorah RENE) Accompanied by: Self / Same As Patient Allergies Penicillins Allergy (Severe, Verified 07/25/25 15:34) Vomiting hydroxychloroquine Allergy (Verified 07/25/25 15:34) Unknown Post menopausal: Yes HPI Comments Details: Presenting with multiple episodes of vaginal bleeding of the last 7 months Last Co testing many years ago Last mammogram [facility] Medical History Varicose vein of leg Varicose veins of left lower extremity Greater trochanteric bursitis Adhesive capsulitis of right shoulder Spondylosis of lumbar region without myelopathy or radiculopathy Anxiety and depression VINCE positive Centromere antibody positive Left lumbar radiculitis Fibromyalgia Degenerative disc disease, cervical Cervical spondylosis Surgical History (Updated 07/25/25 @ 15:53 by Jesus Alberto Chambers MD) History of conization of cervix History of loop electrical excision procedure (LEEP) History of colposcopy History of tubal ligation Family History Mother Breast cancer Maternal Aunt Breast cancer Family/Other Breast cancer Paternal Grandmother Throat cancer Sister Anemia Brother HTN (hypertension) Diabetes Son HTN (hypertension) Diabetes Father Diabetes Social History Household Members: None Housing: Apartment Alcohol intake: never Patient Tobacco Use Status: Never used Tobacco Second Hand Smoke Exposure: No service: No Current occupational status: retired Sexually active: No Sexual orientation: Straight/Heterosexual Gender identity: Female Female Reproductive History Menstrual control method: permanent sterilization Total pregnancies: 2 Full term: 2 Number of Living Children: 2 Review of Systems Const All systems reviewed & are unremarkable except as noted in HPI and below Physical Exam Vital Signs: Last Vital Signs BP 118/74 07/25/25 15:30 BMI result Body Mass Index 19.8 General: Yes no CVA tenderness External Female Exam: normal external appearance and normal appearance of the urethra Speculum Exam - Vagina: normal appearance of the vagina, normal palpation, no lesions and no masses Speculum Exam - Cervix: normal appearance of the cervix, normal palpation, no lesions, no masses and nontender Bimanual exam- vagina & uterus: normal bimanual exam, normal palpation, uterine size normal, normal palpation, uterine shape normal, No Cervical tenderness present and non-tender Bimanual Exam- Adnexa, other: normal adnexae Back/Spine/Pelvis Back: no CVA tenderness Assessment & Plan Assessment & Plan (1) Postmenopausal bleeding: Code(s): N95.0 - Postmenopausal bleeding Plan: Recurrent Plan Discussed with the patient the differential diagnosis of post menopausal bleeding with normal pelvic exam including but not limited to, endometrial hyperplasia, cancer, polyps and other causes; co testing done, recommended a pelvic ultrasound t then will proceed with endometrial sampling versus hysteroscopy D&C polypectomy depending on the ultrasound findings. Instructed the patient to schedule an ultrasound with a follow-up appointment in 2 weeks. All questions answered, the patient verbalized understanding and agreed with the plan. This note was generated with a voice recognition program. Some errors may have been overlooked during the review of this note. Sometimes these errors may affect the content or meaning of a given sentence. Orders: Orders MM tomosynthesis screening BI Today Z12.31 - Encounter for screening mammogram for malignant neoplasm of breast US pelvic and transvaginal Today N95.0 - Postmenopausal bleeding Coding Level of Care Code New Pt Level 3 (08285) Diagnoses Postmenopausal bleeding N95.0
[2025-07-25 15:30] VITALS: BP 118/74; BMI 19.8
--- OUTSIDE RECORDS SUMMARY | 2025-07-25 19:46 | XMS_ITS | Encounter Summary ---
Author Organization [facility] Address [address] [place] [address] Care Team Providers Care Termite Technician Name Role Phone Virginia Randhawa MD Primary Care Provider [phone] Reason for Referral * Imaging (Routine) - Authorized Specialty Diagnoses / Procedures Referred By Contac t Referred To Contact Radiology Diagnoses Encounter for screening mammogram for malignant neoplasm of breast Procedures MG Mammo Digital Screening bilat Virginia Randhawa MD [address] [address] Phone: tel: fax: [address] [address] Phone: tel: Referral ID Status Reason Start Date Expiration Date V isits Requested Visits Authorized [id number] Authorized 07/19/2025 07/19/2026 1 1 Reason for Visit * Reason Onset Date Comments Orders Call 07/19/2025 Routine Breast E xam Encounter Details Date Type Department Care Team ([facility] Contact Info) Description 07/19/2025 Telephone Internal Medicine - [place] [address] [address] Virginia Randhawa MD [address] [place] [phone] Social History Tobacco Use Types Packs/Day Years [...] as of this encounter Progress Notes * Jarod Garcia MA - 07/20/2025 9:42 AM EDT Faxed * Virginia Randhawa MD - 07/19/2025 5:49 PM EDT Order done * Jarod Garcia MA - 07/19/2025 2:54 PM EDT Patient requesting Mammo imaging , last ones done 12/07/[address] ordered Patient is requesting orders to get her breast exam done? She has family hx of breast cancer. May need ultrasound and mammogram. [facility] [address] [place] [address] F# [phone] # [phone] * Cathryn Guevara - 07/19/2025 2:08 PM EDT Patient is requesting orders to get her breast exam done? She has family hx of breast cancer. May need ultrasound and mammogram. [facility] [address] [place] [address] F# [phone] CB# for update is [phone] documented in this encounter Plan of Treatment Upcoming Encounters Date Type Department Care Team (Late st Contact Info) Description 11/13/2025 2:15 PM EST Office Visit Internal Medicine - [address] [place] [phone] Virginia Randhawa MD [address] [place] [phone] Scheduled Orders Name Type Priority Associated Diagnoses Orde r Schedule MG Mammo Digital Screening bilat Imaging Routine Encounter for screening mammogram for malignant neoplasm of breast 1 Occurrences starting 07/19/2025 until 07/19/2026 documented as of this encounter Visit Diagnoses Diagnosis Encounter for screening mammogram for malignant neoplasm of breast- Primary documented in this encounter Additional Health Concerns Assessment Noted Time PHQ-9 Depression Total Score: 1 05/10/20 25 2:25 PM EDT documented as of this encounter Care Teams Termite Technician Relationship Specialty Start Date End Date Virginia Randhawa MD [address] [place] [phone] PCP - General 11/04/23 documented as of this encounter
--- OUTSIDE RECORDS SUMMARY | 2025-07-25 19:46 | XMS_ITS | Clinical Summary ---
[facility] Organization [facility] Address [address] [place] [address] Care Team Providers Care Resistance Brazer Name Role Phone Zenia Shepherd MD Primary Care Provider [phone] Allergies Active Allergy Reactions Criticality Noted Date [...] Shingrix-Zoster Vaccine (1 o f 2) 2009 Fall Risk Assessment 2024 Osteoporosis Screening (DEXA Scan) 2024 Pneumococcal Vaccine (1 of 1 - PCV) 2024 COVID-19 Vaccine (3 - 2024-2 6 season) 2025 07/03/2021, 05/31/2021 Influenza Vaccine (#1) 2025 RSV Adult > [...] age to complete this topic Care Teams Resistance Brazer Relationship Specialty Start Date End Date Zenia Shepherd MD PCP - General Internal Medicine 05/07/17
--- OUTSIDE RECORDS SUMMARY | 2025-07-25 19:46 | XMS_ITS | Clinical Summary ---
Author Organization [facility] Address [address] [place] [address] Phone Care Team Providers Care Mold Burner Name Role Phone Tank Randhawa MD Primary Care Provider [phone] Allergies Active Allergy Reactions Criticality Noted Date [...] 1 Tab by mouth daily. 7 Active loratadine (CLARITIN) 10 mg tablet Take 1 Tablet by mouth daily. 4 Active multivit-min/iron /folic acid/K (ADULTS MULTIVITAMIN ORAL) Take 1 Tablet by mouth daily. Active cyclobenzaprine (FLEXERIL) 5 mg tabletIndications :Neck pain on right side Take 1 tablet (5 mg total) by mouth 3 (three) times a day if needed for muscle spasms. for muscle spasms 30 tablet 1 5 Active cyproheptadine (PERIACTIN) 4 mg tabletIndications :Other fatigue Take 1 tablet (4 mg total) by mouth 2 (two) times a day if needed for allergies or rhinitis. 270 tablet 1 5 Active ezetimibe (ZETIA) 10 mg tablet TAKE 1 TABLET BY MOUTH 1 TIME EACH DAY. 90 tablet 1 5 Active Active Problems [...] we can get a sooner date at [facility]. 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 No skin changes 11/15 hydroxychloroquine tried - caused decreased appetite 01/13 prednisone started for hand symptoms - tapered off 06/15 Methotrexate started 06/15 - stopped 02/13 -not effective/or needed Scleroderma ([facility] V24, CMS/[facility] V28) 06/21/201 8 VINCE positive 07/04/2017 Anxiety and depression 03/19/2017 Adhesive capsulitis of right shoulder 01/07/2017 Greater trochanteric bursitis 01/07/2017 Spondylosis of lumbar region without myelopathy or radiculopathy 01/07/2017 Encounters Date Type Department Care Team Description 07/19/2025 Telephone Internal Medicine - [place] 175 [facility] [address] [place] [address] Tank Randhawa MD 05/10/2025 2:30 PM EDT Office Visit Internal Medicine - [place] 175 [facility] [address] [place] [address] Tank Randhawa MD Medicare annual wellness visit, initial (Primary Dx); Anxiety and depression; Fibromyalgia; Scleroderma (CMS/[facility] V24, CMS/[facility] V28); Spondylosis of lumbar region without myelopathy or radiculopathy; Routine general medical examination at a health care facility; Other fatigue; Vitamin D deficiency; Other abnormal glucose; Encounter for lipid screening for cardiovascular disease; BROCK (acute kidney injury) ([facility] V24) from Last 3 Months Immunizations Immunization Administration Dates Next Due Moderna SARS-CoV-2 COVID-19, mRNA, LNP-S, preservative free 07/03/2021,05/31/2021 Td Tetanus diptheria (Tdvax) 7yo and older 04/30 Surgical History Surgery Date Site/Laterality Comments TUBAL LIGATION PROCEDURE:TUBAL LIGATION COLONOSCOPY PROCEDURE:COLONOSCOPY OTHER SURGICAL HISTORY 09/28/1989 PROCEDURE: WY COLPOSCOPY CERVIX VAG ELTRD CONIZATION CERVIX; COMMENT: Felix TUBAL LIGATION 1997 PROCEDURE: HISTORICAL TUBAL LIGATION OTHER SURGICAL HISTORY 10/22/2023 Left PROCEDURE: HISTORY OTHER; COMMENT: Excision of the vein cluster, left lower extremity, microphlebectomy for venous reflux, Dr. Batista Medical History Medical History Date Comments Low back pain DX:Low back pain Neutropenia (CMS/[facility] V24) DX:Rey tropenia ([facility]) Leukopenia 05/07/2017 DX:Leukopenia Other specified [...] PM EST Office Visit Internal Medicine - [address] [place] [address] Tank Randhawa MD [facility] [place] [address] Health Maintenance Due Date Last Done [...] EXTERNAL CLINICAL LAB 05/10/2025 HPV Routine 01/25/2024 ANGEL SCREENING DIGITAL Routine [...] LAB CHEMISTRY METHOD 05/18/2025 6:56 PM EDT [facility] Blood Venous blood specimen / Unknown Venipuncture / Unknown 05/18/2025 1:20 PM EDT 05/18/2025 1:30 PM EDT us Tank Randhawa MD LAB BLOOD ORDERABLES Final Resul t [facility] [address] [place] [address], [place] [phone] * (ABNORMAL) Lipid panel with reflex to direct LDL (05/18/2025 1:20 PM EDT) Cholesterol 239(H) 0 - 200 mg/dL LAB CHEMISTRY METHOD 05/18/2025 5:33 PM EDT [facility] Triglycerides 118 0 - 150 mg/dL LAB CHEMISTRY METHOD 05/18/2025 5:33 PM EDT [facility] HDL 76 >=40 mg/dL LAB CHEMISTRY METHOD 05/18/2025 5:33 PM EDT [facility] LDL Calculated 139(H) 0 - 100 mg/dL LAB CHEMISTRY METHOD 05/18/2025 5:33 PM T [facility] Comment:Estimated LDL Calcul ated using equation: Total cholesterol - HDL cholesterol - (Triglycerides/5) VLDL Cholesterol Carlos 23.6 mg/dL LAB CHEMISTRY METHOD 05/18/2025 5:33 PM EDT [facility] Non HDL Chol. (LDL+VLDL) 163(H) <145 mg/dL LAB CHEMISTRY METHOD 05/18/2025 5:33 PM EDT [facility] Chol/HDL Ratio 3.1 0.0 - 4.4 LAB CHEMISTRY METHOD 05/18/2025 5:33 PM T [facility] Blood Venous blood specimen / Unknown Venipuncture / Unknown 05/18/2025 1:20 PM EDT 05/18/2025 1:30 PM EDT Tank Randhawa MD LAB BLOOD ORDERABLES Final Resul t Performing Organization Address City/[facility]/ZIP Co de Phone Number [facility] [address] [place] [address], [place] [phone] * Vitamin D 25 hydroxy (05/18/2025 1:20 PM EDT) [facility] Vit D, 25-Hydroxy 37.0 30.0 - 80.0 ng/mL LAB CHEMISTRY METHOD 05/18/2025 6:56 PM EDT [facility] Blood Venous blood specimen / Unknown Venipuncture / Unknown 05/18/2025 1:20 PM EDT 05/18/2025 1:30 PM EDT Tank Randhawa MD LAB BLOOD ORDERABLES Final Resul t Performing Organization Address [facility] Co de Phone Number [facility] [address] [place] [address], [place] [phone] * Hemoglobin A1c (05/18/2025 1:20 PM EDT) [facility] Hemoglobin A1C 6.0 <6.5 % LAB CHEMISTRY METHOD 05/18/2025 11:12 PM EDT [facility] Mean Bld Glu Estim. 126 mg/dL LAB CHEMISTRY METHOD 05/18/2025 11:12 PM EDT [facility] Blood Venous blood specimen / Unknown Venipuncture / Unknown 05/18/2025 1:20 PM EDT 05/18/2025 1:30 PM EDT Tank Randhawa MD LAB BLOOD ORDERABLES Final Resul t Performing Organization Address City/[facility]/ZIP Co de Phone Number [facility] [address] [place] [address], [place] [phone] * (ABNORMAL) Vitamin B12 (05/18/2025 1:20 PM EDT) Pathologist [facility] Vitamin B-12 1,632(H) 250 - 900 pcg/mL LAB CHEMISTRY METHOD 05/18/2025 5:33 PM EDT [facility] Blood Venous blood specimen / Unknown Venipuncture / Unknown 05/18/2025 1:20 PM EDT 05/18/2025 1:30 PM EDT us Tank Randhawa MD LAB BLOOD ORDERABLES Final Resul t [facility] [address] [place] [address], [place] [phone] * (ABNORMAL) Comprehensive metabolic panel (05/18/2025 1:20 PM EDT) Pathologist [facility] Sodium 141 133 - 145 mmol/L LAB CHEMISTRY METHOD 05/18/2025 5:33 PM EDT [facility] Potassium 4.3 3.5 - 5.5 mmol/L LAB CHEMISTRY METHOD 05/18/2025 5:33 PM [facility] Chloride 105 96 - 110 mmol/L LAB CHEMISTRY METHOD 05/18/2025 5:33 PM [facility] CO2 33(H) 21 - 32 mmol/L LAB CHEMISTRY METHOD 05/18/2025 5:33 PM EDT [facility] Anion Gap 3 3 - 11 LAB CHEMISTRY METHOD 05/18/2025 5:33 PM [facility] Glucose 90 70 - 100 mg/dL LAB CHEMISTRY METHOD 05/18/2025 5:33 PM [facility] BUN 14 5 - 25 mg/dL LAB CHEMISTRY METHOD 05/18/2025 5:33 PM [facility] Creatinine 1.15(H) 0.50 - 1.10 mg/dL LAB CHEMISTRY METHOD 05/18/2025 5:33 PM EDT [facility] eGFR 53(L) >=60 mL/min/1. 73m2 LAB CHEMISTRY METHOD 05/18/2025 5:33 PM [facility] Comment:Calculation based on the Chronic Kidney Disease Epidemiology Collaboration (CKD-EPI) equation refit without adjustment for race. BUN/Creatinine Ratio 12.2 LAB CHEMISTRY METHOD 05/18/2025 5:33 PM [facility] Calcium 9.9 8.5 - 10.5 mg/dL LAB CHEMISTRY METHOD 05/18/2025 5:33 PM [facility] AST (SGOT) 18 10 - 42 unit/L LAB CHEMISTRY METHOD 05/18/2025 5:33 PM [facility] ALT (SGPT) 16 10 - 60 unit/L LAB CHEMISTRY METHOD 05/18/2025 5:33 PM [facility] Alkaline Phosphatase 72 42 - 121 unit/L LAB CHEMISTRY METHOD 05/18/2025 5:33 PM [facility] Total Protein 7.2 6.0 - 8.0 g/dL LAB CHEMISTRY METHOD 05/18/2025 5:33 PM [facility] Albumin 4.1 3.2 - 5.0 g/dL LAB CHEMISTRY METHOD 05/18/2025 5:33 PM [facility] Total Bilirubin 0.4 0.0 - 1.4 mg/dL LAB CHEMISTRY METHOD 05/18/2025 5:33 PM [facility] Blood Venous blood specimen / Unknown Venipuncture / Unknown 05/18/2025 1:20 PM EDT 05/18/2025 1:30 PM EDT us Tank Randhawa MD LAB BLOOD ORDERABLES Final Resul t [facility] [address] [place] [address], * External clinical lab (05/10/2025) us Provider [facility] LAB BLOOD ORDERABLES Fin al Result * Cervical Cancer Screening: HPV (01/25/2024) Cervical Cancer Screening: HPV Abstracted, Negative Historical Provider HEALTH MAINTENANCE Final Result * [facility] SCREENING DIGITAL (12/07/2023 3:53 PM EDT) Anatomical Region Laterality Modality Mammography 12/07/2023 10:4 0 AM EDT Narrative 12/07/2023 3:53 PM EDT [facility] Diagnostic Imaging Department [address] [place] [address] Patient: MARCELLE ZHAO /Age/Sex: 1960 - 63 - F Unit#: [id number] [facility]/Ordering Site: [facility] Ordering Physician: TANK RANDHAWA [facility] Screening Digital - 12/07/23 - 1100 Report Status:Signed EXAM: [facility] Screening Digital EXAM DATE AND TIME: 12/07/2023 11:00 AM HISTORY: Screening. Mother had breast carcinoma at age 80. COMPARISON: 05/30/22, 03/26/19, 03/27/16 TECHNIQUE: Bilateral digital breast tomosynthesis was performed in the CC and MLO projections. Computer aided detection with [employer] 3D 3.1 was employed. TISSUE DENSITY: b. [...] mammogram BILATERAL in 1 year. Dictating Physician: BVE LUTZ MD Electronically Signed by: BEV LUTZ MD Dic Date/Time: 12/07/231552 Sign date/Time: 12/07/231552 Procedure Note Bev Lutz MD - 05/16/2024 [facility] Diagnostic Imaging Department [address] [place] [address] Patient: MARCELLE ZHAO /Age/Sex: 1960 - 63 - F Unit#: [id number] Location/Status: [facility] CLI Mnemonic/Ordering Site: [facility] Ordering Physician: TANK RANDHAWA [facility] Screening Digital - 12/07/23 - 1099 Report Status:Signed EXAM: [facility] Screening Digital EXAM DATE AND TIME: 12/07/2023 11:00 AM HISTORY: Screening. Mother had breast carcinoma at age 80. COMPARISON: 05/30/22, 03/26/19, 03/27/16 TECHNIQUE: Bilateral digital breast tomosynthesis was performed in the CCand MLO projections. Computer aided detection with [employer] 3D 3.1was employed. TISSUE DENSITY: b. There [...] (World Health Organization Fracture Risk Assessment) [facility] Department of Internal Medicine recommends using [...] (World Health Organization Fracture Risk Assessment) [facility] Department of Internal Medicine recommendsusing National [...] Resu lt * Hepatitis C Screening (01/14/2018) [facility] Hepatitis C Screening Abstracted us Historical Provider HEALTH MAINTENANCE Final Result from Last 3 Months or Most Recently Relevant to Health Maintenance Insurance [facility] Member Subscriber Plan / Payer (Ef fective 2022-Present) Name:Marcelle Woo Relation to Subscriber:Self Name:Marcelle Zhao Payer ID:[id number] Group ID:[id number] Type:Not on file Address: [address] [place] [address] Advance Directives * Full Code - Confirmed (Latest Code Status on File) Date Activated Date Inactivated Comments 05/10/2025 2:46 PM This code stat us was ascertained in the following way: Code status discussion: discussion with patient To update the patient's code status, place a code status order. Do not modify or discontinue any currently active code status orders. Care Teams Mold Burner Relationship Specialty Start Date End Date Tank Randhawa MD [address] [place] [phone] PCP - General 11/04/23
--- OUTSIDE RECORDS SUMMARY | 2025-07-25 19:46 | XMS_ITS | Clinical Summary ---
Author Organization [facility] Address [address] [place] [phone] Phone Care Team Providers Care Global Lead Name Role Phone Aguila Andres MD Primary Care Provider [phone] Social History Tobacco Use Types Packs/Day Years [...] VACCINE (#1) 2025 COVID-19 VACCINE (1 - 2024-2 6 season) 2025 RSV VACCINE (1 - 1-dose [...] topic Medical Devices Not on file Insurance [facility] MEDIC[facility] PART A & B [facility] [place] [id number] [facility] MEDIC[facility] PART A & B [facility] MEDICARE REPLACEMENT [facility] A & B [facility] MEDICARE [facility]PLACEMENT [facility] MEDICARE PART A & B [facility] MEDICARE REPLACEMENT [facility] MEDIC[facility] PART A & B Member Subscriber Plan / Payer (Ef fective 2022-Present) Name:Marcelle Zhao Member ID:[id number] Relation to Subscriber:Self Name:Marcelle Zhao Subscriber ID:[id number] Payer ID:[id number] Group ID:Not on file Type:Medicare Address: [facility] [address] [place] [address] [facility] [place] [id number] [place] MEDICARE PART A & B [facility] [place] [id number] [place] MEDIC[place] PART A & B [facility] MEDICARE REPLACEMENT [facility] MEDIC[facility] PART A & [facility] PART A & B Member Subscriber Plan / Payer (Ef fective 2022-Present) Name:Marcelle Zhao Member ID:[id number] Relation to Subscriber:Self Name:Marcelle Zhao Subscriber ID:[id number] Payer ID:[id number] Group ID:Not on file Type:Medicare Address: [facility] [facility] [address] [place] [address] [facility] MEDICARE REPLACEMENT Care Teams Global Lead Relationship Specialty Start Date End Date Aguila Andres MD [address] [place] [address] PCP - General Internal Medicine 01/03/22 Additional Source Comments The information contained in this document represents components of the legal health record. It is not the complete legal health record.[facility]
== END 2025-07-25 16:12 | disposition home or self-care (01) ==
LOC: HO.HWS 15:21
PROVIDERS: PCP Student in an Organized Health Care Education/Training Program; Visit Provider Obstetrics & Gynecology
DX: N95.0 Postmenopausal bleeding (principal)
CPT/HCPCS: 99203

== ENCOUNTER 2025-07-25 15:21 | Outpatient (REF) | payer OTHER, SELFPAY | END 2025-07-25 15:22 | disposition home or self-care (01) | LOC: HO.LNP 15:21 | PROVIDERS: PCP Student in an Organized Health Care Education/Training Program; Visit Provider Obstetrics & Gynecology | DX: N95.0 Postmenopausal bleeding (principal); Z11.51 Encounter for screening for human papillomavirus (HPV); Z98.51 Tubal ligation status; Z12.31 Encounter for screening mammogram for malignant neoplasm of breast | CPT/HCPCS: 87626; 88175; 99202 ==

== ENCOUNTER 2025-08-21 11:44 | Outpatient (REF) | payer OTHER, SELFPAY ==
--- OUTSIDE RECORDS SUMMARY | 2024-12-13 09:30 | XMS_ITS | Continuity of Care Document ---
Author Organization [facility] Address [address] [place] [address] [address] [place] [phone] Phone Care Team Providers Care Pit Operator Name Role Phone Piero MOMIN, ISABEL, Wayne MONTEIRO Unavailable U navailable Procedures Procedure Date Offic Cons New/estab Mod 40 Mi- CT & [place] Duplex Scan-extrem Veins; Comp- CT & [place] Advance Directives Directive Yes / No Effective Date File Name Other Directive No 12/13/2024 N/A WARNING:The information contained in this section is historical and is provided for information only and does not constitute a legal document or any assurance that the information is still accurate. Please verify the information with the lincoln of the legal document before using it for clinical purposes. Encounters Encounter Description Practice Location Reason(s) For Visit Diagnoses Date Provider Providers Copied on Encounter Offic Cons New/estab Mod 40 Mi- CT & [place] [facility], [address] [place] [address] [address], [place], [id number], [place] tel:[phone] [facility] [place] [facility] [place] Cramp and spasmChronic venous hypertension (idiopathic) without complications of bilateral lower extremityRestle ss legs syndromeVenous insufficiency (chronic) (peripheral)Pru ritus, unspecified 5 Piero MOMIN, THANIA HALL. [address] [facility] [address] [facility], [address], [facility] [place], [id number] , [place]. tel:[phone] Referring Provider: Virginia Randhawa MD, [address], [facility] [place], [address]. tel:[phone] [facility], [address], [place], [id number], [place] tel:[phone] [facility] [place] Chronic venous hypertension (idiopathic) with other complications of bilateral lower extremity Piero MOMIN, RVT, RPVI Wayne. [address] [facility] [address] [facility], [address], [facility] [place], [id number] , [place]. tel:[phone] Referring Provider: Virginia Randhawa MD, [address] [facility] [address], [facility] [place], [address]. tel:[phone] Family History Family Member Type Diagnosis Age At Onset No Information Payers Payer name Insurance type Covered democrat ID Authorkash cordoba(s) [facility] [id number] Social History Type Description Quantity Date Captured Comments Alcohol Use Details Unknown Caffeine Use Details Unknown Tobacco Use Status Current non-smoker Smoking Status Never Smoker Non-Smoking Tobacco Use Details : No Details Available : No Details Available Sex Female Vital Signs Date / Time: Height Weight BMI Pulse Rate Blood Pressure Temperature Respiratory Rate Body Surface Area Head Circumference Head Circ. Percentile Wt./Santiago. Percentile BMI percentile Pulse Ox Inhaled Ox 54.430 kg (120.00 lbs) 20.0 2 kg/m eter (2) 120/84 mm[Hg] Chief Complaint And Reason For Visit No Information Reason For Referral Reason For Referral No Information History Of Present Illness Encounter Date Complaint History Of Prese nt Illness No Information Functional Status Date Functional Assessmen t No Information Instructions Date Instruction Additional Infor mation Patient education booklet given Related to Chronic venous hypertension (idiopathic) without complications of bilateral lower extremity Pre and post instruc tions reviewed and provided Related to Chronic venous hypertension (idiopathic) without complications of bilateral lower extremity Assessments Type Assessment Date No Information Patient Care Teams Name Effective Dates (start - stop) Status Members No Information
--- OUTSIDE RECORDS SUMMARY | 2025-08-21 15:37 | XMS_ITS | Encounter Summary ---
Author Organization [facility] Address [address] [place] [address] Care Team Providers Care Director Of Neurology Name Role Phone Lora Bansal MD Unavailable [phone] Komal Britton PA-C Unavailable [phone] Kush Trevino PA-C Unavailable [phone] Virginia Randhawa MD Primary Care Provider [phone] Encounter Details Date Type Department Care Team Description 11/11/2023 Orders Only Internal Medicine - [address], [address] [place], [place] [id number] Virginia Randhawa MD [address] [place] [phone] Mixed hyperlipidemia (Primary Dx) Social History Tobacco Use Types Packs/Day Years [...] documented as of this encounter Results * (ABNORMAL) CHG LIPID PANEL (03/24/2024 11:56 AM EDT) Cholesterol 237(H) 0 - 200 mg/dL 03/24/2024 2:39 PM EDT [facility] TRIGLYCERIDES 105 0 - 150 mg/dL 03/24/2024 2:39 PM EDT [facility] HDL CHOLESTEROL 70 >40 mg/dL 2:40 PM EDT [facility] LDL CALCULATED 146(H) 0 - 100 mg/dL 03/24/2024 2:40 PM EDT [facility] TC-HDLC RATIO 3.4 0 - 4.4 mg/dL 03/24/2024 2:40 PM EDT [facility] 03/24/2024 11:5 6 AM EDT 03/24/2024 11:56 AM EDT Narrative [facility] - 03/24/2024 2:40 PM EDT Release to patient->Immediate [place] Randhawa MD LAB [facility] * (ABNORMAL) CHG BASIC METABOLIC PANEL CALCIUM TOTAL (03/24/2024 11:56 AM EDT) Pathologist [facility] GLUCOSE 95 70 - 100 mg/dL 03/24/2024 2:39 PM EDT [facility] Comment:Reference range appl icable to fasting specimens only Blood Urea Nitrogen 18 5 - 25 mg/dL 03/24/2024 2:39 PM EDT [facility] CREAT 1.20(H) 0.5 - 1.1 mg/dL 03/24/2024 2:39 PM EDT [facility] GLOMERULAR FILTRATION RATE 51(L) >60 03/24/2024 2:39 PM EDT [facility] Comment: This eGFR result was calculated using the CKD-EPI 2020 Creatinine Equation NA 141 135 - 145 mEq/L 03/24/2024 2:39 PM EDT [facility] K 4.5 3.5 - 5.5 mmol/L 03/24/2024 2:39 PM EDT [facility] CL 106 96 - 110 mmol/L 03/24/2024 2:39 PM EDT [facility] CARBON DIOXIDE (CO2) 29 21 - 32 mmol/L 03/24/2024 2:39 PM EDT [facility] ANION GAP 6 3 - 11 03/24/2024 2:39 PM EDT [facility] CALCIUM 10.2 8.5 - 10.5 mg/dL 03/24/2024 2:39 PM EDT [facility] 03/24/2024 11:5 6 AM EDT 03/24/2024 11:56 AM EDT Narrative [facility] - 03/24/2024 2:39 PM EDT Release to patient->Immediate Virginia Randhawa MD LAB [facility] documented in this encounter Visit Diagnoses Diagnosis Mixed hyperlipidemia- Primary Mixed hyperlipidemia documented in this encounter Care Teams Director Of Neurology Relationship Specialty Start Date End Date Virginia Randhawa MD [address] [address] PCP - General Internal Medicine 11/04/23 Lora Bansal MD [address] [address] Surgeon Neurosurgery 09/09/22 Komal Britton PA-C [address] [address] Specialist Neurosurgery 09/09/22 Kush Trevino PA-C [address] [address] Specialist Neurosurgery 09/09/22 documented as of this encounter
--- OUTSIDE RECORDS SUMMARY | 2025-08-21 15:37 | XMS_ITS | Encounter Summary ---
Author Organization [facility] Address [address] [place] [address] Care Team Providers Care Shear Operator Name Role Phone Lora Bansal MD Unavailable [phone] Komal Britton PA-C Unavailable [phone] Kush Trevino PA-C Unavailable [phone] Virginia Randhawa MD Primary Care Provider [phone] Reason for Referral * EXTERNAL (Routine) - Closed Specialty Diagnoses / Procedures Referred By Carlos cazares Referred To Contact Nephrology Procedures REFERRAL TO NEPHROLOGY Virginia Randhawa MD [address] [place] [phone] External Nephrology Referral ID Status Reason Start Date Expiration Date Visits Re quested Visits Authorized [id number] Closed 03/28/2024 03/28/2025 1 1 Encounter Details Date Type Department Care Team Description 03/28/2024 Orders Only Internal Medicine - [address], [address] [place] [address] Virginia Randhawa MD [address] [place] [phone] Social History Tobacco Use Types Packs/Day [...] on filedocumented in this encounter Care Teams Shear Operator Relationship Specialty Start Date End Date Virginia Randhawa MD [address] [address] PCP - General Internal Medicine 11/04/23 Lora Bansal MD [address] [address] Surgeon Neurosurgery 09/09/22 Komal Britton PA-C [address] [address] Specialist Neurosurgery 09/09/22 Kush Trevino PA-C [address] [address] Specialist Neurosurgery 09/09/22 documented as of this encounter
--- OUTSIDE RECORDS SUMMARY | 2025-08-21 15:37 | XMS_ITS | Encounter Summary ---
Author Organization [facility] Address [address] [place] [address] Care Team Providers Care Micro Computer Specialist Name Role Phone Tracee Vaelntin MD Primary Care Prov ider Lora Bansal MD Unavailable [phone] Komal Britton PA-C Unavailable [phone] Kush Trevino PA-C Unavailable [phone] Virginia Randhawa MD Primary Care Provider [phone] Reason for Visit * Reason Onset Date Comments Speech, Changes In 09/16/2023 losing voice Encounter Details Date Type Department Care Team Description 09/16/2023 [place] [facility] [address] [place] [address] Tracee Valentin MD [address] [place] [address] [phone] Speech, Changes In (losing voice ) Social History Tobacco Use Types Packs/Day [...] encounter Miscellaneous Notes * Telephone Encounter - Kathi Alvarado L.P.N. - 09/16/2023 10:59 AM EST Pt wants to change a PCP I do not know who is taking new pt Please advise and change pcp she does not like dr [facility] Tele[facility] Triage Documentation CHIEF COMPLAINT:pt states she get laryngitis every few weeks She gets ear fullness and has some swollen glands No other sx no cough no temp No apt for 2 weeks she will go to an UC to be seen She did not want to wait so long to be seen PCP: Tracee Cartagena LMP/EDC: Current Outpatient Medications Medication Sig Dispense Refill ??? loratadine (CLARITIN) 10 MG tablet Take 1 Tablet by mouth daily. 30 Tablet 0 ??? cyclobenzaprine (FLEXERIL) 5 MG tablet Take 1 Tablet by mouth 3 times daily as needed for Muscle spasms. 30 Tablet 0 ??? naproxen (NAPROSYN) 500 MG tablet TAKE 1 TABLET (500MG) BY MOUTH TWICE DAILY FOR MODERATE PAIN ??? acetaminophen (TYLENOL) 325 MG tablet Take 1 Tablet by mouth every 6 hours as needed. ??? ibuprofen (ADVIL,MOTRIN) 600 MG tablet Take 1 Tablet by mouth every 6 hours as needed for Pain.60 Tablet 3 ??? Multiple Vitamin (Multivitamin Adult) Tab Take 1 Tablet by mouth daily. ??? BIOFREEZE 4 % Gel Apply 1 Applicator topically 3 times daily as needed (muscle pain). 1 Tube 5 ??? Cholecalciferol (VITAMIN D-3) 400 UNITS Tab Take 1 Tab by mouth daily. 30 Tab 0 No current facility-administered medications for this visit. Allergies: Penicillins and Hydroxychloroquine Patient Active Problem List Diagnosis Code ??? Family history of breast cancer Z80.3 ??? Spondylosis of lumbar region without myelopathy or radiculopathy M47.816 ??? Adhesive capsulitis of right shoulder M75.01 ??? Greater trochanteric bursitis M70.60 ??? Anxiety and depression F41.9, F32.A ??? VINCE positive R76.8 ??? Centromere antibody positive R76.8 ??? Left lumbar radiculitis M54.16 ??? Fibromyalgia M79.7 ??? FHx: thyroid disease Z83.49 ??? DDD (degenerative disc disease), lumbar M51.36 ??? Cervical spondylosis M47.812 DISPOSITION:Referred to UC REFERENCE:[facility] Tele[facility] Triage Protocols for Nurses by Constance Castillo CALLER UNDERSTANDS & AGREES WITH ADVICE:YES * Telephone Encounter - Concepcion Polo - 09/16/2023 10:47 AM EST Symptoms patient is presenting: patient is calling states yesterday she started losing her voice for no reason and she feels pressure on her ears when it happens, patient states she has no cough, no sore throat. States she had an episode like this back in May. Patient states she wants to change her pcp for personal reasons I was unble to do the change due to patient not giving a reason for the change. Patient states she wants to speak to the nurse. Please advise For ALL patients calling to schedule any appointment (routine, sick visit, follow up, consult, etc.) in the outpatient setting please ask the following questions: ?? Do you have fever of higher than 101, sore throat with difficulty swallowing or severe shortnessof breath? NO If YES to any of these above symptoms, send a message to triage and do not book. Red dot. If no, an audio or video visit should be booked. ?? Have you had close contact with someone with Coronavirus in the last 14 days? NO ?? Have you traveled abroad? NO ?? Have you traveled recently to another state outside of [place], [place], [place], [place], [place], [place], [place]? NO o If yes, did you quarantine for 14 days or have a negative covid test? NO If yes to any of the above, patient is not to be scheduled in office until after 14 day quarantine or negative covid test. If pain or injury related was it due to an accident at work or from a motor vehicle accident? NO If yes, gather 3rd alliance party insurance information Date of accident/Injury: How long has patient had these symptoms?: 1 day 09/15/23 PCP: Tracee Cartagena Payor: [facility] [employer] MCR / Plan: [facility] / Product Type: HMO [id number] documented in this encounter Plan of Treatment Not on file documented as of this encounter Visit Diagnoses Not on filedocumented in this encounter Care Teams Micro Computer Specialist Relationship Specialty Start Date End Date Tracee Valentin MD [address] [place] [address] PCP - General Internal Medicine 04/28/22 11/03/23 Virginia Randhawa MD [address] [address] PCP - General Internal Medicine 11/04/23 Lora Bansal MD [address] [address] Surgeon Neurosurgery 09/09/22 Komal Britton PA-C [address] [address] Specialist Neurosurgery 09/09/22 Kush Trevino PA-C [address] [address] Specialist Neurosurgery 09/09/22 documented as of this encounter
--- OUTSIDE RECORDS SUMMARY | 2025-08-21 15:37 | XMS_ITS | Encounter Summary ---
Author Organization [facility] Address [address] [place] [address] Care Team Providers Care Mandarin Teacher Name Role Phone Zenia Shepherd MD Primary Care Provider Aguila Caro MD Primary Care Provider Tracee David MD Primary Care Prov ider Lora Bansal MD Unavailable [phone] Komal Britton PA-C Unavailable [phone] Kush Trevino PA-C Unavailable [phone] Virginia Randhawa MD Primary Care Provider [phone] Encounter Details Date Type Department Care Team Description 05/07/2017 Family Specialist Report Medical Records [address] [place] [address] Layla Howe MD Social History Tobacco Use [...] on filedocumented in this encounter Care Teams Mandarin Teacher Relationship Specialty Start Date End Date Zenia Shepherd MD PCP - General Internal Medicine 02/24/12 05/30/21 Aguila Andres MD PCP - General Internal Medicine 05/31/21 04/27/22 Tracee Valentin MD [address] [place] [address] PCP - General Internal Medicine 04/28/22 11/03/23 Virginia Randhawa MD [address] [address] PCP - General Internal Medicine 11/04/23 Lora Bansal MD [address] [address] Surgeon Neurosurgery 09/09/22 Komal Britton PA-C [address] [address] Specialist Neurosurgery 09/09/22 Kush Trevino PA-C [address] [address] Specialist Neurosurgery 09/09/22 documented as of this encounter
--- OUTSIDE RECORDS SUMMARY | 2025-08-21 15:37 | XMS_ITS | Encounter Summary ---
Author Organization [facility] Address [address] [place] [address] Care Team Providers Care Assistant Hall Director Name Role Phone Zenia Shepherd MD Primary Care Provider Aguila Caro MD Primary Care Provider Tracee David MD Primary Care Prov ider Lora Bansal MD Unavailable [phone] Komal Britton PA-C Unavailable [phone] Kush TrevinoC Unavailable [phone] Virginia Randhawa MD Primary Care Provider [phone] Encounter Details Date Type Department Care Team Description 04/28/2015 Transfer Records Medical Records [address] [place] [address] Abstract, Provider Social History Tobacco Use Types [...] on filedocumented in this encounter Care Teams Assistant Hall Director Relationship Specialty Start Date End Date Zenia Shepherd MD PCP - General Internal Medicine 02/24/12 05/30/21 Aguila Andres MD PCP - General Internal Medicine 05/31/21 04/27/22 Tracee Valentin MD [address] [place] [address] PCP - General Internal Medicine 04/28/22 11/03/23 Virginia Randhawa MD [address] [address] PCP - General Internal Medicine 11/04/23 Lora Bansal MD [address] [address] Surgeon Neurosurgery 09/09/22 Komal Britton PA-C [address] [address] Specialist Neurosurgery 09/09/22 Kush Trevino PA-C [address] [address] Specialist Neurosurgery 09/09/22 documented as of this encounter
--- OUTSIDE RECORDS SUMMARY | 2025-08-21 15:37 | XMS_ITS | Encounter Summary ---
Author Organization [facility] Address [address] [place] [address] Care Team Providers Care Endoscopy Support Specialist Name Role Phone Zenia Shepherd MD Primary Care Provider Aguila Caro MD Primary Care Provider Tracee David MD Primary Care Prov ider Lora Bansal MD Unavailable [phone] Komal Britton PA-C Unavailable [phone] Kush Trevino PA-C Unavailable [phone] Virginia Randhawa MD Primary Care Provider [phone] Reason for Visit * Reason Comments E-prescribe Rx Request Encounter Details Date Type Department Care Team Description 12/03/2019 Refill Adult Medicine [address] [address] Chuy Kumar PA-C [address] [place] [address] E-prescribe Rx Request Social History Tobacco Use [...] / Plan: [place] / Product Type: MEDICARE [id number] documented in this encounter Plan of Treatment Not on file documented as of this encounter Visit Diagnoses Not on filedocumented in this encounter Care Teams Endoscopy Support Specialist Relationship Specialty Start Date End Date Zenia Shepherd MD PCP - General Internal Medicine 02/24/12 05/30/21 Aguila Andres MD PCP - General Internal Medicine 05/31/21 04/27/22 Jos Cartagena, Tracee Diamond MD [address] [place] [address] PCP - General Internal Medicine 04/28/22 11/03/23 Virginia Randhawa MD [address] [address] PCP - General Internal Medicine 11/04/23 Lora Bansal MD [address] [address] Surgeon Neurosurgery 09/09/22 Komal Britton PA-C [address] [address] Specialist Neurosurgery 09/09/22 Kush Treivno PA-C [address] [address] Specialist Neurosurgery 09/09/22 documented as of this encounter
--- OUTSIDE RECORDS SUMMARY | 2025-08-21 15:37 | XMS_ITS | Encounter Summary ---
Author Organization [facility] Address [address] [place] [address] Care Team Providers Care Habilitation Assistant Name Role Phone Lora Bansal MD Unavailable [phone] Komal Britton PA-C Unavailable [phone] Kush Trevino PA-C Unavailable Virginia Randhawa MD Primary Care Provider [phone] Encounter Details Date Type Department Care Team Description 05/03/2024 Orders Only [facility] Medical [facility] Neurosurgery [place] [address] [phone] Komal Britton PA-C [address] [phone] DDD (degenerative disc disease), lumbar Social History Tobacco Use Types Packs/Day [...] MRI OF LUMBAR SPINE NO CONTRAST Routine 04/30/2024 DDD (degenerative disc disease), lumbar documented in this encounter Results * MRI OF LUMBAR SPINE NO CONTRAST (04/30/2024) 04/30/2024 Komal Britton PA-C MRI [facility] [address] [place] [address] documented in this encounter Visit Diagnoses Diagnosis DDD (degenerative disc disease), lumbar Degeneration of lumbar or lumbosacral intervertebral disc documented in this encounter Care Teams Habilitation Assistant Relationship Specialty Start Date End Date Virginia Randhawa MD 175 [facility] [address] [place] [address] PCP - General Internal Medicine 11/04/23 Lora Bansal MD [address] [address] Surgeon Neurosurgery 09/09/22 Komal Britton PA-C [address] [address] Specialist Neurosurgery 09/09/22 Kush Trevino PA-C [address] [address] Specialist Neurosurgery 09/09/22 documented as of this encounter
--- OUTSIDE RECORDS SUMMARY | 2025-08-21 15:37 | XMS_ITS | Clinical Summary ---
Author Organization [facility] Address [address] [place] [address] Phone Care Team Providers Care Registered Vascular Technologist (Rvt) Name Role Phone Tank Randhawa MD Primary Care Provider [phone] Allergies Active Allergy Reactions Criticality Noted Date [...] review her lumbar MRI done 04/30/2024 at [facility], she complains of persistent significant pain in [...] of diabetes. MRI lumbar spine 04/30/2024 at [facility] shows L5-S1 disc bulge, small extruded disc [...] with her neck, has EMG scheduled at [facility] in May, we can try to see [...] 02/13 -not effective/or needed Scleroderma ([facility] V24, CMS/[facility] V28) 06/21/201 8 VINCE positive 07/04/2017 Anxiety and depression 03/19/2017 Adhesive capsulitis of right shoulder 01/07/2017 Greater trochanteric bursitis 01/07/2017 Spondylosis of lumbar region without myelopathy or radiculopathy 01/07/2017 Encounters Date Type Department Care Team Description 07/19/2025 Telephone Internal Medicine - [address] [place] [address] Tank Randhawa MD from Last 3 Months Immunizations Immunization Administration Dates Next Due Moderna SARS-CoV-2 COVID-19, mRNA, LNP-S, preservative free 07/03/2021,05/31/2021 Td Tetanus diptheria (Tdvax) 7yo and older 04/30 Surgical History Surgery Date Site/Laterality Comments TUBAL LIGATION PROCEDURE:TUBAL LIGATION COLONOSCOPY PROCEDURE:COLONOSCOPY OTHER SURGICAL HISTORY 09/28/1989 PROCEDURE: IN COLPOSCOPY CERVIX VAG ELTRD CONIZATION CERVIX; COMMENT: Felix TUBAL LIGATION 1997 PROCEDURE: HISTORICAL TUBAL LIGATION OTHER SURGICAL HISTORY 10/22/2023 Left PROCEDURE: HISTORY OTHER; COMMENT: Excision of the vein cluster, left lower extremity, microphlebectomy for venous reflux, Dr. Batista Medical History Medical History Date Comments Low back pain DX:Low back pain Neutropenia ([facility]/HCC V24) DX:Rey tropenia ([facility]) Leukopenia 05/07/2017 DX:Leukopenia Other specified [...] radiculitis Scleroderma (CMS/HCC V24, CMS/HCC V28) DX:Scleroderma ([facility]) Fibromyalgia DX:Fibromyalgia Osteopenia DX:Osteopenia Adhesive capsulitis of [...] PM EST Office Visit Internal Medicine - [address] [place] [address] Tank Randhawa MD [address] [place] [address] Health Maintenance Due Date Last [...] Social Influencers of Health Screening 05/10/2026 05/10/2025 Cholesterol Screening (Lipid Panel) 05/18/2030 05/18/2025, 03/24/2024, 03/24/2024 Cervical Cancer Screening: HPV 07/25/2030 1 , 01/25/2024 Osteoporosis Screening (Bone Density Screening) 08/08/2032 08/08/2022 [...] Procedure Name Priority Date/Time Associated Diagnosis Comments EXTERNAL HPV 07/25/2025 LIPID PANEL WITH REFLEX TO DIRECT LDL Routine 05/18/2025 1:20 PM EDT Medicare annual wellness visit, initial Encounter for lipid screening for cardiovascular disease MARGIE SCREENING DIGITAL Routine 12/07/2023 3:53 PM EDT Encounter for screening mammogram for malignant neoplasm of breast DXA BONE DENSITY STUDY 1+ SITS AXIAL SKEL Routine 08/08/2022 1:20 PM EST Encounter for general adult medical examination without abnormal findings HEPATITIS C SCREENING Routine 01/14/2018 from Last 3 Months or Most Recently Relevant to Health Maintenance Results * External HPV (07/25/2025) us Provider [facility] CYTOLOGY ORDERABLES Final Result * (ABNORMAL) Lipid panel with reflex to direct LDL (05/18/2025 1:20 PM EDT) Cholesterol 239(H) 0 - 200 mg/dL LAB CHEMISTRY METHOD 05/18/2025 5:33 PM EDT [facility] Triglycerides 118 0 - 150 mg/dL LAB CHEMISTRY METHOD 05/18/2025 5:33 PM T [facility] HDL 76 >=40 mg/dL LAB CHEMISTRY METHOD 05/18/2025 5:33 PM T [facility] LDL Calculated 139(H) 0 - 100 mg/dL LAB CHEMISTRY METHOD 05/18/2025 5:33 PM T [facility] Comment:Estimated LDL Calcul ated using equation: Total cholesterol - HDL cholesterol - (Triglycerides/5) VLDL Cholesterol Carlos 23.6 mg/dL LAB CHEMISTRY METHOD 05/18/2025 5:33 PM T [facility] Non HDL Chol. (LDL+VLDL) 163(H) <145 mg/dL LAB CHEMISTRY METHOD 05/18/2025 5:33 PM EDT [facility] Chol/HDL Ratio 3.1 0.0 - 4.4 LAB CHEMISTRY METHOD 05/18/2025 5:33 PM [facility] Blood Venous blood specimen / Unknown Venipuncture / Unknown 05/18/2025 1:20 PM EDT 05/18/2025 1:30 PM EDT Tank Randhawa MD LAB BLOOD ORDERABLES Final Resul t [facility] [address] [place] [address], * MARGIE SCREENING DIGITAL (12/07/2023 3:53 PM EDT) Anatomical Region Laterality Modality Mammography 12/07/2023 10:4 0 AM EDT Narrative 12/07/2023 3:53 PM EDT [facility] Diagnostic Imaging Department [address] [place] [address] Patient: ZHAOMARCELLE /Age/Sex: 1960 - 63 - F Unit#: [id number] [facility]Ordering Site[facility] Ordering Physician: TANK RANDHAWA Margie Screening Digital - 12/07/23 - 1099 Report Status:Signed EXAM: Margie Screening Digital EXAM DATE AND TIME: 12/07/2023 11:00 AM HISTORY: Screening. Mother had breast carcinoma at age 80. COMPARISON: 05/30/22, 03/26/19, 03/27/16 TECHNIQUE: Bilateral digital breast tomosynthesis was performed in the CC and MLO projections. Computer aided detection with MagForce 3D 3.1 was employed. TISSUE DENSITY: b. [...] Procedure Note Bev Lutz MD - 05/16/2024 [facility] Diagnostic Imaging Department [address] [place] [address] Patient: MARCELLE ZHAO /Age/Sex: 1960 - 63 - F Unit#: [id number] Location/Status: [facility] CLI Mnemonic/Ordering Site: [facility] Ordering Physician: TANK RANDHAWA [facility] Screening Digital - 12/07/23 - 1099 Report Status:Signed EXAM: [facility] Screening Digital EXAM DATE AND TIME: 12/07/2023 11:00 AM HISTORY: Screening. Mother had breast carcinoma at age 80. COMPARISON: 05/30/22, 03/26/19, 03/27/16 TECHNIQUE: Bilateral digital breast tomosynthesis was performed in the CCand MLO projections. Computer aided detection with MagForce 3D 3.1was employed. TISSUE DENSITY: b. There [...] (World Health Organization Fracture Risk Assessment) [facility] Department of Internal Medicine recommends using [...] (World Health Organization Fracture Risk Assessment) The [facility] Department of Internal Medicine recommendsusing National [...] Resu lt * Hepatitis C Screening (01/14/2018) [facility] Hepatitis C Screening Abstracted us Historical Provider HEALTH MAINTENANCE Final Result from Last 3 Months or Most Recently Relevant to Health Maintenance Insurance [facility] Member Subscriber Plan / Payer (Ef fective 2022-Present) Name:Marcelle Woo Relation to Subscriber:Self Name:Marcelle Zhao Payer ID:[id number] Group ID:[id number] Type:Not on file Address: [address] [place] [address] Advance Directives * Full Code - Confirmed (Latest Code Status on File) Date Activated Date Inactivated Comments 05/10/2025 2:46 PM This code stat us was ascertained in the following way: Code status discussion: discussion with patient To update the patient's code status, place a code status order. Do not modify or discontinue any currently active code status orders. Care Teams Registered Vascular Technologist (Rvt) Relationship Specialty Start Date End Date Tank Randhawa MD [address] [place] [phone] PCP - General 11/04/23
--- OUTSIDE RECORDS SUMMARY | 2025-08-21 15:37 | XMS_ITS | Encounter Summary ---
Author Organization [facility] Address [address] [place] [address] Care Team Providers Care Pyrotechnic Mixer Name Role Phone Zenia Shepherd MD Primary Care Provider Aguila Caro MD Primary Care Provider Tracee David MD Primary Care Prov ider Lora Bansal MD Unavailable [phone] Komal Britton PA-C Unavailable [phone] Kush TrevinoC Unavailable [phone] Virginia Randhawa MD Primary Care Provider [phone] Encounter Details Date Type Department Care Team Description 10/23/2016 [facility] Medical Records [address] [place] [address] Abstract, Provider Social History Tobacco Use Types [...] on filedocumented in this encounter Care Teams Pyrotechnic Mixer Relationship Specialty Start Date End Date Zenia Shepherd MD PCP - General Internal Medicine 02/24/12 05/30/21 Aguila Andres MD PCP - General Internal Medicine 05/31/21 04/27/22 Tracee Valentin MD [address] [place] [address] PCP - General Internal Medicine 04/28/22 11/03/23 Virginia Randhawa MD 175 [facility] [address] [place] [address] PCP - General Internal Medicine 11/04/23 Lora Bansal MD [address] [address] Surgeon Neurosurgery 09/09/22 Komal Britton PA-C [address] [address] Specialist Neurosurgery 09/09/22 Kush Trevino PA-C [address] [address] Specialist Neurosurgery 09/09/22 documented as of this encounter
--- OUTSIDE RECORDS SUMMARY | 2025-08-21 15:37 | XMS_ITS | Encounter Summary ---
Author Organization [facility] Address [address] [place] [address] Care Team Providers Care Bale Tie Machine Operator Name Role Phone Lora Bansal MD Unavailable [phone] Komal Britton PA-C Unavailable [phone] Kush Trevino PA-C Unavailable [phone] Virginia Randhawa MD Primary Care Provider [phone] Encounter Details Date Type Department Care Team Description 12/29/2023 Fourdrinier Machine Operator Report Medical Records [address] [place] [address] Keaton Staley Social History Tobacco Use Types [...] on filedocumented in this encounter Care Teams Bale Tie Machine Operator Relationship Specialty Start Date End Date Virginia Randhawa MD [address] [id number] PCP - General Internal Medicine 11/04/23 Lora Bansal MD [address] [address] Surgeon Neurosurgery 09/09/22 Komal Britton PA-C [address] [address] Specialist Neurosurgery 09/09/22 Kush Trevino PA-C [address] [place] [address] [address] [place] [address] Specialist Neurosurgery 09/09/22 documented as of this encounter
--- OUTSIDE RECORDS SUMMARY | 2025-08-21 15:37 | XMS_ITS | Encounter Summary ---
Author Organization [facility] Address [address] [place] [address] Care Team Providers Care Ballistics Expert Name Role Phone Zenai Shepherd MD Primary Care Provider Aguila Caro MD Primary Care Provider Tracee David MD Primary Care Prov ider Lora Bansal MD Unavailable [phone] Komal Britton PA-C Unavailable [phone] Kush Trevino PA-C Unavailable [phone] Virginia Randhawa MD Primary Care Provider [phone] Reason for Visit * Reason Onset Date Comments Medication 01/15/2018 TEST RESULTS 01/15/2018 Encounter Details Date Type Department Care Team Description 01/15/2018 Telephone Rheumatology - [address] [address] Roxi Vazquez DO Medication; TEST RESULTS Social History Tobacco Use Types Packs/Day Years [...] encounter Miscellaneous Notes * Telephone Encounter - Roxi Vazquez DO - 01/15/2018 8:53 AM EDT TPMT result - intermediate activity (15.4 EU) Will start with lower dose of azathioprine pending discussion with patient. documented in this encounter Plan of Treatment Not on file documented as of this encounter Visit Diagnoses Not on filedocumented in this encounter Care Teams Ballistics Expert Relationship Specialty Start Date End Date Zenia Shepherd MD PCP - General Internal Medicine 02/24/12 05/30/21 Aguila Andres MD PCP - General Internal Medicine 05/31/21 04/27/22 Tracee Valentin MD [address] [place] [address] PCP - General Internal Medicine 04/28/22 11/03/23 Virginia Randhawa MD [address] [address] PCP - General Internal Medicine 11/04/23 Lora Bansal MD [address] [address] Surgeon Neurosurgery 09/09/22 Komal Britton PA-C [address] [address] Specialist Neurosurgery 09/09/22 Kush Trevino PA-C [address] [address] Specialist Neurosurgery 09/09/22 documented as of this encounter
--- OUTSIDE RECORDS SUMMARY | 2025-08-21 15:37 | XMS_ITS | Encounter Summary ---
Author Organization [facility] Address [address] [place] [address] Care Team Providers Care Grass Farmer Name Role Phone Tracee Valentin MD Primary Care Prov ider Lora Bansal MD Unavailable [phone] Komal Britton PA-C Unavailable [phone] Kush Trevino PA-C Unavailable [phone] Virginia Randhawa MD Primary Care Provider [phone] Encounter Details Date Type Department Care Team Description 06/03/2023 Physician Practice Market Manager Report Medical Records [address] [place] [address] Keaton Staley Social History Tobacco Use Types [...] on filedocumented in this encounter Care Teams Grass Farmer Relationship Specialty Start Date End Date Tracee Valnetin MD [address] [place], [place] [phone] PCP - General Internal Medicine 04/28/22 11/03/23 Virginia Randhawa MD [address] [place] [address] PCP - General Internal Medicine 11/04/23 Lora Bansal MD [address] [address] Surgeon Neurosurgery 09/09/22 Komal Britton PA-C [address] [address] Specialist Neurosurgery 09/09/22 Kush Trevino PA-C 175 [facility] [address] [place] [address] Specialist Neurosurgery 09/09/22 documented as of this encounter
--- OUTSIDE RECORDS SUMMARY | 2025-08-21 15:37 | XMS_ITS | Encounter Summary ---
Author Organization [facility] Address [address] [place] [address] Care Team Providers Care Box Brander Name Role Phone Lora Bansal MD Unavailable [phone] Komal Britton PA-C Unavailable Kush Trevino PA-C Unavailable [phone] Virginia Randhawa MD Primary Care Provider Encounter Details Date Type Department Care Team Description 04/21/2024 SCAN [facility] [place] [address] [address] Komal Britton PA-C [address] [id number] Social History Tobacco Use Types Packs/Day Years [...] on filedocumented in this encounter Care Teams Box Brander Relationship Specialty Start Date End Date Virginia Randhawa MD [address] [id number] PCP - General Internal Medicine 11/04/23 Lora Bansal MD [address] [id number] Surgeon Neurosurgery 09/09/22 Komal Britton PA-C [address] [id number] Specialist Neurosurgery 09/09/22 Kush Trevino PA-C [address] [address] Specialist Neurosurgery 09/09/22 documented as of this encounter
--- OUTSIDE RECORDS SUMMARY | 2025-08-21 15:37 | XMS_ITS | Encounter Summary ---
Author Organization [facility] Address [address] [place] [address] Care Team Providers Care Media Marketing Manager Name Role Phone Lora Bansal MD Unavailable [phone] Komal Britton PA-C Unavailable [phone] Kush Trevino PA-C Unavailable [phone] Virginia Randhawa MD Primary Care Provider [phone] Encounter Details Date Type Department Care Team Description 11/12/2023 Pt. Non Urgent Medical Question Internal Medicine - [place] 175 [facility], [address] [place], [place] [phone] Virginia Randhawa MD [address] [place] [address] Social History Tobacco Use Types Packs/Day [...] on filedocumented in this encounter Care Teams Media Marketing Manager Relationship Specialty Start Date End Date Virginia Randhawa MD 175 [facility] [address] [place] [address] PCP - General Internal Medicine 11/04/23 Lora Bansal MD 175 [facility] [address] [place] [address] Surgeon Neurosurgery 09/09/22 Komal Britton PA-C 175 [facility] [address] [place] [address] Specialist Neurosurgery 09/09/22 Kush Trevino PA-C [address] [address] Specialist Neurosurgery 09/09/22 documented as of this encounter
--- OUTSIDE RECORDS SUMMARY | 2025-08-21 15:37 | XMS_ITS | Encounter Summary ---
Author Organization [facility] Address [address] [place] [address] Care Team Providers Care Acoustical Logging Engineer Name Role Phone Zenia Shepherd MD Primary Care Provider Aguila Caro MD Primary Care Provider Tracee David MD Primary Care Prov ider Lora Bansal MD Unavailable [phone] Komal Britton PA-C Unavailable [phone] Ksuh TrevinoC Unavailable [phone] Virginia Randhawa MD Primary Care Provider [phone] Encounter Details Date Type Department Care Team Description 12/18/2016 [facility] Medical Records [address] [place] [address] Abstract, Provider Social History Tobacco Use Types [...] on filedocumented in this encounter Care Teams Acoustical Logging Engineer Relationship Specialty Start Date End Date Zenia Shepherd MD PCP - General Internal Medicine 02/24/12 05/30/21 Aguila Andres MD PCP - General Internal Medicine 05/31/21 04/27/22 Tracee Valentin MD [address] [place] [address] PCP - General Internal Medicine 04/28/22 11/03/23 Virginia Randhawa MD 175 [facility] [address] [place] [address] PCP - General Internal Medicine 11/04/23 Lora Bansal MD [address] [address] Surgeon Neurosurgery 09/09/22 Komal Britton PA-C [address] [address] Specialist Neurosurgery 09/09/22 Kush Trevino PA-C [address] [address] Specialist Neurosurgery 09/09/22 documented as of this encounter
--- OUTSIDE RECORDS SUMMARY | 2025-08-21 15:40 | XMS_ITS | Encounter Summary ---
Author Organization [facility] Address [address] [place] [address] Care Team Providers Care Keg Header Name Role Phone Zenia Shepherd MD Primary Care Provider Aguila Caro MD Primary Care Provider Tracee David MD Primary Care Prov ider Lora Bansal MD Unavailable [phone] Komal Britton PA-C Unavailable [phone] Kush Trevino PA-C Unavailable [phone] Virginia Randhawa MD Primary Care Provider [phone] Encounter Details Date Type Department Care Team Description 05/04/2021 Hogshead Head Matcher Report Medical Records [address] [place] [address] Max Teran MD Social History Tobacco Use [...] on filedocumented in this encounter Care Teams Keg Header Relationship Specialty Start Date End Date Zenia Shepherd MD PCP - General Internal Medicine 02/24/12 05/30/21 Aguila Andres MD PCP - General Internal Medicine 05/31/21 04/27/22 Tracee Valentin MD [address] [place] [address] PCP - General Internal Medicine 04/28/22 11/03/23 Virginia Randhawa MD [address] [address] PCP - General Internal Medicine 11/04/23 Lora Bansal MD [address] [address] Surgeon Neurosurgery 09/09/22 Komal Britton PA-C [address] [address] Specialist Neurosurgery 09/09/22 Kush Trevino PA-C [address] [address] Specialist Neurosurgery 09/09/22 documented as of this encounter
--- OUTSIDE RECORDS SUMMARY | 2025-08-21 15:40 | XMS_ITS | Clinical Summary ---
Author Organization [facility] Address [address] [place] [address] Care Team Providers Care Seam Rubbing Machine Operator Name Role Phone Zenia Shepherd MD Primary Care Provider [phone] Allergies Active Allergy Reactions Criticality Noted Date [...] Tdap / Td (1 - Tdap) 1978 Colon Cancer Screening (Colonoscopy) 2004 Breast Cancer [...] age to complete this topic Care Teams Seam Rubbing Machine Operator Relationship Specialty Start Date End Date Zenia Shepherd MD PCP - General Internal Medicine 05/07/17
--- OUTSIDE RECORDS SUMMARY | 2025-08-21 15:40 | XMS_ITS | Encounter Summary ---
Author Organization [facility] Address [address] [place] [address] Care Team Providers Care Cutter Wet Machine Name Role Phone Zenia Shepherd MD Primary Care Provider Aguila Caro MD Primary Care Provider Tracee David MD Primary Care Prov ider Lora Bansal MD Unavailable [phone] Komal Britton PA-C Unavailable [phone] Kush Trevino PA-C Unavailable [phone] Virginia Randhawa MD Primary Care Provider [phone] Reason for Visit * Reason Onset Date Comments Medication 03/29/2018 Encounter Details Date Type Department Care Team Description 03/29/2018 Telephone Rheumatology - [address] [phone] Roxi Vazquez, Medication Social History Tobacco Use Types Packs/Day Years [...] encounter Miscellaneous Notes * Telephone Encounter - Gina Mendez M.A. - 03/29/2018 2:44 PM EDT I spoke with the pt. She has still not made a decision. She states she is very nervous to start themedication. She will let us know what she decides. * Telephone Encounter - Gina Mendez M.A. - 03/29/2018 11:52 AM EDT Message left for patient to return my call. * Telephone Encounter - Roxi Vazquez DO - 03/29/2018 9:49 AM EDT Please ask Ms. Zhao ([phone] (home) ) if she is ready to start either the azathioprine or cellcept that we discussed at her last visit. Thanks. documented in this encounter Plan of Treatment Not on file documented as of this encounter Visit Diagnoses Not on filedocumented in this encounter Care Teams Cutter Wet Machine Relationship Specialty Start Date End Date Zenia Shepherd MD PCP - General Internal Medicine 02/24/12 05/30/21 Aguila Andres MD PCP - General Internal Medicine 05/31/21 04/27/22 Tracee Valentin MD [address] [place] [address] PCP - General Internal Medicine 04/28/22 11/03/23 Virginia Randhawa MD [address] [address] PCP - General Internal Medicine 11/04/23 Lora Bansal MD [address] [address] Surgeon Neurosurgery 09/09/22 Komal Britton PA-C [address] [address] Specialist Neurosurgery 09/09/22 Kush Trevino PA-C 175 [facility] [address] [place] [address] Specialist Neurosurgery 09/09/22 documented as of this encounter
--- OUTSIDE RECORDS SUMMARY | 2025-08-21 15:40 | XMS_ITS | Encounter Summary ---
Author Organization [facility] Address [address] [place] [address] Care Team Providers Care Regional Facilities Specialist Name Role Phone Zenia Shepherd MD Primary Care Provider Aguila Caro MD Primary Care Provider Tracee David MD Primary Care Prov ider Lora Bansal MD Unavailable [phone] Komal BrittonC Unavailable [phone] Kush TrevinoC Unavailable [phone] Virginia Ranhdawa MD Primary Care Provider [phone] Encounter Details Date Type Department Care Team Description 05/22/2016 Wastewater Superintendent Report Medical Records [address] [place] [address] Chuy Cain Social History Tobacco Use Types [...] on filedocumented in this encounter Care Teams Regional Facilities Specialist Relationship Specialty Start Date End Date Zenia Shepherd MD PCP - General Internal Medicine 02/24/12 05/30/21 Aguila Andres MD PCP - General Internal Medicine 05/31/21 04/27/22 Tracee Valentin MD [address] [place] [address] PCP - General Internal Medicine 04/28/22 11/03/23 Virginia Randhawa MD [address] [address] PCP - General Internal Medicine 11/04/23 Lora Bansal MD [address] [address] Surgeon Neurosurgery 09/09/22 Komal Britton PA-C [address] [address] Specialist Neurosurgery 09/09/22 Kush Trevino PA-C [address] [address] Specialist Neurosurgery 09/09/22 documented as of this encounter
--- OUTSIDE RECORDS SUMMARY | 2025-08-21 15:40 | XMS_ITS | Clinical Summary ---
Author Organization [facility] Address [address] [place] [address] Phone Care Team Providers Care Refrigeration Person Name Role Phone Aguila Andres MD Primary Care Provider [phone] Social History Tobacco Use Types Packs/Day Years [...] ACCO SCREENING 1972 HEPATITIS C SCREENING 1977 MAMMOGRAM 1999 COLOGUARD 2004 COLONOSCOPY 2004 [...] topic Medical Devices Not on file Insurance [facility] MEDICARE PART A & B [facility] REPLAC[facility] B [facility] MEDICARE [facility]PLACEMENT [facility] MEDICARE PART A & B [facility] MEDICARE [facility]PLACEMENT [facility] MEDICARE PART A & B [facility] MEDIC[facility]PLACEMENT [facility] & B [facility] MEDIC[facility] REPL[facility] A & B Member Subscriber Plan / Payer (Ef fective 2022-Present) Name:Marcelle Zhao Member ID:[id number] Relation to Subscriber:Self Name:Marcelle Zhao Subscriber ID:[id number] Payer ID:[id number] Group ID:Not on file Type:Medicare Address: [facility] [employer] [facility] [employer] [facility] [address] [place] [address] [facility] MEDICARE REPLACEMENT [facility] MEDICARE PART A & B [facility] MEDICARE REPLACEMENT [facility] MEDICARE PART A & B [facility] MEDICARE REPLACEMENT Care Teams Refrigeration Person Relationship Specialty Start Date End Date Aguila Andres MD [address] [place] [address] PCP - General Internal Medicine 01/03/22 Additional Source Comments The information contained in this document represents components of the legal health record. It is not the complete legal health record.[facility]
--- OUTSIDE RECORDS SUMMARY | 2025-08-21 15:40 | XMS_ITS | Encounter Summary ---
Author Organization [facility] Address [address] [place] [address] Care Team Providers Care Armored Car Messenger Name Role Phone Lora Bansal MD Unavailable [phone] Komal Britton PA-C Unavailable [phone] Kush Trevino PA-C Unavailable Virginia Randhawa MD Primary Care Provider [phone] Encounter Details Date Type Department Care Team Description 06/09/2024 SCAN [facility] [place] [address] [address] Komal Britton PA-C [address] [id number] Social History Tobacco Use Types Packs/Day Years [...] on filedocumented in this encounter Care Teams Armored Car Messenger Relationship Specialty Start Date End Date Virginia Randhawa MD [address] [phone] PCP - General Internal Medicine 11/04/23 Lora Bansal MD [address] [phone] Surgeon Neurosurgery 09/09/22 Komal Britton PA-C [address] [address] Specialist Neurosurgery 09/09/22 Kush Trevino PA-C [address] [address] Specialist Neurosurgery 09/09/22 documented as of this encounter
--- OUTSIDE RECORDS SUMMARY | 2025-08-21 15:40 | XMS_ITS | Encounter Summary ---
Author Organization [facility] Address [address] [place] [address] Care Team Providers Care Chocolate Molder Name Role Phone Zenia Shepherd MD Primary Care Provider Aguila Caro MD Primary Care Provider Tracee David MD Primary Care Prov ider Lora Bansal MD Unavailable [phone] Komal Britton PA-C Unavailable [phone] Kush TrevinoC Unavailable [phone] Virginia Randhawa MD Primary Care Provider [phone] Encounter Details Date Type Department Care Team Description 02/04/2018 Release of Information Medical Records [address] [place] [address] Abstract, Provider Social History Tobacco Use Types [...] on filedocumented in this encounter Care Teams Chocolate Molder Relationship Specialty Start Date End Date Zenia Shepherd MD PCP - General Internal Medicine 02/24/12 05/30/21 Aguila Andres MD PCP - General Internal Medicine 05/31/21 04/27/22 Tracee Valentin MD [address] [place] [address] PCP - General Internal Medicine 04/28/22 11/03/23 Virginia Randhawa MD 175 [facility] [address] [place] [address] PCP - General Internal Medicine 11/04/23 Lora Bansal MD [address] [address] Surgeon Neurosurgery 09/09/22 Komal Britton PA-C [address] [address] Specialist Neurosurgery 09/09/22 Kush Trevino PA-C [address] [address] Specialist Neurosurgery 09/09/22 documented as of this encounter
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
--- OUTSIDE RECORDS SUMMARY | 2025-08-21 15:40 | XMS_ITS | Encounter Summary ---
Author Organization [facility] Address [address] [place] [address] Care Team Providers Care Bookie Name Role Phone Zenia Shepherd MD Primary Care Provider Aguila Caro MD Primary Care Provider Tracee David MD Primary Care Prov ider Lora Bansal MD Unavailable [phone] Komal Britton PA-C Unavailable [phone] Kush TrevinoC Unavailable [phone] Virginia Randhawa MD Primary Care Provider [phone] Encounter Details Date Type Department Care Team Description 07/28/2016 Release of Information Medical Records [address] [place] [address] Abstract, Provider Social History Tobacco Use Types [...] on filedocumented in this encounter Care Teams Bookie Relationship Specialty Start Date End Date Zenia Shepherd MD PCP - General Internal Medicine 02/24/12 05/30/21 Aguila Andres MD PCP - General Internal Medicine 05/31/21 04/27/22 Tracee Valentin MD [address] [place] [address] PCP - General Internal Medicine 04/28/22 11/03/23 Virginia Randhawa MD 175 [facility] [address] [place] [address] PCP - General Internal Medicine 11/04/23 Lora Bansal MD [address] [address] Surgeon Neurosurgery 09/09/22 Komal Britton PA-C [address] [address] Specialist Neurosurgery 09/09/22 Kush Trevino PA-C [address] [address] Specialist Neurosurgery 09/09/22 documented as of this encounter
--- OUTSIDE RECORDS SUMMARY | 2025-08-21 15:40 | XMS_ITS | Encounter Summary ---
Author Organization [facility] Address [address] [place] [address] Care Team Providers Care Starch Mangle Tender Name Role Phone Zenia Shepherd MD Primary Care Provider Aguila Caro MD Primary Care Provider Tracee David MD Primary Care Prov ider Lora Bansal MD Unavailable [phone] Komal Britton PA-C Unavailable [phone] Kush TrevinoC Unavailable [phone] Virginia Randhawa MD Primary Care Provider [phone] Encounter Details Date Type Department Care Team Description 07/24/2018 Release of Information Medical Records [address] [place] [address] Abstract, Provider Social History Tobacco Use Types [...] on filedocumented in this encounter Care Teams Starch Mangle Tender Relationship Specialty Start Date End Date Zenia Shepherd MD PCP - General Internal Medicine 02/24/12 05/30/21 Aguila Andres MD PCP - General Internal Medicine 05/31/21 04/27/22 Tracee Valentin MD [address] [place] [address] PCP - General Internal Medicine 04/28/22 11/03/23 Virginia Randhawa MD 175 [facility] [address] [place] [address] PCP - General Internal Medicine 11/04/23 Lora Bansal MD [address] [address] Surgeon Neurosurgery 09/09/22 Komal Britton PA-C [address] [address] Specialist Neurosurgery 09/09/22 Kush Trevino PA-C [address] [address] Specialist Neurosurgery 09/09/22 documented as of this encounter
--- OUTSIDE RECORDS SUMMARY | 2025-08-21 15:40 | XMS_ITS | Encounter Summary ---
Author Organization [facility] Address [address] [place] [address] Care Team Providers Care Paper Goods Machine Set Up Operator Name Role Phone Zenia Shepherd MD Primary Care Provider Aguila Caro MD Primary Care Provider Tracee David MD Primary Care Prov ider Lora Bansal MD Unavailable [phone] Komal Britton PA-C Unavailable [phone] Kush Trevino PA-C Unavailable [phone] Virginia Randhawa MD Primary Care Provider [phone] Encounter Details Date Type Department Care Team Description 04/16/[address] Judge Report Medical Records [address] [place] [address] Layla Howe MD Social History Tobacco Use [...] on filedocumented in this encounter Care Teams Paper Goods Machine Set Up Operator Relationship Specialty Start Date End Date Zenia Shepherd MD PCP - General Internal Medicine 02/24/12 05/30/21 Aguila Andres MD PCP - General Internal Medicine 05/31/21 04/27/22 Tracee Valentin MD [address] [place] [address] PCP - General Internal Medicine 04/28/22 11/03/23 Virginia Randhawa MD [address] [address] PCP - General Internal Medicine 11/04/23 Lora Bansal MD [address] [address] Surgeon Neurosurgery 09/09/22 Komal Britton PA-C [address] [address] Specialist Neurosurgery 09/09/22 Kush Trevino PA-C [address] [address] Specialist Neurosurgery 09/09/22 documented as of this encounter
--- OUTSIDE RECORDS SUMMARY | 2025-08-21 15:40 | XMS_ITS | Encounter Summary ---
Author Organization [facility] Address [address] [place] [address] Care Team Providers Care Pl Sql Developer Name Role Phone Zenia Shepherd MD Primary Care Provider Aguila Caro MD Primary Care Provider Tracee David MD Primary Care Prov ider Lora Bansal MD Unavailable [phone] Komal Britton PA-C Unavailable [phone] Kush Trevino PA-C Unavailable [phone] Virginia Randhawa MD Primary Care Provider [phone] Encounter Details Date Type Department Care Team Description 10/26/2018 Refill Rheumatology - [address] [address] Jordan Gaona MD Social History Tobacco Use Types Packs/Day [...] Telephone Encounter - Gina Mendez M.A. - 10/26/2018 4:14 PM ESTFrom: Marcelle Zhao To: Jordan Gaona MD Sent: 10/26/2018 3:50 PM EST Subject: Medication Renewal Request Original authorizing provider: MD Marcelle Ochoa would like a refill of the following medications: methotrexate 2.5 MG tablet [Jordan Gaona MD] Preferred pharmacy: [id number] [place], [place] - [address] [place] [address] AT [facility] Comment: Medication renewals requested in this message routed to other providers: lorazepam (ATIVAN) 1 MG tablet [Zenia Shepherd MD] documented in this encounter Plan of Treatment Not on file documented as of this encounter Visit Diagnoses Diagnosis Scleroderma (HCC) Systemic sclerosis Arthralgia, unspecified joint documented in this encounter Care Teams Pl Sql Developer Relationship Specialty Start Date End Date Zenia Shepherd MD PCP - General Internal Medicine 02/24/12 05/30/21 Aguila Andres MD PCP - General Internal Medicine 05/31/21 04/27/22 Tracee Valentin MD [address] [place] [address] PCP - General Internal Medicine 04/28/22 11/03/23 Virginia Randhawa MD [address] [address] PCP - General Internal Medicine 11/04/23 Lora Bansal MD [address] [address] Surgeon Neurosurgery 09/09/22 Komal Britton PA-C [address] [address] Specialist Neurosurgery 09/09/22 Kush Trevino PA-C [address] [address] Specialist Neurosurgery 09/09/22 documented as of this encounter
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
--- OUTSIDE RECORDS SUMMARY | 2025-08-21 15:40 | XMS_ITS | Encounter Summary ---
Author Organization [facility] Address [address] [place] [address] Care Team Providers Care Manager Performance Improvement Name Role Phone Zenia Shepherd MD Primary Care Provider Aguila Caro MD Primary Care Provider Tracee David MD Primary Care Prov ider Lora Bansal MD Unavailable [phone] Komal Britton PA-C Unavailable [phone] Kush Trevino-C Unavailable [phone] Virginia Randhawa MD Primary Care Provider [phone] Encounter Details Date Type Department Care Team Description 03/11/2018 Spanish Tutor Report Medical Records [address] [place] [address] Mahad Smith MD Social History Tobacco Use [...] on filedocumented in this encounter Care Teams Manager Performance Improvement Relationship Specialty Start Date End Date Zenia Shepherd MD PCP - General Internal Medicine 02/24/12 05/30/21 Aguila Andres MD PCP - General Internal Medicine 05/31/21 04/27/22 Tracee Valentin MD [address] [place] [address] PCP - General Internal Medicine 04/28/22 11/03/23 Virginia Randhawa MD [address] [address] PCP - General Internal Medicine 11/04/23 Lora Bansal MD [address] [address] Surgeon Neurosurgery 09/09/22 Komal Britton PA-C [address] [address] Specialist Neurosurgery 09/09/22 Kush Trevino PA-C [address] [address] Specialist Neurosurgery 09/09/22 documented as of this encounter
--- OUTSIDE RECORDS SUMMARY | 2025-08-21 15:40 | XMS_ITS | Encounter Summary ---
Author Organization [facility] Address [address] [place] [address] Care Team Providers Care Play Leader Name Role Phone Zenia Shepherd MD Primary Care Provider Aguila Caro MD Primary Care Provider Tracee David MD Primary Care Prov ider Lora Bansal MD Unavailable [phone] Komal BrittonC Unavailable [phone] Kush TrevinoC Unavailable [phone] Virginia Randhawa MD Primary Care Provider [phone] Encounter Details Date Type Department Care Team Description 09/02/2016 Trestle Mechanic Report Medical Records [address] [place] [address] Wayne Gilbert Social History Tobacco Use Types [...] on filedocumented in this encounter Care Teams Play Leader Relationship Specialty Start Date End Date Zenia Shepherd MD PCP - General Internal Medicine 02/24/12 05/30/21 Aguila Andres MD PCP - General Internal Medicine 05/31/21 04/27/22 Tracee Valentin MD [address] [place] [address] PCP - General Internal Medicine 04/28/22 11/03/23 Virginia Randhawa MD [address] [address] PCP - General Internal Medicine 11/04/23 Lora Bansal MD [address] [address] Surgeon Neurosurgery 09/09/22 Komal Britton PA-C [address] [address] Specialist Neurosurgery 09/09/22 Kush Trevino PA-C [address] [address] Specialist Neurosurgery 09/09/22 documented as of this encounter
--- OUTSIDE RECORDS SUMMARY | 2025-08-21 15:40 | XMS_ITS | Encounter Summary ---
Author Organization [facility] Address [address] [place] [address] Care Team Providers Care Licensed Prosthetist/Orthotist Name Role Phone Zenia Shepherd MD Primary Care Provider Aguila Caro MD Primary Care Provider Tracee David MD Primary Care Prov ider Lora Bansal MD Unavailable [phone] Komal Britton PA-C Unavailable [phone] Kush TrevinoC Unavailable [phone] Virginia Randhawa MD Primary Care Provider [phone] Encounter Details Date Type Department Care Team Description 09/04/2016 Release of Information Medical Records [address] [place] [address] Abstract, Provider Social History Tobacco Use Types [...] on filedocumented in this encounter Care Teams Licensed Prosthetist/Orthotist Relationship Specialty Start Date End Date Zenia Shepherd MD PCP - General Internal Medicine 02/24/12 05/30/21 Aguila Andres MD PCP - General Internal Medicine 05/31/21 04/27/22 Tracee Valentin MD [address] [place] [address] PCP - General Internal Medicine 04/28/22 11/03/23 Virginia Randhawa MD 175 [facility] [address] [place] [address] PCP - General Internal Medicine 11/04/23 Lora Bansal MD [address] [address] Surgeon Neurosurgery 09/09/22 Komal Britton PA-C [address] [address] Specialist Neurosurgery 09/09/22 Kush Trevino PA-C [address] [address] Specialist Neurosurgery 09/09/22 documented as of this encounter
== END 2025-08-21 11:45 | disposition home or self-care (01) ==
LOC: HO.MAMMO 11:44
PROVIDERS: PCP Student in an Organized Health Care Education/Training Program; Visit Provider Obstetrics & Gynecology
DX: Z12.31 Encounter for screening mammogram for malignant neoplasm of breast (principal)
CPT/HCPCS: 77063; 77067

== ENCOUNTER → 2025-08-21 12:15 | Outpatient (BNV) | payer OTHER, SELFPAY | PROVIDERS: PCP Student in an Organized Health Care Education/Training Program; Visit Provider Internal Medicine | DX: Z12.31 Encounter for screening mammogram for malignant neoplasm of breast (principal) | CPT/HCPCS: 77063; 77067 ==

== ENCOUNTER 2025-09-19 15:46 | Outpatient (REF) | payer OTHER, SELFPAY ==
--- NOTE | ~2025-09-19 | US_ITS ---
EXAMINATION: US PELVIS CLINICAL INFORMATION: N95.0 - Postmenopausal bleeding COMPARISON: CT from December 08, 2024 TECHNIQUE: Ultrasound of the pelvis is performed using both transabdominal and transvaginal transducers along with Doppler. Transvaginal imaging is performed due to inadequate visualization transabdominally. FINDINGS: Uterus: The uterus is anteflexed and measures 5.2 x 2.3 x 3.3 cm. There is a small amount of fluid in the endometrial canal. The double wall endometrial thickness is 4 mm. The uterus is smooth in contour and has normal myometrial echogenicity. No visible fibroid. Adnexa: Ovaries were not demonstrated. US/US pelvic and transvaginal IMPRESSION: Small volume of fluid is visible in the endometrial canal, correlate for signs symptoms of endometritis. Electronically signed by: Ron Rodriguez MD 09/19/2025 04:52 PM [facility]
--- OUTSIDE RECORDS SUMMARY | 2025-09-19 16:47 | XMS_ITS | Encounter Summary ---
Author Organization [facility] Address [address] [place] [address] Care Team Providers Care Power Mule Operator Name Role Phone Virginia Randhawa MD Primary Care Provider [phone] Encounter Details Date Type Department Care Team (Late Contact Info) Description 09/04/2025 Telephone Internal Medicine [facility] [address] [address] Virginia Randhawa MD [address] [address] Social History Tobacco Use Types Packs/Day Years [...] as of this encounter Plan of Treatment Upcoming Encounters Date Type Department Care Team (Late Contact Info) Description 09/26/2025 1:00 PM EST Nutrition Internal Medicine [address] [address] Lucia Mendez, [place] [address] [place] [address] 11/13/2025 2:15 PM EST Office Visit Internal Medicine [address] [phone] Virginia Randhawa MD [address] [phone] documented as of this encounter Visit Diagnoses Not on filedocumented in this encounter Additional Health Concerns Assessment Noted Time PHQ-9 Depression Total Score: 1 05/10/20 25 2:25 PM EDT documented as of this encounter Care Teams Power Mule Operator Relationship Specialty Start Date End Date Virginia Randhawa MD [address] [phone] PCP - General 11/04/23 documented as of this encounter
--- OUTSIDE RECORDS SUMMARY | 2025-09-19 16:47 | XMS_ITS | Encounter Summary ---
Author Organization [facility] Address [address] [place] [address] Care Team Providers Care Head Men'S Golf Coach Name Role Phone Virginia Randhawa MD Primary Care Provider [phone] Reason for Referral * Consultation (Routine) - Closed Specialty Diagnoses / Procedures Referred By Contac t Referred To Contact Nephrology Diagnoses Stage 3a chronic kidney disease (CMS/HCC V24, CMS/HCC V28) Virginia Randhawa MD [address] [place] [address] Phone: tel: fax: [facility] [address] [place] [address] Phone: tel: fax: Referral ID Status Reason Start Date Expiration Date V isits Requested Visits Authorized [id number] Closed Specialty Services Required 09/12/2025 09/12/2026 12 12 Encounter Details Date Type Department Care Team (Late st Contact Info) Description 09/12/2025 Results Follow-Up Internal Medicine - [place] [address] [facility] [address] [place] [address] Virginia Randhawa MD [address] [phone] Social History Tobacco Use Types [...] Care Team (Late st Contact Info) Description 09/26/2025 1:00 PM EST Nutrition Internal Medicine - [place] [address] [phone] Lucia Mendez, RD [address] [place] [phone] 11/13/2025 2:15 PM EST Office Visit Internal Medicine [address] [phone] Virginia Randhawa MD [address] [address] Scheduled Referrals Name Type Priority Associated Diagnoses Order Schedule Ambulatory referral to Nephrology Outpatient Referral Routine Stage 3a chronic kidney disease (CMS/HCC V24, CMS/HCC V28) 1 Occurrences starting 09/12/2025 until 09/12/2026 documented as of this encounter Visit Diagnoses Diagnosis Stage 3a chronic kidney disease (CMS/HCC V24, CMS/HCC V28)- Primary documented in this encounter Additional Health Concerns Assessment Noted Time PHQ-9 Depression Total Score: 1 05/10/20 25 2:25 PM EDT documented as of this encounter Care Teams Head Men'S Golf Coach Relationship Specialty Start Date End Date Virginia Randhawa MD [address] [phone] PCP - General 11/04/23 documented as of this encounter
--- OUTSIDE RECORDS SUMMARY | 2025-09-19 16:47 | XMS_ITS | Clinical Summary ---
Author Organization [facility] Address [address] [place] [address] Phone Care Team Providers Care Custodial Manager Name Role Phone Aguila Andres MD Primary Care Provider [phone] Social History Tobacco Use Types Packs/Day Years [...] topic Medical Devices Not on file Insurance [facility] MEDICARE PART A & B [facility] MEDICARE REPLACEMENT [facility] MED[facility] PART A & B [facility] MEDICARE [facility]PLACEMENT [facility] MEDICARE PART A & B [facility] MEDICARE [facility]PLACEMENT [facility] MEDICARE PART A & B [facility] MEDICARE [facility]PLACEMENT [facility] MEDICARE PART A & B [facility] MEDICARE REPLACEMENT [facility] MEDICARE PART A & B [facility] MEDICARE REPLACEMENT [facility] MEDICARE PART A & B [facility] MEDICARE [facility]PLACEMENT [facility] MEDICARE PART A & B [facility] MEDICARE REPLACEMENT [facility] MEDICARE PART A & B [facility] MEDICARE REPLACEMENT Care Teams Custodial Manager Relationship Specialty Start Date End Date Aguila Andres MD [address] [place] [address] PCP - General Internal Medicine 01/03/22 Additional Source Comments The information contained in this document represents components of the legal health record. It is not the complete legal health record.[facility]
--- OUTSIDE RECORDS SUMMARY | 2025-09-19 16:47 | XMS_ITS | Clinical Summary ---
Author Organization [facility] Address [address] [place] [address] Phone Care Team Providers Care Conveyor System Operator Name Role Phone Virginia Randhawa MD Primary Care Provider Allergies Active [...] Tablet by mouth daily. 07/13/20 24 Active cyclobenzaprine (FLEXERIL) 5 mg tabletIndication s:Neck pain on right side Take 1 tablet (5 mg total) by mouth 3 (three) times a day if needed for muscle spasms. for muscle spasms 30 tablet 1 04/11/20 25 Active cyproheptadine (PERIACTIN) 4 mg tabletIndication s:Other fatigue Take 1 tablet (4 mg total) by mouth 2 (two) times a day if needed for allergies or rhinitis. 270 tablet 1 05/10/20 25 Active ezetimibe (ZETIA) 10 mg tablet TAKE 1 TABLET BY MOUTH 1 TIME EACH DAY. 90 tablet 1 05/16/20 25 Active meclizine (ANTIVERT) 12.5 mg tablet Take 1 tablet (12.5 mg total) by mouth 3 (three) times a day if needed for dizziness. 30 tablet 11 09/11/20 25 026 Active multivit-min/iro n/folic acid/K (ADULTS MULTIVITAMIN ORAL) Take 1 Tablet by mouth daily. 025 Discontinued Active Problems Problem Noted Date Diagnosed Date Stage 3a chronic kidney disease 09/12/2025 Pre-diabetes 09/11/2025 Mixed hyperlipidemia 09/11/2025 DDD (degenerative disc disease), lumbar 09/09/20 22 [...] we can get a sooner date at [facility]. Fibromyalgia 10/12/2019 Left lumbar radiculitis 06/08/2018 Centromere [...] Encounters Date Type Department Care Team Description 09/12/2025 Results Follow-Up Internal Medicine [address] [place] [phone] Virginia Randhawa MD 09/11/2025 2:45 PM EST Lab Draw Station - [address] [place] [address] [address] [place] [phone] BROCK (acute kidney injury) ([facility] V24) 09/11/2025 1:45 PM EST Office Visit Internal Medicine [address] [place] [phone] Virginia Randhawa MD Dizziness (Primary Dx); Light headedness; Abnormal laboratory test result; Pre-diabetes; Mixed hyperlipidemia; Scleroderma (CMS/HCC V24, [facility] V28); Fibromyalgia; VINCE positive 09/04/2025 Telephone Internal Medicine [address] [phone] Virginia Randhawa MD 09/04/2025 Telephone Internal Medicine [address] [place] [address] Virginia Randhawa MD 07/19/2025 Telephone Internal Medicine [address] [phone] Virginia Randhawa MD from Last 3 Months Immunizations Immunization Administration Dates Next Due Moderna SARS-CoV-2 COVID-19, mRNA, LNP-S, preservative free 07/03/2021,05/31/2021 Td Tetanus diptheria (Tdvax) 7yo and older 04/30 Surgical History Surgery Date Site/Laterality Comments TUBAL LIGATION PROCEDURE:TUBAL LIGATION COLONOSCOPY PROCEDURE:COLONOSCOPY OTHER SURGICAL HISTORY 09/28/1989 PROCEDURE: [place] COLPOSCOPY CERVIX VAG ELTRD CONIZATION CERVIX; COMMENT: Felix TUBAL LIGATION 1997 PROCEDURE: HISTORICAL TUBAL LIGATION OTHER SURGICAL HISTORY 10/22/2023 Left PROCEDURE: HISTORY OTHER; COMMENT: Excision of the vein cluster, left lower extremity, microphlebectomy for venous reflux, Dr. Batista Medical History Medical History Date Comments Low back pain DX:Low back pain Neutropenia ([facility] V24) DX:Rey tropenia ([facility]) Leukopenia 05/07/2017 DX:Leukopenia Other specified personal his tory presenting hazards to health(V15.89) DX:Other specifie d personal history presenting hazards to health(V15.89); COMMENT: cervical change in cells Low back pain 03/19/2015 DX:Low back pain ; COMMENT: Previous work related injury 2007 Family history of breast cancer 09/08/2012 DX:Family history of breast cancer Left lumbar radiculitis 06/08/2018 DX:Left lumbar radiculitis Scleroderma ([facility] V24, [facility] V28) DX:Scleroderma ([facility]) Fibromyalgia DX:Fibromyalgia Osteopenia DX:Osteopenia Adhesive capsulitis of [...] on file Sexual Orientation Not on file Last Filed Vital Signs Vital Sign Reading Time Taken Comments Blood Pressure 125/78 09/11/2025 1:40 PM EST Pulse 105 09/11/2025 1:40 PM EST Temperature 36.4 C (97.5 F) 09/11/2025 1:40 PM EST Respiratory Rate - - Oxygen Saturation 96% 09/11/2025 1:40 PM EST Inhaled Oxygen Concentration - - Weight 53.5 kg (118 lb) 09/11/2025 1:40 PM EST Height 165.1 cm (5' 5 ) 05/10/2025 2:22 PM EDT Body Mass Index 19.64 05/10/2025 2:22 PM EDT Plan of Treatment Upcoming Encounters Date Type Department Care Team ([facility] Contact Info) Description 09/26/2025 1:00 PM EST Nutrition Internal Medicine [address] [phone] Lucia Mendez, RD [address] [place] [phone] 11/13/2025 2:15 PM EST Office Visit Internal Medicine [address] [phone] Virginia Randhawa MD [address] [phone] Health Maintenance Due Date Last Done Comments Pneumococcal Vaccine: 50+ Years (1 of 1 - PCV) 2009 Zoster Vaccines (1 of 2) 2009 DTaP,Tdap,and Td Vaccines (2 - Td or Tdap) 04/30/2019 04/30/2009 Colorectal Cancer Screening: Stool Based Tests (FOBT/FIT) 09/05/2022 COVID-19 Vaccine ( - season) 2025 07/03/2021, 05/31/2021 Influenza Vaccine (#1) 2025 Falls Risk Assessment 05/10/2026 05/10/2025 Social Influencers of Health Screening 05/10/2026 05/10/2025 Breast Cancer Screening 08/21/2027 08/21/20, 08/21/2025, 12/07/2023, Additional history exists Cholesterol Screening (Lipid Panel) 05/18/2030 05/18/2025, 03/24/2024, 03/24/2024 Cervical Cancer Screening: HPV 07/25/2030 07/25/2025, 01/25/2024 Osteoporosis Screening (Bone Density Screening) 08/08/2032 [...] 20 months Aged Out No longer eligible based on patient's age to complete this topic Varicella Vaccines Aged Out No longer eligible based on patient's age to complete this topic Procedures Procedure Name Priority Date/Time Associated Diagnosis Comments BASIC METABOLIC PANEL Routine 09/11/2025 2:40 PM EST BROCK (acute kidney injury) (CMS/HCC V24) EXTERNAL MAMMOGRAM REPORT 08/21/2025 EXTERNAL MAMMOGRAM REPORT 08/21/2025 EXTERNAL HPV 07/25/2025 LIPID PANEL WITH REFLEX TO DIRECT LDL Routine 05/18/2025 1:20 PM EDT Medicare annual wellness visit, initial Encounter for lipid screening for cardiovascular disease DXA BONE DENSITY STUDY 1+ SITS AXIAL SKEL Routine 08/08/2022 1:20 PM EST Encounter for general adult medical examination without abnormal findings HEPATITIS C SCREENING Routine 01/14/2018 from Last 3 Months or Most Recently Relevant to Health Maintenance Results * (ABNORMAL) Basic metabolic panel (09/11/2025 2:40 PM EST) Sodium 139 133 - 145 mmol/L 09/11/2025 6:28 PM [facility] Potassium 4.0 3.5 - 5.5 mmol/L 09/11/2025 6:28 PM [facility] Chloride 98 96 - 110 mmol/L 09/11/2025 6:28 PM [facility] CO2 32 21 - 32 mmol/L 09/11/2025 6:28 PM [facility] Anion Gap 9 3 - 11 09/11/2025 6:28 PM [facility] Glucose 88 70 - 100 mg/dL 09/11/2025 6:28 PM [facility] BUN 13 5 - 25 mg/dL 09/11/2025 6:28 PM [facility] Creatinine 1.20(H) 0.50 - 1.10 mg/dL 09/11/2025 6:28 PM [facility] eGFR 50(L) >=60 mL/min/1. 73m2 09/11/2025 6:28 PM [facility] Comment:Calculation based on the Chronic Kidney Disease Epidemiology Collaboration (CKD-EPI) equation refit without adjustment for race. BUN/Creatinine Ratio 10.8 09/11/2025 6:28 PM [facility] Calcium 9.2 8.5 - 10.5 mg/dL 09/11/2025 6:28 PM [facility] Blood Venous blood specimen / Unknown Venipuncture / Unknown 09/11/2025 2:40 PM EST 09/11/2025 2:40 PM EST Virginia Randhawa MD LAB BLOOD ORDERABLES Final Resul t [facility] [address] [place] [address], [place] [phone] * External Mammogram Report (08/21/2025) Only the most recent of2 resultswithin the time period is included. Anatomical Region Laterality Modality Mammography us Provider [facility] BI PROCEDURES Final Result * External HPV (07/25/2025) Provider [facility] CYTOLOGY ORDERABLES Final [...] LAB CHEMISTRY METHOD 05/18/2025 5:[address] [facility] Comment:Estimated LDL Calcul [...] Resul t [facility] [address] [place] [address], * DXA BONE DENSITY STUDY 1+ SITS [...] (World Health Organization Fracture Risk Assessment) [facility] recommends using National [...] (World Health Organization Fracture Risk Assessment) [facility] recommendsusing National Osteoporosis [...] Resu lt * Hepatitis C Screening (01/14/2018) Hepatitis C Screening Abstracted us Historical Provider HEALTH MAINTENANCE Final Result from Last 3 Months or Most Recently Relevant to Health Maintenance Insurance [facility] Member Subscriber Plan / Payer (Ef fective 2022-Present) Name:Pavel BrittMarcelle Relation to Subscriber:Self Name:Heri Zhaoabel Payer ID:[id number] Group ID:[id number] Type:Not on file Address: [address] [place] [phone] Advance Directives * Full Code - Confirmed (Latest Code Status on File) Date Activated Date Inactivated Comments 05/10/2025 2:46 PM This code stat us was ascertained in the following way: Code status discussion: discussion with patient To update the patient's code status, place a code status order. Do not modify or discontinue any currently active code status orders. Care Teams Conveyor System Operator Relationship Specialty Start Date End Date Virginia Randhawa MD [address] [place] [phone] PCP - General 11/04/23
--- OUTSIDE RECORDS SUMMARY | 2025-09-19 16:47 | XMS_ITS | Clinical Summary ---
Author Organization [facility] Prior to 02/25/25 Address [address] [place] [address] Care Team Providers Care [facility] Name Role Phone Zenia Shepherd MD Primary Care Provider [phone] Allergies Active Allergy Reactions Criticality Noted Date [...] 03/19/2015 Overview: Overview: Previous work related injury 2008 Family history of breast cancer 09/08/2012 Family [...] age to complete this topic Care Teams [facility] Relationship Specialty Start Date End Date Zenia Shepherd MD PCP - General Internal Medicine 05/07/17
== END 2025-09-19 15:47 | disposition home or self-care (01) ==
LOC: HO.US 15:46
PROVIDERS: PCP Student in an Organized Health Care Education/Training Program; Visit Provider Obstetrics & Gynecology
DX: N95.0 Postmenopausal bleeding (principal)
CPT/HCPCS: 76830; 76856

== ENCOUNTER → 2025-09-19 15:49 | Outpatient (BNV) | payer OTHER, SELFPAY | PROVIDERS: PCP Student in an Organized Health Care Education/Training Program; Visit Provider Radiology Diagnostic Radiology | DX: N95.0 Postmenopausal bleeding (principal) | CPT/HCPCS: 76830; 76856 ==

== ENCOUNTER 2025-09-25 10:15 | Outpatient (AMB) | payer OTHER, SELFPAY ==
--- NOTE | 2025-09-25 10:20 | MHC.OFFVIS ---
Vital Signs 09/25/25 10:27 Height 5 ft 5 in Weight 119 lb BMI 19.8 BP 112/66 Intake Visit Reasons: ultrasound results Sales Professional Bilingual Required: No Information Interpreted: non-clinical & clinical Accompanied by: Self / Same As Patient Allergies Penicillins Allergy (Severe, Verified 09/25/25 10:28) Vomiting hydroxychloroquine Allergy (Verified 09/25/25 10:28) Unknown HPI Comments Details: Presenting for ultrasound follow-up regarding multiple episode of postmenopausal bleeding. Last mammogram 08/22/2025 was BI-RADS 1 Last Co testing on 07/22 was negative Pelvic ultrasound showed the following: Uterus: The uterus is anteflexed and measures 5.2 x 2.3 x 3.3 cm. There is a small amount of fluid in the endometrial canal. The double wall endometrial thickness is 4 mm. The uterus is smooth in contour and has normal myometrial echogenicity. No visible fibroid. Adnexa: Ovaries were not demonstrated. [facility] Medical History Varicose vein of leg Varicose veins of left lower extremity Greater trochanteric bursitis Adhesive capsulitis of right shoulder Spondylosis of lumbar region without myelopathy or radiculopathy Anxiety and depression VINCE positive Centromere antibody positive Left lumbar radiculitis Fibromyalgia Degenerative disc disease, cervical Cervical spondylosis Surgical History History of conization of cervix History of loop electrical excision procedure (LEEP) History of colposcopy History of tubal ligation Family History Mother Breast cancer Maternal Aunt Breast cancer Family/Other Breast cancer Paternal Grandmother Throat cancer Sister Anemia Brother HTN (hypertension) Diabetes Son HTN (hypertension) Diabetes Father Diabetes Social History Household Members: None Housing: Apartment Alcohol intake: never Patient Tobacco Use Status: Never used Tobacco Second Hand Smoke Exposure: No service: No Current occupational status: retired Sexual orientation: Straight/Heterosexual Gender identity: Female Review of Systems Const All systems reviewed & are unremarkable except as noted in HPI and below Reports as per HPI and Reports no additional complaints GI Reports no additional complaints Reports no additional complaints Assessment & Plan Assessment & Plan (1) Postmenopausal bleeding: Code(s): N95.0 - Postmenopausal bleeding Plan: Discussed with the patient the pelvic ultrasound findings, the endometrial stripe thickenss measured by ultrasound was 4mm. The negative predictive value, positive predictive value, Sensitivity, specificity of using ultrasound measurement of endometrial stripe to detecting endometrial pathology including hyperplasia , polyp or cancer were discussed with the patient. Since the patient had multiple episodes of postmenopausal bleeding, Recommended to the patient that the next step is an endometrial sampling via hysteroscopy D&C possible polypectomy versus endometrial biopsy to r/o endometrial pathology including hyperplasia or cancer. All the pros and cons risks and benefits of each approach were discussed with the patient, endometrial biopsy being less invasive, office procedure with less sensitivity and inability diagnose a polyp and removal versus hysteroscopy done under anesthesia more invasive more sensitive to endometrial cancer and possibility of diagnosing and endometrial polyp with the possibility of polypectomy. All questions were answered pt verbalized understanding and decided to proceed with endometrial biopsy EMB attempted, could not be tolerated by the patient, the patient requested the procedure to be aborted. Given the patient is complex medical history including stage III CKD, will refer to to a tertiary care center where more resources are available, [facility]. Instructed the patient to call our office back in case a referral appointment is not scheduled, missed or canceled so that we will assist on rescheduling another appointment, the patient verbalized understanding agreed with the plan. Coding Level of Care Code Est Pt Level 3 (11845) Diagnoses Postmenopausal bleeding N95.0
[2025-09-25 10:27] VITALS: BP 112/66; BMI 19.8
--- OUTSIDE RECORDS SUMMARY | 2025-09-25 11:33 | XMS_ITS | Clinical Summary ---
Author Organization [facility] Address [address] [phone] Phone Care Team Providers Care Tile Trimmer Name Role Phone Virginia Randhawa Primary Care Provider [phone] Social History Tobacco Use Types Packs/Day Years Used Date Smoking Tobacco: Never Assessed Comments Unknown Sex and Gender Information Value Date Recorded Sex Assigned at Not on file Legal Sex Female 9:21 AM EST Gender Identity Not on file Sexual Orientation Not on file Plan of Treatment Upcoming Encounters Date Type Department Care Team (Late st Contact Info) Description 12/04/2025 9:45 AM EDT Office Visit [facility] [address] [phone] Alfonso Lee MD [address] [phone] Health Maintenance Due Date Last Done Comments Breast Cancer Screening 1959 Pneumococcal Vaccine: 50+ Ye ars (1 of 2 - PCV) 1978 Colorectal Cancer Screening: Annual FOBT 2008 Colorectal Cancer Screening: Colonoscopy 2008 Colorectal Cancer Screening: Sigmoidoscopy 2008 Influenza Vaccine (#1) 2025 Hepatitis B Vaccine Aged Out No longe r eligible based on patient's age to complete this topic Insurance [facility] ([id number]) [place] [phone] Care Teams Tile Trimmer Relationship Specialty Start Date End Date Virginia Randhawa [address] [place] [phone] PCP - General 09/20/25
--- OUTSIDE RECORDS SUMMARY | 2025-09-25 11:33 | XMS_ITS | Clinical Summary ---
Author Organization [facility] Address [address] [place] [address] Phone Care Team Providers Care Repair Weaver Name Role Phone Virginia Randhawa MD Primary Care Provider [phone] Allergies Active Allergy Reactions Criticality Noted Date [...] review her lumbar MRI done 04/30/2024 at [facility], she complains of persistent significant pain [...] of diabetes. MRI lumbar spine 04/30/2024 at [facility] shows L5-S1 disc bulge, small extruded [...] with her neck, has EMG scheduled at [facility] in May, we can try to see if we can get a sooner date at [facility]. Fibromyalgia 10/12/2019 Left lumbar radiculitis 06/08/2018 Centromere [...] Team Description 09/12/2025 Results Follow-Up Internal Medicine [address] [place] [phone] Virginia Randhawa MD 09/11/2025 2:45 PM EST Lab Draw Station - [address] [place] [address] [address] [place] [phone] BROCK (acute kidney injury) ([facility] V24) 09/11/2025 1:45 PM EST Office Visit Internal Medicine [address] [place] [phone] Virginia Randhawa MD Dizziness (Primary Dx); Light headedness; Abnormal laboratory test result; Pre-diabetes; Mixed hyperlipidemia; Scleroderma (CMS/HCC V24, CMS/[facility] V28); Fibromyalgia; VINCE positive 09/04/2025 Telephone Internal Medicine [address] [phone] Vigrinia Randhawa MD 09/04/2025 Telephone Internal Medicine [address] [place] [phone] Virginia Randhawa MD 07/19/2025 Telephone Internal Medicine [address] [phone] Virginia Randhawa MD from Last 3 Months [...] Low back pain DX:Low back pain Neutropenia ([facility] V24) DX:Rey tropenia ([facility] [...] lumbar radiculitis 06/08/2018 DX:Left lumbar radiculitis Scleroderma (CMS/[facility] V24, CMS/[facility] V28) DX:Scleroderma ([facility]) Fibromyalgia DX:Fibromyalgia Osteopenia DX:Osteopenia Adhesive capsulitis [...] Upcoming Encounters Date Type Department Care Team ([facility] Contact Info) Description 09/26/2025 1:00 PM EST Nutrition Internal Medicine [address] [phone] Lucia Mendez, RD [address] [place] [phone] 11/13/2025 2:15 PM EST Office Visit Internal Medicine [address] [phone] Virginia Randhawa MD [address] [phone] Health Maintenance Due Date Last Done Comments [...] 133 - 145 mmol/L 09/11/2025 6:28 PM [facility] Potassium 4.0 3.5 - 5.5 mmol/L 09/11/2025 6:28 PM [facility] Chloride 98 96 - 110 mmol/L 09/11/2025 6:28 PM [facility] CO2 32 21 - 32 mmol/L 09/11/2025 6:28 PM [facility] Anion Gap 9 3 - 11 09/11/2025 6:28 PM [facility] Glucose 88 70 - 100 mg/dL 09/11/2025 6:28 PM [facility] BUN 13 5 - 25 mg/dL 09/11/2025 6:28 PM [facility] Creatinine 1.20(H) 0.50 - 1.10 mg/dL 09/11/2025 6:28 PM [facility] eGFR 50(L) >=60 mL/min/1. 73m2 09/11/2025 6:28 PM [facility] Comment:Calculation based on the Chronic Kidney Disease Epidemiology Collaboration (CKD-EPI) equation refit without adjustment for race. BUN/Creatinine Ratio 10.8 09/11/2025 6:28 PM [facility] Calcium 9.2 8.5 - 10.5 mg/dL 09/11/2025 6:28 PM [facility] Blood Venous blood specimen / Unknown Venipuncture / Unknown 09/11/2025 2:40 PM EST 09/11/2025 2:40 PM EST Virginia Randhawa MD LAB BLOOD ORDERABLES Final Resul t [facility] [address] [place] [address], [place] [phone] * External Mammogram Report (08/21/2025) Only the [...] LAB CHEMISTRY METHOD 05/18/2025 5:33 PM EDT [facility] Triglycerides 118 0 - 150 mg/dL LAB CHEMISTRY METHOD 05/18/2025 5:33 PM EDT [facility] HDL 76 >=40 mg/dL LAB CHEMISTRY METHOD 05/18/2025 5:33 PM EDT [facility] LDL Calculated 139(H) 0 - 100 mg/dL LAB CHEMISTRY METHOD 05/18/2025 5:33 PM T [facility] Comment:Estimated LDL Calcul ated using equation: Total cholesterol - HDL cholesterol - (Triglycerides/5) VLDL Cholesterol Carlos 23.6 mg/dL LAB CHEMISTRY METHOD 05/18/2025 5:33 PM EDT [facility] Non HDL Chol. (LDL+VLDL) 163(H) <145 mg/dL LAB CHEMISTRY METHOD 05/18/2025 5:33 PM EDT [facility] Chol/HDL Ratio 3.1 0.0 - 4.4 LAB CHEMISTRY METHOD 05/18/2025 5:33 PM EDT [facility] Blood Venous blood specimen / Unknown Venipuncture / Unknown 05/18/2025 1:20 PM EDT 05/18/2025 1:30 PM EDT Virginia Randhawa MD LAB BLOOD ORDERABLES Final Resul t [facility] [address] [place] [address], * DXA BONE DENSITY STUDY 1+ SITS [...] Most Recently Relevant to Health Maintenance Insurance [facility] Member Subscriber Plan / Payer (Ef fective 2022-Present) Name:Pavel BrittMarcelle Relation to Subscriber:Self Name:Heri Zhaoabel Payer ID:[id number] Group ID:[id number] Type:Not on file Address: [address] [place] [phone] Advance Directives * Full Code - Confirmed (Latest Code Status on File) Date Activated Date Inactivated Comments 05/10/2025 2:46 PM This code stat us was ascertained in the following way: Code status discussion: discussion with patient To update the patient's code status, place a code status order. Do not modify or discontinue any currently active code status orders. Care Teams Repair Weaver Relationship Specialty Start Date End Date Virginia Randhawa MD [address] [place] [phone] PCP - General 11/04/23
--- OUTSIDE RECORDS SUMMARY | 2025-09-25 11:33 | XMS_ITS | Clinical Summary ---
Author Organization [facility] Address [address] [place] [id number] Phone Care Team Providers Care Chief Risk Officer Name Role Phone Aguila Andres MD Primary Care Provider [phone] Social History Tobacco Use Types Packs/Day Years [...] topic Medical Devices Not on file Insurance [facility] MEDIC[facility] PART A & B [facility] REPLACEMENT [facility] B [facility]PLACEMENT [facility] B [facility] MEDIC[facility]PLACEMENT [facility] MEDIC[facility] PART A & B [facility] MEDIC[facility]PLACEMENT [facility] MEDIC[facility] PART A & B [facility] MEDIC[facility]PLACEMENT [facility] A [facility] B [facility] MEDIC[facility]PLACEMENT [facility] A & B [facility] MEDIC[facility]PLACEMENT [facility] MEDIC[facility] PART A & B [facility] MEDIC[facility]PLACEMENT [facility] MEDIC[facility] PART A & B [facility] MEDIC[facility] REPLACEMENT Care Teams Chief Risk Officer Relationship Specialty Start Date End Date Aguila Andres MD [address] [place] [address] PCP - General Internal Medicine 01/03/22 Additional Source Comments The information contained in this document represents components of the legal health record. It is not the complete legal health record.[facility]
--- OUTSIDE RECORDS SUMMARY | 2025-09-25 11:33 | XMS_ITS | Clinical Summary ---
Author Organization [facility] [employer] [facility] Prior to 02/25/25 Address [address] [place] [address] Care Team Providers Care Education Technician Name Role Phone Zenia Shepherd MD Primary Care Provider [phone] Allergies Active Allergy Reactions Criticality Noted Date [...] age to complete this topic Care Teams Education Technician Relationship Specialty Start Date End Date Zenia Shepherd MD PCP - General Internal Medicine 05/07/17
--- OUTSIDE RECORDS SUMMARY | 2025-09-25 11:33 | XMS_ITS | Encounter Summary ---
Author Organization [facility] Address [address] [place] [address] Care Team Providers Care Aircraft Mechanic Armament Name Role Phone Virginia Randhawa MD Primary Care Provider [phone] Encounter Details Date Type Department Care Team (Late Contact Info) Description 09/04/2025 Telephone Internal Medicine [facility] [address] [phone] Virginia Randhawa MD [address] [phone] Social History Tobacco Use Types [...] 09/26/2025 1:00 PM EST Nutrition Internal Medicine [address] [phone] Lucia Mendez, [place] [address] [place] [address] 11/13/2025 2:15 PM EST Office Visit Internal Medicine [address] [phone] Virginia Randhawa MD [address] [phone] documented as of this encounter Visit Diagnoses Not on filedocumented in this encounter Additional Health Concerns Assessment Noted Time PHQ-9 Depression Total Score: 1 05/10/20 25 2:25 PM EDT documented as of this encounter Care Teams Aircraft Mechanic Armament Relationship Specialty Start Date End Date Virginia Randhawa MD [address] [phone] PCP - General 11/04/23 documented as of this encounter
--- OUTSIDE RECORDS SUMMARY | 2025-09-25 11:33 | XMS_ITS | Encounter Summary ---
Author Organization [facility] Address [address] [place] [address] Care Team Providers Care Loss Prevention Investigator Name Role Phone Virginia Randhawa MD Primary Care Provider [phone] Reason for Referral * Consultation (Routine) - Closed Specialty Diagnoses / Procedures Referred By Contac t Referred To Contact Nephrology Diagnoses Stage 3a chronic kidney disease (CMS/HCC V24, CMS/HCC V28) Virginia Randhawa MD [address] [place] [address] Phone: tel: fax: [facility] [address] [place] [address] Phone: tel: fax: Referral ID Status Reason Start Date Expiration Date V isits Requested Visits Authorized [id number] Closed Specialty Services Required 09/12/2025 09/12/2026 12 12 Encounter Details Date Type Department Care Team (Late st Contact Info) Description 09/12/2025 Results Follow-Up Internal Medicine - [place] 175 [facility] [address] [place] [phone] Virginia Randhawa MD [address] [phone] Social History Tobacco Use Types [...] 1:00 PM EST Nutrition Internal Medicine - [place] [address] [phone] Lucia Mendez, RD [address] [place] [phone] 11/13/2025 2:15 PM EST Office Visit Internal Medicine [address] [phone] Virginia Randhawa MD [address] [phone] Scheduled Referrals Name Type Priority [...] documented as of this encounter Care Teams Loss Prevention Investigator Relationship Specialty Start Date End Date Virginia Randhawa MD [address] [phone] PCP - General 11/04/23 documented as of this encounter
== END 2025-09-25 11:06 | disposition home or self-care (01) ==
LOC: HO.HWS 10:15
PROVIDERS: PCP Student in an Organized Health Care Education/Training Program; Visit Provider Obstetrics & Gynecology
DX: N95.0 Postmenopausal bleeding (principal)
CPT/HCPCS: 99213

== ENCOUNTER → 2025-09-25 10:15 | Outpatient (BNVA) | payer OTHER, SELFPAY | PROVIDERS: PCP Student in an Organized Health Care Education/Training Program; Visit Provider Obstetrics & Gynecology | DX: N95.0 Postmenopausal bleeding (principal); Z98.51 Tubal ligation status | CPT/HCPCS: 99212 ==